=== PATIENT | female | born 1965 ===

== ENCOUNTER 2020-09-16 07:10 | Outpatient (REF) | payer OTHER, SELFPAY ==
[2020-09-16 11:26] LABS: Glucose Urine UA NEG (NEG); Leukocyte Esterase Urine NEG (NEG); Nitrite Urine NEG (NEG); Specific Gravity - Urine >= 1.030 (1.005-1.025); Urine Blood NEG (NEG); Urine Ketones NEG (NEG); Urine Protein TRACE MG/DL (NEG-TRACE)
[2020-09-16 11:28] LABS: Hematocrit 44.1 % (37-47); Hemoglobin 14.1 g/dl (12.0-16.0); Mean Corpuscular Hemoglobin 29.1 pg (27.0-33.0); Mean Corpuscular Volume 90.9 fL (80-98); Mean Platelet Volume 11.1 fL (9.4-12.3); Platelet Count 208 X10*3/uL (160-400); Red Blood Count 4.85 X10*6/uL (4.20-5.50); Red Cell Distribution Width 11.9 % (11.0-16.0); White Blood Count 6.3 X10*3/uL (4.8-10.8)
[2020-09-16 11:29] LABS: Appearance Urine TURBID; Color Urine YELLOW
[2020-09-16 11:50] LABS: Alanine Aminotransferase 28 U/L (0-31); Albumin Level 4.2 g/dL (3.5-5.0); Alkaline Phosphatase 65 U/L (39-117); Anion Gap 12 (12-20); Aspartate Amino Transferase 24 U/L (5-31); Bilirubin Total 0.9 mg/dL (0.0-1.0); Blood Urea Nitrogen 17 mg/dL (9-16); Calcium 8.8 mg/dL (8.4-10.2); Carbon Dioxide 30 mmol/L (22-29); Chloride 103 mmol/L (96-108); Cholesterol 227 mg/dL; Estimated Glomerular Filt Rate > 60; Glucose Fasting 91 mg/dL (60-99); HDL Cholesterol 49 mg/dL; LDL Cholesterol Calculated 134 mg/dl; Potassium 4.2 mmol/l (3.3-5.1); Sodium 141 mmol/L (135-145); Total Protein 6.3 g/dL (6.5-8.0); Triglycerides 222 mg/dL
[2020-09-16 12:01] LABS: Thyroid Stimulating Hormone 1.96 mIU/mL (0.32-4.0)
== END 2020-09-16 07:11 | disposition home or self-care (01) ==
LOC: HO.HMGCLDS 07:10
PROVIDERS: PCP Internal Medicine; Visit Provider Internal Medicine
DX: Z01.419 Encounter for gynecological examination (general) (routine) without abnormal findings (principal); Z87.891 Personal history of nicotine dependence
CPT/HCPCS: 36415; 80053; 80061; 81003; 84443; 85027

== ENCOUNTER 2020-10-22 16:10 | Outpatient (REF) | payer OTHER, SELFPAY | END 2020-10-22 16:11 | disposition home or self-care (01) | LOC: HO.LAB 16:10 | PROVIDERS: Visit Provider Hospitalist | DX: Z20.828 Contact with and (suspected) exposure to other viral communicable diseases (principal) | CPT/HCPCS: U0003 ==

== ENCOUNTER 2020-12-20 12:44 | Outpatient (REF) | payer OTHER, SELFPAY ==
[2020-12-20 14:42] LABS: TSH reflex Free T4 0.74 uIU/mL (0.32-4.0)
== END 2020-12-20 12:45 | disposition home or self-care (01) ==
LOC: HO.HMGCLDS 12:44
PROVIDERS: PCP Internal Medicine; Visit Provider Internal Medicine
DX: L65.9 Nonscarring hair loss, unspecified (principal)
CPT/HCPCS: 36415; 84443

== ENCOUNTER → 2021-01-28 07:53 | Outpatient (BNVA) | payer OTHER, SELFPAY | PROVIDERS: PCP Internal Medicine; Visit Provider Nurse Practitioner Gerontology ==

== ENCOUNTER 2021-01-31 16:02 | Outpatient (REF) | payer OTHER, SELFPAY ==
--- NOTE | ~2021-01-31 | XR_ITS ---
EXAMINATION: XR HAND, RIGHT CLINICAL INFORMATION: Pain right hand. COMPARISON: None. TECHNIQUE: PA, lateral, and oblique views of the right hand. FINDINGS: There is minimal loss of PIP and DIP joint space of all digits. No bony erosive changes seen. No fracture or dislocation. The soft tissues are normal. XR/XR hand RT min 3V IMPRESSION: Loss of PIP and DIP joint space all digits, likely early degenerative arthritic changes.
== END 2021-01-31 16:03 | disposition home or self-care (01) ==
LOC: HO.HMGCX 16:02
PROVIDERS: PCP Internal Medicine; Visit Provider Internal Medicine
DX: M79.641 Pain in right hand (principal)
CPT/HCPCS: 73130

== ENCOUNTER 2021-02-01 06:57 | Outpatient (REF) | payer OTHER, SELFPAY ==
[2021-02-01 08:09] LABS: Thyroid Stimulating Hormone 2.27 uIU/mL (0.32-4.0)
[2021-02-02 16:57] LABS: Adrenocorticotropic Hormone 32 pg/mL (6-50)
[2021-02-02 18:32] LABS: DHEA Sulfate 55 mcg/dL (8-188); Sex Hormone Binding Globulin 54 nmol/L (14-73)
[2021-02-05 15:52] LABS: Androstenedione 55 ng/dL
[2021-02-05 16:37] LABS: Testosterone, Free 2.2 pg/mL (0.1-6.4); Testosterone, Total 21 ng/dL (2-45)
== END 2021-02-01 06:58 | disposition home or self-care (01) ==
LOC: HO.LAB 06:57
PROVIDERS: PCP Internal Medicine; Visit Provider Nurse Practitioner Gerontology
DX: L65.9 Nonscarring hair loss, unspecified (principal); E03.9 Hypothyroidism, unspecified
CPT/HCPCS: 36415; 82024; 82157; 82533; 82627; 84146; 84270; 84402; 84403; 84439; 84443

== ENCOUNTER → 2021-02-18 13:54 | Outpatient (BNVA) | payer OTHER, SELFPAY | PROVIDERS: PCP Internal Medicine; Visit Provider Internal Medicine ==

== ENCOUNTER 2021-02-22 07:27 | Outpatient (REF) | payer OTHER, SELFPAY ==
[2021-02-23 08:57] LABS: Thyroglobulin Antibodies <1 IU/mL (< or = 1); Thyroid Peroxidase Antibodies <1 IU/mL (<9)
[2021-02-23 17:02] LABS: Adrenocorticotropic Hormone <5 pg/mL (6-50)
[2021-03-02 12:22] LABS: Dexamethasone 367 ng/dL
== END 2021-02-22 07:28 | disposition home or self-care (01) ==
LOC: HO.LAB 07:27
PROVIDERS: PCP Internal Medicine; Visit Provider Internal Medicine
DX: E66.09 Other obesity due to excess calories (principal); E03.9 Hypothyroidism, unspecified; R79.89 Other specified abnormal findings of blood chemistry; Z87.891 Personal history of nicotine dependence
CPT/HCPCS: 36415; 80299; 82024; 82533; 86376; 86800; 97802

== ENCOUNTER 2021-03-14 13:06 | Outpatient (REF) | payer OTHER, SELFPAY ==
--- NOTE | ~2021-03-14 | US_ITS ---
EXAMINATION: US THYROID CLINICAL INFORMATION: Hypothyroidism, unspecified. COMPARISON: Thyroid ultrasound 06/11/2017, ultrasound soft tissue neck 07/04/2017. TECHNIQUE: Linear transducer grayscale and color Doppler examination with attention to the region of the thyroid. FINDINGS: SIZE: Measurements of the thyroid lobes and nodules are given in sagittal, anteroposterior and transverse dimensions respectively. Right Thyroid Lobe: 4.3 x 1.4 x 1.2 cm, volume 3.8 mL. Previously 4.1 x 1.3 x 1.2 cm, volume 3.1 mL. Parenchyma: The gland echotexture is heterogeneous. Thyroid vascularity is normal. Left Thyroid Lobe: 4.2 x 1.1 x 1.0 cm, volume 2.4 mL. Previously 3.6 x 0.9 x 1.0 cm, volume 1.8 mL. Parenchyma: The gland echotexture is heterogeneous. Thyroid vascularity is normal. Isthmus: 0.3 cm in maximum AP dimension. Previously 0.3 cm. No focal thyroid nodule is seen. NODES: No lymphadenopathy is seen in the tissue surrounding the thyroid gland. US/US thyroid IMPRESSION: 1. Small heterogeneous thyroid without focal nodule. 2. No adenopathy in the adjacent soft tissues.
== END 2021-03-14 13:07 | disposition home or self-care (01) ==
LOC: HO.HMGCX 13:06
PROVIDERS: PCP Internal Medicine; Visit Provider Internal Medicine
DX: E03.9 Hypothyroidism, unspecified (principal)
CPT/HCPCS: 76536

== ENCOUNTER → 2021-03-22 11:28 | Outpatient (BNVA) | payer OTHER, SELFPAY | PROVIDERS: PCP Internal Medicine; Visit Provider Dietitian, Registered | DX: E66.09 Other obesity due to excess calories (principal); Z68.30 Body mass index [BMI] 30.0-30.9, adult | CPT/HCPCS: 97803 ==

== ENCOUNTER → 2021-03-28 07:37 | Outpatient (BNVA) | payer OTHER, SELFPAY | PROVIDERS: PCP Internal Medicine; Visit Provider Internal Medicine ==

== ENCOUNTER 2021-04-25 15:36 | Outpatient (REF) | payer OTHER, SELFPAY ==
--- NOTE | ~2021-04-25 | MM_ITS ---
EXAMINATION: MM SCREENING DIGITAL BREAST TOMOSYNTHESIS, BILATERAL CLINICAL INFORMATION: Screening. Asymptomatic. The lifetime risk of breast cancer based on the Tyrer-Cuzick Model is 7%. COMPARISON: Mammography: 10/28/2019, 09/16/2018, 02/05/2017, 08/02/2015, 04/20/2014 TECHNIQUE: Digital breast tomosynthesis is performed in both the craniocaudal and mediolateral oblique views along with computer-aided detection (CAD). Synthesized 2D images are generated from the tomosynthesis. FINDINGS: The breasts are heterogeneously dense, which may obscure small masses (ACR BI-RADS breast composition Category c). There are no significant masses, abnormal calcifications, or other abnormalities. Parenchymal pattern is similar to prior studies. There is no developing density or interval mass. No architectural abnormality. No abnormal calcifications. The axilla and skin contours are unremarkable. MM/MM tomosynthesis screening BI IMPRESSION: No significant changes from prior studies. ASSESSMENT: BI-RADS 2: Benign RECOMMENDATION: Routine annual mammography screening. This patient's information was entered into a reminder system with a target due date for their next mammogram.
== END 2021-04-25 15:37 | disposition home or self-care (01) ==
LOC: HO.MAMMO 15:36
PROVIDERS: PCP Internal Medicine; Visit Provider Internal Medicine
DX: Z12.31 Encounter for screening mammogram for malignant neoplasm of breast (principal)
CPT/HCPCS: 77063; 77067

== ENCOUNTER → 2021-05-30 13:06 | Outpatient (BNVA) | payer OTHER, SELFPAY | PROVIDERS: PCP Internal Medicine; Visit Provider Dietitian, Registered | DX: E66.09 Other obesity due to excess calories (principal); Z68.31 Body mass index [BMI] 31.0-31.9, adult | CPT/HCPCS: 97803 ==

== ENCOUNTER 2021-06-28 06:39 | Outpatient (REF) | payer OTHER, SELFPAY ==
[2021-06-28 11:23] LABS: Glucose Urine UA NEG (NEG); Leukocyte Esterase Urine NEG (NEG); Nitrite Urine NEG (NEG); PH 5.5 (5.0-8.0); Specific Gravity - Urine >= 1.030 (1.005-1.025); Urine Blood TRACE (NEG); Urine Ketones NEG (NEG); Urine Protein NEG (NEG-TRACE)
[2021-06-28 11:26] LABS: Appearance Urine CLOUDY; Color Urine YELLOW
[2021-06-28 11:32] LABS: Hematocrit 43.4 % (37-47); Mean Corpuscular HGB Conc 32.3 g/dl (31.0-35.0); Mean Corpuscular Hemoglobin 29.3 pg (27.0-33.0); Mean Corpuscular Volume 90.8 fL (80-98); Mean Platelet Volume 11.2 fL (9.4-12.3); Platelet Count 184 X10*3/uL (160-400); Red Blood Count 4.78 X10*6/uL (4.20-5.50); Red Cell Distribution Width 12.7 % (11.0-16.0); White Blood Count 5.9 X10*3/uL (4.8-10.8)
[2021-06-28 11:38] LABS: Amorphous Sediment Urine 3+ /LPF; Mucus Urine 3+ /LPF; Squamous Epithelial Cell Urine 1+ /LPF; WBC Urine 0 /HPF (0-4)
[2021-06-28 11:52] LABS: Alanine Aminotransferase 39 U/L (0-31); Albumin Level 3.9 g/dL (3.5-5.0); Alkaline Phosphatase 69 U/L (39-117); Anion Gap 12 (12-20); Aspartate Amino Transferase 26 U/L (5-31); Bilirubin Total 0.2 mg/dL (0.0-1.0); Blood Urea Nitrogen 21 mg/dL (9-16); Calcium 9.2 mg/dL (8.4-10.2); Carbon Dioxide 27 mmol/L (22-29); Chloride 107 mmol/L (96-108); Cholesterol 229 mg/dL; Estimated Glomerular Filt Rate 57; Glucose Fasting 100 mg/dL (60-99); HDL Cholesterol 51 mg/dL; LDL Cholesterol Calculated 145 mg/dl; Potassium 4.4 mmol/L (3.3-5.1); Sodium 142 mmol/L (135-145); Triglycerides 167 mg/dL
[2021-06-28 12:17] LABS: Ferritin 47 ng/mL (10-250); Vitamin D 25-OH Total 65.3 ng/mL (>30)
[2021-06-28 12:22] LABS: Folate 17.2 ng/mL (> or = 4.0); Vitamin B12 354 pg/mL (200-900)
[2021-07-04 05:18] LABS: Vitamin D 25-OH, D2 <4 ng/mL; Vitamin D 25-OH, D3 61 ng/mL; Vitamin D 25-OH, Total 61 ng/mL (30-100)
== END 2021-06-28 06:40 | disposition home or self-care (01) ==
LOC: HO.HMGCLDS 06:39
PROVIDERS: PCP Internal Medicine; Visit Provider Dermatology
DX: L64.8 Other androgenic alopecia (principal); L65.0 Telogen effluvium; E03.9 Hypothyroidism, unspecified; E55.9 Vitamin D deficiency, unspecified; I10 Essential (primary) hypertension
CPT/HCPCS: 36415; 80053; 80061; 81001; 82306; 82607; 82728; 82746; 85027

== ENCOUNTER → 2021-09-19 08:20 | Outpatient (BNVA) | payer OTHER, SELFPAY | PROVIDERS: PCP Internal Medicine; Visit Provider Advanced Practice Midwife ==

== ENCOUNTER 2021-10-04 12:41 | Outpatient (REF) | payer OTHER, SELFPAY ==
[2021-10-04 14:15] LABS: Alanine Aminotransferase 31 U/L (0-31); Albumin Level 4.1 g/dL (3.5-5.0); Alkaline Phosphatase 75 U/L (39-117); Anion Gap 10 (12-20); Aspartate Amino Transferase 23 U/L (5-31); Bilirubin Total 0.5 mg/dL (0.0-1.0); Blood Urea Nitrogen 16 mg/dL (9-16); Calcium 9.1 mg/dL (8.4-10.2); Carbon Dioxide 27 mmol/L (22-29); Chloride 104 mmol/L (96-108); Cholesterol 222 mg/dL; Estimated Glomerular Filt Rate > 60; Glucose Fasting 123 mg/dL (60-99); HDL Cholesterol 52 mg/dL; LDL Cholesterol Calculated 138 mg/dl; Potassium 4.3 mmol/L (3.3-5.1); Sodium 137 mmol/L (135-145); Total Protein 6.1 g/dL (6.5-8.0); Triglycerides 163 mg/dL
[2021-10-04 14:16] LABS: Appearance Urine CLEAR; Color Urine YELLOW; Glucose Urine UA NEG (NEG); Leukocyte Esterase Urine NEG (NEG); Nitrite Urine NEG (NEG); Specific Gravity - Urine 1.015 (1.005-1.025); Urine Blood NEG (NEG); Urine Ketones NEG (NEG); Urine Protein NEG (NEG-TRACE)
[2021-10-04 14:31] LABS: Free T4 (Free Thyroxine) 1.13 ng/dL (0.71-1.85); Thyroid Stimulating Hormone 0.46 uIU/mL (0.32-4.0)
[2021-10-04 14:37] LABS: Vitamin D 25-OH Total 65.2 ng/mL (>30)
[2021-10-04 14:45] LABS: Squamous Epithelial Cell Urine 2+ /LPF
[2021-10-04 14:46] LABS: Bacteria Urine TRACE /LPF; RBC Urine 0 /HPF (0); WBC Urine 0 /HPF (0-4)
== END 2021-10-04 12:42 | disposition home or self-care (01) ==
LOC: HO.LAB 12:41
PROVIDERS: PCP Internal Medicine; Visit Provider Internal Medicine
DX: E03.9 Hypothyroidism, unspecified (principal); E55.9 Vitamin D deficiency, unspecified; I10 Essential (primary) hypertension
CPT/HCPCS: 36415; 80053; 80061; 81001; 82306; 84439; 84443

== ENCOUNTER → 2021-10-05 11:14 | Outpatient (BNVA) | payer OTHER, SELFPAY | PROVIDERS: PCP Internal Medicine; Visit Provider Nurse Practitioner Gerontology ==

== ENCOUNTER → 2021-10-07 11:29 | Outpatient (BNVA) | payer OTHER, SELFPAY | PROVIDERS: PCP Internal Medicine; Visit Provider Advanced Practice Midwife ==

== ENCOUNTER → 2021-12-26 14:11 | Outpatient (BNVA) | payer OTHER, SELFPAY | PROVIDERS: PCP Internal Medicine; Visit Provider Dietitian, Registered | DX: E66.09 Other obesity due to excess calories (principal) | CPT/HCPCS: 97803 ==

== ENCOUNTER 2022-02-09 11:37 | Outpatient (REF) | payer OTHER, SELFPAY ==
[2022-02-09 12:02] LABS: Binax Internal Control QC Valid; Binax Now Covid-19 Ag Negative (Negative)
== END 2022-02-09 11:38 | disposition home or self-care (01) ==
LOC: HO.HMGCLDS 11:37
PROVIDERS: Visit Provider Physician Assistant Medical
DX: Z13.89 Encounter for screening for other disorder (principal)

== ENCOUNTER 2022-03-06 07:29 | Outpatient (REF) | payer OTHER, SELFPAY ==
[2022-03-06 11:39] LABS: Alanine Aminotransferase 32 U/L (0-31); Alkaline Phosphatase 76 U/L (39-117); Anion Gap 11 (12-20); Aspartate Amino Transferase 22 U/L (5-31); Bilirubin Total 0.3 mg/dL (0.0-1.0); Blood Urea Nitrogen 20 mg/dL (9-16); Calcium 9.5 mg/dL (8.4-10.2); Carbon Dioxide 26 mmol/L (22-29); Chloride 107 mmol/L (96-108); Cholesterol 221 mg/dL; Estimated Glomerular Filt Rate > 60; Glucose Fasting 102 mg/dL (60-99); HDL Cholesterol 53 mg/dL; LDL Cholesterol Calculated 133 mg/dl; Potassium 4.3 mmol/L (3.3-5.1); Sodium 140 mmol/L (135-145); Total Protein 6.2 g/dL (6.5-8.0); Triglycerides 175 mg/dL
[2022-03-06 11:56] LABS: Estimated Average Glucose 114 mg/dL; Ferritin 53 ng/mL (10-250); Hemoglobin A1c % 5.6 %; Vitamin D 25-OH Total 62.2 ng/mL (>30)
[2022-03-09 05:17] LABS: Zinc 76 mcg/dL (60-130)
== END 2022-03-06 07:30 | disposition home or self-care (01) ==
LOC: HO.HMGCLDS 07:29
PROVIDERS: PCP Internal Medicine; Visit Provider Dermatology
DX: I10 Essential (primary) hypertension (principal); R73.9 Hyperglycemia, unspecified; L64.8 Other androgenic alopecia; L65.0 Telogen effluvium
CPT/HCPCS: 36415; 80053; 80061; 82306; 82728; 83036; 84630

== ENCOUNTER 2022-06-05 16:14 | Outpatient (REF) | payer OTHER, SELFPAY ==
--- NOTE | ~2022-06-05 | MM_ITS ---
EXAMINATION: MM SCREENING DIGITAL BREAST TOMOSYNTHESIS, BILATERAL CLINICAL INFORMATION: Screening. Asymptomatic. The lifetime risk of breast cancer based on the Tyrer-Cuzick Model is 5%. COMPARISON: Mammography: 04/25/2021, 10/28/2019, 09/16/2018 TECHNIQUE: Digital breast tomosynthesis is performed in both the craniocaudal and mediolateral oblique views along with computer-aided detection (CAD). Synthesized 2D images are generated from the tomosynthesis. Additional exaggerated left CC view is provided. FINDINGS: The breasts are heterogeneously dense, which may obscure small masses (ACR BI-RADS breast composition Category c). There are no significant masses, abnormal calcifications, or other abnormalities. Parenchymal pattern is similar to prior exams. The axilla are unremarkable. Skin contours are smooth. No significant changes. MM/MM tomosynthesis screening BI IMPRESSION: No mammographic evidence of malignancy. ASSESSMENT: BI-RADS 1: Negative RECOMMENDATION: Routine annual mammography screening. This patient's information was entered into a reminder system with a target due date for their next mammogram.
== END 2022-06-05 16:15 | disposition home or self-care (01) ==
LOC: HO.MAMMO 16:14
PROVIDERS: Visit Provider Internal Medicine
DX: Z12.31 Encounter for screening mammogram for malignant neoplasm of breast (principal)
CPT/HCPCS: 77063; 77067

== ENCOUNTER 2022-10-19 06:51 | Outpatient (REF) | payer OTHER, SELFPAY ==
[2022-10-19 11:22] LABS: Hematocrit 44.2 % (37.0-47.0); Hemoglobin 14.4 g/dl (12.0-16.0); Mean Corpuscular HGB Conc 32.6 g/dl (31.0-35.0); Mean Corpuscular Hemoglobin 29.1 pg (27.0-33.0); Mean Corpuscular Volume 89.3 fL (80.0-98.0); Mean Platelet Volume 11.5 fL (9.4-12.3); Platelet Count 190 X10*3/uL (160-400); Red Blood Count 4.95 X10*6/uL (4.20-5.50); Red Cell Distribution Width 12.1 % (11.0-16.0); White Blood Count 5.8 X10*3/uL (4.8-10.8)
[2022-10-19 12:10] LABS: Estimated Average Glucose 114 mg/dL; Hemoglobin A1c % 5.6 %
[2022-10-19 12:19] LABS: Free T4 (Free Thyroxine) 1.04 ng/dL (0.71-1.85)
[2022-10-19 12:34] LABS: Alanine Aminotransferase 34 U/L (0-31); Albumin Level 3.9 g/dL (3.5-5.0); Alkaline Phosphatase 73 U/L (39-117); Anion Gap 9 (12-20); Aspartate Amino Transferase 23 U/L (5-31); Bilirubin Total 0.7 mg/dL (0.0-1.0); Blood Urea Nitrogen 21 mg/dL (9-16); Carbon Dioxide 27 mmol/L (22-29); Chloride 105 mmol/L (96-108); Cholesterol 225 mg/dL; Estimated Glomerular Filt Rate > 60; Glucose Fasting 109 mg/dL (60-99); HDL Cholesterol 44 mg/dL; LDL Cholesterol Calculated 145 mg/dl; Potassium 4.2 mmol/L (3.3-5.1); Sodium 137 mmol/L (135-145); Thyroid Stimulating Hormone 2.04 uIU/mL (0.32-4.0); Total Protein 5.9 g/dL (6.5-8.0); Triglycerides 181 mg/dL
== END 2022-10-19 06:52 | disposition home or self-care (01) ==
LOC: HO.HMGCLDS 06:51
PROVIDERS: Nurse Practitioner Gerontology; PCP Internal Medicine; Visit Provider Internal Medicine
DX: E78.5 Hyperlipidemia, unspecified (principal); I10 Essential (primary) hypertension; R73.9 Hyperglycemia, unspecified; E03.9 Hypothyroidism, unspecified
CPT/HCPCS: 36415; 80053; 80061; 83036; 84439; 84443; 85027

== ENCOUNTER 2022-10-23 14:50 | Outpatient (REF) | payer OTHER, SELFPAY ==
--- NOTE | ~2022-10-23 | XR_ITS ---
EXAMINATION: XR KNEE, LEFT CLINICAL INFORMATION: Pain. COMPARISON: None TECHNIQUE: Four views of the left knee. FINDINGS: There is a small superior patellar enthesophyte. The tricompartment joint space is preserved. No visible acute fracture, dislocation or spurring seen. No abnormal joint effusion. XR/XR knee LT 4V IMPRESSION: Small to moderate size superior patellar enthesophyte. No visible acute fracture, dislocation or subluxation seen.
== END 2022-10-23 14:51 | disposition home or self-care (01) ==
LOC: HO.HMGCX 14:50
PROVIDERS: PCP Internal Medicine; Visit Provider Internal Medicine
DX: M25.562 Pain in left knee (principal)
CPT/HCPCS: 73564

== ENCOUNTER 2022-11-15 11:39 | Outpatient (REF) | payer OTHER, SELFPAY ==
[2022-11-15 12:33] LABS: Influenza A PCR POSITIVE (Negative); Influenza B PCR NEGATIVE (Negative); Resp Syncy Virus RNA Qual PCR NEGATIVE (Negative); SARS COV2 PCR INHOUSE NEGATIVE (Negative)
== END 2022-11-15 11:40 | disposition home or self-care (01) ==
LOC: HO.LNP 11:39
PROVIDERS: Visit Provider Nurse Practitioner Family
DX: Z20.822 Contact with and (suspected) exposure to COVID-19 (principal); R68.89 Other general symptoms and signs
CPT/HCPCS: 0241U

== ENCOUNTER 2023-03-06 05:15 | Emergency (ER) | payer OTHER, SELFPAY ==
[2023-03-06 05:34] VITALS: BP 123/71; BP 130/68; PULSE 58; PULSE 60; RESP 17; RESP 18; TEMP 36.5; TEMP 37.1; O2SAT 96; BMI 30.1
--- NOTE | 2023-03-06 05:48 | PC.NURSE ---
pt a&o, no sob or chest pain, bleeding controlled, dressing applied, plus 2 edma to lower extremely, provider in to assess pt. Please is for pt to follow up with pcp upon discharge and keep dressing applied for next 2 days.
--- NOTE | 2023-03-06 05:53 | ED_ITS ---
HPI - General Adult General Chief complaint: General Medical Stated complaint: left leg vein bleeding Time Seen by Provider: 03/06/23 05:51 Source: patient Mode of arrival: ambulatory Limitations: no limitations History of Present Illness HPI narrative: Patient was healthy went to [facility] where got bitten by sand flieson her lower extremities, earlier today patient was taking shower and started bleedingfrom L leg superficial vein patient denies any scratching or wound at the site of bleeding patient went to [facility] where pressure dressing was appliedand bleeding controlled at this time Related Data Home Medications Medication Instructions Recorded Confirmed clobetasol 0.05 % topical cream 1 applic topical BID 09/16/20 11/15/22 cholecalciferol (vitamin D3) 50 50 mcg PO DAILY 03/28/21 11/15/22 mcg (2,000 unit) tablet estradiol 10 mcg vaginal tablet 10 mcg vaginal 2XW 03/13/22 11/15/22 (Yuvafem) ketoconazole 2 % topical cream appl topical BID PRN 03/13/22 11/15/22 estradiol 0.025 mg/24 hr 1 patch transdermal 2XW 10/23/22 11/15/22 semiweekly transdermal patch progesterone micronized 100 mg 100 mg PO DAILY 10/23/22 11/15/22 capsule Previous Rx's Medication Instructions Recorded conj estrogen-medroxyprogesterone 1 tab PO DAILY #28 tabs 11/25/21 0.3 mg-1.5 mg tablet (Prempro) atenolol 50 mg tablet 50 mg PO DAILY #90 tabs 12/27/21 irbesartan 300 mg tablet 300 mg PO DAILY #90 tabs 04/07/22 levothyroxine 100 mcg tablet 100 mcg PO DAILY #90 tabs 09/29/22 atenolol 25 mg tablet 25 mg PO DAILY #90 tabs 10/23/22 meloxicam 15 mg tablet 15 mg PO DAILY #14 tabs 10/25/22 albuterol sulfate 90 mcg/actuation 2 puff inhalation Q4-6H PRN 11/15/22 aerosol inhaler shortness of breath or wheezing 30 days #8.5 grams benzonatate 100 mg capsule 100 mg PO BID 10 days #20 caps 11/15/22 COVID-19 antigen test #8 ea 01/31/23 ciprofloxacin 0.3 %-dexamethasone 4 drp otic (ears) BID 7 days #7.5 01/31/23 0.1 % ear drops,suspension mL doxycycline hyclate 100 mg capsule 100 mg PO BID 7 days #14 caps 02/27/23 hydrocortisone 1 % lotion 1 appl topical TID PRN skin 02/27/23 (Anti-Itch (hydrocortisone)) irritation #120 mL hydroxyzine HCl 25 mg tablet 25 mg PO BID PRN itching #14 tabs 02/27/23 prednisone 20 mg tablet 40 mg PO DAILY 5 days #10 tabs 02/27/23 Allergies Allergy/AdvReac Type Severity Reaction Status Date / Time lisinopril [LISINOPRIL] Allergy Severe COUGH Verified 02/27/23 12:04 telithromycin [From KETEK] Allergy Intermediate BLURRED Verified 02/27/23 12:04 VISION latex [LATEX] Allergy Mild RASH Verified 02/27/23 12:04 celecoxib [Celebrex] Allergy Unknown rash Verified 02/27/23 12:04 penicillamine [PENICILLAMINE] Allergy Unknown UNKNOWN Verified 02/27/23 12:04 valsartan [Diovan] Allergy Unknown Unknown Verified 02/27/23 12:04 Sulfa (Sulfonamide Allergy hives, Verified 02/27/23 12:04 Antibiotics) throat constriction cortisone injection Allergy Unknown caused Uncoded 02/27/23 12:04 menstration Review of Systems Review of Systems: Yes all other systems are reviewed and are negative PMFSH Past Medical History Medical History Annual physical exam Chronic pain of right thumb Elevated cortisol level Hair loss Hand pain, right HTN (hypertension) Hyperglycemia Hyperlipidemia Hypothyroidism Incontinence Obesity due to excess calories Right otitis media Vitamin D deficiency Surgical History History of ankle surgery History of uvulectomy Hx of section Hx of knee surgery Hx of myringotomy Family History Family History Father No problems noted. Mother No problems noted. Family/Other History of breast cancer Social History Social History Household Members: None Housing: House Alcohol intake: current Alcohol intake frequency: holidays/special occasions only Patient Tobacco Use Status: Former Tobacco user Tobacco use type: Cigarette Years Smoked: 15 years ago e-Cigarette/Vaping Use: Never Used Second Hand Smoke Exposure: No Advance Directives: No Advance Directives Information Provided: Yes service: No Current occupational status: employed Sexual orientation: Straight/Heterosexual Gender identity: Female Cognitive needs: No Hearing needs: No Vision needs: Yes Physical Exam ED Vital Signs: Vital Signs - 24 hr 03/06/23 05:34 03/06/23 05:34 Temperature 98.7 F 97.7 F Pulse Rate 58 60 Respiratory Rate 18 17 Blood Pressure 123/71 130/68 Pulse Oximetry 96 96 Oxygen Delivery Method Room Air BMI result Body Mass Index 30.1 Appearance: Alert. Oriented X3. No acute distress. ENT: Pharynx normal. Oral Mucosa moist Neck: Normal inspection. Neck supple. CVS: Normal heart rate and rhythm. Pulses normal. Respiratory: No respiratory distress. Equal air entry bilateral, Abdomen: Soft and nontender. Bowel sounds are present, Skin: Skin warm and dry. Normal skin color. Normal skin turgor. Extremities: No lower extremity edema. No calf tenderness superficial varicose veins no active bleeding at this time Neuro: Oriented X 3. No motor deficit. Extrem Ankle/foot/toe images: 1. Superficial varicose vein with no active bleeding at this time slight puncture wound no surrounding inflammation or swelling Medical Decision Making Medical Decision Making MDM Narrative: Patient with minor superficial varicose vein bleed stop office own after pressure dressing Surgicel dressing was applied to avoid future bleeding in case when patient goes home. Discharge patient home Discharge Plan Discharge Clinical Impression: Bleeding from varicose veins of left lower extremity Patient Disposition: Home, Self-Care Instructions: Venous Insufficiency (DC) Additional Instructions: Local care as advised Do not stand for long time as it may increase the pressure in the varicose vein and may lead to bleed Follow-up with PCP Prescriptions: No Action Prempro 0.3-1.5 mg tablet 1 tab PO DAILY Qty: 28 8RF atenolol 50 mg tablet 50 mg PO DAILY Qty: 90 3RF irbesartan 300 mg tablet 300 mg PO DAILY Qty: 90 3RF levothyroxine 100 mcg tablet 100 mcg PO DAILY Qty: 90 5RF ciprofloxacin-dexamethasone 0.3-0.1 % drops,suspension 4 drp otic (ears) BID 7 Days Qty: 7.5 0RF (DME) COVID-19 antigen test Kit See Rx Instructions .Route Qty: 8 1RF Rx Instructions: As directed for COVID symptoms ketoconazole 2 % cream topical BID PRN estradiol [Yuvafem] 10 mcg tablet 10 mcg vaginal 2XW estradiol 0.025 mg/24 hr patch semiweekly 1 patch transdermal 2XW progesterone micronized 100 mg capsule 100 mg PO DAILY atenolol 25 mg tablet 25 mg PO DAILY Qty: 90 3RF benzonatate 100 mg capsule 100 mg PO BID 10 Days Qty: 20 1RF albuterol sulfate 90 mcg/actuation HFA aerosol inhaler 2 puff inhalation Q4-6H PRN (Reason: shortness of breath or wheezing) 30 Days Qty: 8.5 0RF prednisone 20 mg tablet 40 mg PO DAILY 5 Days Qty: 10 0RF doxycycline hyclate 100 mg capsule 100 mg PO BID 7 Days Qty: 14 0RF hydrocortisone [Anti-Itch (HC)] 1 % lotion 1 appl topical TID PRN (Reason: skin irritation) Qty: 120 0RF hydroxyzine HCl 25 mg tablet 25 mg PO BID PRN (Reason: itching) Qty: 14 0RF meloxicam 15 mg tablet 15 mg PO DAILY Qty: 14 0RF clobetasol 0.05 % cream 1 applic topical BID cholecalciferol (vitamin D3) 50 mcg (2,000 unit) tablet 50 mcg PO DAILY
--- NOTE | 2023-03-06 05:57 | MHC.EDTECH ---
Vitals are stable Patient is Alert and oriented
== END 2023-03-06 06:07 | disposition home or self-care (01) ==
PROVIDERS: Emergency Provider Internal Medicine
DX: I83.892 Varicose veins of left lower extremity with other complications (principal)
CPT/HCPCS: 99282

== ENCOUNTER 2023-03-08 14:32 | Outpatient (REF) | payer OTHER, SELFPAY ==
--- NOTE | ~2023-03-08 | US_ITS ---
EXAMINATION: US VENOUS ULTRASOUND WITH DOPPLER LOWER EXTREMITY, LEFT CLINICAL INFORMATION: Left lower extremity swelling COMPARISON: Venous Doppler ultrasound exam 05/18/2017 right lower extremity. TECHNIQUE: Ultrasound of the deep veins is performed from the hip to the calf with compression sonography and color and pulse Doppler assessment. Spectral analysis with color-flow imaging is performed. FINDINGS: There is normal venous compression and respiratory variation and augmented flow. The visualized common femoral vein, superficial femoral vein, profunda femoral vein, popliteal vein, and the trifurcation region shows no evidence of deep venous thrombosis. Popliteal cyst at the posterior medial side of the knee measuring 3.7 x 0.6 x 1.3 cm If the patient's symptoms persist, followup ultrasound in 5 days 7 days might be of value to exclude proximal propagation from a non-visualized calf vein. US/US venous duplex LE IMPRESSION: No DVT demonstrated in the left lower extremity.
== END 2023-03-08 14:33 | disposition home or self-care (01) ==
LOC: HO.HMGCX 14:32
PROVIDERS: Visit Provider Internal Medicine
DX: M79.605 Pain in left leg (principal); I83.899 Varicose veins of unspecified lower extremity with other complications; M79.89 Other specified soft tissue disorders
CPT/HCPCS: 93971

== ENCOUNTER 2023-03-29 08:49 | Outpatient (REF) | payer OTHER, SELFPAY ==
--- NOTE | ~2023-03-29 | XR_ITS ---
X-RAY RIGHT KNEE X-RAY LEFT KNEE CLINICAL HISTORY: Pain. COMPARISON: Radiograph of the left knee 10/23/2022. TECHNIQUE: 4 views of each knee. FINDINGS: Right knee: No acute fracture or subluxation. Moderate joint space narrowing, subcortical sclerosis and bony productive changes of the medial and patellofemoral compartments. Superior and inferior patellar enthesophytes. No erosions or chondrocalcinosis. Small joint effusion. Left knee: No acute fracture or subluxation. Mild joint space narrowing of the medial compartment. Superior patellar enthesophyte. No erosions or chondrocalcinosis. No joint effusion. XR/XR knee RT 4V IMPRESSION: 1. No acute fracture or subluxation. 2. Moderate degenerative osteoarthritis of the right knee and mild degenerative changes of the left knee. 3. Small right knee effusion.
--- NOTE | ~2023-03-29 | XR_ITS ---
X-RAY RIGHT KNEE X-RAY LEFT KNEE CLINICAL HISTORY: Pain. COMPARISON: Radiograph of the left knee 10/23/2022. TECHNIQUE: 4 views of each knee. FINDINGS: Right knee: No acute fracture or subluxation. Moderate joint space narrowing, subcortical sclerosis and bony productive changes of the medial and patellofemoral compartments. Superior and inferior patellar enthesophytes. No erosions or chondrocalcinosis. Small joint effusion. Left knee: No acute fracture or subluxation. Mild joint space narrowing of the medial compartment. Superior patellar enthesophyte. No erosions or chondrocalcinosis. No joint effusion. XR/XR knee LT 4V IMPRESSION: 1. No acute fracture or subluxation. 2. Moderate degenerative osteoarthritis of the right knee and mild degenerative changes of the left knee. 3. Small right knee effusion.
== END 2023-03-29 08:50 | disposition home or self-care (01) ==
LOC: HO.HMGCX 08:49
PROVIDERS: PCP Internal Medicine; Visit Provider Internal Medicine
DX: S89.91XD Unspecified injury of right lower leg, subsequent encounter (principal); M25.562 Pain in left knee
CPT/HCPCS: 73564

== ENCOUNTER 2023-04-19 06:57 | Outpatient (REF) | payer OTHER, SELFPAY ==
[2023-04-19 11:31] LABS: Estimated Average Glucose 114 mg/dL; Hemoglobin A1c % 5.6 %
[2023-04-19 11:49] LABS: Alanine Aminotransferase 20 U/L (0-31); Albumin Level 3.8 g/dL (3.5-5.0); Alkaline Phosphatase 72 U/L (39-117); Anion Gap 11 (12-20); Aspartate Amino Transferase 19 U/L (5-31); Bilirubin Total 0.8 mg/dL (0.0-1.0); Blood Urea Nitrogen 18 mg/dL (9-16); Calcium 9.1 mg/dL (8.4-10.2); Carbon Dioxide 26 mmol/L (22-29); Chloride 107 mmol/L (96-108); Cholesterol 242 mg/dL; Estimated Glomerular Filt Rate > 60; Glucose Fasting 107 mg/dL (60-99); HDL Cholesterol 43 mg/dL; LDL Cholesterol Calculated 159 mg/dl; Potassium 4.4 mmol/L (3.3-5.1); Sodium 140 mmol/L (135-145); TSH reflex Free T4 1.74 uIU/mL (0.32-4.0); Total Protein 5.9 g/dL (6.5-8.0); Triglycerides 202 mg/dL
== END 2023-04-19 06:58 | disposition home or self-care (01) ==
LOC: HO.HMGCLDS 06:57
PROVIDERS: PCP Internal Medicine; Visit Provider Internal Medicine
DX: E03.9 Hypothyroidism, unspecified (principal); E78.5 Hyperlipidemia, unspecified; I10 Essential (primary) hypertension
CPT/HCPCS: 36415; 80053; 80061; 83036; 84443

== ENCOUNTER 2023-05-31 09:17 | Outpatient (REF) | payer OTHER, SELFPAY | END 2023-05-31 09:18 | disposition home or self-care (01) | LOC: HO.HAP 09:17 | PROVIDERS: Visit Provider Internal Medicine | DX: Z46.1 Encounter for fitting and adjustment of hearing aid (principal) | CPT/HCPCS: V5264 ==

== ENCOUNTER 2023-07-06 07:12 | Outpatient (REF) | payer OTHER, SELFPAY ==
[2023-07-06 11:59] LABS: Alanine Aminotransferase 40 U/L (0-31); Albumin Level 3.9 g/dL (3.5-5.0); Alkaline Phosphatase 66 U/L (39-117); Anion Gap 13 (12-20); Aspartate Amino Transferase 29 U/L (5-31); Bilirubin Total 0.5 mg/dL (0.0-1.0); Blood Urea Nitrogen 22 mg/dL (9-16); Calcium 9.2 mg/dL (8.4-10.2); Carbon Dioxide 25 mmol/L (22-29); Chloride 109 mmol/L (96-108); Cholesterol 168 mg/dL; Estimated Glomerular Filt Rate > 60; Glucose Fasting 97 mg/dL (60-99); HDL Cholesterol 48 mg/dL; LDL Cholesterol Calculated 97 mg/dl; Potassium 4.5 mmol/L (3.3-5.1); Sodium 142 mmol/L (135-145); Total Protein 6.2 g/dL (6.5-8.0); Triglycerides 118 mg/dL
== END 2023-07-06 07:13 | disposition home or self-care (01) ==
LOC: HO.HMGCLDS 07:12
PROVIDERS: PCP Internal Medicine; Visit Provider Internal Medicine
DX: Z00.00 Encounter for general adult medical examination without abnormal findings (principal); E78.5 Hyperlipidemia, unspecified
CPT/HCPCS: 36415; 80053; 80061

== ENCOUNTER 2023-07-24 09:23 | Outpatient (REF) | payer SELFPAY ==
--- NOTE | 2023-07-24 11:32 | MHC.AU.HA3 ---
Hearing Instrument Follow-Up- Binaural Date of Visit: 07/24/23 Follow-Up Summary: Fit new custom swim molds. Discussed uses (i.e., surface swimming, showering/bathing, not diving or deep water swimming). Practiced insertion - Some difficulty inserting helix portion of mold but motivated to practice. Once inserted properly, molds reportedly comfortable. Advised on six month warranty and to call as soon as possible if issues with fit or comfort arise. Recommendations: Please contact our clinic with any questions or concerns. Diagnosis Code(s): Primary Diagnosis: H69.93 Unspecified Eustachian Tube Dysfunction, Bilateral Signature: Provider: Denisha Pascual, [facility]
== END 2023-07-24 09:24 | disposition home or self-care (01) ==
LOC: HO.HAP 09:23
PROVIDERS: Visit Provider Internal Medicine
DX: Z13.89 Encounter for screening for other disorder (principal)

== ENCOUNTER 2023-08-13 13:29 | Outpatient (REF) | payer OTHER, SELFPAY | END 2023-08-13 13:30 | disposition home or self-care (01) | LOC: HO.MAMMO 13:29 | PROVIDERS: PCP Internal Medicine; Visit Provider Internal Medicine | DX: Z12.31 Encounter for screening mammogram for malignant neoplasm of breast (principal) | CPT/HCPCS: 77063; 77067 ==

== ENCOUNTER → 2023-08-13 13:30 | Outpatient (BNV) | payer OTHER, SELFPAY | PROVIDERS: PCP Internal Medicine; Visit Provider Radiology Diagnostic Radiology | DX: Z12.31 Encounter for screening mammogram for malignant neoplasm of breast (principal) | CPT/HCPCS: 77063; 77067 ==

== ENCOUNTER 2023-08-14 12:05 | Outpatient (AMB) | payer OTHER, SELFPAY ==
--- NOTE | 2023-08-14 12:06 | MHC.PC.OV ---
Vital Signs 08/14/23 12:07 Height 5 ft 3 in BMI Reason not done Patient refused/unable BP 130/84 Blood Pressure Location Lt brachial Position Sitting Pulse 71 Pulse Source Pulse Oximeter Pulse Oximetry (%) 99 Oxygen Delivery Method Room Air Intake Visit Reasons: Followup lab results and chronic cough Allergies lisinopril [LISINOPRIL] Allergy (Severe, Verified 08/14/23 12:09) COUGH telithromycin [From KETEK] Allergy (Intermediate, Verified 08/14/23 12:09) BLURRED VISION latex [LATEX] Allergy (Mild, Verified 08/14/23 12:09) RASH celecoxib [Celebrex] Allergy (Unknown, Verified 08/14/23 12:09) rash penicillamine [PENICILLAMINE] Allergy (Unknown, Verified 08/14/23 12:09) UNKNOWN valsartan [Diovan] Allergy (Unknown, Verified 08/14/23 12:09) Unknown Sulfa (Sulfonamide Antibiotics) Allergy (Verified 08/14/23 12:09) hives, throat constriction cortisone injection Allergy (Unknown, Uncoded 08/14/23 12:09) caused menstration Medication List - Last Reconciled 08/14/23 by Shira Garcia MD cholecalciferol (vitamin D3) 50 mcg PO DAILY diclofenac sodium 75 mg PO BID estradiol 1 patch transdermal 2XW irbesartan 300 mg PO DAILY levothyroxine 100 mcg PO DAILY pravastatin 20 mg PO DAILY progesterone micronized 100 mg PO DAILY Tobacco use date assessed: 08/14/23 Dental Screening Dental Screen Date: 08/14/23 Did you have a dental visit in the last 12 months?: Yes Did you have a dental problem in the last 6 months where you did not have access to dental care?: No Was dental information given to patient?: Patient has dentist HPI Followup lab results and chronic cough HPI Details Pt presents for HTN, hyperlipid, stable on meds. Pt has been taking Naproxen regularly for advanced OA and f/u with ortho. Patient will see vascular surgeon for evaluation of lower extremities venous insufficiency. [facility]LY [facility] Medical History Right otitis media Hyperlipidemia Annual physical exam Hyperglycemia Chronic pain of right thumb Vitamin D deficiency Elevated cortisol level Obesity due to excess calories Hand pain, right Hypothyroidism Hair loss Incontinence HTN (hypertension) Surgical History History of uvulectomy Hx of myringotomy Hx of section History of ankle surgery Hx of knee surgery Family History Father No problems noted. Mother No problems noted. Family/Other History of breast cancer Social History Household Members: None Housing: House Alcohol intake: current Alcohol intake frequency: holidays/special occasions only Patient Tobacco Use Status: Former Tobacco user Tobacco use type: Cigarette Years Smoked: 15 years ago e-Cigarette/Vaping Use: Never Used Second Hand Smoke Exposure: No service: No Current occupational status: employed Sexual orientation: Straight/Heterosexual Gender identity: Female Cognitive needs: No Hearing needs: No Vision needs: Yes Female Reproductive History Menstrual Age of Menarche: 9 Questionnaire Thrive Questionnaire Date Thrive assessed: 03/08/23 DUY-7 AMB Questionnaire DUY-7 Date DUY - 7 assessed: 03/08/23 Source: Developed by Drs. Jose Enrique Rubi, Vielka Reddy, Natalio De and colleagues, with an educational lena from [employer]. Review of Systems Const All systems reviewed & are unremarkable except as noted in HPI and below Reports no additional complaints Eyes Reports no additional complaints ENT Reports no additional complaints Card Reports no additional complaints Resp Reports no additional complaints GI Reports no additional complaints Reports no additional complaints Physical exam (Primary Care) Vital Signs: Last Vital Signs Pulse 71 08/14/23 12:07 BP 130/84 08/14/23 12:07 Pulse Ox 99 08/14/23 12:07 Oxygen Delivery Method Room Air 08/14/23 12:07 Tobacco/Smoking Status: Tobacco use Status Tobacco use date assessed 08/14/23 08/14/23 12:12 Patient Tobacco Use Status Former Tobacco user 08/14/23 12:12 Tobacco use type Cigarette 08/14/23 12:12 e-Cigarette/Vaping Use Never Used 08/14/23 12:12 Thrive Assessment: Date of Thrive Assessment Date Thrive assessed 03/08/23 08/14/23 12:12 Const General: no acute distress HENMT Head: Yes normal to inspection Ears: hearing grossly normal bilaterally Face and sinus: Yes normal facial exam Throat: Yes posterior oropharynx normal Resp Effort & Inspection: normal respiratory effort Auscultation: clear to auscultation bilaterally Cardio Rhythm: regular rhythm Heart sounds: S1 normal heart sound present and S2 normal heart sound present GI Inspection: Yes normal to inspection Palpation (GI): Soft to palpation Assessment and Plan Assessment & Plan (1) Hyperlipidemia: Code(s): E78.5 - Hyperlipidemia, unspecified Plan: Continue statin, patient will try half a tablet because of arthralgia (2) Hyperglycemia: Code(s): R73.9 - Hyperglycemia, unspecified Plan: Continue ADA diet regular physical activity and weight loss. Check A1c in 6 months (3) Hypothyroidism: Code(s): E03.9 - Hypothyroidism, unspecified Qualifiers: Hypothyroidism type: unspecified Qualified Code(s): E03.9 - Hypothyroidism, unspecified Plan: Continue levothyroxine (4) HTN (hypertension): Code(s): I10 - Essential (primary) hypertension Plan: Continue Irbesartan Orders: Orders TSH reflex Free T4 6 Months E78.5 - Hyperlipidemia, unspecified, R73.9 - Hyperglycemia, unspecified Hemoglobin A1c 6 Months E78.5 - Hyperlipidemia, unspecified, R73.9 - Hyperglycemia, unspecified Comprehensive [place]. Panel Fast 6 Months E78.5 - Hyperlipidemia, unspecified, R73.9 - Hyperglycemia, unspecified Complete Blood Count Auto Diff 6 Months E78.5 - Hyperlipidemia, unspecified, R73.9 - Hyperglycemia, unspecified Lipid Panel 6 Months E78.5 - Hyperlipidemia, unspecified, R73.9 - Hyperglycemia, unspecified Coding Level of Care Code Est Pt Level 3 (13179) Diagnoses Hyperlipidemia E78.5 Hyperglycemia R73.9 Hypothyroidism, unspecified type E03.9 Hypothyroidism type: unspecified HTN (hypertension) I10
[2023-08-14 12:07] VITALS: BP 130/84; PULSE 71; O2SAT 99
== END 2023-08-14 12:39 | disposition home or self-care (01) ==
PROVIDERS: PCP Internal Medicine; Visit Provider Internal Medicine
DX: E78.5 Hyperlipidemia, unspecified (principal); R73.9 Hyperglycemia, unspecified; E03.9 Hypothyroidism, unspecified; I10 Essential (primary) hypertension
CPT/HCPCS: 99213

== ENCOUNTER 2023-08-15 14:57 | Outpatient (AMB) | payer OTHER, SELFPAY ==
[2023-08-15 15:00] VITALS: BP 118/80; PULSE 80; O2SAT 95; BMI 33.1
--- NOTE | 2023-08-15 15:00 | MHC.OFFVIS ---
Intake Vital Signs 08/15/23 15:00 Height 5 ft 3 in Weight 187 lb 2 oz BMI 33.1 BP 118/80 Blood Pressure Location Rt brachial Position Sitting Pulse 80 Pulse Source Pulse Oximeter Pulse Oximetry (%) 95 Oxygen Delivery Method Room Air Intake Visit Reasons: I-SIEBEL CONSULTANT: Sleep Apnea - Confirmed Intake Note: Pt presents to the office today for a new patient visit for sleep apnea. Pt states she has used a CPAP machine and mouth guard to help with her sleep but she states she has yet to find something that will help her sleep at night without causing other issues. Allergies lisinopril [LISINOPRIL] Allergy (Severe, Verified 08/15/23 15:01) COUGH telithromycin [From KETEK] Allergy (Intermediate, Verified 08/15/23 15:01) BLURRED VISION latex [LATEX] Allergy (Mild, Verified 08/15/23 15:01) RASH celecoxib [Celebrex] Allergy (Unknown, Verified 08/15/23 15:01) rash penicillamine [PENICILLAMINE] Allergy (Unknown, Verified 08/15/23 15:01) UNKNOWN valsartan [Diovan] Allergy (Unknown, Verified 08/15/23 15:01) Unknown Sulfa (Sulfonamide Antibiotics) Allergy (Verified 08/15/23 15:01) hives, throat constriction cortisone injection Allergy (Unknown, Uncoded 08/15/23 15:01) caused menstration HPI HPI Comments History of Present Illness Details 58 y/o female patient presents for new in-person visit to manage sleep apnea. Pt reports that she was diagnosed with CHUCK about 20 years ago. Pt used CPAP but did not tolerated and stopped using CPAP 4 months ago. She had UPPP done and has been using mouth guard. Pt has not have a repeat sleep study and want to check the mouth guard help to treat her sleep apnea. She continues to endorse snoring, disrupted sleep and daytime sleepiness. Sleep questionnaire: Have you ever been diagnosed with a sleep disorder? Yes, CHUCK. Have you ever had a sleep study in the past? Yes, maybe 20 years ago. Have you ever been treated for a sleep disorder? Yes CPAP., UPPP and mouth guard. Do you take medications for a sleep disorder? melatonin up to 10 mg. Do you snore? Yes. Do you wake up gasping at night? Yes. Do you have episodes of apneas? Yes. If yes, are they witnessed? Yes. Do you have episodes of nocturnal chest pain or dyspnea? No. Do you have difficulty initiating sleep? Yes. Do you have difficulty maintaining sleep? Yes. Do you wake up tired? Yes. Do you have headaches upon awakening? Not really. Do you wake up with dry mouth or throat? Yes. Do you have GERD? Yes. Do you have nocturia? Not really. Do you have nocturnal leg cramps? Yes. Do you have symptoms of restless legs? Yes. Do you act out your dreams? No. Sleep hygiene questionnaire: What is your usual sleep routine? Usual bedtime is at 11 pm; Usual wake up time is at 5:30-6:30 am. Do you take naps? No. Is your sleep environment cool, dark, and quiet? Yes. Do you exercise? Yes, bike, swim and walking. Do you take caffeine or other stimulants? Yes. Do you use electronics in bed? No. What is your work schedule? It varies, 9 to 6 pm. Hypersomnolence questionnaire: Do you have daytime tiredness or fatigue? Yes. Do you easily fall asleep when inactive? Yes Have you ever had episodes of sudden weakness? No. Have you ever had episodes of sudden weakness associated with strong emotions? No. [facility] Medical History Right otitis media Hyperlipidemia Annual physical exam Hyperglycemia Chronic pain of right thumb Vitamin D deficiency Elevated cortisol level Obesity due to excess calories Hand pain, right Hypothyroidism Hair loss Incontinence HTN (hypertension) Surgical History History of uvulectomy Hx of myringotomy Hx of section History of ankle surgery Hx of knee surgery Family History Father No problems noted. Mother No problems noted. Family/Other History of breast cancer Social History Household Members: None Housing: House Alcohol intake: current Alcohol intake frequency: holidays/special occasions only Patient Tobacco Use Status: Former Tobacco user Tobacco use type: Cigarette Years Smoked: 15 years ago e-Cigarette/Vaping Use: Never Used Second Hand Smoke Exposure: No service: No Current occupational status: employed Sexual orientation: Straight/Heterosexual Gender identity: Female Cognitive needs: No Hearing needs: No Vision needs: Yes Female Reproductive History Menstrual Age of Menarche: 9 Review of Systems Const All systems reviewed & are unremarkable except as noted in HPI and below Physical Exam Vital Signs: Last Vital Signs Pulse 80 08/15/23 15:00 BP 118/80 08/15/23 15:00 Pulse Ox 95 08/15/23 15:00 Oxygen Delivery Method Room Air 08/15/23 15:00 BMI result Body Mass Index 33.1 Const General: cooperative Nutritional Appearance: obese Orientation/consciousness: patient oriented x3 Resp Effort & Inspection: normal respiratory effort and able to speak in complete sentences Neuro General: patient oriented x3 Gait exam (Neuro): Antalgic gait present Motor exam (neuro): 5/5 motor strength present throughout, Pronator motor function not present and no tremor noted Psych Appearance: grossly normal Mental Status: mental status grossly normal Speech and movement: Normal speech and movement present Affect: normal affect Attitude: cooperative Assessment & Plan Assessment & Plan (1) Sleep apnea: Code(s): G47.30 - Sleep apnea, unspecified (2) Daytime sleepiness: Code(s): R40.0 - Somnolence (3) Muscle spasm of both lower legs: Code(s): M62.838 - Other muscle spasm Plan Pt is advised to undergo home sleep study to assess for sleep apnea. Advised patient to use her mouth guard for the home sleep study. Will f/u with pt after study to discuss results and appropriate treatment options. Advised patient to try magnesium, calcium and vitamin D supplement for muscle spasm. Pt to call with any worsening concerns or questions. Coding Level of Care Code New Pt Level 4 (15980) Diagnoses Sleep apnea G47.30 Daytime sleepiness R40.0 Muscle spasm of both lower legs M62.838
== END 2023-08-15 15:57 | disposition home or self-care (01) ==
PROVIDERS: PCP Internal Medicine; Visit Provider Nurse Practitioner Family
DX: G47.30 Sleep apnea, unspecified (principal); R40.0 Somnolence; M62.838 Other muscle spasm
CPT/HCPCS: 99204

== ENCOUNTER → 2023-08-15 14:57 | Outpatient (BNVA) | payer OTHER, SELFPAY | PROVIDERS: PCP Internal Medicine; Visit Provider Nurse Practitioner Family ==

== ENCOUNTER 2023-10-24 19:07 | Emergency (ER) | payer OTHER, SELFPAY ==
--- NOTE | ~2023-10-24 | XR_ITS ---
EXAMINATION: XR CHEST CLINICAL INFORMATION: Chest pain COMPARISON: None available. TECHNIQUE: 2 views of the chest were obtained. FINDINGS: No significant abnormality is noted involving the heart, lungs, mediastinum, bony thorax or soft tissues. XR/XR chest 2V IMPRESSION: Unremarkable chest examination.
--- NOTE | 2023-10-24 20:38 | ED.GENADULT ---
HPI - General Adult General Chief complaint: General Medical Stated complaint: cough,wheezing sob Time Seen by Provider: 10/24/23 21:35 Source: patient Mode of arrival: ambulatory Limitations: no limitations History of Present Illness HPI narrative: Patient been having cold symptoms with cough for last few days had bilateral lower extremity venous ablation yesterday coughing with mucopurulent phlegm wheezing feels short of breath no other family member sick saturating 96% at room air feel nasal congested postnasal drip mucopurulent phlegm Related Data Home Medications Medication Instructions Recorded Confirmed cholecalciferol (vitamin D3) 50 50 mcg PO DAILY 03/28/21 08/14/23 mcg (2,000 unit) tablet progesterone micronized 100 mg 100 mg PO DAILY 10/23/22 08/14/23 capsule diclofenac sodium 75 mg 75 mg PO BID 08/14/23 08/14/23 tablet,delayed release Previous Rx's Medication Instructions Recorded levothyroxine 100 mcg tablet 100 mcg PO DAILY #90 tabs 09/29/22 irbesartan 300 mg tablet 300 mg PO DAILY #90 tabs 05/01/23 pravastatin 10 mg tablet 10 mg PO DAILY #90 tabs 08/14/23 estradiol 0.025 mg/24 hr 1 patch transdermal 2XW #24 patches 08/28/23 semiweekly transdermal patch albuterol sulfate 90 mcg/actuation 2 puff inhalation Q4-6H PRN 10/25/23 aerosol inhaler (ProAir HFA) shortness of breath or wheezing #8.5 grams cefuroxime axetil 500 mg tablet 500 mg PO BID 7 days #14 tabs 10/25/23 codeine 10 mg-guaifenesin 100 mg/5 10 ml PO Q6H PRN cough #237 mL 10/25/23 mL oral liquid prednisone 20 mg tablet 40 mg (2 x 20 mg) PO DAILY #10 tabs 10/25/23 Allergies Allergy/AdvReac Type Severity Reaction Status Date / Time lisinopril [LISINOPRIL] Allergy Severe COUGH Verified 08/15/23 15:01 telithromycin [From KETEK] Allergy Intermediate BLURRED Verified 08/15/23 15:01 VISION latex [LATEX] Allergy Mild RASH Verified 08/15/23 15:01 celecoxib [Celebrex] Allergy Unknown rash Verified 08/15/23 15:01 penicillamine [PENICILLAMINE] Allergy Unknown UNKNOWN Verified 08/15/23 15:01 valsartan [Diovan] Allergy Unknown Unknown Verified 08/15/23 15:01 Sulfa (Sulfonamide Allergy hives, Verified 08/15/23 15:01 Antibiotics) throat constriction cortisone injection Allergy Unknown caused Uncoded 08/15/23 15:01 menstration Review of Systems Review of Systems: Yes all other systems are reviewed and are negative PMFSH Past Medical History Medical History Right otitis media Hyperlipidemia Annual physical exam Hyperglycemia Chronic pain of right thumb Vitamin D deficiency Elevated cortisol level Obesity due to excess calories Hand pain, right Hypothyroidism Hair loss Incontinence HTN (hypertension) Surgical History History of uvulectomy Hx of myringotomy Hx of section History of ankle surgery Hx of knee surgery Family History Family History Father No problems noted. Mother No problems noted. Family/Other History of breast cancer Social History Social History Household Members: None Housing: House Alcohol intake: current Alcohol intake frequency: holidays/special occasions only Patient Tobacco Use Status: Former Tobacco user Tobacco use type: Cigarette Years Smoked: 15 years ago Smoked in Last 30 Days: No e-Cigarette/Vaping Use: Never Used Second Hand Smoke Exposure: No Use of substances other than those prescribed or required for medical reasons: No Advance Directives: No Advance Directives Information Provided: No service: No Current occupational status: employed Sexual orientation: Straight/Heterosexual Gender identity: Female Cognitive needs: No Hearing needs: No Vision needs: Yes Physical Exam ED Vital Signs: Vital Signs - 24 hr 10/24/23 20:40 10/24/23 21:28 10/24/23 22:51 Temperature 98.1 F 98.1 F Pulse Rate 53 53 64 Respiratory Rate 20 20 16 Blood Pressure 147/96 H 147/96 H Pulse Oximetry 96 96 Oxygen Delivery Method Room Air Room Air 10/25/23 00:09 Temperature 97.6 F Pulse Rate 79 Respiratory Rate 17 Blood Pressure 113/56 L Pulse Oximetry 97 Oxygen Delivery Method Room Air BMI result Body Mass Index 31.0 Appearance: Alert. Oriented X3. No acute distress. Eyes: PERRLA, No Nystagmus ENT: Pharynx normal. Oral Mucosa moist Neck: Normal inspection. Neck supple. CVS: Normal heart rate and rhythm. Pulses normal. Respiratory: No respiratory distress. Equal air entry bilateral, bilateral wheezing and conducted sounds Abdomen: Soft and nontender. Bowel sounds are present, no mass palpable, no CVA tenderness Skin: Skin warm and dry. Normal skin color. Normal skin turgor. Extremities: No lower extremity edema. No calf tenderness Neuro: Oriented X 3. No motor deficit. Course Course Course Narrative: This is an RME: Additional HPI, ROS, PE not included below will be deferred to primary provider. This is a [id number]-[id number]-female, with a hx of hyperlipidemia, HTN, hypothyroidism, presenting to the emergency department for evaluation of cough, chest heaviness. She reports that she has been sick for the last week and a half with a cough. She had a procedure yesterday at [facility] where she was given general anesthesia and had bilateral vein ablation see. She states that she also has had a lower back numbness radiating into her groin with urinary incontinence. She states that she has had dribbling for the last week but noticed that over the last 3 days she has been completely incontinent of her urine. Patient went to an urgent care prior to her arrival and was told to come to the emergency department for further evaluation. Plan: Labs, UA chest x-ray, Medications Administered Discontinued Medications Generic Name Dose Route Start Last Admin Trade Name Freq PRN Reason Stop Dose Admin Cefuroxime Axetil 500 mg 10/24/23 23:55 10/25/23 00:13 Cefuroxime Axetil 500 Mg Tablet PO 10/24/23 23:56 500 mg ONCE ONE Administration Albuterol Sulfate 2.5 mg/ 0 mg 10/24/23 22:29 10/24/23 22:47 Albuterol/Ipratropium 3 ml INHALE 10/24/23 22:30 5 dose ONCE ONE Administration Dexamethasone 10 mg 10/24/23 22:31 10/24/23 22:59 Dexamethasone 2 Mg Tablet PO 10/24/23 22:32 10 mg ONCE ONE Administration Guaifenesin/Codeine Phosphate 10 ml 10/24/23 22:30 10/24/23 22:59 Guaifen/Codeine Sf 200/20/10ml 10 Ml Liquid PO 10/24/23 22:31 10 ml ONCE ONE Administration Medical Decision Making Medical Decision Making [facility] Narrative: Patient with cough with bronchitis findings chest x-ray negative for acute infiltrate workup showed RSV discharge patient home on nebulizing treatment supportive treatment. Patient also complaining nasal discharge with mucopurulent phlegm postnasal drip will give a short course of Ceftin, prednisone Differential Diagnosis Differential Diagnoses: The differential diagnosis associated with the presentation includes Admission/Observation Consideration of admission/observation: Escalation of care including admission/observation considered Lab Data [facility] Lab Attestation statement: I reviewed the patient's lab results. 10/24/23 21:03 10/24/23 21:03 Labs: Lab Results 10/24/23 Range/Units 21:03 WBC 9.6 (4.8-10.8) X10*3/uL RBC 5.01 (4.20-5.50) X10*6/uL Hgb 14.4 (12.0-16.0) g/dl Hct 44.8 (37.0-47.0) % MCV 89.4 (80.0-98.0) fL MCH 28.7 (27.0-33.0) pg MCHC 32.1 (31.0-35.0) g/dl RDW 12.2 (11.0-16.0) % Plt Count 166 (160-400) X10*3/uL MPV 10.3 (9.4-12.3) fL Immature Gran % (Auto) 0.2 (0.0-0.4) % Neut % (Auto) 52.0 (45-73) % Lymph % (Auto) 38.5 (20-40) % [place] % (Auto) 6.7 (2-11) % Eos % (Auto) 2.0 (0-4) % Baso % (Auto) 0.6 (0-2) % Lymph # (Auto) 3.7 (1.2-4.9) X10*3/uL [place] # (Auto) 0.6 (0.1-1.2) X10*3/uL Eos # (Auto) 0.2 (0.0-0.4) X10*3/uL Baso # (Auto) 0.1 (0.0-0.2) X10*3/uL Abs Immat Gran (auto) 0.02 (0.00-0.03) X10*3/uL Absolute Neuts (auto) 5.0 (2.0-8.3) x10*3/uL Absolute Nucleated RBC 0.000 (0.0-0.012) X10*3/uL Nucleated RBC % (auto) 0.0 (0.0-0.2) /100WBC Sodium 142 (135-145) mmol/L Potassium 3.9 (3.3-5.1) mmol/L Chloride 108 (96-108) mmol/L Carbon Dioxide 26 (22-29) mmol/L Anion Gap 12 (12-20) BUN 16 (9-16) mg/dL Creatinine 0.88 (0.5-1.4) mg/dL Estim Creat Clear Calc 67.7 Estimated GFR > 60 Random Glucose 108 (60-115) mg/dL Calcium 9.0 (8.4-10.2) mg/dL Total Bilirubin 0.3 (0.0-1.0) mg/dL Direct Bilirubin 0.1 (0.0-0.5) mg/dL AST 19 (5-31) U/L ALT 32 H (0-31) U/L Alkaline Phosphatase 76 (39-117) U/L Troponin I High Sens < 2.7 (<3.5-17.0) ng/L Total Protein 6.4 L (6.5-8.0) g/dL Albumin 3.9 (3.5-5.0) g/dL Urine Color Yellow Urine Appearance Clear Urine pH 5.5 (5.0-9.0) Ur Specific [place] 1.020 (1.005-1.025) Urine Protein Negative (Neg-Trace) mg/dL Urine Glucose (UA) Negative (Negative) mg/dL Urine Ketones Negative (Negative) mg/dL Urine Blood Negative (Negative) Urine Nitrite Negative (Negative) Ur Leukocyte Esterase Negative (Negative) Influenza Type A (PCR) NEGATIVE (Negative) Influenza Type B (PCR) NEGATIVE (Negative) RSV RNA Qual (PCR) POSITIVE A (Negative) SARS-CoV-2 RNA (RT-PCR) NEGATIVE (Negative) Independent Interpretation I performed an independent interpretation of an: Plain X-Ray Radiology Impression Discussion of test interpretation with radiology: I have reviewed the radiologist's reading. Discharge Plan Discharge Clinical Impression: Acute bronchitis, Respiratory syncytial virus (RSV) infection Patient Disposition: Home, Self-Care Instructions: Respiratory Syncytial Virus (ED), Acute Bronchitis (ED) Additional Instructions: Drink plenty of fluids Antibiotic and prednisone as prescribed Cough syrup as prescribed Use inhaler for wheezing Humidified air Report to the ER/PCP if not better Prescriptions: New prednisone 20 mg tablet 40 mg PO DAILY Qty: 10 0RF codeine-guaifenesin 10-100 mg/5 mL liquid 10 ml PO Q6H PRN (Reason: cough) Qty: 237 0RF cefuroxime axetil 500 mg tablet 500 mg PO BID 7 Days Qty: 14 0RF albuterol sulfate [ProAir HFA] 90 mcg/actuation HFA aerosol inhaler 2 puff inhalation Q4-6H PRN (Reason: shortness of breath or wheezing) Qty: 8.5 0RF No Action levothyroxine 100 mcg tablet 100 mcg PO DAILY Qty: 90 5RF irbesartan 300 mg tablet 300 mg PO DAILY Qty: 90 3RF pravastatin 10 mg tablet 10 mg PO DAILY Qty: 90 1RF estradiol 0.025 mg/24 hr patch semiweekly 1 patch transdermal 2XW Qty: 24 3RF progesterone micronized 100 mg capsule 100 mg PO DAILY diclofenac sodium 75 mg tablet,delayed release (DR/EC) 75 mg PO BID cholecalciferol (vitamin D3) 50 mcg (2,000 unit) tablet 50 mcg PO DAILY Interventions: ED Discharge Assessment Last Done: 10/25/23 00:22 Discharge Date/Time: 10/25/23 00:24
[2023-10-24 20:40] VITALS: BP 147/96; PULSE 53; RESP 20; TEMP 36.7; O2SAT 96; BMI 31.0
--- NOTE | 2023-10-24 20:46 | ECG_ITS ---
Test Reason : cough Blood Pressure : / mmHG Vent. Rate : 065 BPM Atrial Rate : 065 BPM P-R Int : 132 ms QRS Dur : 080 ms QT Int : 386 ms P-R-T Axes : 061 -05 032 degrees QTc Int : 401 ms Normal sinus rhythm Normal ECG When compared with ECG of 21-FEB-2007 20:49, No significant change was found Referred By: Damaris Palomino Electronically Signed By:YOSSI HUSAIN
--- NOTE | 2023-10-24 21:03 | MHC.EDTECH ---
Patient brought in from waiting room EKG taken and labs,SARS/FLU/RSV,and a urine were obtained and sent to lab. Patient brought to ED bed 2
[2023-10-24 21:11] LABS: MANUAL DIFF FLAG NO
[2023-10-24 21:13] LABS: Basophils Absolute Auto 0.1 X10*3/uL (0.0-0.2); Basophils Percent Auto 0.6 % (0-2); Eosinophils Absolute Auto 0.2 X10*3/uL (0.0-0.4); Hematocrit 44.8 % (37.0-47.0); Hemoglobin 14.4 g/dl (12.0-16.0); Imm Gran Abs Auto 0.02 X10*3/uL (0.00-0.03); Imm Gran Pct Auto 0.2 % (0.0-0.4); Lymphocytes Absolute Auto 3.7 X10*3/uL (1.2-4.9); Lymphocytes Percent Auto 38.5 % (20-40); Mean Corpuscular HGB Conc 32.1 g/dl (31.0-35.0); Mean Corpuscular Hemoglobin 28.7 pg (27.0-33.0); Mean Corpuscular Volume 89.4 fL (80.0-98.0); Mean Platelet Volume 10.3 fL (9.4-12.3); Monocytes Absolute Auto 0.6 X10*3/uL (0.1-1.2); Monocytes Percent Auto 6.7 % (2-11); Platelet Count 166 X10*3/uL (160-400); Red Blood Count 5.01 X10*6/uL (4.20-5.50); Red Cell Distribution Width 12.2 % (11.0-16.0); White Blood Count 9.6 X10*3/uL (4.8-10.8)
[2023-10-24 21:14] LABS: Appearance Urine Clear; Color Urine Yellow; Glucose Urine UA Negative (Negative); Leukocyte Esterase Urine Negative (Negative); Nitrite Urine Negative (Negative); PH 5.5 (5.0-9.0); Urine Blood Negative (Negative); Urine Ketones Negative (Negative); Urine Protein Negative (Neg-Trace)
[2023-10-24 21:28] VITALS: BP 147/96; PULSE 53; RESP 20; TEMP 36.7; O2SAT 96
--- NOTE | 2023-10-24 21:29 | PC.NURSE ---
Pt ca&ox4, no signs of distress. Pt able to speak in full sentences w/o difficulty. Pts spouse at bedside. Pt denies pain but reports test tightness d/t congestion and some type of URI X10 Pt reports incontinence x 5 days. Pt also denies fever. Plan of care ongoing.
[2023-10-24 21:37] LABS: Alanine Aminotransferase 32 U/L (0-31); Albumin Level 3.9 g/dL (3.5-5.0); Alkaline Phosphatase 76 U/L (39-117); Anion Gap 12 (12-20); Aspartate Amino Transferase 19 U/L (5-31); Bilirubin Direct 0.1 mg/dL (0.0-0.5); Bilirubin Total 0.3 mg/dL (0.0-1.0); Blood Urea Nitrogen 16 mg/dL (9-16); Carbon Dioxide 26 mmol/L (22-29); Chloride 108 mmol/L (96-108); Creatinine Clr Calc Pharmacy 67.7; Estimated Glomerular Filt Rate > 60; Glucose Random 108 mg/dL (60-115); Potassium 3.9 mmol/L (3.3-5.1); Sodium 142 mmol/L (135-145); Total Protein 6.4 g/dL (6.5-8.0)
[2023-10-24 21:48] LABS: Troponin-I High Sensitivity < 2.7 ng/L (<3.5-17.0)
[2023-10-24 21:51] LABS: Influenza A PCR NEGATIVE (Negative); Influenza B PCR NEGATIVE (Negative); Resp Syncy Virus RNA Qual PCR POSITIVE (Negative); SARS COV2 PCR INHOUSE NEGATIVE (Negative)
[2023-10-24] MEDS: Albuterol Sulfate 2.5 MG, Albuterol/Iprat 2.5/0.5MG 3 ML 3 ML INHALE (22:47)
[2023-10-24 22:51] VITALS: PULSE 64; RESP 16; O2SAT 99
[2023-10-24] MEDS: dexAMETHasone 2 MG TABLET 10 MG PO (22:59)
[2023-10-24] MEDS: guaiFEN/Codeine SF 200/20/10ML 10 ML LIQUID PO (22:59)
--- NOTE | 2023-10-24 23:01 | PC.NURSE ---
Pt medicated per jan. Plan of care ongoing.
[2023-10-25 00:09] VITALS: BP 113/56; PULSE 79; RESP 17; TEMP 36.4; O2SAT 97
[2023-10-25] MEDS: cefuroxime axetiL 500 MG TABLET PO (00:13)
== END 2023-10-25 00:24 | disposition home or self-care (01) ==
PROVIDERS: Physician Assistant Medical; Emergency Provider Internal Medicine; PCP Internal Medicine
DX: J20.5 Acute bronchitis due to respiratory syncytial virus (principal); Z20.822 Contact with and (suspected) exposure to COVID-19; Z20.828 Contact with and (suspected) exposure to other viral communicable diseases; I10 Essential (primary) hypertension; E78.5 Hyperlipidemia, unspecified; Z79.899 Other long term (current) drug therapy; Z79.02 Long term (current) use of antithrombotics/antiplatelets
CPT/HCPCS: 0241U; 71046; 80048; 80076; 81003; 84484; 85025; 93005; 94640; 99284; 99285; J8540

== ENCOUNTER → 2023-10-24 20:46 | Outpatient (BNV) | payer OTHER, SELFPAY | PROVIDERS: Emergency Provider Internal Medicine; PCP Internal Medicine; Visit Provider Internal Medicine | DX: R06.02 Shortness of breath (principal) | CPT/HCPCS: 93010 ==

== ENCOUNTER 2023-10-29 10:32 | Outpatient (AMB) | payer OTHER, SELFPAY ==
[2023-10-29 10:37] VITALS: BP 118/62; PULSE 71; O2SAT 99; BMI 31.5
--- NOTE | 2023-10-29 10:37 | MHC.PC.OV ---
Vital Signs 10/29/23 10:37 Height 5 ft 3 in Weight 178 lb BMI 31.5 BP 118/62 Blood Pressure Location Lt brachial Position Sitting Pulse 71 Pulse Source Pulse Oximeter Pulse Oximetry (%) 99 Oxygen Delivery Method Room Air Intake Visit Reasons: Kidney issues Intake Note: Pt is here today for a follow up visit. Pt states that she has surgery on her veins in her legs last week. Allergies lisinopril [LISINOPRIL] Allergy (Severe, Verified 10/29/23 10:41) COUGH telithromycin [From KETEK] Allergy (Intermediate, Verified 10/29/23 10:41) BLURRED VISION latex [LATEX] Allergy (Mild, Verified 10/29/23 10:41) RASH celecoxib [Celebrex] Allergy (Unknown, Verified 10/29/23 10:41) rash penicillamine [PENICILLAMINE] Allergy (Unknown, Verified 10/29/23 10:41) UNKNOWN valsartan [Diovan] Allergy (Unknown, Verified 10/29/23 10:41) Unknown Sulfa (Sulfonamide Antibiotics) Allergy (Verified 10/29/23 10:41) hives, throat constriction cortisone injection Allergy (Unknown, Uncoded 10/29/23 10:41) caused menstration Medication List - Last Reconciled 10/29/23 by Shira Garcia MD albuterol sulfate 90 mcg/actuation (ProAir HFA) 2 puffs inhalation Q4-6H PRN cefuroxime axetil 500 mg PO BID 7 days cholecalciferol (vitamin D3) 50 mcg PO DAILY codeine-guaifenesin 10-100 mg/5 mL 10 mL PO Q6H PRN diclofenac sodium 75 mg PO BID estradiol 1 patch transdermal 2XW irbesartan 300 mg PO DAILY levothyroxine 100 mcg PO DAILY pravastatin 10 mg PO DAILY progesterone micronized 100 mg PO DAILY Tobacco use date assessed: 10/29/23 Dental Screening Dental Screen Date: 10/29/23 Did you have a dental visit in the last 12 months?: Yes Did you have a dental problem in the last 6 months where you did not have access to dental care?: No Was dental information given to patient?: Patient has dentist HPI Kidney issues HPI Details Pt presents for f/u ER visit for bronchitis 1 week ago She is feeling better and still taking Cefuroxime and Prednisone. pt c/o chronic L side LBP, positional, no radiation, extremity pain/weakness. HTN is stable on Irbesartan [facility] Medical History Right otitis media Hyperlipidemia Annual physical exam Hyperglycemia Chronic pain of right thumb Vitamin D deficiency Elevated cortisol level Obesity due to excess calories Hand pain, right Hypothyroidism Hair loss Incontinence HTN (hypertension) Surgical History History of uvulectomy Hx of myringotomy Hx of section History of ankle surgery Hx of knee surgery Family History Father No problems noted. Mother No problems noted. Family/Other History of breast cancer Social History Household Members: None Housing: House Alcohol intake: current Alcohol intake frequency: holidays/special occasions only Patient Tobacco Use Status: Former Tobacco user Tobacco use type: Cigarette Years Smoked: 15 years ago e-Cigarette/Vaping Use: Never Used Second Hand Smoke Exposure: No service: No Current occupational status: employed Sexual orientation: Straight/Heterosexual Gender identity: Female Cognitive needs: No Hearing needs: No Vision needs: Yes Female Reproductive History Menstrual Age of Menarche: 9 Questionnaire Thrive Questionnaire Date Thrive assessed: 03/08/23 DUY-7 AMB Questionnaire DUY-7 Date DUY - 7 assessed: 03/08/23 Source: Developed by Drs. Jose Enrique Rubi, Vielka Reddy, Natalio De and colleagues, with an educational lena from [employer]. Review of Systems Const All systems reviewed & are unremarkable except as noted in HPI and below Reports no additional complaints Eyes Reports no additional complaints ENT Reports no additional complaints Card Reports no additional complaints Resp Reports no additional complaints GI Reports no additional complaints Reports no additional complaints Physical exam (Primary Care) Vital Signs: Last Vital Signs Pulse 41 L 10/29/23 10:37 BP 118/62 10/29/23 10:37 Pulse Ox 99 10/29/23 10:37 Oxygen Delivery Method Room Air 10/29/23 10:37 BMI result Body Mass Index 31.5 Tobacco/Smoking Status: Tobacco use Status Tobacco use date assessed 10/29/23 10/29/23 10:44 Patient Tobacco Use Status Former Tobacco user 10/29/23 10:44 Tobacco use type Cigarette 10/29/23 10:44 e-Cigarette/Vaping Use Never Used 10/29/23 10:44 Thrive Assessment: Date of Thrive Assessment Date Thrive assessed 03/08/23 10/29/23 10:44 Const General: no acute distress HENMT Head: Yes normal to inspection Ears: hearing grossly normal bilaterally Face and sinus: Yes normal facial exam Throat: Yes posterior oropharynx normal Neck Neck: Yes no lymphadenopathy and Yes supple Resp Effort & Inspection: normal respiratory effort Auscultation: clear to auscultation bilaterally Cardio Rhythm: regular rhythm Heart sounds: S1 normal heart sound present and S2 normal heart sound present GI Inspection: Yes normal to inspection Palpation (GI): Soft to palpation Back/Spine/Pelvis Other: DROM in L spine, paraspinal tenderness L>R, SLR 90 B/L Assessment and Plan Assessment & Plan (1) Lower back pain: Code(s): M54.50 - Low back pain, unspecified Plan: refer to PT, check renal US r/o nephrolithiasis (2) Left flank pain: Code(s): R10.9 - Unspecified abdominal pain (3) HTN (hypertension): Code(s): I10 - Essential (primary) hypertension Plan: cont meds (4) Hyperlipidemia: Code(s): E78.5 - Hyperlipidemia, unspecified Plan: cont statin (5) URI (upper respiratory infection): Code(s): J06.9 - Acute upper respiratory infection, unspecified Plan: supportive care Orders: Orders PT Evaluation and Treatment Today M54.50 - Low back pain, unspecified US renal BI Today R10.9 - Unspecified abdominal pain Coding Level of Care Code Est Pt Level 4 (34834) Diagnoses Lower back pain M54.50 Left flank pain R10.9 HTN (hypertension) I10 Hyperlipidemia E78.5 URI (upper respiratory infection) J06.9
== END 2023-10-29 11:43 | disposition home or self-care (01) ==
PROVIDERS: PCP Internal Medicine; Visit Provider Internal Medicine
DX: M54.50 Low back pain, unspecified (principal); R10.9 Unspecified abdominal pain; I10 Essential (primary) hypertension; E78.5 Hyperlipidemia, unspecified; J06.9 Acute upper respiratory infection, unspecified
CPT/HCPCS: 99214

== ENCOUNTER 2023-11-15 08:00 | Outpatient (RCR) | payer OTHER, SELFPAY ==
--- NOTE | 2023-11-05 13:45 | MHC.PT.EP ---
[facility] [place] Office [place] Office [place] Office [address] [place] Maria Marcos [address] [phone] F: [phone] F: [phone] F: [phone] F: [phone] Physical Therapy Plan of Care Date of Evaluation: 11/05/23 Date of Surgery: n/a Diagnosis: LBP Assessment: Patient is a 58 year old female presenting to PT with complaints of pain in her low back. Pt reports onset of pain began around August 2023 shortly after moving. She presents today with impairments in pain, ROM, core strength, hip strength, posture. 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 Pt expresses snf goal of returning to PLOF, and is motivated to work towards this in PT. Clinical presentation today is most consistent with signs and sx associated with low back pain and pt will benefit from skilled PT 2 week x 4 weeks to address the following problems and impairments noted upon evaluation: pain, ROM, core strength, hip strength, posture. These problems limit the patient with the following functional activities: work, ADLs. The prescribed treatment plan of care is medically necessary. Co-morbidities of HTN, incontinence, vein ablation 2 weeks ago were identified and taken into considerations of plan of care. Pt was educated on HEP, role of PT, prognosis, POC. Frequency and Duration: The patient will be seen 2 x week x 4 weeks Short Term Goals: Pt will demonstrate improved hip MMT strength by 1/3 grade in 2 weeks. Pt will demonstrate pain at rest <3/10 in 2 weeks for improved QOL. Pt will demonstrate ability to perform PPT with good core control in 2 weeks. Oncology Social Work Goals: Pt will demonstrate ability to complete ADLs with min to no pain in 4 weeks for improved tolerance to self care. Pt will demonstrate ability to work with min to no pain at the end of her day in 4 weeks for return to PLOF. Treatment Plan: Modalities to reduce pain, spasms and effusion. Manual therapy to restore motion and function. Therapeutic exercise to improve strength and flexibility. Neuromuscular re-education for posture and balance. Therapeutic activities to return to functional activities of daily living. Electronically signed by: Sia Morris, PT, DPT, ATC Please sign and return to therapist. Thank you for your referral.
--- NOTE | 2023-12-17 07:20 | MHC.PT.DC ---
[facility] [place] Office [place] Office [place] Office [address] [phone] F: [phone] F: [phone] F: [phone] F: [phone] Physical Therapy Discharge Report Diagnosis: LBP Date of Surgery: n/a Date of Evaluation: 11/05/23 Date of Discharge: 12/17/23 Treatments to Date: 2 Cancellations to Date: 1 No Shows to Date: 0 Discharge Status: Discharge Summary: Pt has not returned to skilled PT in >30 days therefore pt to be d/c per policy. Electronically signed by: Sia Morris, PT, DPT, ATC Please sign and return to therapist. Thank you for your referral.
== END 2023-12-17 07:20 | disposition home or self-care (01) ==
LOC: HO.PTCHIC 08:00
PROVIDERS: PCP Internal Medicine; Visit Provider Internal Medicine
DX: M54.50 Low back pain, unspecified (principal)
CPT/HCPCS: 97110; 97161

== ENCOUNTER 2023-11-15 09:02 | Outpatient (REF) | payer OTHER, SELFPAY ==
--- NOTE | ~2023-11-15 | US_ITS ---
EXAMINATION: US RETROPERITONEAL LIMITED (RENAL ONLY) CLINICAL INFORMATION: Unspecified abdominal pain. Left flank pain. COMPARISON: Renal ultrasound 09/25/2017. TECHNIQUE: Real-time imaging of the kidneys. FINDINGS: RIGHT KIDNEY: 10.1 x 4.6 x 5.8 cm (SAG x AP x TRV). The kidney is normal in size, contour, and echogenicity. Renal cortical thickness is normal. No calculi or focal parenchymal lesions. No hydronephrosis. LEFT KIDNEY: 10.3 x 4.8 x 4.9 cm (SAG x AP x TRV). The kidney is normal in size, contour, and echogenicity. Renal cortical thickness is normal. No calculi or focal parenchymal lesions. No hydronephrosis. US/US renal BI IMPRESSION: Unremarkable examination.
== END 2023-11-15 09:03 | disposition home or self-care (01) ==
LOC: HO.HMGCX 09:02
PROVIDERS: PCP Internal Medicine; Visit Provider Internal Medicine
DX: R10.9 Unspecified abdominal pain (principal)
CPT/HCPCS: 76775

== ENCOUNTER 2024-01-20 08:19 | Emergency (ER) | payer OTHER, SELFPAY ==
[2024-01-20 08:32] VITALS: BP 141/54; PULSE 62; RESP 16; TEMP 36.7; O2SAT 94; BMI 30.1
--- NOTE | 2024-01-20 09:00 | ED.GENADULT ---
HPI - General Adult General Chief complaint: Eye Problems Stated complaint: Eye irritation Time Seen by Provider: 01/20/24 08:56 Source: patient Mode of arrival: ambulatory Limitations: no limitations History of Present Illness HPI narrative: Patient is a 59 year old assigned female at with a history of sleep apnea presenting to the emergency department today with bilateral eye irritation. Patient states that she was seen at urgent care yesterday for left eye irritation. Patient states that it was a corneal abrasion and and was prescribed a bactrim eye drop and prednisone eye drop. Patient states that now the irritation has spread to her right eye and the left eye has gotten worse. Patient denies any dizziness, lightheadedness, abdominal pain, nausea, vomiting, fever, chills, blurry vision, double vision, loss of vision, chest pain, difficulty breathing, shortness of breath, back pain, night sweats, pain with urination, increased urinary frequency, increased urinary urgency, blood in her urine or stool, syncope or a near syncopal episode, recent trauma or falls, bowel incontinence, bladder incontinence, bowel retention, bladder retention, or any other complaints at this time. Onset (ago): day(s) (2) Location: eyes, left and right Relieving factors: none Exacerbating factors: none Associated symptoms: denies other symptoms Treatments prior to arrival: other (bactrim eye drop, prednisone eye drop) Related Data Home Medications Medication Instructions Recorded Confirmed cholecalciferol (vitamin D3) 50 50 mcg PO DAILY 03/28/21 10/29/23 mcg (2,000 unit) tablet progesterone micronized 100 mg 100 mg PO DAILY 10/23/22 10/29/23 capsule diclofenac sodium 75 mg 75 mg PO BID 08/14/23 10/29/23 tablet,delayed release Previous Rx's Medication Instructions Recorded irbesartan 300 mg tablet 300 mg PO DAILY #90 tabs 05/01/23 estradiol 0.025 mg/24 hr 1 patch transdermal 2XW #24 patches 08/28/23 semiweekly transdermal patch albuterol sulfate 90 mcg/actuation 2 puff inhalation Q4-6H PRN 10/25/23 aerosol inhaler (ProAir HFA) shortness of breath or wheezing #8.5 grams cefuroxime axetil 500 mg tablet 500 mg PO BID 7 days #14 tabs 10/25/23 codeine 10 mg-guaifenesin 100 mg/5 10 ml PO Q6H PRN cough #237 mL 10/25/23 mL oral liquid levothyroxine 100 mcg tablet 100 mcg PO DAILY #90 tabs 11/03/23 pravastatin 10 mg tablet 10 mg PO DAILY #90 tabs 12/31/23 doxycycline hyclate 100 mg tablet 100 mg PO BID 7 days #14 tabs 01/20/24 erythromycin 5 mg/gram (0.5 %) eye 0.5 inch ophthalmic (eye) Q4H #3.5 01/20/24 ointment grams Allergies Allergy/AdvReac Type Severity Reaction Status Date / Time lisinopril [LISINOPRIL] Allergy Severe COUGH Verified 10/29/23 10:41 telithromycin [From KETEK] Allergy Intermediate BLURRED Verified 10/29/23 10:41 VISION latex [LATEX] Allergy Mild RASH Verified 10/29/23 10:41 celecoxib [Celebrex] Allergy Unknown rash Verified 10/29/23 10:41 penicillamine [PENICILLAMINE] Allergy Unknown UNKNOWN Verified 10/29/23 10:41 valsartan [Diovan] Allergy Unknown Unknown Verified 10/29/23 10:41 Sulfa (Sulfonamide Allergy hives, Verified 10/29/23 10:41 Antibiotics) throat constriction cortisone injection Allergy Unknown caused Uncoded 10/29/23 10:41 menstration Review of Systems Constitutional: Constitutional: Reports no additional constitutional complaints, Denies chills, Denies fever(s) and Denies night sweats Eyes: Eyes: Reports no additional eye complaints, Denies blurry vision, Denies change in vision, Denies diplopia, Reports irritation (bilateral), Denies loss of vision and Reports eye pain (bilateral) ENT: Denies dizziness Cardiovascular: Cardiovascular: Reports no additional cardiovascular complaints, Denies chest pain, Denies lightheadedness, Denies Loss of Consciousness and Denies dyspnea Respiratory: Respiratory: Reports no additional respiratory complaints and Denies dyspnea Gastrointestinal: Gastrointestinal: Reports no additional gastrointestinal complaints, Denies abdominal pain, Denies melena, Denies hematochezia, Denies change in bowel habits and Denies change in stool character Genitourinary: Genitourinary: Denies hematuria, Denies urinary frequency, Denies dysuria, Denies urinary incontinence, Denies urinary hesitancy and Denies urinary urgency Musculoskeletal: Musculoskeletal: Reports no additional musculoskeletal complaints, Denies numbness and Denies tingling Neurologic: Denies dizziness, Denies loss of vision, Denies numbness and Denies tingling Psychiatric: Psychiatric: Reports no additional psychiatric complaints Endocrine: Endocrine: Reports no additional endocrine complaints Hematologic/Lymphatic: Hematologic/Lymphatic: Reports no additional hematologic/lymphatic complaints Allergic/Immunologic: Allergic/Immunologic: Reports no additional allergic/immunologic complaints [facility] Past Medical History Medical History (Updated 01/20/24 @ 10:12 by PUNEET Beck) URI (upper respiratory infection) Left flank pain Lower back pain Muscle spasm of both lower legs Daytime sleepiness Right knee injury Swelling of left lower extremity Bleeding from varicose veins of left lower extremity Right otitis media Flu-like symptoms Sprain of left knee Knee pain, left Annual physical exam Hyperglycemia Shingles rash Obesity due to excess calories Hand pain, right Hair loss Encounter for screening laboratory testing for COVID-19 virus Well woman exam with routine gynecological exam Hyperlipidemia Chronic pain of right thumb Vitamin D deficiency Elevated cortisol level Hypothyroidism Incontinence HTN (hypertension) Surgical History History of uvulectomy Hx of myringotomy Hx of section History of ankle surgery Hx of knee surgery Family History Family History Father No problems noted. Mother No problems noted. Family/Other History of breast cancer Social History Social History Household Members: None Housing: House Alcohol intake: current Alcohol intake frequency: holidays/special occasions only Patient Tobacco Use Status: Former Tobacco user Tobacco use type: Cigarette Years Smoked: 15 years ago Smoked in Last 30 Days: No e-Cigarette/Vaping Use: Never Used Second Hand Smoke Exposure: No Use of substances other than those prescribed or required for medical reasons: No Advance Directives: Yes Advance Directives Information Provided: Yes Advance Directives on File: No service: No Current occupational status: employed Sexual orientation: Straight/Heterosexual Gender identity: Female Cognitive needs: No Hearing needs: No Vision needs: Yes Physical Exam ED Vital Signs: Vital Signs - 24 hr 01/20/24 08:32 01/20/24 09:39 01/20/24 09:58 Temperature 98.1 F 98.1 F Pulse Rate 62 68 Respiratory Rate 16 16 Blood Pressure 141/54 H 122/48 L Pulse Oximetry 94 98 Oxygen Delivery Method Room Air Room Air BMI result Body Mass Index 30.1 Const General: cooperative, no acute distress, alert and awake Nutritional Appearance: well nourished Orientation/consciousness: patient oriented x3 Limitations: no limitations HENMT Head: Yes normal to inspection and Yes atraumatic Ears: hearing grossly normal bilaterally and external ears normal General nose exam: Normal external nose present, no nasal discharge noted and no epistaxis Face and sinus: Yes normal facial exam, No abrasion and No laceration Mouth: Normal oral and palatal mucosa present, no drooling and no muffled voice Eyes Other: bilateral irritation Periorbital: periorbital findings normal Pupils: Equal, round and reactive pupils present EOM: EOMs intact bilaterally Neck Neck: Yes normal visual inspection, Yes full ROM and Yes no lymphadenopathy Chest Chest palpation & inspection: normal inspection of the chest Resp Effort & Inspection: normal respiratory effort and able to speak in complete sentences GI Inspection: Yes normal to inspection Neuro General: patient oriented x3 and moves all extremities Cranial nerves: Yes Equal, round and reactive pupils present Cognition (Neuro): normal cognition Motor exam (neuro): 5/5 motor strength present throughout Sensory Exam: Normal double simultaneous stimulation for sensation Coordination: [id number] test normal Extrem General: Yes normal to inspection, Yes full ROM and Yes capillary refill normal Psych Appearance: grossly normal Mental Status: mental status grossly normal Affect: normal affect Attitude: cooperative Thought process: Normal thought process present Thought content: Normal thought content present Insight: Good insight present (Psych) Medications Administered Discontinued Medications Generic Name Dose Route Start Last Admin Trade Name Adrienq PRN Reason Stop Dose Admin Doxycycline Monohydrate 100 mg 01/20/24 09:31 01/20/24 09:45 Doxycycline Monohydrate 100 Mg Capsule PO 01/20/24 09:32 100 mg ONCE ONE Administration Erythromycin 1 cm 01/20/24 09:31 01/20/24 09:45 Erythromycin Base 0.5% Oph Oin 1 Gm Tube EYE-BOTH 01/20/24 09:32 1 cm ONCE ONE Administration Medical Decision Making Medical Decision Making MDM Narrative: Patient is a 59 year old assigned female at with a history of sleep apnea and HTN presenting to the emergency department today with bilateral eye irritation. Patient's physical exam showed diffuse irritation to the bilateral eyes but was otherwise unremarkable. I explained my physical exam findings to the patient. I answered all questions asked by the patient. I stressed the importance of the patient taking her medication as prescribed and stopping the medication prescribed by the urgent care provider. I stressed the importance of the patient following up with her primary care provider and an orthopedic provider. I stressed the importance of the patient returning to the emergency department immediately if her symptoms were to worsen or if she were to develop any dizziness, shortness of breath, difficulty breathing, chest pain, blurry vision, loss of vision, nausea, vomiting, abdominal pain, fever, chills, back pain, or any other complaints. Patient verbalized agreement and understanding with this treatment plan and discharge. Differential Diagnosis Differential Diagnoses: The differential diagnosis associated with the presentation includes Conjunctivitis Iritis Corneal ulcer Corneal abrasion Admission/Observation Consideration of admission/observation: Escalation of care including admission/observation considered Patient would have been admitted to the hospital her clinical presentation warranted hospital admission. Prescription Management I considered prescription management with: Antibiotic (patient prescribed an antibiotic) Chronic Conditions Patient?s care impacted by: Hypertension Discharge Plan Discharge Clinical Impression: Conjunctivitis, Abrasion, corneal, Sinusitis Patient Disposition: Home, Self-Care Instructions: Sinusitis (ED), Corneal Abrasion (DC), Conjunctivitis (ED) Additional Instructions: Follow up with your primary care provider and an youth specialist. STOP taking the medications previously prescribed to you for this. Return to the emergency department immediately if your symptoms worsen or if you develop any dizziness, shortness of breath, difficulty breathing, chest pain, blurry vision, loss of vision, nausea, vomiting, abdominal pain, fever, chills, back pain, or any other complaints. Prescriptions: New erythromycin 5 mg/gram (0.5 %) ointment 0.5 inch ophthalmic (eye) Q4H Qty: 3.5 0RF doxycycline hyclate 100 mg tablet 100 mg PO BID 7 Days Qty: 14 0RF No Action irbesartan 300 mg tablet 300 mg PO DAILY Qty: 90 3RF estradiol 0.025 mg/24 hr patch semiweekly 1 patch transdermal 2XW Qty: 24 3RF levothyroxine 100 mcg tablet 100 mcg PO DAILY Qty: 90 3RF pravastatin 10 mg tablet 10 mg PO DAILY Qty: 90 1RF codeine-guaifenesin 10-100 mg/5 mL liquid 10 ml PO Q6H PRN (Reason: cough) Qty: 237 0RF cefuroxime axetil 500 mg tablet 500 mg PO BID 7 Days Qty: 14 0RF albuterol sulfate [ProAir HFA] 90 mcg/actuation HFA aerosol inhaler 2 puff inhalation Q4-6H PRN (Reason: shortness of breath or wheezing) Qty: 8.5 0RF progesterone micronized 100 mg capsule 100 mg PO DAILY diclofenac sodium 75 mg tablet,delayed release (DR/EC) 75 mg PO BID cholecalciferol (vitamin D3) 50 mcg (2,000 unit) tablet 50 mcg PO DAILY Referrals: Shira Garcia MD [Primary Care Provider] - Bala Odell [Physician] - (Call to establish and follow up with an youth specialist. ) Interventions: ED Discharge Assessment Last Done: 01/20/24 09:58 Discharge Date/Time: 01/20/24 09:58 Print Language: Azeri
[2024-01-20 09:39] VITALS: BP 122/48; PULSE 68; RESP 16; O2SAT 98
[2024-01-20] MEDS: Doxycycline Monohydrate 100 MG CAPSULE PO (09:45)
[2024-01-20] MEDS: Erythromycin Base 0.5% Oph Oin 1 GM TUBE 1 CM EYE-BOTH (09:45)
[2024-01-20 09:58] VITALS: TEMP 36.7
== END 2024-01-20 09:58 | disposition home or self-care (01) ==
PROVIDERS: Emergency Provider Student in an Organized Health Care Education/Training Program; PCP Internal Medicine
DX: H10.33 Unspecified acute conjunctivitis, bilateral (principal); J01.90 Acute sinusitis, unspecified; Z79.899 Other long term (current) drug therapy; Z87.891 Personal history of nicotine dependence
CPT/HCPCS: 99284

== ENCOUNTER 2024-02-05 07:02 | Outpatient (REF) | payer OTHER, SELFPAY ==
[2024-02-05 11:29] LABS: MANUAL DIFF FLAG NO
[2024-02-05 11:32] LABS: Basophils Absolute Auto 0.1 X10*3/uL (0.0-0.2); Basophils Percent Auto 1.1 % (0-2); Eosinophils Absolute Auto 0.2 X10*3/uL (0.0-0.4); Eosinophils Percent Auto 3.6 % (0-4); Hematocrit 46.1 % (37.0-47.0); Hemoglobin 15.1 g/dl (12.0-16.0); Imm Gran Abs Auto 0.02 X10*3/uL (0.00-0.03); Imm Gran Pct Auto 0.3 % (0.0-0.4); Lymphocytes Absolute Auto 2.3 X10*3/uL (1.2-4.9); Lymphocytes Percent Auto 35.7 % (20-40); Mean Corpuscular HGB Conc 32.8 g/dl (31.0-35.0); Mean Corpuscular Hemoglobin 29.7 pg (27.0-33.0); Mean Corpuscular Volume 90.7 fL (80.0-98.0); Mean Platelet Volume 11.8 fL (9.4-12.3); Monocytes Absolute Auto 0.5 X10*3/uL (0.1-1.2); Monocytes Percent Auto 7.4 % (2-11); Neutrophils Absolute Auto 3.3 x10*3/uL (2.0-8.3); Neutrophils Percent Auto 51.9 % (45-73); Platelet Count 197 X10*3/uL (160-400); Red Blood Count 5.08 X10*6/uL (4.20-5.50); Red Cell Distribution Width 12.2 % (11.0-16.0); White Blood Count 6.3 X10*3/uL (4.8-10.8)
[2024-02-05 11:53] LABS: Estimated Average Glucose 114 mg/dL; Hemoglobin A1c % 5.6 % (<6.0)
[2024-02-05 12:24] LABS: Alanine Aminotransferase 35 U/L (0-31); Albumin Level 3.9 g/dL (3.5-5.0); Alkaline Phosphatase 71 U/L (39-117); Anion Gap 12 (12-20); Aspartate Amino Transferase 23 U/L (5-31); Bilirubin Total 0.6 mg/dL (0.0-1.0); Blood Urea Nitrogen 25 mg/dL (9-16); Calcium 8.9 mg/dL (8.4-10.2); Carbon Dioxide 28 mmol/L (22-29); Chloride 105 mmol/L (96-108); Cholesterol 201 mg/dL (<200); Estimated Glomerular Filt Rate > 60; Glucose Fasting 89 mg/dL (60-99); HDL Cholesterol 54 mg/dL (>40); LDL Cholesterol Calculated 120 mg/dL (<100); Potassium 4.5 mmol/L (3.3-5.1); Sodium 140 mmol/L (135-145); Total Protein 6.2 g/dL (6.5-8.0); Triglycerides 138 mg/dL (<150)
== END 2024-02-05 07:03 | disposition home or self-care (01) ==
LOC: HO.HMGCLDS 07:02
PROVIDERS: PCP Internal Medicine; Visit Provider Internal Medicine
DX: E78.5 Hyperlipidemia, unspecified (principal); R73.9 Hyperglycemia, unspecified
CPT/HCPCS: 36415; 80053; 80061; 83036; 84443; 85025

== ENCOUNTER 2024-02-11 13:31 | Outpatient (AMB) | payer OTHER, SELFPAY ==
[2024-02-11 13:37] VITALS: BP 126/66; PULSE 82; O2SAT 96; BMI 31.9
--- NOTE | 2024-02-11 13:37 | A.OFFPC_ITS ---
Vital Signs 02/11/24 13:37 Height 5 ft 3 in Weight 180 lb BMI 31.9 BP 126/66 Blood Pressure Location Lt brachial Position Sitting Pulse 82 Pulse Source Pulse Oximeter Pulse Oximetry (%) 96 Oxygen Delivery Method Room Air Intake Visit Reasons: 6 month follow up Intake Note: Pt is here today for 6 months follow up visit. Allergies lisinopril [LISINOPRIL] Allergy (Severe, Verified 02/11/24 13:42) COUGH telithromycin [From KETEK] Allergy (Intermediate, Verified 02/11/24 13:42) BLURRED VISION latex [LATEX] Allergy (Mild, Verified 02/11/24 13:42) RASH celecoxib [Celebrex] Allergy (Unknown, Verified 02/11/24 13:42) rash penicillamine [PENICILLAMINE] Allergy (Unknown, Verified 02/11/24 13:42) UNKNOWN valsartan [Diovan] Allergy (Unknown, Verified 02/11/24 13:42) Unknown Sulfa (Sulfonamide Antibiotics) Allergy (Verified 02/11/24 13:42) hives, throat constriction cortisone injection Allergy (Unknown, Uncoded 02/11/24 13:42) caused menstration Medication List - Last Reconciled 02/11/24 by Shira Garcia MD albuterol sulfate 90 mcg/actuation (ProAir HFA) 2 puffs inhalation Q4-6H PRN cholecalciferol (vitamin D3) 50 mcg PO DAILY diclofenac sodium 75 mg PO BID estradiol 1 patch transdermal 2XW irbesartan 300 mg PO DAILY levothyroxine 100 mcg PO DAILY pravastatin 10 mg PO DAILY progesterone micronized 100 mg PO DAILY Tobacco use date assessed: 02/11/24 Dental Screening Dental Screen Date: 02/11/24 Did you have a dental visit in the last 12 months?: Yes Did you have a dental problem in the last 6 months where you did not have access to dental care?: No Was dental information given to patient?: Patient has dentist HPI 6 month follow up HPI Details Pt presents for f/u HTN, hyperlipid,stable on meds. PFSH Medical History URI (upper respiratory infection) Left flank pain Lower back pain Muscle spasm of both lower legs Daytime sleepiness Right knee injury Swelling of left lower extremity Bleeding from varicose veins of left lower extremity Right otitis media Flu-like symptoms Sprain of left knee Knee pain, left Annual physical exam Hyperglycemia Shingles rash Obesity due to excess calories Hand pain, right Hair loss Encounter for screening laboratory testing for COVID-19 virus Well woman exam with routine gynecological exam Hyperlipidemia Chronic pain of right thumb Vitamin D deficiency Elevated cortisol level Hypothyroidism Incontinence HTN (hypertension) Surgical History History of uvulectomy Hx of myringotomy Hx of section History of ankle surgery Hx of knee surgery Family History Father No problems noted. Mother No problems noted. Family/Other History of breast cancer Social History Household Members: None Housing: House Alcohol intake: current Alcohol intake frequency: holidays/special occasions only Patient Tobacco Use Status: Former Tobacco user Tobacco use type: Cigarette Years Smoked: 15 years ago e-Cigarette/Vaping Use: Never Used Second Hand Smoke Exposure: No service: No Current occupational status: employed Sexual orientation: Straight/Heterosexual Gender identity: Female Cognitive needs: No Hearing needs: No Vision needs: Yes Female Reproductive History Menstrual Age of Menarche: 9 Questionnaire PHQ-9 Over the last 2 weeks, how often have you been bothered by any of the following problems? 1. Little interest or pleasure in doing things: not at all 2. Feeling down, depressed, or hopeless: not at all 3. Trouble falling or staying asleep, or sleeping too much: more than half the days 4. Feeling tired or having little energy: more than half the days 5. Poor appetite or overeating: several days 6. Feeling bad about yourself - or that you are a failure or have let yourself or your family down: not at all 7. Trouble concentrating on things, such as reading the newspaper or watching television: not at all 8. Moving or speaking so slowly that other people could have noticed. Or the opposite - being so fidgety or restless that you have been moving around a lot more than usual: several days 9. Thoughts that you would be better off or of hurting yourself in some way: not at all Total score: 6 Depression Screening Interpretation: Negative Depression Screening Done: Yes Source: Developed by Vielka Wang, Natalio De and colleagues, with an educational lena from [employer] [facility] [employer]. Thrive Questionnaire Date Thrive assessed: 02/11/24 I am a: Patient What is your living situation today?: I have a steady place to live Within the past 12 months, did the food you bought not last and you didn't have the money to get more?: Never true Within the past 12 months, did you worry whether your food would run out before you got money to buy more?: Never true Do you have trouble paying for medicines?: No Do you have trouble getting transportation to medical appointments?: No Do you have trouble paying your heating and electricity bill?: No Do you have trouble taking care of your child, family member or friend?: No Do you have trouble with day-to-day activities such as bathing, preparing meals, shopping, managing finances, etc.?: No Are you currently unemployed and looking for a job?: No Are you interested in more education?: No Please select the resources that you would like help with: None THRIVE Score: 0 AUDIT C Alcohol Use Questionnaire (AUDIT-C) 1. How often do you have a drink containing alcohol?: Monthly or less 2. How many drinks containing alcohol do you have on a typical day when you are drinking?: 1 or 2 3. How often do you have six or more drinks on one occasion?: Never Total Score: 1 DUY-7 AMB Questionnaire DUY-7 Date DUY - 7 assessed: 02/11/24 Feeling nervous, anxious, or on edge: 0 = Not at all Not being able to stop or control worryin = Not at all Worrying too much about different things: 0 = Not at all Trouble relaxin = Not at all Being so restless that it is hard to sit still: 0 = Not at all Becoming easily annoyed or irritable: 0 = Not at all Feeling afraid as if something awful might happen: 0 = Not at all Total DUY-7 score (0-4 normal; 5-9 mild; 10-14 moderate; 15-21 severe): 0 Source: Developed by Vielka Wang Kurt Kroenke and colleagues, with an educational lena from [facility] [facility] [employer]. Review of Systems Const All systems reviewed & are unremarkable except as noted in HPI and below Reports no additional complaints Eyes Reports no additional complaints ENT Reports no additional complaints Card Reports no additional complaints Resp Reports no additional complaints GI Reports no additional complaints Reports no additional complaints Physical exam (Primary Care) Vital Signs: Last Vital Signs Pulse 82 02/11/24 13:37 BP 126/66 02/11/24 13:37 Pulse Ox 96 02/11/24 13:37 Oxygen Delivery Method Room Air 02/11/24 13:37 BMI result Body Mass Index 31.9 Tobacco/Smoking Status: Tobacco use Status Tobacco use date assessed 02/11/24 02/11/24 13:44 Patient Tobacco Use Status Former Tobacco user 02/11/24 13:44 Tobacco use type Cigarette 02/11/24 13:38 e-Cigarette/Vaping Use Never Used 02/11/24 13:38 PHQ-9: PHQ-9 Score PHQ-9: Total score 6 02/11/24 13:46 Depression Screening Interpretation: Negative Thrive Assessment: Date of Thrive Assessment Date Thrive assessed 02/11/24 02/11/24 13:46 Const General: no acute distress HENMT Head: Yes normal to inspection General nose exam: Normal external nose present Face and sinus: Yes normal facial exam Mouth: Normal oral and palatal mucosa present Eyes General: appearance normal, both eyes and all related structures Neck Neck: Yes no lymphadenopathy and Yes supple Resp Effort & Inspection: normal respiratory effort Auscultation: clear to auscultation bilaterally Cardio Rhythm: regular rhythm Heart sounds: S1 normal heart sound present and S2 normal heart sound present GI Inspection: Yes normal to inspection Palpation (GI): Soft to palpation Percussion: Yes normal to percussion Auscultation: normal bowel sounds Assessment and Plan Assessment & Plan (1) Hypothyroidism: Code(s): E03.9 - Hypothyroidism, unspecified Qualifiers: Hypothyroidism type: unspecified Qualified Code(s): E03.9 - Hypothyroidism, unspecified Plan: Continue levothyroxine (2) HTN (hypertension): Code(s): I10 - Essential (primary) hypertension Plan: Continue irbesartan (3) Hyperlipidemia: Code(s): E78.5 - Hyperlipidemia, unspecified Plan: Continue pravastatin follow-up in 6 months for PE with a fasting labs before Orders: Orders Complete Blood Count Auto Diff 6 Months E03.9 - Hypothyroidism, unspecified, E78.5 - Hyperlipidemia, unspecified, I10 - Essential (primary) hypertension Comprehensive [place]. Panel Fast 6 Months E03.9 - Hypothyroidism, unspecified, E78.5 - Hyperlipidemia, unspecified, I10 - Essential (primary) hypertension Lipid Panel 6 Months E03.9 - Hypothyroidism, unspecified, E78.5 - Hyperlipidemia, unspecified, I10 - Essential (primary) hypertension TSH reflex Free T4 6 Months E03.9 - Hypothyroidism, unspecified, E78.5 - Hyperlipidemia, unspecified, I10 - Essential (primary) hypertension Coding Level of Care Code Est Pt Level 4 (32664) Diagnoses Hypothyroidism, unspecified type E03.9 Hypothyroidism type: unspecified HTN (hypertension) I10 Hyperlipidemia E78.5
== END 2024-02-11 14:46 | disposition home or self-care (01) ==
PROVIDERS: PCP Internal Medicine; Visit Provider Internal Medicine
DX: E03.9 Hypothyroidism, unspecified (principal); I10 Essential (primary) hypertension; E78.5 Hyperlipidemia, unspecified
CPT/HCPCS: 99214

== ENCOUNTER 2024-07-17 14:31 | Outpatient (AMB) | payer OTHER, SELFPAY ==
--- OUTSIDE RECORDS SUMMARY | 2024-07-17 14:33 | XMS_ITS | Continuity of Care Document ---
Author Organization [facility] Address [address] [place] [address]- Care Team Providers Care Sergeant At Arms Name Role Phone Not on Staff, PCP Primary Care Physician Unavail able [facility]counter [facility] Date(s[facility] 05/24/20 - 06/23/20 [facility] [address] [place] [address]- [facility] Attending Physician: Jonathan Jasso Admitting Physician: AdmtrJonathan Referring Physician: AdmtrJonathan Allergies, Adverse Reactions, Alerts Substance Reaction Severity Status penicillin Active lisinopril Cough Active Diovan Rash Active Latex Active Ketek BLURRY VISION Active Immunizations Given and Recorded Vaccine Date Status Refusal Reason influenza virus vaccine, inactivated 08/07/12 Give n influenza virus vaccine, inactivated 1 08/22/10 Gi fabiana influenza virus vaccine, inactivated 2 09/23/07 Gi fabiana Hepatitis B Vaccine (old term) 3 02/14/10 Given Hepatitis B Vaccine (old term) 4 09/13/09 Given Hepatitis B Vaccine (old term) 5 08/16/09 Given influ virus vac, H1N1, inactive(oldterm) 6 10/28/09 Given Influenza Vaccine (oldterm) 09/13/09 Given Measles/Mumps/Rubella Virus Vaccine 08/16/09 Given Pneumococcal Vaccine (oldterm) 11/10/08 Given Diphth-Tetanus Toxoids Adsorbed(oldterm) 08/05/07 Given diphtheria-tetanus toxoids (DT) 08/25/97 Given 1Admin Note: fermin [facility] 2Admin Note: given by dr weinstein 3Admin Note: 3rd Hep B 4Admin Note: 2nd Hep B 5Admin Note: 1st Hep B 6[place] Note[place] [facility] [place] Medications levothyroxine 0.1 mg oral tablet 1 tablet, By Mouth, Daily, Dr. Sheppard, # 30 tablet, 0 Refills, Maintenance, Tablet Start Date: 08/30/11 Status: Ordered metoprolol 50 mg oral tablet, extended release 50 mg, 1, tablet, By Mouth, Daily, # 30 tablet, Refills 5, Tot. Refills 5, Maintenance, 06/19/17 11:57:46, Route to Pharmacy Electronically, [id number], [facility] [id number], succinate Start Date: 06/19/17 Status: Ordered Prometrium 200 mg oral capsule 1 capsule = 200 mg, By Mouth, Daily, 0 Refills, Maintenance, 05/01/16 13:57:02 Start Date: 05/01/16 Status: Ordered Vitamin D3 1000 intl units oral tablet 2 tablet = 2,000 International_Units, By Mouth, Daily, # 30 tablet, 0 Refills, Maintenance Start Date: 05/12/10 Status: Ordered Vivelle-Dot 0.05 mg/24 hours twice weekly transdermal film, extended release See Instructions, 0, 0, 03/25/08 8:31:22, Topically 2 times per week, Print BLAKE Number, Constant Indicator Start Date: 03/25/08 Status: Ordered Zithromax Z-Jairo 250 mg oral tablet See Instructions, Please take 2 tabs on day one then one tab daily for four days, # 6 tablet, 0 Refills, Soft Stop, 11/08/16 11:39:32, Tablet Start Date: 11/08/16 Status: Ordered Problem List Condition Effective Dates Status Health Status Inform ant Esophageal reflux(Confirmed) 04/2006 Active Hyperlipidemia(Confirmed) 03/25/08 Active Hypertension(Confirmed) Active 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
--- OUTSIDE RECORDS SUMMARY | 2024-07-17 14:33 | XMS_ITS | Continuity of Care Document ---
Author Organization [facility] Address [address] [place] [address]- Care Team Providers Care Operating Room Specialist Name Role Phone Shira Garcia MD Primary Care Physician [place] [facility] [place] 08[place]09/20 [facility] [address] [place] [address]- [facility] Attending Physician: Sal Holloway MD Admitting Physician: Sal Holloway MD Allergies, Adverse Reactions, Alerts Substance Reaction Severity [...] diphtheria-tetanus toxoids (DT) 08/25/97 Given [facility] 2Admin Note: given by dr weinstein 3Admin Note: 3rd Hep B 4Admin Note: 2nd Hep B 5Admin Note: 1st Hep B 6[place] [facility] [place] Atenolol By Mouth, Daily, 0 Refills, Maintenance, 07/05/20 15:31:00 EDT Start Date: 07/05/20 Status: Ordered Biotin By Mouth, Daily, 0 Refills, Maintenance, 07/05/20 15:31:00 EDT Start Date: 07/05/20 Status: Ordered Gel-One 10 mg/mL intra-articular solution Intra-articular, Gel-One to Rt Knee by Lot #[id number] exp.06/20/2022, 0 Refills, Maintenance, 08/02/20 16:03:00 EDT Start Date: 08/02/20 Status: Ordered Irbesartan By Mouth, Daily, 0 Refills, Maintenance, 07/05/20 15:31:00 EDT Start Date: 07/05/20 Status: Ordered levothyroxine 0.1 mg oral tablet 1 tablet, By Mouth, Daily, Dr. Sheppard, # 30 tablet, 0 Refills, Maintenance, Tablet Start Date: 08/30/11 Status: Ordered Magnesium Carbonate = 54 mg, By Mouth, Daily, 0 Refills, Maintenance, 07/05/20 15:31:00 EDT Start Date: 07/05/20 Status: Ordered metoprolol 50 mg oral tablet, extended release 50 mg, 1, tablet, By Mouth, Daily, # 30 tablet, Refills 5, Tot. Refills 5, Maintenance, 06/19/17 11:57:46, Route to Pharmacy Electronically, [id number], [facility] [id number], succinate Start Date: 06/19/17 Status: Ordered Naproxen By Mouth, 0 Refills, Maintenance, 07/05/20 15:30:00 EDT Start Date: 07/05/20 Status: Ordered Prometrium 200 mg oral capsule [...] 11:39:32, Tablet Start Date: 11/08/16 Status: Ordered Zolpidem Daily at bedtime, 0 Refills, Maintenance, 07/05/20 15:31:00 EDT Start Date: 07/05/20 Status: Ordered Problem List Condition Effective Dates Status Health Status Inform ant Esophageal reflux(Confirmed) 04/2006 Active Hyperlipidemia(Confirmed) 03/25/08 Active Hypertension(Confirmed) Active 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
--- OUTSIDE RECORDS SUMMARY | 2024-07-17 14:33 | XMS_ITS | Continuity of Care Document ---
Author Organization [facility] Address [address] [place] [address]- Care Team Providers Care Semiconductor Processing Technician Name Role Phone Shira Garcia MD Primary Care Physician [place] [facility] [place] - 10/01/21 [facility] [address] [place] [address]- Discharge Disposition: A-D/C Home Attending Physician: Shira Garcia MD Admitting Physician: Shira Garcia MD Referring Physician: Shira Garcia MD Allergies, Adverse Reactions, Alerts Substance Reaction Severity Status penicillin Active lisinopril Cough Active CeleBREX Rash Active Diovan Rash Active Latex Active Ketek [...] (DT) 08/25/97 Given 1Admin Note: fermin durham [facility] 2Admin Note: given by dr weinstein 3Admin Note: 3rd Hep B 4Admin Note: 2nd Hep B 5Admin Note: 1st Hep B 6Admin Note: [facility] [place] [facility] [place] Medications Atenolol By Mouth, Daily, 0 Refills, Maintenance, 07/05/20 15:31:00 EDT Start Date: 07/05/20 Status: Ordered clobetasol 0.05% topical ointment See Instructions, 1 application topically nightly for 3 months and then 1-3x wk for maintenance, # 30 Gm, 0 Refills, Acute 02/11/22 9:41:00 EDT, 02/11/21 9:40:00 EDT, [id number], Partial fill upon patient request if the prescription i... Start Date: 02/11/21 Stop Date: 02/11/22 Status: Ordered Estrace Vaginal Cream 0.1 mg/g See Instructions, 1 Gm Vaginally 2 tmes per week, # 42 Gm, 3 Refills, Maintenance, 02/11/21 9:40:00EDT, [facility][id number], Partial fill upon patient request if the prescription is for a schedule II opioid drug., 158, cm, 02/11/21 9:09:00 E... Start Date: 02/11/21 Status: Ordered Gel-One 10 mg/mL intra-articular solution Intra-articular, Gel-One to Rt Knee by Lot #[id number] exp.06/20/2022, 0 Refills, Maintenance, 08/02/20 16:03:00 EDT Start Date: 08/02/20 Status: Ordered Gel-One 10 mg/mL intra-articular solution = 20 mg, Intra-articular, Gel-One to rt knee, done by patient tolerated procedure well. lot# [id number] catno.[id number], 0 Refills, Maintenance, 04/08/21 8:59:00 EDT, Partial fill upon patient request if the prescription is for a s... Start Date: 04/08/21 Status: Ordered Irbesartan By Mouth, Daily, 0 Refills, Maintenance, 07/05/20 15:31:00 EDT Start Date: 07/05/20 Status: Ordered levothyroxine 0.1 mg oral tablet 1 tablet, By Mouth, Daily, Dr. Sheppard, # 30 tablet, 0 Refills, Maintenance, Tablet Start Date: 08/30/11 Status: Ordered Naproxen By Mouth, 0 Refills, Maintenance, 07/05/20 15:30:00 EDT Start Date: 07/05/20 Status: Ordered Vitamin D3 1000 intl units oral tablet 2 tablet = 2,000 International_Units, By Mouth, Daily, # 30 tablet, 0 Refills, Maintenance Start Date: 05/12/10 Status: Ordered Zithromax Z-Jairo 250 mg oral [...]
--- OUTSIDE RECORDS SUMMARY | 2024-07-17 14:33 | XMS_ITS | Continuity of Care Document ---
Author Organization [facility] Address [address] [place] [address]- Care Team Providers Care Shipping Support Clerk Name Role Phone Shira Garcia MD Primary Care Physician [place] [facility] [place] 12/[place]/23 [facility] [address] [place] [address]- Allergies, Adverse Reactions, Alerts Substance Reaction Severity Status penicillin Anaphylactic reaction Active sulfADIAZINE red , hot face, throat hot A ctive lisinopril Cough Active Diovan Rash Active Latex Hives Active Ketek BLURRY VISION Active CeleBREX Rash Active Immunizations Given and Recorded Vaccine Date [...] toxoids (DT) 08/25/97 Given [facility] 2Admin Note: given by dr weinstein 3Admin Note: 3rd Hep B 4Admin Note: 2nd Hep B 5Admin Note: 1st Hep B 6Admin Note: [place] [facility] [place] Medications diclofenac sodium 75 mg oral delayed release tablet 1 tablet = 75 mg, By Mouth, 2 times a day, 0 Refills, Maintenance, 09/18/23 10:19:00 EDT, Partial fill upon patient request if the prescription is for a schedule II opioid drug. Start Date: 09/18/23 Status: Ordered Estradiol Patch 0.025 mg/24 hours twice weekly transdermal film, extended release 0 Refills, Maintenance, 09/18/23 10:19:00 EDT, Partial fill upon patient request if the prescription is for a schedule II opioid drug. Start Date: 09/18/23 Status: Ordered Gel-One 10 mg/mL intra-articular solution Intra-articular, Gel-One to Rt Knee by Lot #[id number] exp.06/20/2022, 0 Refills, Maintenance, 08/02/20 16:03:00 EDT Start Date: 08/02/20 Status: Ordered Irbesartan = 300 mg, By Mouth, Daily in AM, 0 Refills, Maintenance, 07/05/20 15:31:00 EDT Start Date: 07/05/20 Status: Ordered levothyroxine 0.1 mg oral tablet 1 tablet, By Mouth, Daily, Dr. Sheppard, # 30 tablet, 0 Refills, Maintenance, Tablet Start Date: 08/30/11 Status: Ordered melatonin 5 mg oral tablet 1 tablet = 5 mg, By Mouth, Daily at bedtime, PRN for insomnia, # 60 tablet, 0 Refills, Maintenance,10/16/23 15:24:00 EST, Tablet, Partial fill upon patient request if the prescription is for a schedule II opioid drug. Start Date: 10/16/23 Status: Ordered pravastatin 10 mg oral tablet 1 tablet = 10 mg, By Mouth, Daily at bedtime, 0 Refills, Maintenance, 09/18/23 10:19:00 EDT, Partial fill upon patient request if the prescription is for a schedule II opioid drug. Start Date: 09/18/23 Status: Ordered progesterone 100 mg oral capsule 1 capsule = 100 mg, By Mouth, Daily before dinner, 0 Refills, Maintenance, 09/18/23 10:19:00 EDT, Partial fill upon patient request if the prescription is for a schedule II opioid drug. 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 Physician - Primary Care Member Role: PCP Address: Address: [address] [place] [address]- Care Team Related Persons Name: MARIA ANTONIA REYES Name: RONAL PETER Address: home [address] [address]
--- OUTSIDE RECORDS SUMMARY | 2024-07-17 14:33 | XMS_ITS | Continuity of Care Document ---
Author Organization [facility] Address [address] [place] [address]- Care Team Providers Care Retail Representative Name Role Phone Shira Garcia MD Primary Care Physician [place] [facility] [place] 04/[place]/24 [facility] [address] [place], [place] [address] Attending Physician: AdmJonathan valerio Admitting Physician: AdmtrJonathan Referring Physician: Admtr, Ar8 Allergies, Adverse Reactions, Alerts Substance Reaction Severity [...] toxoids (DT) 08/25/97 Given 1[facility] 2Admin Note: given by dr weinstein 3Admin Note: 3rd Hep B 4Admin Note: 2nd Hep B 5Admin Note: 1st Hep B 6Admin Note: given at [facility] diclofenac sodium 75 mg oral delayed release [...] Intra-articular, Gel-One to Rt Knee by Lot #[id number] exp.06/20/2022, 0 Refills, Maintenance, 08/02/20 16:03:00 EDT [...] Team Personnel Name: Shira Garcia MD Position: [facility] Physician - Primary Care Member Role: PCP Address: Address: [address] [place] [address]- Care Team Related Persons Name: MARIA ANTONIA REYES Name: RONAL PETER Address: home [address] [place] [address]
--- OUTSIDE RECORDS SUMMARY | 2024-07-17 14:33 | XMS_ITS | Continuity of Care Document ---
Author Organization [facility] Address [address] [place] [address]- Care Team Providers Care Sewing Machines Salesperson Name Role Phone Shira Garcia MD Primary Care Physician [phone] [place] [facility] [place]23 [place] 10/03/23 [facility] [address] [place], [place] [address] Allergies, Adverse Reactions, Alerts Substance Reaction Severity Status penicillin Active lisinopril Cough Active Diovan Rash Active CeleBREX Rash Active Latex Active Ketek BLURRY VISION [...] diphtheria-tetanus toxoids (DT) 08/25/97 Given 1Admin Note: [facility] 2Admin Note: given by dr weinstein 3Admin Note: 3rd Hep B 4Admin Note: 2nd Hep B 5Admin Note: 1st Hep B 6Admin Note: [place] [facility] [place] Medications Atenolol By Mouth, Daily, 0 Refills, Maintenance, 07/05/20 15:31:00 EDT Start Date: 07/05/20 Status: Ordered diclofenac sodium 75 mg oral delayed release tablet 0 Refills, Maintenance, 09/18/23 10:19:00 EDT, Partial fill upon patient request if the prescription is for a schedule II opioid drug. Start Date: 09/18/23 Status: Ordered Estrace Vaginal Cream 0.1 mg/g See Instructions, 1 Gm Vaginally 2 tmes per week, # 42 Gm, 3 Refills, Maintenance, 02/11/21 9:40:00EDT, [email or web address] #[id number], Partial fill upon patient request if the prescription is for a schedule II opioid drug., 158, cm, 02/11/21 9:09:00 E... Start Date: 02/11/21 Status: Ordered Estradiol Patch 0.025 mg/24 hours twice weekly transdermal film, extended release 0 Refills, Maintenance, 09/18/23 10:19:00 EDT, Partial fill upon patient request if the prescription is for a schedule II opioid drug. Start Date: 09/18/23 Status: Ordered Gel-One 10 mg/mL intra-articular solution Intra-articular, Gel-One to Rt Knee by Lot #[id number] exp.06/20/2022, 0 Refills, Maintenance, 08/02/20 16:03:00 EDT Start Date: 08/02/20 Status: Ordered Gel-One 10 mg/mL intra-articular solution = 20 mg, Intra-articular, Gel-One to rt knee, done by patient tolerated procedure well. lot# [id number] catno.[id number], 0 Refills, Maintenance, 04/08/21 8:59:00 EDT, Partial [...] 15:30:00 EDT Start Date: 07/05/20 Status: Ordered pravastatin 10 mg oral tablet 0 Refills, Maintenance, 09/18/23 10:19:00 EDT, Partial fill upon patient request if the prescription is for a schedule II opioid drug. Start Date: 09/18/23 Status: Ordered progesterone 100 mg oral capsule 0 Refills, Maintenance, 09/18/23 10:19:00 EDT, Partial [...] Date: 07/05/20 Status: Ordered Problem List Condition Confirmation Course [...] Care Member Role: PCP Address: Address: [address] [place] [address]- Care Team Related Persons Name: MARIA ANTONIA REYES Name: RONAL PETER Address: home [address] [address]
--- OUTSIDE RECORDS SUMMARY | 2024-07-17 14:33 | XMS_ITS | Continuity of Care Document ---
Author Organization [facility] lAexei Mendoza Gerard lt Address [address] [place] [address]- Care Team Providers Care Brewmaster Name Role Phone Shira Garcia MD Primary Care Physician [place] [facility] [place] 03/07/23 - 04/11/23 [facility] [address] [place] [address]- Attending Physician: Amanda Medrano Allergies, Adverse Reactions, Alerts Substance Reaction Severity Status penicillin Active lisinopril Cough Active Diovan Rash Active Ketek BLURRY VISION Active CeleBREX Rash Active Latex Active Immunizations Given and Recorded Vaccine Date [...] toxoids (DT) 08/25/97 Given 1[facility] 2Admin Note: given by dr weinstein 3Admin Note: 3rd Hep B 4Admin Note: 2nd Hep B 5Admin Note: 1st Hep B 6Admin Note: [place] [facility] [place] Medications Atenolol By Mouth, Daily, 0 Refills, Maintenance, 07/05/20 15:31:00 EDT Start Date: 07/05/20 Status: Ordered Estrace Vaginal Cream 0.1 mg/g See Instructions, 1 Gm Vaginally 2 tmes per week, # 42 Gm, 3 Refills, Maintenance, 02/11/21 9:40:00EDT, [facility] #[id number], Partial fill upon patient request if the prescription is for a schedule II opioid drug., 158, cm, 02/11/21 9:09:00 E... Start Date: 02/11/21 Status: Ordered Gel-One 10 mg/mL intra-articular solution Intra-articular, Gel-One to Rt Knee by Lot #[id number] exp.06/20/2022, 0 Refills, Maintenance, 08/02/20 16:03:00 EDT Start Date: 08/02/20 Status: Ordered Gel-One 10 mg/mL intra-articular solution = 20 mg, Intra-articular, Gel-One to rt knee, done by patient tolerated procedure well. lot# [id number] catno.[id number], 0 Refills, Maintenance, 04/08/21 8:59:00 EDT, Partial [...] 03/25/08 Active Low back pain Confirmed Active Obstructive sleep apnea syndrome Confirmed 03/10/08 Active Social History Social History Type Response Smoking Status Former smoker; Other : quit twice, most recently about 2007; entered on: 04/14/15 Sex Patient Care team information Care Team Personnel Name: Shira Garcia MD Position: [facility] Physician (General Medicine) Member Role: PCP Address: Address: [address] [place] [address]- Care Team Related Persons Name: MARIA ANTONIA REYES Name: RONAL PETER Address: home [address] [place] [address]
--- OUTSIDE RECORDS SUMMARY | 2024-07-17 14:33 | XMS_ITS | Continuity of Care Document ---
Author Organization [facility] Address [address] [place] [address]- Care Team Providers Care Architecture Internship Name Role Phone Shira Garcia MD Primary Care Physician [phone] [place] [facility] [place](s): 10/25/23 - 11/24/23 [facility] [address] [place] [address]- Allergies, Adverse Reactions, Alerts Substance Reaction Severity [...] toxoids (DT) 08/25/97 Given 1[facility] 2Admin Note: given by dr weinstein 3Admin Note: 3rd Hep B 4Admin Note: 2nd Hep B 5Admin Note: 1st Hep B 6Admin Note: [place] [facility] [place] Medications diclofenac sodium 75 mg oral delayed [...] Intra-articular, Gel-One to Rt Knee by Lot #[id number] exp.06/20/2022, 0 Refills, Maintenance, 08/02/20 16:03:00 EDT [...] Team Personnel Name: Shira Garcia MD Position: [facility] Physician - Primary Care Member Role: PCP Address: Address: [address] [place] [address]- Care Team Related Persons Name: MARIA ANTONIA REYES Name: RONAL PETER Address: home [address] [address]
--- OUTSIDE RECORDS SUMMARY | 2024-07-17 14:33 | XMS_ITS | Continuity of Care Document ---
Author Organization [facility] Address [address] [place] [address], [address] [place] [address]- Care Team Providers Care Run Lead Name Role Phone Shira Garcia MD Primary Care Physician [place] [facility] [place]24/21 - 09/23/21 [facility] [address] [facility], [address] [place], [place] [address] Attending Physician: Jonathan Jasso Admitting Physician: AdmtrJonathan Referring Physician: Admtr, Ar8 Allergies, Adverse Reactions, Alerts Substance Reaction Severity Status penicillin Active lisinopril Cough Active Diovan Rash Active Latex Active Ketek BLURRY VISION Active CeleBREX Rash [...] diphtheria-tetanus toxoids (DT) 08/25/97 Given 1Admin Note: [facility] 2Admin Note: given by dr weinstein 3Admin Note: 3rd Hep B 4Admin Note: 2nd Hep B 5Admin Note: 1st Hep B 6Admin Note: [place] [facility] [place] Medications Atenolol By Mouth, Daily, 0 Refills, Maintenance, 07/05/20 15:31:00 EDT Start Date: 07/05/20 Status: Ordered clobetasol 0.05% topical ointment See Instructions, 1 application topically nightly for 3 months and then 1-3x wk for maintenance, # 30 Gm, 0 Refills, Acute 02/11/22 9:41:00 EDT, 02/11/21 9:40:00 EDT, [id number], Partial fill upon patient request if the prescription i... Start Date: 02/11/21 Stop Date: 02/11/22 Status: Ordered Estrace Vaginal Cream 0.1 mg/g See Instructions, 1 Gm Vaginally 2 tmes per week, # 42 Gm, 3 Refills, Maintenance, 02/11/21 9:40:00EDT, [facility] #[id number], Partial fill upon patient request if the prescription is for a schedule II opioid drug., 158, cm, 02/11/21 9:09:00 E... Start Date: 02/11/21 Status: Ordered Gel-One 10 mg/mL intra-articular solution Intra-articular, Gel-One to Rt Knee by Lot #[id number] exp.06/20/2022, 0 Refills, Maintenance, 08/02/20 16:03:00 EDT Start Date: 08/02/20 Status: Ordered Gel-One 10 mg/mL intra-articular solution = 20 mg, Intra-articular, Gel-One to rt knee, done by patient tolerated procedure well. lot# [id number] catno.[id number], 0 Refills, Maintenance, 04/08/21 8:59:00 EDT, Partial [...]
--- OUTSIDE RECORDS SUMMARY | 2024-07-17 14:33 | XMS_ITS | Continuity of Care Document ---
Author Organization [facility] Address [address] [place] [address], [address] [place] [address]- Care Team Providers Care Senior Mainframe Programmer Analyst Name Role Phone Shira Garcia MD Primary Care Physician [place] [facility] [place] 05/26/21 - 09/23/21 [facility] [address] [facility], 4th Floor [place], [place] [address] Attending Physician: Estee Patton MD Admitting Physician: Estee Patton MD Referring Physician: Shira Garcia MD Allergies, [...] diphtheria-tetanus toxoids (DT) 08/25/97 Given 1Admin Note: [facility] 2Admin Note: given by dr weinstein 3Admin Note: 3rd Hep B 4Admin Note: 2nd Hep B 5Admin Note: 1st Hep B 6Admin Note: given at [facility] Medications Atenolol By Mouth, Daily, 0 Refills, Maintenance, 07/05/20 15:31:00 EDT Start Date: 07/05/20 Status: Ordered clobetasol 0.05% topical ointment See Instructions, 1 application topically nightly for 3 months and then 1-3x wk for maintenance, # 30 Gm, 0 Refills, Acute 02/11/22 9:41:00 EDT, 02/11/21 9:40:00 EDT, [facility] #[id number], Partial fill upon patient request if the prescription i... Start Date: 02/11/21 Stop Date: 02/11/22 Status: Ordered Estrace Vaginal Cream 0.1 mg/g See Instructions, 1 Gm Vaginally 2 tmes per week, # 42 Gm, 3 Refills, Maintenance, 02/11/21 9:40:00EDT, [facility] #[id number], Partial fill upon patient request if the prescription is for a schedule II opioid drug., 158, cm, 02/11/21 9:09:00 E... Start Date: 02/11/21 Status: Ordered Gel-One 10 mg/mL intra-articular solution Intra-articular, Gel-One to Rt Knee by Lot #[id number] exp.06/20/2022, 0 Refills, Maintenance, 08/02/20 16:03:00 EDT Start Date: 08/02/20 Status: Ordered Gel-One 10 mg/mL intra-articular solution = 20 mg, Intra-articular, Gel-One to rt knee, done by patient tolerated procedure well. lot# [id number] catno.[id number], 0 Refills, Maintenance, 04/08/21 8:59:00 EDT, Partial [...]
--- OUTSIDE RECORDS SUMMARY | 2024-07-17 14:33 | XMS_ITS | Continuity of Care Document ---
Author Organization [facility] Address [address] [place] [address]- Care Team Providers Care Medical Cost Consultant Name Role Phone Shira Garcia MD Primary Care Physician [phone] [place] [facility] [place] - 06/08/21 [facility] [address] [place], [place] [address] Attending Physician: Sal Holloway MD Admitting Physician: Jewel SARAVIA, Sal Referring Physician: Shira Garcia MD Allergies, Adverse [...] (DT) 08/25/97 Given 1Admin Note: [facility] 2Admin Note: given by dr weinstein 3Admin Note: 3rd Hep B 4Admin Note: 2nd Hep B 5Admin Note: 1st Hep B 6Admin Note: given at [facility] [place] Medications Atenolol By Mouth, Daily, 0 Refills, Maintenance, 07/05/20 15:31:00 EDT Start Date: 07/05/20 Status: Ordered clobetasol 0.05% topical ointment See Instructions, 1 application topically nightly for 3 months and then 1-3x wk for maintenance, # 30 Gm, 0 Refills, Acute 02/11/22 9:41:00 EDT, 02/11/21 9:40:00 EDT, [facility] #[id number], Partial fill upon patient request if the prescription i... Start Date: 02/11/21 Stop Date: 02/11/22 Status: Ordered Estrace Vaginal Cream 0.1 mg/g See Instructions, 1 Gm Vaginally 2 tmes per week, # 42 Gm, 3 Refills, Maintenance, 02/11/21 9:40:00EDT, [facility] #[id number], Partial fill upon patient request if the prescription is for a schedule II opioid drug., 158, cm, 02/11/21 9:09:00 E... Start Date: 02/11/21 Status: Ordered Gel-One 10 mg/mL intra-articular solution Intra-articular, Gel-One to Rt Knee by Lot #[id number] exp.06/20/2022, 0 Refills, Maintenance, 08/02/20 16:03:00 EDT Start Date: 08/02/20 Status: Ordered Gel-One 10 mg/mL intra-articular solution = 20 mg, Intra-articular, Gel-One to rt knee, done by patient tolerated procedure well. lot# [id number] catno.[id number], 0 Refills, Maintenance, 04/08/21 8:59:00 EDT, Partial [...]
--- OUTSIDE RECORDS SUMMARY | 2024-07-17 14:33 | XMS_ITS | Continuity of Care Document ---
Author Organization [facility] Address [address] [place] [address]- Care Team Providers Care Steel Buffer Name Role Phone Shira Garcia MD Primary Care Physician En[place] [facility] [place] Date(s): 08/02/23 - 09/01/23 [facility] [address] [place] [address]- Allergies, Adverse Reactions, Alerts Substance Reaction Severity Status penicillin Active lisinopril Cough Active Diovan Rash Active Latex Active CeleBREX Rash Active Ketek BLURRY VISION Active Immunizations Given [...] diphtheria-tetanus toxoids (DT) 08/25/97 Given 1Admin Note: [facility] 2Admin Note: given by dr weinstein 3Admin Note: 3rd Hep B 4Admin Note: 2nd Hep B 5Admin Note: 1st Hep B 6Admin Note: given at [facility] [place] Medications Atenolol By Mouth, Daily, 0 Refills, Maintenance, 07/05/20 15:31:00 EDT Start Date: 07/05/20 Status: Ordered Estrace Vaginal Cream 0.1 mg/g See Instructions, 1 Gm Vaginally 2 tmes per week, # 42 Gm, 3 Refills, Maintenance, 02/11/21 9:40:00EDT, [facility] #[id number], Partial fill upon patient request if the prescription is for a schedule II opioid drug., 158, cm, 02/11/21 9:09:00 E... Start Date: 02/11/21 Status: Ordered Gel-One 10 mg/mL intra-articular solution Intra-articular, Gel-One to Rt Knee by Lot #[id number] exp.06/20/2022, 0 Refills, Maintenance, 08/02/20 16:03:00 EDT Start Date: 08/02/20 Status: Ordered Gel-One 10 mg/mL intra-articular solution = 20 mg, Intra-articular, Gel-One to rt knee, done by patient tolerated procedure well. lot# [id number] catno.[id number], 0 Refills, Maintenance, 04/08/21 8:59:00 EDT, Partial [...] Team Personnel Name: Shira Garcia MD Position: [facility] Physician - Primary Care Member Role: PCP Address: Address: [address] [place] [address]- Care Team Related Persons Name: MARIA ANTONIA REYES Name: RONAL PETER Address: home [address] [address]
--- OUTSIDE RECORDS SUMMARY | 2024-07-17 14:33 | XMS_ITS | Continuity of Care Document ---
Author Organization [facility] Address [address] [place] [address]- Care Team Providers Care Toy Painter Name Role Phone Shira Garcia MD Primary Care Physician [place] [facility] [place](s): 04/03/24 - 04/10/24 [facility] [address] [place], [place] [address] Attending Physician: Carmine Ribera MD Admitting Physician: Carmine Ribera MD Referring Physician: Shira Garcia MD Allergies, Adverse Reactions, Alerts Substance Reaction Severity Status penicillin Anaphylactic reaction Active Diovan Rash Active Latex Hives Active CeleBREX Rash Active sulfADIAZINE red , hot face, throat hot A ctive lisinopril Cough Active Ketek BLURRY VISION Active Immunizations Given [...] (DT) 08/25/97 Given 1Admin Note: fermin [facility] 2Admin Note: given by dr weinstein 3Admin Note: 3rd Hep B 4Admin Note: 2nd Hep B 5Admin Note: 1st Hep B 6Admin Note: given at [facility] diclofenac sodium 75 mg oral [...] Intra-articular, Gel-One to Rt Knee by Lot #[id number] exp.06/20/2022, 0 Refills, Maintenance, 08/02/20 16:03:00 EDT [...] Obstructive sleep apnea syndrome Confirmed 03/10/08 Active Vital Signs Most recent to oldest [Reference Range]: 1 Height 160 cm (04/03/24 3:25 PM) Weight 77.11 kg (04/03/24 3:25 PM) Oxygen Saturation [94-100 %] 96 % (04/03/24 3:25 PM) Pulse Rate [55-90 bpm] 64 bpm (04/03/24 3:25 PM) Body Mass Index [18.5-24.99 kg/m2] 30.12 kg/m2 *>HHI* (04/03/24 3:25 PM) Blood Pressure [90-138/55-84 mm Hg] 100/ 64mm Hg (04/03/24 3:25 PM) Mode of Delivery (Oxygen) Room air (04/03/24 3:25 PM) Blood pressure sites Arm, left (04/03/24 3:25 PM) Weight Obtained Via Patient/family state d (04/03/24 3:25 PM) Social History Social History Type Response Smoking Status Former smoker; Other : quit twice, most recently about 2007; entered on: 04/14/15 Sex Patient Care team information Care Team Personnel Name: Shira Garcia MD Position: [facility] Physician - Primary Care Member Role: PCP Address: Address: [address] [place] [address]- Care Team Related Persons Name: MARIA ANTONIA REYES Name: RONAL PETER Address: home [address] [address]
--- OUTSIDE RECORDS SUMMARY | 2024-07-17 14:33 | XMS_ITS | Continuity of Care Document ---
Author Organization [facility] Address [address] [place] [address]- Care Team Providers Care Committee Member Name Role Phone Shira Garcia MD Primary Care Physician [place] [facility] [place](s): 06/23/20 - 07/23/20 [facility] [address] [place] [address] Allergies, Adverse Reactions, Alerts Substance Reaction Severity [...] diphtheria-tetanus toxoids (DT) 08/25/97 Given 1Admin Note: [facility] 2Admin Note: given by dr weinstein 3Admin Note: 3rd Hep B 4Admin Note: 2nd Hep B 5Admin Note: 1st Hep B 6Admin Note: given [place] [facility] [place] Medications Atenolol By Mouth, Daily, 0 Refills, Maintenance, 07/05/20 15:31:00 EDT Start Date: 07/05/20 Status: Ordered Biotin By Mouth, Daily, 0 Refills, Maintenance, 07/05/20 15:31:00 EDT Start Date: 07/05/20 Status: Ordered Irbesartan By Mouth, Daily, 0 [...] Maintenance, 06/19/17 11:57:46, Route to Pharmacy Electronically, [id number][id number] succinate Start Date: 06/19/17 Status: Ordered Naproxen [...] Soft Stop, 11/08/16 11:39:32, Tablet Start Date: 12/21/16 Status: Ordered Zolpidem Daily at bedtime, 0 [...]
--- OUTSIDE RECORDS SUMMARY | 2024-07-17 14:33 | XMS_ITS | Continuity of Care Document ---
Author Organization [facility] Address [address] [place] [address]- Care Team Providers Care Concrete Mixer Truck Driver Name Role Phone Shira Garcia MD Primary Care Physician [phone] Encounter [facility] [place] Date(s): 04/06/21 - 04/13/21 [facility] [address] [place], [place] [address] Attending Physician: Sal Holloway MD Admitting Physician: [...] (DT) 08/25/97 Given 1Admin Note: [facility] 2Admin Note: given by dr weinstein 3Admin Note: 3rd Hep B 4Admin Note: 2nd Hep B 5Admin Note: 1st Hep B 6Admin Note: given at [facility] [place] Medications Atenolol By Mouth, Daily, 0 Refills, Maintenance, 07/05/20 15:31:00 EDT Start Date: 07/05/20 Status: Ordered clobetasol 0.05% topical ointment See Instructions, 1 application topically nightly for 3 months and then 1-3x wk for maintenance, # 30 Gm, 0 Refills, Acute 02/11/22 9:41:00 EDT, 02/11/21 9:40:00 EDT, [facility] #[id number], Partial fill upon patient request if the prescription i... Start Date: 02/11/21 Stop Date: 02/11/22 Status: Ordered Estrace Vaginal Cream 0.1 mg/g See Instructions, 1 Gm Vaginally 2 tmes per week, # 42 Gm, 3 Refills, Maintenance, 02/11/21 9:40:00EDT, [facility] #[id number], Partial fill upon patient request if the prescription is for a schedule II opioid drug., 158, cm, 02/11/21 9:09:00 E... Start Date: 02/11/21 Status: Ordered Gel-One 10 mg/mL intra-articular solution Intra-articular, Gel-One to Rt Knee by Lot #[id number] exp.06/20/2022, 0 Refills, Maintenance, 08/02/20 16:03:00 EDT Start Date: 08/02/20 Status: Ordered Gel-One 10 mg/mL intra-articular solution = 20 mg, Intra-articular, Gel-One to rt knee, done by patient tolerated procedure well. lot# [id number] catno.[id number], 0 Refills, Maintenance, 04/08/21 8:59:00 EDT, Partial [...] recent to oldest [Reference Range]: 1 Height 158 cm (04/06/21 1:09 PM) Social History Social History Type Response Smoking Status Former smoker; Other : quit twice, most recently about 2007; entered on: 04/14/15 Sex
--- OUTSIDE RECORDS SUMMARY | 2024-07-17 14:33 | XMS_ITS | Continuity of Care Document ---
Author Organization [facility] Address [address] [place] [address]- Care Team Providers Care Lining Vamper Name Role Phone Shira Garcia MD Primary Care Physician [place] [facility] [place]18[place]23 [place] 09/25/23 [facility] [address] [place], [place] [address] Attending Physician: Carmine Ribera MD Admitting Physician: [...] (DT) 08/25/97 Given 1Admin Note: fermin [facility] 2Admin Note: given by dr weinstein 3Admin Note: 3rd Hep B 4Admin Note: 2nd Hep B 5Admin Note: 1st Hep B 6Admin Note: given at [facility] [place] Medications Atenolol By Mouth, Daily, [...] 42 Gm, 3 Refills, Maintenance, 02/11/21 9:40:00EDT, [facility] #[id number], Partial fill upon patient request if the [...] Intra-articular, Gel-One to Rt Knee by Lot #[id number] exp.06/20/2022, 0 Refills, Maintenance, 08/02/20 16:03:00 EDT Start Date: 08/02/20 Status: Ordered Gel-One 10 mg/mL intra-articular solution = 20 mg, Intra-articular, Gel-One to rt knee, done by patient tolerated procedure well. lot# [id number] catno.[id number], 0 Refills, Maintenance, 04/08/21 8:59:00 EDT, Partial [...] recent to oldest [Reference Range]: 1 Height 157 cm (09/18/23 10:20 AM) Weight 81.65 kg (09/18/23 10:20 AM) Oxygen Saturation [94-100 %] 96 % (09/18/23 10:20 AM) Pulse Rate [55-90 bpm] 74 bpm (09/18/23 10:20 AM) Body Mass Index [18.5-24.99 kg/m2] 33.13 kg/m2 *>HHI* (09/18/23 10:20 AM) Blood Pressure [90-138/55-84 mm Hg] 130/ 62mm Hg (09/18/23 10:20 AM) Mode of Delivery (Oxygen) Room air (09/18/23 10:20 AM) Blood pressure sites Arm, left (09/18/23 10:20 AM) Weight Obtained Via Patient/family state d (09/18/23 10:20 AM) Social History Social History Type Response Smoking Status Former smoker; Other : quit twice, most recently about 2007; entered on: 04/14/15 Sex Note * Ursula Saini: PERFORM, SIGN, VERIFY Event Display: Patient Education/Instruction Authored Date: [id number] [employer] *[facility] [address] Clinical Summary Name PILAR PETER Age 58 Years 1965 PCP Shira Garcia MD PCP Visit Date 09/18/2023 10:12:00 Additional Instructions: Scheduled Appointments?? Future Appointments ?No Future Appointments Scheduled Follow-Up Instructions ?? With: Address: When: Mounika SARAVIA, Carmine Mosher Comments: Book for bilateral GSV in [place] Diagnosis Medications: Please continue your medications until treatment is completed or stopped by your provider. Discuss any questions related to medications with your provider. Medications to Continue with No Changes These medications were not printed or sent to your pharmacy Atenolol Oral Daily. Next Dose: Azithromycin (Zithromax Z-Jairo 250 mg oral tablet) Please take 2 tabs on day one then one tab daily for four days. Refills: 0. Next Dose: Cholecalciferol (Vitamin D3 1000 intl units oral tablet) 2 tab(s) Oral Daily. Refills: 0. Next Dose: Diclofenac (diclofenac sodium 75 mg oral delayed release tablet) Next Dose: Estradiol (Estradiol Patch 0.025 mg/24 hours twice weekly transdermal film, extended release) Next Dose: Estradiol Topical (Estrace Vaginal Cream 0.1 mg/g) 1 Gm Vaginally 2 tmes per week. Refills: 3. Next Dose: Irbesartan Oral Daily. Next Dose: Levothyroxine (levothyroxine 0.1 mg oral tablet) 1 tab(s) Oral Daily. Dr. Sheppard. Next Dose: Naproxen Oral. Next Dose: Pravastatin (pravastatin 10 mg oral tablet) Next Dose: Progesterone (progesterone 100 mg oral capsule) Next Dose: Sodium Hyaluronates (Gel-One 10 mg/mL intra-articular solution) 20 Milligram Intra-articular. Gel-One to rt knee, done by patient tolerated procedure well. lot# [id number] catno.[id number]. Next Dose: Sodium Hyaluronates (Gel-One 10 mg/mL intra-articular solution) Intra-articular. Gel-One to Rt Kneeby Lot #[id number] exp.06/20/2022. Next Dose: Zolpidem Daily at Bedtime. Next Dose: Allergy Info:?? CeleBREX; Ketek; Latex; Diovan; lisinopril; penicillin Medications Given This Visit Future Orders ?No future orders Vital Signs Height 157 cm Weight 81.65 kg BMI 33.13 kg/m2 Blood Pressure 130 mm Hg/62 mm Hg Temperature Pulse Rate 74 bpm Respiratory Rate 02 Sat Mode of Delivery 96 %/Room air You can now view a summary of your hospital visit from the comfort of your home through a free online portal called [employer]. [employer] is a website that allows you to securely view your medical information including discharge summary, medications and follow-up visits. ??You can alsosend a secure electronic message to your doctor???s office to request appointments, renew medications or just ask a question. You can enroll at [email or web address] or register during your next office visit. Disclaimer:?? The information provided is of a general nature and is intended to be used in conjunction with the recommendations and advice of your health care practitioner. ??Every effort has been made to ensure that the information provided is accurate and complete at the time it is provided to you however, as your needs change, or, as new ??information becomes available, different or additional instructions may be required. If you have questions, please consult with your primary care provider or pharmacist, as appropriate. ??This information is not intended to serve as substitution for assessment and evaluation by a qualified health care provider. If you do not have a primary care provider, you may find a [facility] provider by calling [facility] at [phone]. [facility], in keeping with [facility] guidance, no longer requires face masks for staff, patientsor visitors in most situations. Similar to time spent indoors at other locations, there is the chance that you were exposed to respiratory viruses during your time with us (such as flu or COVID-19).? If you develop symptoms concerning for a viral respiratory infection, please seek testing (and treatment if indicated) from your medical provider or home test kit. For information about the plan of care including goals and instructions for your diagnosis, please see the patient education orders section of this document. Patient Education Materials?? The content of this educational material or handout may have been modified, supplemented, or adapted from its original content and format to support your individualized medical care. Patient Care team information Care Team Personnel Name: Shira Garcia MD Position: [facility] Physician - Primary Care Member Role: PCP Address: Address: [address] [place] [address]- Care Team Related Persons Name: MARIA NATONIA REYES Name: RONAL PETER Address: home [address] [place] [address]
--- OUTSIDE RECORDS SUMMARY | 2024-07-17 14:33 | XMS_ITS | Continuity of Care Document ---
Author Organization [facility] Address [address] [place] [address]- Care Team Providers Care Rn Support Services Name Role Phone Shira Garcia MD Primary Care Physician [place] [facility] [place] 11/25/23 [facility] [address] [place], [place] [address] Attending Physician: AdmJonathan valerio Admitting Physician: AdmtrJonathan [...] (DT) 08/25/97 Given 1Admin Note: [facility] 2Admin Note: given by dr weinstein 3Admin Note: 3rd Hep B 4Admin Note: 2nd Hep B 5Admin Note: 1st Hep B 6Admin Note: given at [facility] diclofenac sodium 75 mg oral delayed release [...] Intra-articular, Gel-One to Rt Knee by Lot #[id number] exp.06/20/2022, 0 Refills, Maintenance, 08/02/20 16:03:00 EDT [...] recently about 2007; entered on: 04/14/15 Sex Radiology * Event Display: Ultrasound Lower Extremity, Non- Authored Date: Patient Care team information Care Team Personnel Name: Shira Garcia MD Position: [facility] Physician - Primary Care Member Role: PCP Address: Address: [address] [place] [address]- Care Team Related Persons Name: MARIA ANTONIA REYES Name: RONAL PETER Address: home [address] [address]
--- OUTSIDE RECORDS SUMMARY | 2024-07-17 14:33 | XMS_ITS | Continuity of Care Document ---
Author Organization [facility] Address [address] [place] [address]- Care Team Providers Care Automotive Internet Sales Manager Name Role Phone Shira Garcia MD Primary Care Physician [place] [facility] [place] 03/25/21 - 04/24/[address] [address] Attending Physician: AdmJonathan valerio Admitting Physician: Admtr, Ar8 Referring Physician: Admtr, Ar8 Allergies, Adverse Reactions, [...] (DT) 08/25/97 Given 1Admin Note: fermin [facility] 2Admin Note: given by dr weinstein 3Admin Note: 3rd Hep B 4Admin Note: 2nd Hep B 5Admin Note: 1st Hep B 6Admin Note: given at [facility] [place] Medications Atenolol By Mouth, Daily, 0 Refills, Maintenance, 07/05/20 15:31:00 EDT Start Date: 07/05/20 Status: Ordered clobetasol 0.05% topical ointment See Instructions, 1 application topically nightly for 3 months and then 1-3x wk for maintenance, # 30 Gm, 0 Refills, Acute 02/11/22 9:41:00 EDT, 02/11/21 9:40:00 EDT, [facility] #[id number], Partial fill upon patient request if the prescription i... Start Date: 02/11/21 Stop Date: 02/11/22 Status: Ordered Estrace Vaginal Cream 0.1 mg/g See Instructions, 1 Gm Vaginally 2 tmes per week, # 42 Gm, 3 Refills, Maintenance, 02/11/21 9:40:00EDT, [facility] #[id number], Partial fill upon patient request if the prescription is for a schedule II opioid drug., 158, cm, 02/11/21 9:09:00 E... Start Date: 02/11/21 Status: Ordered Gel-One 10 mg/mL intra-articular solution Intra-articular, Gel-One to Rt Knee by Lot #[id number] exp.06/20/2022, 0 Refills, Maintenance, 08/02/20 16:03:00 EDT Start Date: 08/02/20 Status: Ordered Gel-One 10 mg/mL intra-articular solution = 20 mg, Intra-articular, Gel-One to rt knee, done by patient tolerated procedure well. lot# [id number] catno.[id number], 0 Refills, Maintenance, 04/08/21 8:59:00 EDT, Partial [...]
--- OUTSIDE RECORDS SUMMARY | 2024-07-17 14:33 | XMS_ITS | Continuity of Care Document ---
Author Organization [facility] Address [address] [place] [address]- Care Team Providers Care Beater Head Name Role Phone Shira Garcia MD Primary Care Physician Encounter 10/16/23 - 10/23/23 [facility] [address], [address] [place] [address]- Attending Physician: Mell Gonzales MD Admitting Physician: Mell Gonzales MD Referring Physician: Mell Gonzales MD Allergies, Adverse Reactions, Alerts Substance Reaction [...] diphtheria-tetanus toxoids (DT) 08/25/97 Given 1Admin Note: josesohanpedro luis [facility] 2Admin Note: given by dr weinstein 3Admin Note: 3rd Hep B 4Admin Note: 2nd Hep B 5Admin Note: 1st Hep B 6Admin Note: given at [facility] [place] Medications diclofenac sodium 75 mg oral delayed [...] Intra-articular, Gel-One to Rt Knee by Lot #[id number] exp.06/20/2022, 0 Refills, Maintenance, 08/02/20 16:03:00 EDT [...] opioid drug. Start Date: 10/16/23 Status: Ordered oxyCODONE 5 mg oral tablet 5 mg, 1, tablet, By Mouth, Every 6 hours, PRN, for 2 days, # 8 tablet, Refills 0, Tot. Refills 0, Acute 10/25/23 13:18:00 EST, as needed for pain, 10/23/23 13:18:00 EST, Route to Pharmacy Electronically, [facility], Partial fill upon pat... Start Date: 10/23/23 Stop Date: 10/25/23 Status: Ordered pravastatin 10 mg oral tablet [...] Team Personnel Name: Shira Garcia MD Position: [facility] Physician - Primary Care Member Role: PCP Address: Address: [address] [place] [address]- Care Team Related Persons Name: MARIA ANTONIA REYES Name: RONAL PETER Address: home [address] [place] [id number]
--- OUTSIDE RECORDS SUMMARY | 2024-07-17 14:33 | XMS_ITS | Continuity of Care Document ---
Author Organization [facility] Address [address] [place] [address]- Care Team Providers Care Optical Lathe Operator Name Role Phone Shira Garcia MD Primary Care Physician Encounter [facility] Date(s): 03/06/23 - 03/06/[address] [address]- Discharge Disposition: A-D/C Walkout Attending Physician: Not on Staff, Attending MD Admitting Physician: Not on Staff, Admitting MD Referring Physician: Not on Staff, Referring MD Allergies, Adverse Reactions, Alerts Substance Reaction [...] (DT) 08/25/97 Given 1Admin Note: fermin durham [facility] 2Admin Note: given by dr weinstein 3Admin Note: 3rd Hep B 4Admin Note: 2nd Hep B 5Admin Note: 1st Hep B 6Admin Note: [place] [facility] [place] Medications Atenolol By Mouth, Daily, 0 Refills, Maintenance, 07/05/20 15:31:00 EDT Start Date: 07/05/20 Status: Ordered Estrace Vaginal Cream 0.1 mg/g See Instructions, 1 Gm Vaginally 2 tmes per week, # 42 Gm, 3 Refills, Maintenance, 02/11/21 9:40:00EDT, [id number], Partial fill upon patient request if the prescription is for a schedule II opioid drug., 158, cm, 02/11/21 9:09:00 E... Start Date: 02/11/21 Status: Ordered Gel-One 10 mg/mL intra-articular solution Intra-articular, Gel-One to Rt Knee by Lot #[id number] exp.06/20/2022, 0 Refills, Maintenance, 08/02/20 16:03:00 EDT Start Date: 08/02/20 Status: Ordered Gel-One 10 mg/mL intra-articular solution = 20 mg, Intra-articular, Gel-One to rt knee, done by patient tolerated procedure well. lot# [id number] catno.[id number], 0 Refills, Maintenance, 04/08/21 8:59:00 EDT, Partial [...] oldest [Reference Range]: 1 Height 157 cm (03/06/23 12:59 AM) Oxygen Saturation [94-100 %] 96 % (03/06/23 12:59 AM) Pulse Rate [55-90 bpm] 59 bpm (03/06/23 12:59 AM) Blood Pressure [90-138/55-84 mm Hg] 124/ 73mm Hg (03/06/23 12:59 AM) Respiratory Rate [16-30 br/min] 16 br/mi n (03/06/23 12:59 AM) Temperature [96.8-100.4 DegF] 98.5 DegF (03/06/23 12:59 AM) Mode of Delivery (Oxygen) Room air (03/06/23 12:59 AM) Blood pressure sites Arm, right (03/06/23 12:59 AM) Temperature Route Oral (03/06/23 12:59 AM) Social History Social History Type Response Smoking Status Former smoker; Other : quit twice, most recently about 2007; entered on: 04/14/15 Sex Patient Care team information Care Team Personnel Name: Shira Garcia MD Position: [facility] Physician (General Medicine) Member Role: PCP Address: Address: [address] [place] [address]- Care Team Related Persons Name: MARIA ANTONIA REYES Name: RONAL PETER Address: home [address] [address]
--- OUTSIDE RECORDS SUMMARY | 2024-07-17 14:33 | XMS_ITS | Continuity of Care Document ---
Author Organization [facility] Address [address] [place] [address]- Care Team Providers Care Belt Repairer Name Role Phone Shira Garcia MD Primary Care Physician [phone] [place] [facility] Date(s): 10/05/23 - 11/04/23 [facility] [address] [place] [address]- Referring Physician: Jeannine PEDICURIST, Byron Allergies, Adverse Reactions, Alerts Substance Reaction Severity Status penicillin Anaphylactic reaction Active sulfADIAZINE red , hot face, throat hot A ctive lisinopril Cough Active Diovan Rash Active CeleBREX Rash Active Latex Hives Active Ketek BLURRY VISION Active Immunizations Given [...] (DT) 08/25/97 Given 1Admin Note: fermin durham [facility] 2Admin Note: given by dr weinstein 3Admin Note: 3rd Hep B 4Admin Note: 2nd Hep B 5Admin Note: 1st Hep B 6Admin Note: [place] [facility] [place] Medications diclofenac sodium 75 mg oral delayed [...] Intra-articular, Gel-One to Rt Knee by Lot #[id number] exp.06/20/2022, 0 Refills, Maintenance, 08/02/20 16:03:00 EDT [...] Team Personnel Name: Shira Garcia MD Position: [facility] Physician - Primary Care Member Role: PCP Address: Address: [address] [place] [address]- Care Team Related Persons Name: MARIA ANTONIA REYES Name: RONAL PETER Address: home [address] [place] [id number]
--- OUTSIDE RECORDS SUMMARY | 2024-07-17 14:33 | XMS_ITS | Continuity of Care Document ---
Author Organization [facility] Address [address] [place] [address]- Care Team Providers Care Director Of Video Analytics Name Role Phone Shira Garcia MD Primary Care Physician [phone] Encounter [facility] Date(s): 04/06/21 - 05/06/21 [facility] [address] [place] [address]- Attending Physician: Jonathan Jasso Admitting Physician: AdmtrJonathan [...] (DT) 08/25/97 Given 1Admin Note: fermin durham [facility] 2Admin Note: given by dr weinstein 3Admin Note: 3rd Hep B 4Admin Note: 2nd Hep B 5Admin Note: 1st Hep B 6Admin Note: given at [facility] [place] Medications Atenolol By Mouth, Daily, 0 Refills, Maintenance, 07/05/20 15:31:00 EDT Start Date: 07/05/20 Status: Ordered clobetasol 0.05% topical ointment See Instructions, 1 application topically nightly for 3 months and then 1-3x wk for maintenance, # 30 Gm, 0 Refills, Acute 02/11/22 9:41:00 EDT, 02/11/21 9:40:00 EDT, [id number], Partial fill upon patient request if the prescription i... Start Date: 02/11/21 Stop Date: 02/11/22 Status: Ordered Estrace Vaginal Cream 0.1 mg/g See Instructions, 1 Gm Vaginally 2 tmes per week, # 42 Gm, 3 Refills, Maintenance, 02/11/21 9:40:00EDT, [id number], Partial fill upon patient request if the prescription is for a schedule II opioid drug., 158, cm, 02/11/21 9:09:00 E... Start Date: 02/11/21 Status: Ordered Gel-One 10 mg/mL intra-articular solution Intra-articular, Gel-One to Rt Knee by Lot #[id number] exp.06/20/2022, 0 Refills, Maintenance, 08/02/20 16:03:00 EDT Start Date: 08/02/20 Status: Ordered Gel-One 10 mg/mL intra-articular solution = 20 mg, Intra-articular, Gel-One to rt knee, done by patient tolerated procedure well. lot# [id number] catno.[id number], 0 Refills, Maintenance, 04/08/21 8:59:00 EDT, Partial [...]
--- OUTSIDE RECORDS SUMMARY | 2024-07-17 14:33 | XMS_ITS | Continuity of Care Document ---
Author Organization [facility] Address [address] [place] [address]- Care Team Providers Care Cutlet Maker Pork Name Role Phone Shira Garcia MD Primary Care Physician [phone] Encounter [facility] [place] Date(s): 06/07/20 - 07/07/20 [facility] [address] [place] [address] Allergies, Adverse Reactions, Alerts Substance Reaction Severity [...] diphtheria-tetanus toxoids (DT) 08/25/97 Given 1Admin Note: [facility] 2Admin Note: given by dr weinstein 3Admin Note: 3rd Hep B 4Admin Note: 2nd Hep B 5Admin Note: 1st Hep B 6Admin Note: [place] [facility] [place]ations Atenolol By Mouth, Daily, 0 Refills, [...] Maintenance, 06/19/17 11:57:46, Route to Pharmacy Electronically, [id number][id number] Start Date: 06/19/17 Status: Ordered Naproxen [...]
--- OUTSIDE RECORDS SUMMARY | 2024-07-17 14:33 | XMS_ITS | Continuity of Care Document ---
Author Organization [facility] Address [address] [place] [address]- Care Team Providers Care Front Edger Name Role Phone Shira Garcia MD Primary Care Physician Encounter [facility] Date(s): 07/29/20 - 08/28/20 [facility] [address] [place] [address]- [facility] Allergies, Adverse Reactions, Alerts Substance Reaction Severity [...] toxoids (DT) 08/25/97 Given 1Admin Note: [facility] 2Admin Note: given by dr weinstein 3Admin Note: 3rd Hep B 4Admin Note: 2nd Hep B 5Admin Note: 1st Hep B 6Admin Note: [place] [facility] [place]ations Atenolol By Mouth, Daily, 0 Refills, Maintenance, 07/05/20 15:31:00 EDT Start Date: 07/05/20 Status: Ordered Biotin By Mouth, Daily, 0 Refills, Maintenance, 07/05/20 15:31:00 EDT Start Date: 07/05/20 Status: Ordered Gel-One 10 mg/mL intra-articular solution Intra-articular, Gel-One to Rt Knee by Lot #[id number] exp.06/20/2022, 0 Refills, Maintenance, 08/02/20 16:03:00 EDT [...] Maintenance, 06/19/17 11:57:46, Route to Pharmacy Electronically, [id number], [id number], [facility] Start Date: 06/19/17 Status: Ordered Naproxen [...]
--- OUTSIDE RECORDS SUMMARY | 2024-07-17 14:33 | XMS_ITS | Continuity of Care Document ---
Author Organization [facility] Address [address] [place] [address]- Care Team Providers Care Sales Clerk Food Name Role Phone Shira Garcia MD Primary Care Physician [place] [facility] Date(s): 07/13/20 - 08/12/20 [facility] [address] [place] [address]- [facility] Allergies, Adverse Reactions, Alerts Substance [...] 1st Hep B 6Admin Note: given at [facility] [place] Medications Atenolol By Mouth, Daily, 0 Refills, Maintenance, 07/05/20 15:31:00 EDT Start Date: 07/05/20 Status: Ordered Biotin By Mouth, Daily, 0 Refills, Maintenance, 07/05/20 15:31:00 EDT Start Date: 07/05/20 Status: Ordered Gel-One 10 mg/mL intra-articular solution Intra-articular, Gel-One to Rt Knee by Lot #[id number] exp.06/20/2022, 0 Refills, Maintenance, 08/02/20 16:03:00 EDT [...] Maintenance, 06/19/17 11:57:46, Route to Pharmacy Electronically, [id number], [id number], [facility] Start Date: 06/19/17 Status: Ordered Naproxen [...]
--- OUTSIDE RECORDS SUMMARY | 2024-07-17 14:33 | XMS_ITS | Continuity of Care Document ---
Author Organization [facility] Address [address] [place] [address]- Care Team Providers Care Lightning Protection Installer Name Role Phone Shira Garcia MD Primary Care Physician [place] [facility] [place] 08/02/20 - 09/01/20 [facility] [address] [place] [address] [facility] Attending Physician: Jonathan Jasso Admitting Physician: AdmtrJonathan [...] (DT) 08/25/97 Given 1Admin Note: fermin durham [facility] 2Admin Note: given by dr weinstein 3Admin Note: 3rd Hep B 4Admin Note: 2nd Hep B 5Admin Note: 1st Hep B 6Admin Note: given at [facility] [place] Medications Atenolol By Mouth, Daily, 0 Refills, Maintenance, 07/05/20 15:31:00 EDT Start Date: 07/05/20 Status: Ordered Biotin By Mouth, Daily, 0 Refills, Maintenance, 07/05/20 15:31:00 EDT Start Date: 07/05/20 Status: Ordered Gel-One 10 mg/mL intra-articular solution Intra-articular, Gel-One to Rt Knee by Lot #[id number] exp.06/20/2022, 0 Refills, Maintenance, 08/02/20 16:03:00 EDT [...] Maintenance, 06/19/17 11:57:46, Route to Pharmacy Electronically, [id number], [id number], [facility] Start Date: 06/19/17 Status: Ordered Naproxen [...] film, extended release See Instructions, 0, 0, 05/07/08 8:31:22, Topically 2 times per week, Print [...]
--- OUTSIDE RECORDS SUMMARY | 2024-07-17 14:33 | XMS_ITS | Continuity of Care Document ---
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 Name Role Phone Shira Garcia MD Primary Care Physician [phone] Encounter [facility] Date(s): 10/23/23 - 10/23/[address] [address] Discharge Disposition: A-D/C Home Attending Physician: Carmine Ribera MD Admitting Physician: Carmine Ribera MD Referring Physician: Carmine Ribera MD Allergies, Adverse Reactions, Alerts Substance Reaction [...] toxoids (DT) 08/25/97 Given 1Admin Note: [facility] 2Admin Note: given by dr weinstein 3Admin Note: 3rd Hep B 4Admin Note: 2nd Hep B 5Admin Note: 1st Hep B 6Admin Note: [place] [facility] Medications diclofenac sodium 75 mg oral delayed [...] Intra-articular, Gel-One to Rt Knee by Lot #[id number] exp.06/20/2022, 0 Refills, Maintenance, 08/02/20 16:03:00 EDT [...] 10/23/23 13:18:00 EST, Route to Pharmacy Electronically, [facility], Partial fill upon pat... Start Date: [...] Most recent to oldest [Reference Range]: 1 2 3 Height 160 cm (10/23/23 9:48 AM) 160 cm (10/16/23 3:27 PM) Weight 82.6 kg (10/23/23 9:48 AM) 82 kg (10/16/23 3:27 PM) Oxygen Saturation [94-100 %] 93 % *L* (10/23/23 2:00 PM) 94 % (10/23/23 1:45 PM) 91 % *L* (10/23/23 1:30 PM) Pulse Rate [55-90 bpm] 76 bpm (10/23/23 9:48 AM) Body Mass Index [18.5-24.99 kg/m2] 32.27 kg/m2 *>HHI* (10/23/23 9:48 AM) 32.03 kg/m2 *>HHI* (10/16/23 3:27 PM) Blood Pressure [90-138/55-84 mm Hg] 113/76mm Hg (10/23/23 2:00 PM) 121/63mm Hg (10/23/23 1:00 PM) 118/87mm Hg (10/23/23 12:45 PM) Respiratory Rate [16-30 br/min] 18 br/min (10/23/23 2:00 PM) 21 br/min (10/23/23 1:30 PM) 19 br/min (10/23/23 1:15 PM) Temperature [96.8-100.4 DegF] 98.7 DegF (10/23/23 2:00 PM) 97.9 DegF (10/23/23 1:30 PM) 97.5 DegF (10/23/23 11:45 AM) Liters per Minute 6 L/min (10/23/23 11:45 AM) Mode of Delivery (Oxygen) Room air (10/23/23 2:00 PM) Room air (10/23/23 1:30 PM) Room air (10/23/23 1:15 PM) Blood pressure sites Arm, right (10/23/23 2:00 PM) Arm, right (10/23/23 12:45 PM) Arm, right (10/23/23 11:45 AM) Temperature Route Temporal (10/23/23 2:00 PM) Temporal (10/23/23 1:30 PM) Temporal (10/23/23 11:45 AM) Dry Weight 82 kg (10/16/23 3:27 PM) Weight Obtained Via Standing scale (10/23/23 9:48 AM) Social History Social History Type Response Smoking Status Former smoker; Other : quit twice, most recently about 2007; entered on: 04/14/15 Sex Note * Malu Giron RN: PERFORM, MODIFY Event Display: Patient Education/Instruction Authored Date: [id number] Inpatient Adult Discharge Instructions [address] [address] Name: PILAR PETER : 1965 Visit: 10/23/2023 08:51:00 Current Date: 10/23/2023 14:18 Account: [id number] Inpatient Adult Discharge Instructions We would like to thank you for allowing us to assist you with your healthcare needs. The following includes patient education materials and information regarding your injury/illness. Our entire staffstrives to provide an excellent experience for our patients and their families. PLEASE ENSURE YOU FOLLOW-UP PER THE INSTRUCTIONS BELOW! ?? YOUR OPINION IS IMPORTANT TO US! Please complete the survey you may receive by mail or email. Your feedback will be used to make improvements to the healthcare experiences of our patients and their families. Surveys are administered by [employer] ?? If further treatment with your primary care physician or another doctor is recommended, it is important for you to keep the appointment. Call your primary care physician or return to the Emergency Department immediately if your condition worsens, fails to improve, or new symptoms develop. If you need to find a doctor, you can call [facility] for a referral at [phone] or toll free at [phone] or log in to [email or web address].. ?? [facility], in keeping with [facility] guidance, no longer requires face masks for staff, patientsor visitors in most situations. Similiar to time spent indoors at other locations, there is the chance that you were exposed to repiratory viruses during your time with us (such as flu or COVID-19). If you develop symptoms concerning for a viral respiratory infection, please seek testing (and treatment if indicated) from your medical provider or home test kit. ?? You can view and manage your care through the patient portal or by using a health care j carlos of your choosing. [employer] is a website that allows you to securely view your medical information including your hospital discharge summary, office visit summaries, medications and follow-up visits. You can also request appointments, renew medications, and request access to your medical information using a health care j carlos of your choosing, or just ask a question. You can enroll at [email or web address] or register during your next office visit. You have been discharged from [facility], Patient Care Unit: PANU. If you have any questions regarding these instructions after you leave, please call us and we will be happy to assist you. [facility] Your Care Team Attending Physician Carmine Ribera MD Discharging Providers Martina Pugh NP Reason for Admission VENOUS INSUFFICIENCY BILAT GSV ABLATION HV2 600Z Tests Performed Below is a partial list of the tests performed during your hospitalization. You may have had other tests and procedures not included in this list. Please discuss all test results with your provider. Primary Care Provider Shira Garcia MD Advance Directive Health Care Proxy on File No Discharge Vitals Temperature: 98.7 DegF Height: 160 cm Pulse Rate: 76 bpm Weight: 82.6 kg Respiratory Rate: 18 br/min Body Mass Index:??32.27 kg/m2??Critical Systolic Blood Pressure: 113 mm Hg Body surface area: 1.92 Diastolic Blood Pressure: 76 mm Hg ?? Oxygen Saturation:??90 %??Low ?? Studies Pending All tests and labs ordered during this hospital stay have been completed unless listed below. Please discuss all pending results with your provider listed above in these instructions. ?? No incomplete studies found What to do next Instructions From Your Doctor Discharge Orders Scheduled Follow-Up Appointments Sunday 2:00 PM EST ?? Where: [facility] [address] [place] [address]- Status: Pending Sunday 3:00 PM EST ?? Where: [facility] [address] [place] [address]- Status: Pending You Need to Schedule the Following Appointments Follow Up with??Carmine Ribera MD Why: You have an appointment??on 10/26/2023 at 4pm.??call??office??to confirm appointment . Or??[id number] with any schedule issues Where: [address] [place] [address]- Discharge Medications PILAR PETER :1965 Visit Date:10/23/2023 Medications: Please continue your medications until treatment is completed or stopped by your provider. Medications not listed below should be discontinued. Discuss any questions related to medications with your provider. What How Much When Instructions Next Dose New Oxycodone (oxyCODONE 5 mg oral tablet) 1 tab(s) Oral Every 6 hours as needed for as needed for pain Duration: 2 Days Pickup at [facility] 3 7pm Unchanged Cholecalciferol (Vitamin D3 1000 intl units oral tablet) 2 tab(s) Oral Daily resume as prescribed Unchanged Diclofenac (diclofenac sodium 75 mg oral delayed release tablet) 1 tab(s) Oral Twice a day resume as prescribed Unchanged Estradiol (Estradiol Patch 0.025 mg/ 24 hours twice weekly transdermal film, extended release) resume as prescribed Unchanged Irbesartan 300 Milligram Oral Daily in the morning resume as prescribed Unchanged Levothyroxine (levothyroxine 0.1 mg oral tablet) 1 tab(s) Oral Daily Dr. Sheppard ?? resume as prescribed Unchanged Melatonin (melatonin 5 mg oral tablet) 1 tab(s) Oral Daily at Bedtime as needed for for insomnia resume as prescribed Unchanged Pravastatin (pravastatin 10 mg oral tablet) 1 tab(s) Oral Daily at Bedtime resume as prescribed Unchanged Progesterone (progesterone 100 mg oral capsule) 1 capsule Oral Daily before dinner resume as prescribed Unchanged Sodium Hyaluronates (Gel-One 10 mg/ mL intra-articular solution) Intra-articular Gel-One to Rt Knee by Lot #[id number] exp.2021 ?? resume as prescribed Pharmacy Information [facility]: [address], [place] [id number] [phone] Test Results Below is a partial list of the most recent Laboratory test results done prior to this discharge. You may have had other tests and procedures not included in this list. Please discuss all test resultswith your provider. Allergies (NKA means No Known Allergies) CeleBREX??(Rash) Diovan??(Rash) Ketek??(BLURRY VISION) Latex??(Hives) lisinopril??(Cough) penicillin??(Anaphylactic reaction) sulfADIAZINE??(red , hot face, throat hot) Problems Active Problems??(7) Esophageal reflux?? Hyperlipidemia?? Hypertension?? 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 Low back pain?? Obese class I?? Obstructive sleep apnea syndrome?? Education Materials Below is the list of Educational Leaflet Providered with your Discharge Instructions. [facility]VS-Vein Ablation Post Operative Discharge Instructions?? Surgery Medical Daystay Surgical Overnight Discharge Instructions?? Valuables and Belongings I fully understand and agree that [facility] accepts no responsibility for all my personal property including clothing, toilet articles, radios, jewelry, dentures, hearing aids, rings, money, or any other property that is in my possession or is brought to me after admission. I understand certain valuables may be placed in a hospital safe for a short period of time. I understand that the hospital is not liable for loss or damage due to accident, fire, or other natural occurrence while said property is in the safe. I accept full responsibility for any personal property that I keep with me, and will not hold the hospital responsible in case of loss or disappearance. I acknowledge that i have been encouraged to send valuables and belongings home. ?? Review of Valuable and Belonging List: With patient Date for Pt to Sign Valuables/Belongings: 10/23/23 09:48:00 ?? Valuables & Belongings ?? Clothes Electronic devices Jewelry Monetary Items Personal devices Miscellaneous Medications (Valuables) Valuables at Bedside Pants, Shirt, Shoes, Undergarments Cell phone ? Books ?? Valuables Sent Home ? Valuables Sent to Security ? Other Discharge Information ? Pulmonary Rehab Status?? Pulmonary Rehab Discharge Status?? Respiratory Rate: 18 br/min ? Common Emergency Awareness Tips IS IT A STROKE? Act FAST and Check for these signs: FACE Does the face look uneven? ARM Does one arm drift down? SPEECH Does their speech sound strange? TIME Call at any sign of stroke ?? Heart Attack Signs Chest discomfort: Most heart attacks involve discomfort in the center of the chest and lasts more than a few minutes, or goes away and comes back. It can feel like uncomfortable pressure, squeezing, fullness or pain. Discomfort in upper body: Symptoms can include pain or discomfort in one or both arms, back, neck, jaw or stomach. Shortness of breath: With or without discomfort. Other signs: Breaking out in a cold sweat, nausea, or lightheaded. Remember, MINUTES DO MATTER. If you experience any of these heart attack warning signs, call to get immediate medical attention! ?? Smoking can increase your chances of developing chronic health problems and can cause harmful effects to other family members in your house. If you smoke, you are strongly encouraged to quit. Please call [facility] [employer] Link at [phone] or [phone]) or log in to [email or web address] for referrals to smoking cessation programs. ?? 988 Suicide & Crisis Lifeline is available 11/06 if you or someone you know needs to find a reason to keep living. By calling 498 you'll be connected to a skilled, trained counselor at a crisis center in your area. INPATIENT DISCHARGE INSTRUCTIONS SIGNATURE PILAR SORENSEN Location:[facility] Registration Date and Time:10/23/2023 08:51 EST Primary Care Physician: Shira Garcia MD, Attending Physician: Carmine Ribera MD, I PILAR PETER, have received the above patient education materials/instructions and have verbalized understanding. If ambulance or transport services are being used I further acknowledge being given a choice of service. ?? If you need to contact me, please call me at this number: . Patient/Softball Core Molder Name: Patient/Softball Core Molder Signature: Relationship to Patient: Witness Name/Signature: Date: * Samga RN, Blanco: PERFORM Event Display: Patient Education/Instruction Authored Date: [id number] Inpatient Adult Discharge Instructions [address] [address] Name: PILAR PETER : 1965 Visit: 10/23/2023 08:51:00 Current Date: 10/23/2023 14:17 Account: [id number] Inpatient Adult Discharge Instructions We would like to thank you for allowing us to assist you with your healthcare needs. The following includes patient education materials and information regarding your injury/illness. Our entire staffstrives to provide an excellent experience for our patients and their families. PLEASE ENSURE YOU FOLLOW-UP PER THE INSTRUCTIONS BELOW! ?? YOUR OPINION IS IMPORTANT TO US! Please complete the survey you may receive by mail or email. Your feedback will be used to make improvements to the healthcare experiences of our patients and their families. Surveys are administered by [employer] ?? If further treatment with your primary care physician or another doctor is recommended, it is important for you to keep the appointment. Call your primary care physician or return to the Emergency Department immediately if your condition worsens, fails to improve, or new symptoms develop. If you need to find a doctor, you can call [facility] Link for a referral at [phone] or toll free at [phone]) or log in to [email or web address].. ?? [facility], in keeping with [facility] guidance, no longer requires face masks for staff, patientsor visitors in most situations. Similiar to time spent indoors at other locations, there is the chance that you were exposed to repiratory viruses during your time with us (such as flu or COVID-19). If you develop symptoms concerning for a viral respiratory infection, please seek testing (and treatment if indicated) from your medical provider or home test kit. ?? You can view and manage your care through the patient portal or by using a health care j carlos of your choosing. [employer] is a website that allows you to securely view your medical information including your hospital discharge summary, office visit summaries, medications and follow-up visits. You can also request appointments, renew medications, and request access to your medical information using a health care j carlos of your choosing, or just ask a question. You can enroll at [email or web address] or register during your next office visit. You have been discharged from [facility], Patient Care Unit: PANU. If you have any questions regarding these instructions after you leave, please call us and we will be happy to assist you. [facility] Your Care Team Attending Physician Carmine Ribera MD Discharging Providers Martina Pugh NP Reason for Admission VENOUS INSUFFICIENCY BILAT GSV ABLATION HV2 848Q Tests Performed Below is a partial list of the tests performed during your hospitalization. You may have had other tests and procedures not included in this list. Please discuss all test results with your provider. Primary Care Provider Shira Garcia MD Advance Directive Health Care Proxy on File No Discharge Vitals Temperature: 98.7 DegF Height: 160 cm Pulse Rate: 76 bpm Weight: 82.6 kg Respiratory Rate: 18 br/min Body Mass Index:??32.27 kg/m2??Critical Systolic Blood Pressure: 113 mm Hg Body surface area: 1.92 Diastolic Blood Pressure: 76 mm Hg ?? Oxygen Saturation:??90 %??Low ?? Studies Pending All tests and labs ordered during this hospital stay have been completed unless listed below. Please discuss all pending results with your provider listed above in these instructions. ?? No incomplete studies found What to do next Instructions From Your Doctor Discharge Orders Scheduled Follow-Up Appointments Sunday 2:00 PM EST ?? Where: [facility] [address] [address]- Status: Pending Sunday 3:00 PM EST ?? Where: [facility] [address] [address]- Status: Pending You Need to Schedule the Following Appointments Follow Up with??Carmine Ribera MD Why: You have an appointment??on 10/26/2023 at 4pm.??call??office??to confirm appointment . Or??[id number] with any schedule issues Where: [address] [place] [address]- Discharge PILAR Briggs :1965 Visit Date:10/23/2023 Medications: Please continue your medications until treatment is completed or stopped by your provider. Medications not listed below should be discontinued. Discuss any questions related to medications with your provider. What How Much When Instructions Next Dose New Oxycodone (oxyCODONE 5 mg oral tablet) 1 tab(s) Oral Every 6 hours as needed for as needed for pain Duration: 2 Days Pickup at [facility] 3 Unchanged Cholecalciferol (Vitamin D3 1000 intl units oral tablet) 2 tab(s) Oral Daily Unchanged Diclofenac (diclofenac sodium 75 mg oral delayed release tablet) 1 tab(s) Oral Twice a day Unchanged Estradiol (Estradiol Patch 0.025 mg/ 24 hours twice weekly transdermal film, extended release) Unchanged Irbesartan 300 Milligram Oral Daily in the morning Unchanged Levothyroxine (levothyroxine 0.1 mg oral tablet) 1 tab(s) Oral Daily Dr. Sheppard ?? Unchanged Melatonin (melatonin 5 mg oral tablet) 1 tab(s) Oral Daily at Bedtime as needed for for insomnia Unchanged Pravastatin (pravastatin 10 mg oral tablet) 1 tab(s) Oral Daily at Bedtime Unchanged Progesterone (progesterone 100 mg oral capsule) 1 capsule Oral Daily before dinner Unchanged Sodium Hyaluronates (Gel-One 10 mg/ mL intra-articular solution) Intra-articular Gel-One to Rt Knee by Lot #[id number] exp.2021 ?? Pharmacy Information [facility] 3: [address], [place] [id number] [phone] Test Results Below is a partial list of the most recent Laboratory test results done prior to this discharge. You may have had other tests and procedures not included in this list. Please discuss all test resultswith your provider. Allergies (NKA means No Known Allergies) CeleBREX??(Rash) Diovan??(Rash) Ketek??(BLURRY VISION) Latex??(Hives) lisinopril??(Cough) penicillin??(Anaphylactic reaction) sulfADIAZINE??(red , hot face, throat hot) Problems Active Problems??(7) Esophageal reflux?? Hyperlipidemia?? Hypertension?? 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 Low back pain?? Obese class I?? Obstructive sleep apnea syndrome?? Education Materials Below is the list of Educational Leaflet Providered with your Discharge Instructions. [facility]-Vein Ablation Post Operative Discharge Instructions?? Surgery Medical Daystay Surgical Overnight Discharge Instructions?? Valuables and Belongings I fully understand and agree that [facility] accepts no responsibility for all my personal property including clothing, toilet articles, radios, jewelry, dentures, hearing aids, rings, money, or any other property that is in my possession or is brought to me after admission. I understand certain valuables may be placed in a hospital safe for a short period of time. I understand that the hospital is not liable for loss or damage due to accident, fire, or other natural occurrence while said property is in the safe. I accept full responsibility for any personal property that I keep with me, and will not hold the hospital responsible in case of loss or disappearance. I acknowledge that i have been encouraged to send valuables and belongings home. ?? Review of Valuable and Belonging List: With patient Date for Pt to Sign Valuables/Belongings: 10/23/23 09:48:00 ?? Valuables & Belongings ?? Clothes Electronic devices Jewelry Monetary Items Personal devices Miscellaneous Medications (Valuables) Valuables at Bedside Pants, Shirt, Shoes, Undergarments Cell phone ? Books ?? Valuables Sent Home ? Valuables Sent to Security ? Other Discharge Information ? Pulmonary Rehab Status?? Pulmonary Rehab Discharge Status?? Respiratory Rate: 18 br/min ? Common Emergency Awareness Tips IS IT A STROKE? Act FAST and Check for these signs: FACE Does the face look uneven? ARM Does one arm drift down? SPEECH Does their speech sound strange? TIME Call at any sign of stroke ?? Heart Attack Signs Chest discomfort: Most heart attacks involve discomfort in the center of the chest and lasts more than a few minutes, or goes away and comes back. It can feel like uncomfortable pressure, squeezing, fullness or pain. Discomfort in upper body: Symptoms can include pain or discomfort in one or both arms, back, neck, jaw or stomach. Shortness of breath: With or without discomfort. Other signs: Breaking out in a cold sweat, nausea, or lightheaded. Remember, MINUTES DO MATTER. If you experience any of these heart attack warning signs, call to get immediate medical attention! ?? Smoking can increase your chances of developing chronic health problems and can cause harmful effects to other family members in your house. If you smoke, you are strongly encouraged to quit. Please call [facility] [employer] Link at [phone] or [phone]) or log in to [email or web address] for referrals to smoking cessation programs. ?? 065 Suicide & Crisis Lifeline is available 11/06 if you or someone you know needs to find a reason to keep living. By calling 664 you'll be connected to a skilled, trained counselor at a crisis center in your area. INPATIENT DISCHARGE INSTRUCTIONS SIGNATURE PILAR SORENSEN Location:[facility] Registration Date and Time:10/23/2023 08:51 EST Primary Care Physician: Shira Garcia MD, Attending Physician: Mounika SARAVIA, Carmine Mosher, I PILAR PETER, have received the above patient education materials/instructions and have verbalized understanding. If ambulance or transport services are being used I further acknowledge being given a choice of service. ?? If you need to contact me, please call me at this number: . Patient/Softball Core Molder Name: Patient/Softball Core Molder Signature: Relationship to Patient: Witness Name/Signature: Date: * Malu Giron RN: PERFORM Event Display: Patient Education Leaflets Authored Date: [facility]VS-Vein Ablation Post Operative Discharge Instructions ?? 64 Vein Ablation Post Operative Discharge Instructions ?? You are being discharged from the hospital.?? Here is information related to your condition to helpyou when you get home.?? In addition, you may have been given the [facility] heart and vascular patient education book.?? This book provides written information and instruction for you to review at home with your family.? Special Instructions Post Operative Discharge Care Instructions ?? Bathing ??? You can take a shower the second day after surgery . If you are unsteady on your feet use a shower chair.?? Do not take tub baths. ??? You may need assistance with showering the first few days orwait until you feel steady and safe on your feet.? Incision Care ??? Keep your incisions clean and dry.?? Use only soap and water to cleanse the area around the incision.?? Once the incision is healed you may wash over the incisions with a soft wash cloth and soap and water.? After 24hours remove dressing and reapply lin wrap from foot upward. Rewrap daily until told to wear compression stockings. ??? Avoid using perfumed soaps or body washes, lotions, creams, oils or ointments on your incision. This may irritate your incision and put you at risk for an infection. ??? Check your incisions daily for drainage, redness, increased tenderness or edges pulling apart.?? Examine the wound closure strips (steri strips) for the earliest signs of redness or blistering; if this occurs remove strei strips. If there is an early blister treat it with antibiotic ointment and a band-aid.?? Some bruising and discoloration is normal in the first week following surgery. ??? Sometimes bleeding from a small incision occurs; this bleeding is venous and will stop with light pressure and lin bandage over the area. Elevate leg. ??? You will notice the skin in some areas show signs of bruising with some small areas of hardness of the tissue this is normal and will resolve in a week or two. ??? If you have steri strips on your incision, remove them on Post-Op Day #5. ?? Limb Elevation ??? You may experience some leg swelling following surgery.?? If leg swelling does occur, check with your doctor for prescription elastic stockings ??? Avoid unnecessary dangling of the leg for a prolonged period of time. ??? It is important that you are not sitting for long periods of time with feet down.?? Elevate your legs as much as possible. ??? If you notice swelling, elevate your legs at or aboveheart level while seated.?? If swelling continues or worsens call the vascular surgery office. ?? Activity ??? Normal daily activities are OK for the first 3 days. No formal exercise. Avoid sitting or standing for long periods of time (over one hour). If you experience discomfort with activity stopand elevate leg. Remember to alternate periods of activity with periods of rest.?? Talk to your doctor before beginning an exercise program.? Avoid distant travel until leg pain and swelling is mostly resolved. ??? It is important to continue to do the coughing and deep breathing exercises to help prevent breathing complications. ?? Driving ??? You shouldn???t drive if you are taking prescription pain medication. ? Always wear a seat belt. ?? Sexual Relations ??? You may resume sexual activity as soon as you feel comfortable. ? Emotions ??? It is common for people to feel more emotional or have difficulty concentrating or remembering after major surgery.?? These emotions may be the result of anesthesia, medications, not knowing whatto expect and difficulty doing simple tasks without becoming tired.? These feelings are temporary and usually go away as you get back to your normal routine and activities.? Pain ??? You may have some muscle or incision discomfort. You will be given prescription medication for the pain and use it if you need it.? A heating pad set on low is helpful to reduce pain, some people feelbetter with ice packs on the area of surgery ?? Call the Vascular SURGEON ? For any incision redness, swelling, tenderness, drainage, or odor. ??? For a temperature of 101.5 degrees F or greater. ??? For unusual or severe leg pain, loss of sensation or movement, coldnessor discoloration of the legs, and any skin breakdown of the foot. ?? Seek care IMMEDIATELY if? You have bad pain in your abdomen, back or side unusual pain or numbness of leg, thigh or calf or sudden loss of movement in your leg ??? Your feet become very cold, or turn pale or blue ??? You have trouble breathing all of a sudden ??? Your sutures or ana maria come apart of separate ??? Your incision suddenly starts bleeding and/or your dressing becomes soaked with blood ?You have signsof a heart attack:?? CALL 911 right away. You may need an ambulance to take you to the hospital. Donot drive yourself or wait for your doctor to call you back.?? Signs of a heart attack may be: o Chest pain or discomfort, including squeezing, crushing, pressure, tightness or heaviness in the chest. o Pain or discomfort in your arms, shoulders, neck, back or jaw. o Indigestion, such as heartburn and upset stomach. o Nausea (feel sick to your stomach) and vomiting (throwing up). o Pain in your abdomen (stomach). o Shortness of breath. o Sweating, weakness or fainting (passing out). Follow-up ??? A follow up appointment should be made with your surgeon within 3-5 days following your procedure. At this time you will have an ultrasound of your leg, this is an important appointment. ??If youdo not have an appointment scheduled already, make an appointment when you get home.?? Follow up care is important; it is strongly encouraged for you to keep your appointment. You may have more than one appointment, one with your surgeon and one with your primary care doctor. ??? You may notice that some veins remain visible. These will be evaluated in the office 4-6 weeks after the procedure. Your surgeon will discuss different types of therapy to treat these areas. ??? Ask your doctor when you can return to work. ??? If you have any questions, please call the vascular surgeons at [phone]. ?? Heart and Vascular Healthy Living You can make style changes that can help lower your risk for heart and vascular disease.?? The following information can help you get started or maintain your current lifestyle. Diet ??? Eat a low fat, low cholesterol diet. ??? Eating 3 to 4 small meals dailymay be better tolerated than 1-2 large meals daily ??? Limit caffeine and alcohol use ??? Limit theamount of salt in your diet ?? Exercise ??? Routine regular or prescribed exercise is strongly encouraged. ??? Avoid strenuous exercise after meals Smoking ??? If you smoke, you are strongly encouraged to quit.? Smoking can increases blood pressure, decrease exercise tolerance and increase thetendency for blood to clot, decrease HDL (good) cholesterol and creates a higher risk for having a heart attack, stroke or other vascular events.? If you are ready to quit, please let us know; Referrals to smoking cessation programs are available. Lowering your cholesterol ??? Talk to your doctor about taking medicine for high cholesterol. Diet and exercise may not loweryour cholesterol enough. Cholesterol medicines may help prevent further cholesterol build up in thearteries. High blood pressure and diabetes ??? If you have high blood pressure or diabetes, continue with your prescribed treatments.?? These health problems if not controlled can put you at risk for having a heart attack, stroke or other vascular events. Stress ??? Stress may slow healing and cause illness later. Since it is hard to avoid stress, learn to control it. Learn new ways to relax (deep breathing, relaxing muscles, meditation, or biofeedback). Talk to your caregiver about things that upset you. ?? Medication Information Take all your medicationsas prescribed.?? Many medications have more than one name. Be sure you know the name of your medication.?? Call your physician if you have any questions after you get home.?? Keep a written list ([facility] MODmedication card) of what medicines you take and when and why you take them. Bring the list of your medicines or the pill bottles when you see your caregivers. Learn why you take each medicine. Ask your caregiver for information about your medicine. Depending on your condition, you may have other medicines prescribed as part of your discharge plan of care.?? Some may include: ??? Pain Medication :?? Pain medications may be prescribed after surgery.?? Controlling your pain is important to help you heal and increase your activity level.?? One of the side effects of pain medication is constipation.?? If you are taking pain medication on a regular basis, it is important to also take a stool softener that is prescribed. Also, adding high fiber foods, fiber medicines and prune juice may help.? Antibiotics :?? You may be prescribed antibiotics following surgery.?? This medicine may be given to help you fight infection. It is important for you to finish the prescription. ??? LIN inhibitors : These are medicines that keep your blood vessels relaxed and open. They help keep oxygen-rich blood flowing into your heart. These medicines may be used to treat high blood pressure and prevent your heart muscle from weakening. ??? Aldosterone Inhibitors : These medicines prevent scar tissue from forming in your heart.?? It also helps with eliminating extra salt and water. ??? Angiotensin Receptor Blockers (ARB): These medicines lower blood pressure and prevent your heart muscle from weakening. These medicines are used for patients who can not tolerate LIN Inhibitors. ??? Beta-blockers : These medicines keep your heart pumping strongly and regularly and may also lower your blood pressure. Beta blockers lower blood pressure, prevent chest pain and irregular heart beats. ??? Digoxin: This medicine keeps your heart rate slow if your heart is in an irregular rhythm.?? Digoxin may improveactivity tolerance as well.? Diuretics: ?? These medicines help the heart work better by decrea sing the extra fluid in your body.?? Getting rid of the extra fluid will help your heart to not work so hard.?? These medicines may need to be adjusted by your doctor. ??? Vasodilators : These medicines decrease the pressure in your arteries, especially in the vessels around your heart. ??? Anti-coagulants: These medicines help keep the blood from clotting in an artery, vein or the heart. Clots can block the blood flow to your heart muscle and cause a heart attack.?? Clots can also block blood flow to your brain, causing a stroke. ??? Anti-platelets : Anti-platelet medicines, such as aspirin,keep platelets from sticking to a damaged part of your artery. Sticky platelets may cause a blockage in your artery and keep blood from going to your heart muscle. ??? Blood pressure (Anti-hypertensives): These medicines may be given to lower your blood pressure. Keeping your blood pressure under control protects your heart, lungs, brain, kidneys, and other organs. ??? Cholesterol lowering medicines: These help to lower cholesterol that causes coronary (heart) artery disease. ??? Diabetes medicines : These may be given to control the amount of sugar in your blood. It helps your body move the sugar from the blood to your cells, where it is needed for energy. ??? Nitroglycerin: This medicine may also be called nitro. Nitroglycerin opens the arteries to your heart so the heart gets more oxygen. Nitroglycerin can be given in an IV, by mouth, or put on your body as a patch or paste. ? * Mack DORSEY Blanco: PERFORM Event Display: Patient Education Leaflets Authored Date: Surgery Medical Daystay Surgical Overnight Discharge Instructions ?? 295 Medical Daystay/Surgical Overnight Discharge Instructions ? Since your coordination and judgment may be altered by medication and/or anesthesia, a responsible adult must drive you home from the hospital. ? If you have received medication for pain or sedation while under our care, you should not drive, operate machinery, drink alcohol, or sign any legal documents for 24 hours.?? You should have someone with you at home tonight. ? Remain at home the day of discharge.?? You may be up and about unless otherwise instructed by your physician. ? You may resume your daily prescription medication schedule.?? Any depressant medication should be avoided for 24 hours unless otherwise instructed by your surgeon or anesthesiologist. ? Call your physician for a follow-up appointment.? If you experience unusual or severe pain not relied by your pain medication, excessive bleedingor drainage, persistent nausea and vomiting, excessive swelling or redness, foul odor from incisionsite or fever over 100.6F, you need to call your physician. ? A follow-up phone call by a nurse will be made the day after your procedure.?? If you have stayed with us over night, you will not be receiving a follow-up phone call. ? Nausea and vomiting are a common side effect of prescription pain medication.?? We recommend that pills are not taken on an empty stomach.?? While taking any prescription pain medication you should not drive or drink alcohol. ? Patient Care team information Care Team Personnel Name: Shira Garcia MD Position: [facility] Physician - Primary Care Member Role: PCP Address: Address: [address] [place] [address]- Care Team Related Persons Name: MARIA ANTONIA REYES Name: RONAL PETER Address: home [address] [address]
--- OUTSIDE RECORDS SUMMARY | 2024-07-17 14:33 | XMS_ITS | Continuity of Care Document ---
Author Organization [facility] Alexei Mendoza Gerard lt Address [address] [place] [address]- Care Team Providers Care Executive Team Leader Name Role Phone Shira Garcia MD Primary Care Physician [phone] Encounter [facility] Date(s): 03/07/23 - 04/06/23 [facility] Adult [address] [place] [address]- Allergies, Adverse Reactions, Alerts Substance Reaction Severity [...] diphtheria-tetanus toxoids (DT) 08/25/97 Given 1Admin Note: [facility] 2Admin Note: given by dr weinstein 3Admin Note: 3rd Hep B 4Admin Note: 2nd Hep B 5Admin Note: 1st Hep B 6Admin Note: given at [facility] Medications Atenolol By Mouth, Daily, 0 Refills, Maintenance, 07/05/20 15:31:00 EDT Start Date: 07/05/20 Status: Ordered Estrace Vaginal Cream 0.1 mg/g See Instructions, 1 Gm Vaginally 2 tmes per week, # 42 Gm, 3 Refills, Maintenance, 02/11/21 9:40:00EDT, [facility] #[id number], Partial fill upon patient request if the prescription is for a schedule II opioid drug., 158, cm, 02/11/21 9:09:00 E... Start Date: 02/11/21 Status: Ordered Gel-One 10 mg/mL intra-articular solution Intra-articular, Gel-One to Rt Knee by Lot #[id number] exp.06/20/2022, 0 Refills, Maintenance, 08/02/20 16:03:00 EDT Start Date: 08/02/20 Status: Ordered Gel-One 10 mg/mL intra-articular solution = 20 mg, Intra-articular, Gel-One to rt knee, done by patient tolerated procedure well. lot# [id number] catno.[id number], 0 Refills, Maintenance, 04/08/21 8:59:00 EDT, Partial [...] Team Personnel Name: Shira Garcia MD Position: [facility] Physician (General Medicine) Member Role: PCP Address: Address: [address] [place] [address]- Care Team Related Persons Name: MARIA ANTONIA REYES Name: RONAL PETER Address: home [address] [place] [id number]
--- OUTSIDE RECORDS SUMMARY | 2024-07-17 14:33 | XMS_ITS | Continuity of Care Document ---
Author Organization [facility] Address [address] [place] [address]- Care Team Providers Care Cardiovascular Disease Specialist Name Role Phone Shira Garcia MD Primary Care Physician [phone] Encounter [facility] Date(s): 06/01/21 - 07/01/21 [facility] [address] [place] [address]- Attending Physician: AdmJonathan valerio Admitting Physician: AdmtrJonathan [...] (DT) 08/25/97 Given 1Admin Note: fermin durham [facility] 2Admin Note: given by dr weinstein 3Admin [...] Acute 02/11/22 9:41:00 EDT, 02/11/21 9:40:00 EDT, [facility][id number], Partial fill upon patient request if the prescription i... Start Date: 02/11/21 Stop Date: 02/11/22 Status: Ordered Estrace Vaginal Cream 0.1 mg/g See Instructions, 1 Gm Vaginally 2 tmes per week, # 42 Gm, 3 Refills, Maintenance, 02/11/21 9:40:00EDT, [facility] #[id number], Partial fill upon patient request if the prescription is for a schedule II opioid drug., 158, cm, 02/11/21 9:09:00 E... Start Date: 02/11/21 Status: Ordered Gel-One 10 mg/mL intra-articular solution Intra-articular, Gel-One to Rt Knee by Lot #[id number] exp.06/20/2022, 0 Refills, Maintenance, 08/02/20 16:03:00 EDT Start Date: 08/02/20 Status: Ordered Gel-One 10 mg/mL intra-articular solution = 20 mg, Intra-articular, Gel-One to rt knee, done by patient tolerated procedure well. lot# [id number] catno.[id number], 0 Refills, Maintenance, 04/08/21 8:59:00 EDT, Partial [...]
--- OUTSIDE RECORDS SUMMARY | 2024-07-17 14:33 | XMS_ITS | Continuity of Care Document ---
Author Organization [facility] Address [address] [place] [address]- Care Team Providers Care Electrical Sign Wirer Helper Name Role Phone Shira Garcia MD Primary Care Physician [phone] Encounter [facility] Date(s): 10/26/23 - 11/25/23 [facility] [address] [place], [place] [address] Attending Physician: AdmJonathan valerio Admitting Physician: Admtr, Jonathan Referring Physician: Admtr, Ar8 Allergies, Adverse Reactions, [...] (DT) 08/25/97 Given 1Admin Note: fermin durham [facility] 2Admin Note: given by dr weinstein 3Admin Note: 3rd Hep B 4Admin Note: 2nd Hep B 5Admin Note: 1st Hep B 6Admin Note: given at [facility] diclofenac sodium 75 mg oral delayed [...] Intra-articular, Gel-One to Rt Knee by Lot #[id number] exp.06/20/2022, 0 Refills, Maintenance, 08/02/20 16:03:00 EDT [...] Team Personnel Name: Shira Garcia MD Position: [facility] Physician - Primary Care Member Role: PCP Address: Address: [address] [place] [address]- Care Team Related Persons Name: MARIA ANTONIA REYES Name: RONAL PETER Address: home [address] [place] [id number]
--- OUTSIDE RECORDS SUMMARY | 2024-07-17 14:34 | XMS_ITS | Continuity of Care Document ---
Author Organization [facility] Address [address] [place] [address]- Care Team Providers Care Slip Box Changer Name Role Phone Shira Garcia MD Primary Care Physician [phone] Encounter [facility] Date(s): 07/05/20 - 07/12/20 [facility] [address] [place] [address]- [facility] Attending Physician: Sal Holloway MD Admitting Physician: Sal Holloway MD Referring Physician: Shira Garcia MD Allergies, [...] toxoids (DT) 08/25/97 Given 1Admin Note: fermin herminio [facility] 2Admin Note: given by dr weinstein 3Admin Note: 3rd Hep B 4Admin Note: 2nd Hep B 5Admin Note: 1st Hep B 6Admin Note: given at [facility] Medications Atenolol By Mouth, Daily, 0 Refills, [...] Maintenance, 06/19/17 11:57:46, Route to Pharmacy Electronically, [id number], [id number], succinate Start Date: 06/19/17 Status: Ordered Naproxen [...] oldest [Reference Range]: 1 Height 160.02 cm (07/05/20 3:26 PM) Weight 80.2 kg (07/05/20 3:26 PM) Pulse Rate [55-90 bpm] 73 bpm (07/05/20 3:26 PM) Body Mass Index [18.5-24.99] 31.32 *>HHI* (07/05/20 3:26 PM) Blood Pressure [90-138/55-84 mm Hg] 107/ 63mm Hg (07/05/20 3:26 PM) Blood pressure sites Arm, right (07/05/20 3:26 PM) Dry Weight 80.2 kg (07/05/20 3:26 PM) Weight Obtained Via Standing scale (07/05/20 3:26 PM) Dry Weight Obtained Via Standing scale (07/05/20 3:26 PM) Social History Social History Type Response Smoking Status Former smoker; Other : quit twice, most recently about 2007; entered on: 04/14/15 Sex
--- OUTSIDE RECORDS SUMMARY | 2024-07-17 14:34 | XMS_ITS | Continuity of Care Document ---
Author Organization [facility] Alexei Mendoza Gerard lt Address [address] [place] [address]- Care Team Providers Care Cogeneration Operator Name Role Phone Shira Garcia MD Primary Care Physician [place] [facility] [place](s): 03/12/23 - 04/11/23 [facility] Adult [address] [place] [address]- Attending Physician: AdmJonathan valerio Admitting Physician: Admtr, [...] (DT) 08/25/97 Given 1Admin Note: fermin durham [facility] 2Admin Note: given by dr weinstein 3Admin Note: 3rd Hep B 4Admin Note: 2nd Hep B 5Admin Note: 1st Hep B 6Admin Note: given at [facility] Medications Atenolol By Mouth, Daily, 0 Refills, Maintenance, 07/05/20 15:31:00 EDT Start Date: 07/05/20 Status: Ordered Estrace Vaginal Cream 0.1 mg/g See Instructions, 1 Gm Vaginally 2 tmes per week, # 42 Gm, 3 Refills, Maintenance, 02/11/21 9:40:00EDT, [facility] #[id number], Partial fill upon patient request if the prescription is for a schedule II opioid drug., 158, cm, 02/11/21 9:09:00 E... Start Date: 02/11/21 Status: Ordered Gel-One 10 mg/mL intra-articular solution Intra-articular, Gel-One to Rt Knee by Lot #[id number] exp.06/20/2022, 0 Refills, Maintenance, 08/02/20 16:03:00 EDT Start Date: 08/02/20 Status: Ordered Gel-One 10 mg/mL intra-articular solution = 20 mg, Intra-articular, Gel-One to rt knee, done by patient tolerated procedure well. lot# [id number] catno.[id number], 0 Refills, Maintenance, 04/08/21 8:59:00 EDT, Partial [...] Team Personnel Name: Shira Garcia MD Position: [facility] Physician (General Medicine) Member Role: PCP Address: Address: [address] [place] [address]- Care Team Related Persons Name: MARIA ANTONIA REYES Name: RONAL PETER Address: home [address] [address]
--- OUTSIDE RECORDS SUMMARY | 2024-07-17 14:34 | XMS_ITS | Continuity of Care Document ---
Author Organization [facility] Address [address] [place] [address]- Care Team Providers Care Forensic Identification Specialist Name Role Phone Shira Garcia MD Primary Care Physician [place] [facility] [place] 11/[place]/23 [facility] [address] [place], [place] [address] Attending Physician: Carmine Ribera MD Admitting Physician: [...] (DT) 08/25/97 Given 1Admin Note: fermin [facility] 2Admin Note: given by dr weinstein 3Admin Note: 3rd Hep B 4Admin Note: 2nd Hep B 5Admin Note: 1st Hep B 6Admin Note: given at [facility] diclofenac sodium 75 mg oral [...] Intra-articular, Gel-One to Rt Knee by Lot #[id number] exp.06/20/2022, 0 Refills, Maintenance, 08/02/20 16:03:00 EDT [...] 2007; entered on: 04/14/15 Sex Note * Teresa Guerrero: PERFORM Event Display: Patient Education Leaflets Authored Date: [id number] Radiofrequency Ablation (RFA) Treatment for Varicose Veins ?? [address]76 Radiofrequency Ablation (RFA) Treatment for Varicose Veins Radiofrequency ablation (RFA) is used to treat??varicose veins. It uses heat made from radiofrequency (RF). Varicose veins are swollen, enlarged veins. They happen most often in the legs. Varicose veins can occur when valves in your veins are damaged. This causes problems with blood flow. Over time, too much blood collects in your veins. The veins may bulge, twist, and stand out under your skin. They canalso cause symptoms such as aching, cramping, or swelling in your legs. During RFA, heat is sent into your vein through a thin, flexible tube (catheter). This closes off blood flow in the main problem vein. With RFA treatment, a catheter that contains RF heat is used to seal off the main problem vein. Getting ready??for your treatment Follow any instructions from your healthcare provider. Tell your provider if you: ??? Are or think you could be ??? Are ??? Smoke or use alcohol on a regular basis ??? Have any allergies or can't take certain medicines. Tell your provider how you reacted to these medicines in the past. Tell your provider about any medicines you are taking. You may need to stop taking all or some of these before the test. This includes: ??? Medicines that can thin your blood or prevent clotting (anticoagulants) ??? All prescription medicines ??? Amba-xoq-tjpscqz medicines such as aspirin or ibuprofen ??? Street drugs ??? Herbs, vitamins, and other supplements Follow any directions you???re given for not eating or drinking before the procedure. ?? The day of your treatment The treatment takes 45 to 60 minutes. The whole treatment (from preparing to recovery) takes about 1 to 3 hours.??You can go home the same day. For the treatment: ??? You???ll lie down on a hospital bed. ??? An imaging method, such as ultrasound, is used to guide the procedure. ??? The leg to be treated is injected with numbing medicine. ??? Once your leg is numb, a needle makes a small hole (puncture) in??the vein to be treated. ??? The catheter with the RF heat source is inserted into your vein. ??? More numbing medicine may be injected around your vein. ??? Once the catheter is in the right position, it's slowly drawn backward. As the catheter sends out heat, the vein is closed off. ??? In some cases, other side branch varicose veins may be removed or tied off through a few small cuts (incisions). ??? When the treatment is done, the catheter is removed. Pressure is applied to the insertion site to stop any bleeding. An elastic compression stocking or a bandage may be put on your leg. ?? Recovering at home Once at home, follow all the instructions you???ve been given. Be sure to: ??? Take all medicines as directed. ??? Care for the catheter insertion site as advised. ??? Check for signs of infection atthe catheter insertion site (see below). ??? Wear elastic stockings or bandages as directed. ??? Raise your legs as directed. ??? Walk a few times a day. ??? Don't do any heavy exercise, lifting, or standing for long periods, as advised. ??? Don't travel by air. ??? Don't take hot baths, use saunas, or use whirlpools, as advised. ?? Call your healthcare provider Call your healthcare provider if you have any of the following: ??? Fever of 100.4?? F ( 38?? C) orhigher, or as directed by your provider ??? Chest pain or trouble breathing ??? Signs of infection at the catheter insertion site. These include??increased redness or swelling (inflammation), warmth,increasing pain, bleeding, or bad-smelling discharge. ??? Severe numbness or tingling in the treated leg ??? Severe pain or swelling in the treated leg ?? Follow-up You???ll have a follow-up visit with your healthcare provider within a week. An ultrasound will be done to check for problems, such as blood clots. Your??provider will discuss further treatments withyou, if needed. ?? Risks and possible complications?? These include the following: ??? Bleeding ??? Infection ??? Blood clots ??? Nerve damage in the treated area ??? Irritation or burning of the skin over the treated vein ??? Treatment??doesn't improvethe??look or the symptoms of the problem veins ??? Risks of any medicines used during the treatment ?? Last Reviewed Date: 2022 ?? [id number] [employer]. All rights reserved. This information is not intended as a substitute for professional medical care. Always follow your healthcare professional's instructions. ?? Patient Care team information Care Team Personnel Name: Shira Garcia MD Position: [facility] Physician - Primary Care Member Role: PCP Address: Address: [address] [place] [address]- Care Team Related Persons Name: MARIA ANTONIA REYES Name: RONAL PETER Address: home [address] [place] [id number]
--- OUTSIDE RECORDS SUMMARY | 2024-07-17 14:34 | XMS_ITS | Continuity of Care Document ---
Author Organization [facility] Address [address] [place] [address]- Care Team Providers Care Territory Representative Name Role Phone Shira Garcia MD Primary Care Physician [place] [facility] [place] 04/24/[address] [address] Attending Physician: Estee Patton MD Admitting Physician: Estee Patton MD Allergies, Adverse Reactions, Alerts Substance Reaction [...] toxoids (DT) 08/25/97 Given 1Admin Note: [facility] 2Admin Note: given by dr weinstein 3Admin Note: 3rd Hep B 4Admin Note: 2nd Hep B 5Admin Note: 1st Hep B 6Admin Note: given at [facility] Medications Atenolol By Mouth, Daily, 0 Refills, Maintenance, 07/05/20 15:31:00 EDT Start Date: 07/05/20 Status: Ordered clobetasol 0.05% topical ointment See Instructions, 1 application topically nightly for 3 months and then 1-3x wk for maintenance, # 30 Gm, 0 Refills, Acute 02/11/22 9:41:00 EDT, 02/11/21 9:40:00 EDT, [facility] #[id number], Partial fill upon patient request if the prescription i... Start Date: 02/11/21 Stop Date: 02/11/22 Status: Ordered Estrace Vaginal Cream 0.1 mg/g See Instructions, 1 Gm Vaginally 2 tmes per week, # 42 Gm, 3 Refills, Maintenance, 02/11/21 9:40:00EDT, [facility] #[id number], Partial fill upon patient request if the prescription is for a schedule II opioid drug., 158, cm, 02/11/21 9:09:00 E... Start Date: 02/11/21 Status: Ordered Gel-One 10 mg/mL intra-articular solution Intra-articular, Gel-One to Rt Knee by Lot #[id number] exp.06/20/2022, 0 Refills, Maintenance, 08/02/20 16:03:00 EDT Start Date: 08/02/20 Status: Ordered Gel-One 10 mg/mL intra-articular solution = 20 mg, Intra-articular, Gel-One to rt knee, done by patient tolerated procedure well. lot# [id number] catno.[id number], 0 Refills, Maintenance, 04/08/21 8:59:00 EDT, Partial [...]
--- OUTSIDE RECORDS SUMMARY | 2024-07-17 14:34 | XMS_ITS | Continuity of Care Document ---
Author Organization [facility] Address [address] [place] [address]- Care Team Providers Care Central Supply Worker Name Role Phone Shira Garcia MD Primary Care Physician En[place] [facility] [place] Date(s): 04/03/24 - 05/03/24 [facility] [address] [place], [place] [address] Attending Physician: AdmJonathan valerio Admitting Physician: AdmtrJonathan Referring Physician: Admtr, Ar8 Allergies, Adverse Reactions, Alerts Substance Reaction Severity Status penicillin Anaphylactic reaction Active CeleBREX Rash Active sulfADIAZINE red , [...] (DT) 08/25/97 Given 1Admin Note: fermin [facility] 2Admin Note: given by dr weinstein 3Admin Note: 3rd Hep B 4Admin Note: 2nd Hep B 5Admin Note: 1st Hep B 6Admin Note: given at [facility] diclofenac sodium 75 mg oral [...] Intra-articular, Gel-One to Rt Knee by Lot #[id number] exp.06/20/2022, 0 Refills, Maintenance, 08/02/20 16:03:00 EDT [...] Name: Shira Garcia MD Position: [facility] Physician - Primary Care Member Role: PCP Address: Address: [address] [place] [address]- Care Team Related Persons Name: MARIA ANTONIA REYES Name: RONAL PETER Address: home [address] [address]
--- OUTSIDE RECORDS SUMMARY | 2024-07-17 14:34 | XMS_ITS | Continuity of Care Document ---
Author Organization [facility] Address [address] [place] [address]- Care Team Providers Care Clinical Rehabilitation Aide Name Role Phone Shira Garcia MD Primary Care Physician [phone] Encounter [facility] [place] Date(s): 08/01/21 - 08/08/21 [facility] [address] [place], [place] [address] Attending Physician: Sal Holloway MD [...] diphtheria-tetanus toxoids (DT) 08/25/97 Given 1Admin Note: [facility] 2Admin Note: given by dr weinstein [...] Acute 02/11/22 9:41:00 EDT, 02/11/21 9:40:00 EDT, [facility] #[id number], Partial fill upon patient request if the prescription i... Start Date: 02/11/21 Stop Date: 02/11/22 Status: Ordered Estrace Vaginal Cream 0.1 mg/g See Instructions, 1 Gm Vaginally 2 tmes per week, # 42 Gm, 3 Refills, Maintenance, 02/11/21 9:40:00EDT, [facility] #[id number], Partial fill upon patient request if the prescription is for a schedule II opioid drug., 158, cm, 02/11/21 9:09:00 E... Start Date: 02/11/21 Status: Ordered Gel-One 10 mg/mL intra-articular solution Intra-articular, Gel-One to Rt Knee by Lot #[id number] exp.06/20/2022, 0 Refills, Maintenance, 08/02/20 16:03:00 EDT Start Date: 08/02/20 Status: Ordered Gel-One 10 mg/mL intra-articular solution = 20 mg, Intra-articular, Gel-One to rt knee, done by patient tolerated procedure well. lot# [id number] catno.[id number], 0 Refills, Maintenance, 04/08/21 8:59:00 EDT, Partial [...]
--- NOTE | 2024-07-17 15:00 | MHC.OFFWIV ---
Intake Vital Signs 07/17/24 15:12 Weight 175 lb BP 126/82 Blood Pressure Location Lt brachial Position Sitting Pulse 64 Pulse Source Pulse Oximeter Temp 98.2 F Temp Source Oral Pulse Oximetry (%) 98 Oxygen Delivery Method Room Air Intake Visit Reasons: EP-cold symptoms (car)[phone] Intake Note: Patient here for congestion and cough that has been present for about 2 days. Patient Tobacco Use Status: Former Tobacco user Allergies lisinopril [LISINOPRIL] Allergy (Severe, Verified 07/17/24 15:01) COUGH telithromycin [From KETEK] Allergy (Intermediate, Verified 07/17/24 15:01) BLURRED VISION latex [LATEX] Allergy (Mild, Verified 07/17/24 15:01) RASH celecoxib [Celebrex] Allergy (Unknown, Verified 07/17/24 15:01) rash penicillamine [PENICILLAMINE] Allergy (Unknown, Verified 07/17/24 15:01) UNKNOWN valsartan [Diovan] Allergy (Unknown, Verified 07/17/24 15:01) Unknown Sulfa (Sulfonamide Antibiotics) Allergy (Verified 07/17/24 15:01) hives, throat constriction cortisone injection Allergy (Unknown, Uncoded 07/17/24 15:01) caused menstration Do you need a note to return to daycare/school/sports/work: No HPI HPI Comments History of Present Illness Details Patient is a 59-year-old female complaining of 2 days of a cough and congestion. She states she just got back from a cruise to [facility] where her symptoms started. She states she has had a productive cough with green sputum and feels a little bit short of breath. She felt a little hot when she was on the cruise but never measured her temperature and has not felt that way since. She denies any nausea vomiting diarrhea, head congestion or sore throat or sinus pain. She states her right ear was hurting her a little bit and she has recurrent issues with that ear. She states she does have an inhaler which she will use once in awhile but does not have a formal asthma or COPD diagnosis nor does she take any maintenance medications for asthma or COPD. [facility] Medical History (Updated 07/17/24 @ 15:25 by Johanna Garza PA-C) URI (upper respiratory infection) Left flank pain Lower back pain Muscle spasm of both lower legs Daytime sleepiness Right knee injury Swelling of left lower extremity Bleeding from varicose veins of left lower extremity Right otitis media Flu-like symptoms Sprain of left knee Knee pain, left Annual physical exam Hyperglycemia Shingles rash Obesity due to excess calories Hand pain, right Hair loss Encounter for screening laboratory testing for COVID-19 virus Well woman exam with routine gynecological exam Hyperlipidemia Chronic pain of right thumb Vitamin D deficiency Elevated cortisol level Hypothyroidism Incontinence HTN (hypertension) Surgical History History of uvulectomy Hx of myringotomy Hx of section History of ankle surgery Hx of knee surgery Family History Father No problems noted. Mother No problems noted. Family/Other History of breast cancer Social History Household Members: None Housing: House Alcohol intake: current Alcohol intake frequency: holidays/special occasions only Patient Tobacco Use Status: Former Tobacco user Tobacco use type: Cigarette Years Smoked: 15 years ago e-Cigarette/Vaping Use: Never Used Second Hand Smoke Exposure: No service: No Current occupational status: employed Sexual orientation: Straight/Heterosexual Gender identity: Female Cognitive needs: No Hearing needs: No Vision needs: Yes Female Reproductive History Menstrual Age of Menarche: 9 Review of Systems Const All systems reviewed & are unremarkable except as noted in HPI and below Physical Exam Const General: cooperative, healthy appearing, comfortable and no acute distress Orientation/consciousness: patient oriented x3 Limitations: no limitations HEENT Head: Yes normal to inspection Ears: hearing grossly normal bilaterally, external ears normal and TM's normal bilaterally (Slight erythema on the right side) General nose exam: Normal external nose present, Normal nares present and No nasal discharge present Face and sinus: Yes normal facial exam and Yes sinuses nontender Mouth: Normal oral and palatal mucosa present and moist mucous membranes Throat: Yes tonsils normal, Yes uvula midline and Yes posterior oropharynx abnormal (Erythema) Eyes General: appearance normal, both eyes and all related structures Neck Neck: Yes normal visual inspection Resp Effort & Inspection: normal respiratory effort, able to speak in complete sentences, no respiratory distress, not tachypneic, no tripod positioning and no use of accessory muscles Auscultation: clear to auscultation bilaterally Cardio Rate: regular rate Rhythm: regular rhythm Heart sounds: normal S1 and S2 Skin General skin exam: no rashes or lesions noted Neuro General: patient oriented x3 Extrem General: Yes normal to inspection and Yes no clubbing, cyanosis or edema Results AMB Rapid Strep AMB Rapid Strep Negative Last Edit by YOHANA Cosme on 07/17/24 15:19 Assessment & Plan Assessment & Plan (1) URI (upper respiratory infection): Code(s): J06.9 - Acute upper respiratory infection, unspecified Qualifiers: URI type: unspecified URI Qualified Code(s): J06.9 - Acute upper respiratory infection, unspecified Plan: Sent inhaler to pharmacy for symptomatic relief of shortness of breath however vital signs are stable, lungs sound clear and physical exam is unremarkable. Likely COVID, sent flu COVID and RSV testing, rapid strep was negative in office. No indications for a chest x-ray at this time. Recommended patient self isolate until symptom-free and fever free for 24 hours Plan See above Orders: Orders SARS-CoV2/FLU/RSV Today R09.89 - Other specified symptoms and signs involving the circulatory and respiratory systems AMB Rapid Strep Screen Today Z13.9 - Encounter for screening, unspecified Medications: Changed From albuterol sulfate 90 mcg/actuation (ProAir HFA) 2 puffs inhalation Q4-6H PRN 8.5 grams 0RF shortness of breath or wheezing To albuterol sulfate 90 mcg/actuation 2 puffs inhalation Q4-6H PRN 8.5 grams 0RF shortness of breath or wheezing Coding Level of Care Code Est Pt Level 3 (48214) Diagnoses Upper respiratory tract infection, unspecified type J06.9 URI type: unspecified URI
[2024-07-17 15:12] VITALS: BP 126/82; PULSE 64; TEMP 36.8; O2SAT 98
== END 2024-07-17 15:42 | disposition home or self-care (01) ==
PROVIDERS: PCP Internal Medicine; Visit Provider Physician Assistant
DX: Z13.9 Encounter for screening, unspecified (principal); J06.9 Acute upper respiratory infection, unspecified
CPT/HCPCS: 87880; 99213

== ENCOUNTER 2024-07-17 15:02 | Outpatient (REF) | payer OTHER, SELFPAY ==
[2024-07-17 20:06] LABS: Influenza A PCR NEGATIVE (Negative); Influenza B PCR NEGATIVE (Negative); Resp Syncy Virus RNA Qual PCR NEGATIVE (Negative); SARS COV2 PCR INHOUSE POSITIVE (Negative)
== END 2024-07-17 15:03 | disposition home or self-care (01) ==
LOC: HO.LNP 15:02
PROVIDERS: Visit Provider Physician Assistant
DX: R09.89 Other specified symptoms and signs involving the circulatory and respiratory systems (principal); J06.9 Acute upper respiratory infection, unspecified
CPT/HCPCS: 0241U

== ENCOUNTER 2024-08-18 13:29 | Outpatient (REF) | payer OTHER, SELFPAY ==
--- NOTE | ~2024-08-18 | MM_ITS ---
EXAMINATION: MM SCREENING DIGITAL BREAST TOMOSYNTHESIS, BILATERAL CLINICAL INFORMATION: Screening. Asymptomatic. COMPARISON: Mammography: Comparison is made with available priors TECHNIQUE: Digital breast mammography with tomosynthesis is performed in both the craniocaudal and mediolateral oblique views along with computer-aided detection (CAD). FINDINGS: The breasts are heterogeneously dense, which may obscure small masses (ACR BI-RADS breast composition Category c). There are no significant masses, abnormal calcifications, or other abnormalities. MM/MM tomosynthesis screening BI IMPRESSION: No mammographic evidence of malignancy. ASSESSMENT: BI-RADS BI-RADS 1 - Negative RECOMMENDATION: Routine annual mammography screening. 1 year F/U This examination should not preclude the clinical evaluation of a suspicious palpable abnormality. This patient's information was entered into a reminder system with a target due date for their next mammogram. Electronically signed by: Mira Edwards DO 08/28/2024 06:36 PM EDT
== END 2024-08-18 13:30 | disposition home or self-care (01) ==
LOC: HO.MAMMO 13:29
PROVIDERS: Absent Provider Obstetrics & Gynecology; PCP Internal Medicine; Visit Provider Internal Medicine
DX: Z12.31 Encounter for screening mammogram for malignant neoplasm of breast (principal)
CPT/HCPCS: 77063; 77067

== ENCOUNTER → 2024-08-18 13:30 | Outpatient (BNV) | payer OTHER, SELFPAY | PROVIDERS: Absent Provider Obstetrics & Gynecology; PCP Internal Medicine; Visit Provider Internal Medicine | DX: Z12.31 Encounter for screening mammogram for malignant neoplasm of breast (principal) | CPT/HCPCS: 77063; 77067 ==

== ENCOUNTER 2024-09-04 07:33 | Outpatient (REF) | payer OTHER, SELFPAY ==
[2024-09-04 10:13] LABS: MANUAL DIFF FLAG NO
[2024-09-04 10:18] LABS: Basophils Absolute Auto 0.1 X10*3/uL (0.0-0.2); Eosinophils Absolute Auto 0.2 X10*3/uL (0.0-0.4); Eosinophils Percent Auto 3.3 % (0-4); Hematocrit 43.3 % (37.0-47.0); Hemoglobin 14.4 g/dl (12.0-16.0); Imm Gran Abs Auto 0.02 X10*3/uL (0.00-0.03); Imm Gran Pct Auto 0.3 % (0.0-0.4); Lymphocytes Absolute Auto 2.1 X10*3/uL (1.2-4.9); Lymphocytes Percent Auto 36.4 % (20-40); Mean Corpuscular HGB Conc 33.3 g/dl (31.0-35.0); Mean Corpuscular Hemoglobin 29.9 pg (27.0-33.0); Mean Platelet Volume 11.5 fL (9.4-12.3); Monocytes Absolute Auto 0.4 X10*3/uL (0.1-1.2); Monocytes Percent Auto 6.6 % (2-11); Neutrophils Percent Auto 52.4 % (45-73); Platelet Count 176 X10*3/uL (160-400); Red Blood Count 4.81 X10*6/uL (4.20-5.50); Red Cell Distribution Width 12.2 % (11.0-16.0); White Blood Count 5.7 X10*3/uL (4.8-10.8)
[2024-09-04 11:09] LABS: Alanine Aminotransferase 40 U/L (0-31); Albumin Level 3.8 g/dL (3.5-5.0); Alkaline Phosphatase 66 U/L (39-117); Anion Gap 11 (12-20); Aspartate Amino Transferase 26 U/L (5-31); Bilirubin Total 0.5 mg/dL (0.0-1.0); Blood Urea Nitrogen 20 mg/dL (9-16); Calcium 9.2 mg/dL (8.4-10.2); Carbon Dioxide 28 mmol/L (22-29); Chloride 108 mmol/L (96-108); Cholesterol 206 mg/dL (<200); Estimated Glomerular Filt Rate > 60; Glucose Fasting 104 mg/dL (60-99); HDL Cholesterol 47 mg/dL (>40); LDL Cholesterol Calculated 128 mg/dL (<100); Potassium 4.5 mmol/L (3.3-5.1); Sodium 142 mmol/L (135-145); Total Protein 5.9 g/dL (6.5-8.0); Triglycerides 158 mg/dL (<150)
[2024-09-04 11:32] LABS: TSH reflex Free T4 2.93 uIU/mL (0.32-4.0)
== END 2024-09-04 07:34 | disposition home or self-care (01) ==
LOC: HO.HMGCLDS 07:33
PROVIDERS: PCP Internal Medicine; Visit Provider Internal Medicine
DX: E03.9 Hypothyroidism, unspecified (principal); I10 Essential (primary) hypertension; E78.5 Hyperlipidemia, unspecified
CPT/HCPCS: 36415; 80053; 80061; 84443; 85025

== ENCOUNTER 2024-09-08 14:04 | Outpatient (AMB) | payer OTHER, SELFPAY ==
--- NOTE | 2024-09-08 14:14 | MHC.PC.OV ---
Vital Signs 09/08/24 14:15 Height 5 ft 3 in Weight 179 lb BMI 31.7 BP 116/66 Blood Pressure Location Rt brachial Position Sitting Pulse 71 Pulse Source Pulse Oximeter Pulse Oximetry (%) 98 Oxygen Delivery Method Room Air Intake Visit Reasons: Annual PE Intake Note: Pt is here today for PE. Allergies lisinopril [LISINOPRIL] Allergy (Severe, Verified 09/08/24 14:20) COUGH telithromycin [From KETEK] Allergy (Intermediate, Verified 09/08/24 14:20) BLURRED VISION latex [LATEX] Allergy (Mild, Verified 09/08/24 14:20) RASH celecoxib [Celebrex] Allergy (Unknown, Verified 09/08/24 14:20) rash penicillamine [PENICILLAMINE] Allergy (Unknown, Verified 09/08/24 14:20) UNKNOWN valsartan [Diovan] Allergy (Unknown, Verified 09/08/24 14:20) Unknown Sulfa (Sulfonamide Antibiotics) Allergy (Verified 09/08/24 14:20) hives, throat constriction cortisone injection Allergy (Unknown, Uncoded 09/08/24 14:20) caused menstration Medication List - Last Reconciled 09/08/24 by Shira Garcia MD albuterol sulfate 90 mcg/actuation 2 puffs inhalation Q4-6H PRN cholecalciferol (vitamin D3) 50 mcg PO DAILY diclofenac sodium 75 mg PO BID estradiol 1 patch transdermal 2XW gabapentin mg PO irbesartan 300 mg PO DAILY levothyroxine 100 mcg PO DAILY pravastatin 10 mg PO DAILY progesterone micronized 100 mg PO DAILY Tobacco use date assessed: 09/08/24 Dental Screening Dental Screen Date: 02/11/24 HPI Annual PE HPI Details Pt presents for PE. PFS Medical History (Updated 09/08/24 @ 14:43 by Shira Garcia MD) Annual physical exam URI (upper respiratory infection) Left flank pain Lower back pain Muscle spasm of both lower legs Daytime sleepiness Right knee injury Swelling of left lower extremity Bleeding from varicose veins of left lower extremity Right otitis media Flu-like symptoms Sprain of left knee Knee pain, left Hyperglycemia Shingles rash Obesity due to excess calories Hand pain, right Hair loss Encounter for screening laboratory testing for COVID-19 virus Well woman exam with routine gynecological exam Hyperlipidemia Chronic pain of right thumb Vitamin D deficiency Elevated cortisol level Hypothyroidism Incontinence HTN (hypertension) Surgical History History of uvulectomy Hx of myringotomy Hx of section History of ankle surgery Hx of knee surgery Family History Father No problems noted. Mother No problems noted. Family/Other History of breast cancer Social History Household Members: None Housing: House Alcohol intake: current Alcohol intake frequency: holidays/special occasions only Patient Tobacco Use Status: Former Tobacco user Tobacco use type: Cigarette Years Smoked: 15 years ago e-Cigarette/Vaping Use: Never Used Second Hand Smoke Exposure: No service: No Current occupational status: employed Sexual orientation: Straight/Heterosexual Gender identity: Female Cognitive needs: No Hearing needs: No Vision needs: Yes Female Reproductive History Menstrual Age of Menarche: 9 Questionnaire Thrive Questionnaire Date Thrive assessed: 02/11/24 AUDIT C Alcohol Use Questionnaire (AUDIT-C) 1. How often do you have a drink containing alcohol?: Monthly or less 2. How many drinks containing alcohol do you have on a typical day when you are drinking?: 1 or 2 3. How often do you have six or more drinks on one occasion?: Never Total Score: 1 DUY-7 AMB Questionnaire DUY-7 Date DUY - 7 assessed: 02/11/24 Source: Developed by Drs. Jose Enrique Rubi, Vielka Reddy, Natalio De and colleagues, with an educational lena from [employer]. Review of Systems Const All systems reviewed & are unremarkable except as noted in HPI and below Eyes Reports no additional complaints ENT Reports no additional complaints Card Reports no additional complaints Resp Reports no additional complaints GI Reports no additional complaints Reports no additional complaints Musc Reports no additional complaints Physical exam (Primary Care) Vital Signs: Last Vital Signs Pulse 71 09/08/24 14:15 BP 116/66 09/08/24 14:15 Pulse Ox 98 09/08/24 14:15 Oxygen Delivery Method Room Air 09/08/24 14:15 BMI result Body Mass Index 31.7 Tobacco/Smoking Status: Tobacco use Status Tobacco use date assessed 09/08/24 09/08/24 14:24 Patient Tobacco Use Status Former Tobacco user 09/08/24 14:14 Tobacco use type Cigarette 09/08/24 14:14 e-Cigarette/Vaping Use Never Used 09/08/24 14:14 Thrive Assessment: Date of Thrive Assessment Date Thrive assessed 02/11/24 09/08/24 14:14 Const General: no acute distress HENMT Head: Yes normal to inspection Face and sinus: Yes normal facial exam Mouth: Normal oral and palatal mucosa present Throat: Yes posterior oropharynx normal Eyes General: appearance normal, both eyes and all related structures Neck Neck: Yes no lymphadenopathy and Yes supple Resp Effort & Inspection: normal respiratory effort Auscultation: clear to auscultation bilaterally Cardio Rhythm: regular rhythm Heart sounds: S1 normal heart sound present and S2 normal heart sound present GI Inspection: Yes normal to inspection Palpation (GI): Soft to palpation Percussion: Yes normal to percussion Auscultation: normal bowel sounds Coding Level of Care Code Est Pt Prev Care 40-64y(67018) Diagnoses Hyperlipidemia E78.5 Vitamin D deficiency E55.9 Hypothyroidism, unspecified type E03.9 Hypothyroidism type: unspecified HTN (hypertension) I10 Annual physical exam Z00.00 Assessment & Plan Assessment & Plan (1) Hyperlipidemia: Code(s): E78.5 - Hyperlipidemia, unspecified Category: Medical Plan: cont Pravastatin (2) Vitamin D deficiency: Code(s): E55.9 - Vitamin D deficiency, unspecified Category: Medical Plan: Continue vitamin-D (3) Hypothyroidism: Code(s): E03.9 - Hypothyroidism, unspecified Category: Medical Qualifiers: Hypothyroidism type: unspecified Qualified Code(s): E03.9 - Hypothyroidism, unspecified Plan: cont Levothyroxine (4) HTN (hypertension): Code(s): I10 - Essential (primary) hypertension Category: Medical Plan: cont med (5) Annual physical exam: Code(s): Z00.00 - Encounter for general adult medical examination without abnormal findings Category: Medical Plan: Well-balanced diet regular physical activity weight loss discussed with the patient. She is contemplating trying GLP 1 agonist. Patient is up-to-date with the mammogram Pap smear and colonoscopy return for physical in 1 year with a fasting labs before Orders: Orders Comprehensive [place]. Panel Fast 1 Year E03.9 - Hypothyroidism, unspecified, E55.9 - Vitamin D deficiency, unspecified, E78.5 - Hyperlipidemia, unspecified, I10 - Essential (primary) hypertension, Z00.00 - Encounter for general adult medical examination without abnormal findings TSH reflex Free T4 1 Year E03.9 - Hypothyroidism, unspecified, E55.9 - Vitamin D deficiency, unspecified, E78.5 - Hyperlipidemia, unspecified, I10 - Essential (primary) hypertension, Z00.00 - Encounter for general adult medical examination without abnormal findings Hemoglobin A1c 1 Year E03.9 - Hypothyroidism, unspecified, E55.9 - Vitamin D deficiency, unspecified, E78.5 - Hyperlipidemia, unspecified, I10 - Essential (primary) hypertension, Z00.00 - Encounter for general adult medical examination without abnormal findings Vitamin D 25-OH Total 1 Year E03.9 - Hypothyroidism, unspecified, E55.9 - Vitamin D deficiency, unspecified, E78.5 - Hyperlipidemia, unspecified, I10 - Essential (primary) hypertension, Z00.00 - Encounter for general adult medical examination without abnormal findings Complete Blood Count Auto Diff 1 Year E03.9 - Hypothyroidism, unspecified, E55.9 - Vitamin D deficiency, unspecified, E78.5 - Hyperlipidemia, unspecified, I10 - Essential (primary) hypertension, Z00.00 - Encounter for general adult medical examination without abnormal findings Lipid Panel 1 Year E03.9 - Hypothyroidism, unspecified, E55.9 - Vitamin D deficiency, unspecified, E78.5 - Hyperlipidemia, unspecified, I10 - Essential (primary) hypertension, Z00.00 - Encounter for general adult medical examination without abnormal findings
[2024-09-08 14:15] VITALS: BP 116/66; PULSE 71; O2SAT 98; BMI 31.7
== END 2024-09-08 14:50 | disposition home or self-care (01) ==
PROVIDERS: PCP Internal Medicine; Visit Provider Internal Medicine
DX: E78.5 Hyperlipidemia, unspecified (principal); E55.9 Vitamin D deficiency, unspecified; E03.9 Hypothyroidism, unspecified; I10 Essential (primary) hypertension; Z00.00 Encounter for general adult medical examination without abnormal findings

== ENCOUNTER → 2024-09-08 14:04 | Outpatient (BNVA) | payer OTHER, SELFPAY | PROVIDERS: PCP Internal Medicine; Visit Provider Internal Medicine ==

== ENCOUNTER 2024-10-21 08:11 | Outpatient (AMB) | payer OTHER, SELFPAY ==
--- NOTE | 2024-10-21 08:13 | A.OFFVIS_ITS ---
Vital Signs 10/21/24 08:14 Height 5 ft 3 in Weight 182 lb 5.156 oz BMI 32.3 BP 114/76 Blood Pressure Location Rt brachial Position Sitting Pulse 66 Pulse Source Pulse Oximeter Intake Visit Reasons: Obesity Intake Note: Patient present today for Obesity. 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: No Accompanied by: Self / Same As Patient Allergies lisinopril [LISINOPRIL] Allergy (Severe, Verified 10/21/24 08:16) COUGH telithromycin [From KETEK] Allergy (Intermediate, Verified 10/21/24 08:16) BLURRED VISION latex [LATEX] Allergy (Mild, Verified 10/21/24 08:16) RASH celecoxib [Celebrex] Allergy (Unknown, Verified 10/21/24 08:16) rash penicillamine [PENICILLAMINE] Allergy (Unknown, Verified 10/21/24 08:16) UNKNOWN valsartan [Diovan] Allergy (Unknown, Verified 10/21/24 08:16) Unknown Sulfa (Sulfonamide Antibiotics) Allergy (Verified 10/21/24 08:16) hives, throat constriction cortisone injection Allergy (Unknown, Uncoded 10/21/24 08:16) caused menstration HPI Comments Details: This is a 59-year-old white female previously seen by endocrinology by Landy Velasquez NP for hypothyroidism in 2020. Patient presents today for management of obesity. Patient has tried diets of eating healthy fats , lean meats . Inability to lose Weight. Exercising with yoga and swimming . Was prescribed Zepbound by PCP . Has seen a billing spec 2020- 2021 . Thyroid levels recently checked have been normal and managed by primary care. Underwent a dexamethasone suppression test 2020 which was normal. Has a hx of prediabetes/ IFG. No sx of Brooks's Syndrome .Uses a CPAP mask for sleep apnea . Attends [facility] structured wt loss program. [facility] Medical History (Updated 10/06/24 @ 15:07 by Shira Garcia MD) Annual physical exam URI (upper respiratory infection) Left flank pain Lower back pain Muscle spasm of both lower legs Daytime sleepiness Right knee injury Swelling of left lower extremity Bleeding from varicose veins of left lower extremity Right otitis media Flu-like symptoms Sprain of left knee Knee pain, left Hyperglycemia Shingles rash Obesity due to excess calories Hand pain, right Hair loss Encounter for screening laboratory testing for COVID-19 virus Well woman exam with routine gynecological exam Hyperlipidemia Chronic pain of right thumb Vitamin D deficiency Elevated cortisol level Hypothyroidism Incontinence HTN (hypertension) Surgical History History of surgery History of uvulectomy Hx of myringotomy Hx of section History of ankle surgery Hx of knee surgery Family History Father No problems noted. Mother No problems noted. Family/Other History of breast cancer Social History Household Members: None Housing: House Alcohol intake: current Alcohol intake frequency: holidays/special occasions only Patient Tobacco Use Status: Former Tobacco user Tobacco use type: Cigarette Years Smoked: 15 years ago e-Cigarette/Vaping Use: Never Used Second Hand Smoke Exposure: No service: No Current occupational status: employed Sexual orientation: Straight/Heterosexual Gender identity: Female Cognitive needs: No Hearing needs: No Vision needs: Yes Female Reproductive History Menstrual Age of Menarche: 9 Physical Exam Vital Signs: Last Vital Signs Pulse 66 10/21/24 08:14 BP 114/76 10/21/24 08:14 BMI result Body Mass Index 32.3 Const Other: No cushingoid features. Thyroid gland is normal size weighs about 15 g. There are no thyroid nodules palpated Assessment & Plan Assessment & Plan (1) Overweight: Code(s): E66.3 - Overweight Category: Medical Plan: This is a 59-year-old white female with a history of obesity. No clear secondary endocrine causes identified. Will attempt to get coverage for Wegovy 0.25 mg Q weekly. Went over side effects of Wegovy including but not limited to nausea, vomiting rare risk of pancreatitis. Patient will follow up with a structured weight loss program that she is currently attending. Medications: New semaglutide (weight loss) (Wegovy) administer weeks 1 through 4 of therapy 0.25 mg (0.5 mL) subcut QWEEK 2 mL 4RF Discontinued tirzepatide (weight loss) (Zepbound) for 4 weeks Discontinued Reason: Doctor's Order 2.5 mg (0.5 mL) subcut QWEEK 2 mL 0RF semaglutide (weight loss) (Wegovy) administer weeks 1 through 4 of therapy Discontinued Reason: Duplicate 0.25 mg (0.5 mL) subcut QWEEK 2 mL 0RF Coding Level of Care Code Est Pt Level 3 (92300) Diagnoses Overweight E66.3
[2024-10-21 08:14] VITALS: BP 114/76; PULSE 66; BMI 32.3
== END 2024-10-21 09:02 | disposition home or self-care (01) ==
PROVIDERS: PCP Internal Medicine; Visit Provider Internal Medicine Endocrinology, Diabetes & Metabolism
DX: E66.3 Overweight (principal)
CPT/HCPCS: 99213

== ENCOUNTER 2025-01-01 11:19 | Outpatient (AMB) | payer OTHER, SELFPAY ==
[2025-01-01 11:20] VITALS: BP 118/70; PULSE 74; RESP 18; TEMP 36.6; O2SAT 96; BMI 30.1
--- NOTE | 2025-01-01 11:20 | A.OFFPC_ITS ---
Vital Signs 01/01/25 11:20 Height 5 ft 3 in Weight 170 lb BMI 30.1 BP 118/70 Blood Pressure Location Lt brachial Position Sitting Respiration 18 Pulse 74 Pulse Source Pulse Oximeter Temp 97.9 F Temp Source Oral Pulse Oximetry (%) 96 Oxygen Delivery Method Room Air Intake Visit Reasons: discuss Neuro referral Intake Note: Pt is here today for a follow up visit to discuss referral to Neurology. Allergies lisinopril [LISINOPRIL] Allergy (Severe, Verified 01/01/25 11:35) COUGH telithromycin [From KETEK] Allergy (Intermediate, Verified 01/01/25 11:35) BLURRED VISION latex [LATEX] Allergy (Mild, Verified 01/01/25 11:35) RASH celecoxib [Celebrex] Allergy (Unknown, Verified 01/01/25 11:35) rash penicillamine [PENICILLAMINE] Allergy (Unknown, Verified 01/01/25 11:35) UNKNOWN valsartan [Diovan] Allergy (Unknown, Verified 01/01/25 11:35) Unknown Sulfa (Sulfonamide Antibiotics) Allergy (Verified 01/01/25 11:35) hives, throat constriction cortisone injection Allergy (Unknown, Uncoded 01/01/25 11:35) caused menstration Medication List - Last Reconciled 01/01/25 by Shira Garcia MD albuterol sulfate 90 mcg/actuation 2 puffs inhalation Q4-6H PRN cholecalciferol (vitamin D3) 50 mcg PO DAILY diclofenac sodium 75 mg PO BID estradiol 1 patch transdermal 2XW gabapentin mg PO irbesartan 300 mg PO DAILY levothyroxine 100 mcg PO DAILY pravastatin 10 mg PO DAILY progesterone micronized 100 mg PO DAILY semaglutide (weight loss) (Wegovy) 0.5 mg (0.5 mL) subcut QWEEK Tobacco use date assessed: 01/01/25 Dental Screening Dental Screen Date: 01/01/25 Did you have a dental visit in the last 12 months?: Yes Did you have a dental problem in the last 6 months where you did not have access to dental care?: No Was dental information given to patient?: Patient has dentist HPI discuss Neuro referral HPI Details Patient presents complaining of low blood pressure since she lost 12 lb on Wegovy. She complained of constipation and excessive hair loss while taking Wegovy for 1 month. She was switched to Zepbound but after 1 dose patient developed tingling sensation in her fingers and toes, which has been improving now. She did not continue to take Zepbound. Patient is concerned because she was told that Zepbound can affect her brain function and is planning to restart Wegovy at 0.5 mg weekly. 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 She had physical therapy 2 years ago for partial tear in rotator cuff. She was seen by ortho in the past but is not interested in cortisone injections or surgery. [facility] Medical History (Updated 01/01/25 @ 12:25 by Shira Garcia MD) Annual physical exam URI (upper respiratory infection) Left flank pain Lower back pain Muscle spasm of both lower legs Daytime sleepiness Right knee injury Swelling of left lower extremity Bleeding from varicose veins of left lower extremity Right otitis media Flu-like symptoms Sprain of left knee Knee pain, left Hyperglycemia Shingles rash Obesity due to excess calories Hand pain, right Hair loss Encounter for screening laboratory testing for COVID-19 virus Well woman exam with routine gynecological exam Hyperlipidemia Chronic pain of right thumb Vitamin D deficiency Elevated cortisol level Hypothyroidism Incontinence HTN (hypertension) Surgical History History of surgery History of uvulectomy Hx of myringotomy Hx of section History of ankle surgery Hx of knee surgery Family History Father No problems noted. Mother No problems noted. Family/Other History of breast cancer Social History Household Members: None Housing: House Alcohol intake: current Alcohol intake frequency: holidays/special occasions only Patient Tobacco Use Status: Former Tobacco user Tobacco use type: Cigarette Years Smoked: 15 years ago e-Cigarette/Vaping Use: Never Used Second Hand Smoke Exposure: No service: No Current occupational status: employed Sexual orientation: Straight/Heterosexual Gender identity: Female Cognitive needs: No Hearing needs: No Vision needs: Yes Female Reproductive History Menstrual Age of Menarche: 9 Questionnaire PHQ-9 Over the last 2 weeks, how often have you been bothered by any of the following problems? 1. Little interest or pleasure in doing things: not at all 2. Feeling down, depressed, or hopeless: not at all 3. Trouble falling or staying asleep, or sleeping too much: not at all 4. Feeling tired or having little energy: not at all 5. Poor appetite or overeating: not at all 6. Feeling bad about yourself - or that you are a failure or have let yourself or your family down: not at all 7. Trouble concentrating on things, such as reading the newspaper or watching television: not at all 8. Moving or speaking so slowly that other people could have noticed. Or the opposite - being so fidgety or restless that you have been moving around a lot more than usual: not at all 9. Thoughts that you would be better off or of hurting yourself in some way: not at all Total score: 0 Depression Screening Interpretation: Negative Depression Screening Done: Yes 10962 - PHQ-9 Billing: Yes Source: Developed by Drs. Jose Enrique Rubi, Vielka Reddy, Natalio De and colleagues, with an educational lena from [employer]. Thrive Questionnaire Date Thrive assessed: 01/01/25 I am a: Patient What is your living situation today?: I choose not to answer this question Within the past 12 months, did the food you bought not last and you didn't have the money to get more?: I choose not to answer this question Within the past 12 months, did you worry whether your food would run out before you got money to buy more?: I choose not to answer this question Do you have trouble paying for medicines?: I choose not to answer this question Do you have trouble getting transportation to medical appointments?: I choose not to answer this question Do you have trouble paying your heating and electricity bill?: I choose not to answer this question Do you have trouble taking care of your child, family member or friend?: I choose not to answer this question Do you have trouble with day-to-day activities such as bathing, preparing meals, shopping, managing finances, etc.?: I choose not to answer this question Are you currently unemployed and looking for a job?: I choose not to answer this question Are you interested in more education?: I choose not to answer this question Please select the resources that you would like help with: None Currently or been in a relationship where the following occur: I choose not to answer THRIVE Score: 0 AUDIT C Alcohol Use Questionnaire (AUDIT-C) 1. How often do you have a drink containing alcohol?: Never 3. How often do you have six or more drinks on one occasion?: Never Total Score: 0 DUY-7 AMB Questionnaire DUY-7 Date DUY - 7 assessed: 01/01/25 Feeling nervous, anxious, or on edge: 0 = Not at all Not being able to stop or control worryin = Not at all Worrying too much about different things: 0 = Not at all Trouble relaxin = Not at all Being so restless that it is hard to sit still: 0 = Not at all Becoming easily annoyed or irritable: 0 = Not at all Feeling afraid as if something awful might happen: 0 = Not at all Total DUY-7 score (0-4 normal; 5-9 mild; 10-14 moderate; 15-21 severe): 0 Source: Developed by Drs. Jose Enrique Rubi, Vielka Reddy, Natalio De and colleagues, with an educational lean from [employer]. DUY-7 Assessment Billing DUY-7 Assessment Tool: DUY-7 Assessment 53783 Review of Systems Const All systems reviewed & are unremarkable except as noted in HPI and below Eyes Reports no additional complaints ENT Reports no additional complaints Card Reports no additional complaints Resp Reports no additional complaints GI Reports no additional complaints Reports no additional complaints Physical exam (Primary Care) Vital Signs: Last Vital Signs Temp 97.9 F 01/01/25 11:20 Pulse 74 01/01/25 11:20 Resp 18 01/01/25 11:20 BP 118/70 01/01/25 11:20 Pulse Ox 96 01/01/25 11:20 Oxygen Delivery Method Room Air 01/01/25 11:20 BMI result Body Mass Index 30.1 Tobacco/Smoking Status: Tobacco use Status Tobacco use date assessed 01/01/25 01/01/25 11:37 Patient Tobacco Use Status Former Tobacco user 01/01/25 11:20 Tobacco use type Cigarette 01/01/25 11:20 e-Cigarette/Vaping Use Never Used 01/01/25 11:20 PHQ-9: PHQ-9 Score PHQ-9: Total score 0 01/01/25 11:37 Depression Screening Interpretation: Negative Thrive Assessment: Date of Thrive Assessment Date Thrive assessed 01/01/25 01/01/25 11:37 Currently or been in a relationship where the following occur: I choose not to answer Const General: no acute distress HENMT Ears: hearing grossly normal bilaterally Eyes General: appearance normal, both eyes and all related structures Resp Effort & Inspection: normal respiratory effort Auscultation: clear to auscultation bilaterally Cardio Rhythm: regular rhythm Heart sounds: S1 normal heart sound present and S2 normal heart sound present GI Inspection: Yes normal to inspection Palpation (GI): Soft to palpation Percussion: Yes normal to percussion Auscultation: normal bowel sounds Neuro General: CN's II-XI intact bilaterally Gait exam (Neuro): Normal gait present Motor exam (neuro): 5/5 motor strength present throughout Sensory Exam: No sensory level loss detected Romberg Test: Negative Coding Level of Care Code Est Pt Level 4 (07215) Diagnoses Shoulder pain, right M25.511 Vitamin D deficiency E55.9 Hypothyroidism, unspecified type E03.9 Hypothyroidism type: unspecified HTN (hypertension) I10 Overweight E66.3 Additional Codes DUY-7 Assessment Billing - DUY-7 Assessment Tool: DUY-7 Assessment 07024 ([id number]) PHQ-9 - 96551 - PHQ-9 Billing: Yes ([id number]) Assessment & Plan Assessment & Plan (1) Shoulder pain, right: Comment: History of partial small rotator cuff tear diagnosed in 2021 Code(s): M25.511 - Pain in right shoulder Category: Medical Plan: Refer for physical therapy (2) Vitamin D deficiency: Code(s): E55.9 - Vitamin D deficiency, unspecified Category: Medical Plan: Continue vitamin-D check the level (3) Hypothyroidism: Code(s): E03.9 - Hypothyroidism, unspecified Category: Medical Qualifiers: Hypothyroidism type: unspecified Qualified Code(s): E03.9 - Hypothyroidism, unspecified Plan: Continue levothyroxine check TSH for excessive hair loss (4) HTN (hypertension): Code(s): I10 - Essential (primary) hypertension Category: Medical Plan: Patient will try a half a dose of Irbesartan (150 mg), and will have blood pressure check in 2 weeks with a nurse visit (5) Overweight: Comment: Wegovy side effect excessive her loss and constipation, Zepbound caused tingling in her toes and fingers, resolved, f/u Dr. Ventura Code(s): E66.3 - Overweight Category: Medical Plan: Patient is planning to restart Wegovy at 0.5 mg weekly and will follow-up with endocrinology Orders: Orders PT Evaluation and Treatment Today M25.511 - Pain in right shoulder Comprehensive [place]. Panel Fast Today E03.9 - Hypothyroidism, unspecified, E55.9 - Vitamin D deficiency, unspecified, I10 - Essential (primary) hypertension TSH reflex Free T4 Today E03.9 - Hypothyroidism, unspecified, E55.9 - Vitamin D deficiency, unspecified, I10 - Essential (primary) hypertension Lipid Panel Today E03.9 - Hypothyroidism, unspecified, E55.9 - Vitamin D deficiency, unspecified, I10 - Essential (primary) hypertension Vitamin B12 and Folate Today E03.9 - Hypothyroidism, unspecified, E55.9 - Vitamin D deficiency, unspecified, I10 - Essential (primary) hypertension Complete Blood Count Auto Diff Today E03.9 - Hypothyroidism, unspecified, E55.9 - Vitamin D deficiency, unspecified, I10 - Essential (primary) hypertension
--- OUTSIDE RECORDS SUMMARY | 2025-01-01 11:58 | XMS_ITS | Continuity of Care Document ---
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 [address] [place] [address], [address], [place], [address], [place]. [phone] Referring Provider: Shira Garcia MD S, [address] [place] [address], [place], [address]. tel:[phone] [facility], [address] [place] [address] [address], [id number], [place] tel:[phone] CVR - [place] - [place] No Information 3 Dimitri Dsouza. [address] [place] [address], [place] [address], [place], [address], [place]. [phone] Referring Provider: Shira Garcia MD S, [address] [place] [address], [place], [address]. tel:[phone] Offic/outpt E&m Estab 5 Min Trial - Telemedicine [facility], [address] [place] [address] [address], [id number], [place] tel:[phone] CVR - [place] - [place] Venous insufficiency (chronic) (peripheral) 3 Dimitri SARAVIA FACS Lidia Dsouza. [address] [place] [address], [place] [address], [place], [address], [place]. tel:[phone] Referring Provider: Shira Garcia MD S, [address] [place] [address], [place], [address]. tel:[phone] Office/Outpt E&M Established 25 Mins [facility], [address] [place] [address] [address], [id number], [place] tel:[phone] CVR - [place] - [place] Venous insufficiency (chronic) (peripheral) 3 Dimitri Dsouza. [facility] [facility], [address], [place], [address], [place]. [phone] Referring Provider: Shira Garcia MD S, [address] [place] [address], [place], [address]. tel:[phone] [facility], [address] [place] [address] [address], [id number], [place] tel:[phone] CVR - [place] - [place] Venous insufficiency (chronic) (peripheral)Pa in in right legPain in left leg 3 Dimitri SARAVIA FACS T AYO Dsouza. [address] [facility], [place] [address], [place], [address], [place]. tel:[phone] Referring Provider: Shira Garcia MD S, [address] [place] [address], [place], [address]. tel:[phone] Offic Cons New/estab Mod 40 Ca [facility], [address] [place] [address] [address], [id number], [place] tel:[phone] CVR - [place] - [place] Venous insufficiency (chronic) (peripheral)Re stless legs syndromeEssent ial (primary) hypertensionFl ail joint, unspecified jointCramp and spasmLocalized edema 3 Dimitri SARAVIA FACS Lidia Dsouza. [address] [facility], [place] [address], [place], [address], [place]. tel:[phone] Referring Provider: Shira Garcia MD S, [address] [place] [address], [place], [address]. tel:[phone] Family History Family Member Type Diagnosis Age At Onset No Information Payers Payer name Insurance type Covered libertarian ID Gunjan live(s) [facility] [id number] Social History Type Description Quantity Date Captured [...]
--- OUTSIDE RECORDS SUMMARY | 2025-01-01 11:58 | XMS_ITS | Data Portability ---
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 She is unable to successfully Valsalva on the right but easily able to Valsalva on the left. I suspect that her persistent symptoms are related to chronic allergic rhinitis. Patient would like to proceed with allergy testing, so we will arrange this and see her back after it is completed. [email or web address] Not available 05/13/2024 09:00:24 07/01/2024 07/01/2024 Patient continues to have persistent signs of eustachian tube dysfunction, right greater than left despite balloon dilation of the eustachian tube. Allergy testing reviewed with patient which showed reactions to a number of different environmental allergens including birch trees, a number of different molds, and dust mites. We discussed that these types of allergens can be best avoided with mold mitigation and dust protocols, without the need for allergy desensitization. She is in agreement with this. I did recommend daily use of fluticasone nasal spray and discussed appropriate methods of its use. This will help with her nasal congestion, sneezing, and will likely help with her eustachian tube dysfunction. I did recommend consistent use of the Eustachi device which has worked well for her in the past. Patient would like to follow-up in 1 year for audiometric testing. Not available 07/01/2024 09:24:22 Plan of Treatment Reminders Order Date Submit Date Provider Last Modified By Organization Details Last Modified Time Details Appointments FOLLOW UP 15 2024 08:40A M CHELSY MARTIN MD Not available Not available Not available Lab None recorded. Referral None recorded. Procedures allergy testing, skin prick (PROC) 2023 024 [email or web address] Not available 06/04/2024 15:40:15 intraderm al allergy skin testing (PROC) 2023 024 [email or web address] Not available 06/04/2024 15:40:15 pulmonary function test procedure (PROC) 2023 024 [email or web address] Not available 06/04/2024 15:40:15 pulse oximetry (PROC) 2023 024 [email or web address] Not available 06/04/2024 15:40:15 Surgeries None recorded. Imaging None recorded. Medication Orders None recorded. Patient TargetsNo targets recorded. Patient Instructions Encounter Date Encounter Id Patient Instructions Last Modified By Organization Details Last Modified Time 06/05/2024 [id number] Nursing Documentation for Allergy Testing: Ordering Provider {{Dr. Antoni Martin* Dr. Isai Juarez}} Weight:180lbs:? ? ?kg: ? ? ? PFT {{Yes* no}} With Bronchodilator {{Yes no*}} approval needed to proceed with allergy testing? {{Yes No*}} {{Dr. Antoni Juarez}} ok'd testing {{Yes No Pulmonary Clearance PCP Clearance RAST}}Hi story of Asthma:{{Yes No*}} Asthma Meds: ? ? ?Last used:? ? ? Asthma exacerbated by: ? ? ? Chance that : {{Yes No* Not Sure N/A}} Fear of needles: {{Yes* No}} Regular medications reviewed in Computer: {{Yes* No}} Medication allergies: {{Reviewed* NKDA}} Antihistamine use: {{Yes* No}} Medications used: Claritin ? ? ? Food Allergies:no ? ? ? Any foods make your mouth feeling itchy: {{Yes No*}} If yes: ? ? ? History of severe reaction where had to go to ER? {{Yes No*}} If yes details: ? ? ? Type of heat in home: {{Baseboard Forced Air* Radiator othe r}} Pets: {{Yes No*}} If yes: ? ? ? Smoker: {{Yes Current Never Form er*}} If former smoker-how much ? ? ?20 / day for how long ? ? ?20 years When quit ? ? ?20years ago years ago Smoking now-how much ? ? ? /day for how long ? ? ? 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 ? ? Frequency {{Seasonally* Year Round}} Spirometry Contraindications: Heart attack in the last 3 months: {{Yes No*}} Major surgery in last 3 months: {{Yes No*}} Detached retina(serious eye issues) in last 2 months: {{Yes No*}} Hospitilization in last month: {{Yes No*}} Proceed with PFT {{Yes* No}} Dr. approval needed: {{Yes No*}} Nursing Notes: Pt tolerated test well {{Yes* No}} Benadryl cream to test sites {{Yes No*}} Patient became syncopal-placed in supine position {{Yes No*}} Large reactions to MQT, reschedule IDT for a different date {{Yes No*}} Other: ? ? ? Written by: {{WILLIAN Monterroso, Leyda* Asia Mendosa}} [email or web address] Not available 06/05/2024 09:55:24 Reason for Referral None Reported. Results Created Date Observation Date Name Description Value Unit Range Abnormal Flag Note LastModifiedBy Organization Detail LastModifiedTime 05/15/20 audio gram No observ ation record ed. [email or web address] Not Available 2023 08:39:58 07/08/2001/15/2024 imagi ng/danna landaverde tic resul t No observ ation record ed. [email or web address] Not Available 14:29:09 07/08/20 24 05/24/2023 imagi ng/di agnos tic resul t No observ ation record ed. [email or web address] Not Available 14:29:17 07/08/20 24 06/17/2019 imagi ng/di agnos tic resul t No observ ation record ed. [email or web address] Not Available 14:29:27 07/08/20 24 08/31/2023 imagi ng/di agnos tic resul t No observ ation record ed. [email or web address] Not Available 14:29:32 07/08/20 24 09/05/2019 imagi ng/di agnos tic resul t No observ ation record ed. [email or web address] Not Available 14:29:33 Result Notes None recorded. Problems Name Problem SNOMED Code Status Onset Date Resolution Date Notes Provider Name and Address Organization Details Recorded Time Chronic mucoid otitis media of right middle ear 34038822262 15198 Active 2022 Chronic mucoid otitis media, right ear; Note: Date Diagnosed : 05/24/2023 10:31 AM (H65.31) Not Available [facility] 4 02:42:44 Dizziness and giddiness 460171747 Active 2018 Dizziness and giddiness ; Note: Date Diagnosed : 06/17/2019 4:04 PM (R42) Not Available [facility] 4 02:42:37 Tinnitus of right ear 45735892875 08 Active 2018 Tinnitus, right ear; Note: Date Diagnosed : 06/17/2019 4:04 PM (H93.11) Not Available [facility] 4 02:42:38 Family history of hearing loss 150152304 Active 2019 Family history of deafness and hearing loss; Note: Date Diagnosed : 12/02/2019 4:30 PM (Z82.2) Not Available [facility] 4 02:42:42 Adhesive middle ear disease 5527949 Active 2019 Adhesive right middle ear disease; Note: Date Diagnosed : 12/02/2019 4:35 PM (H74.11) Not Available [facility] 4 02:42:41 Conductiv e hearing loss 11204525 Active 2018 Conductiv e hearing loss, unilatera l, right ear, with unrestric angie hearing on the contralat eral side; Note: Date Diagnosed : 06/17/2019 4:04 PM (H90.11) Not Available [facility] 4 02:42:41 Acute myringiti s of right ear 32979219196 20935 Active 2018 Acute myringiti s, right ear; Note: Date Diagnosed : 06/17/2019 4:44 PM (H73.001) Not Available [facility] 4 02:42:42 Disorder of right Eustachia n tube 70940248915 68486 Active 2018 Other specified disorders of Eustachia n tube, right ear; Note: Date Diagnosed : 06/17/2019 4:04 PM (H69.81) Not Available [facility] 4 02:42:40 Allergic rhinitis 87137684 Active 2023 CHELSY MARTIN MD [address] [facility],[place] [address], [place], [address] , [place] [facility] 4 08:59:03 Non-aller gic rhinitis 57873291374 1 Active 2023 CHELSY MARTIN MD [address] [place] [address],[place] [address], [place], [address] , [place] [facility] 4 08:59:32 Seasonal allergic rhinitis 387958835 Active 2023 CHELSY MARTIN MD [address] [facility],[place] [address], [place], [address] , [place] [facility] 4 08:59:32 Sensorine ural hearing loss 07046798 Active 2023 MERRICK CHENG [address] [place] [address],[place] [address], [place], [address] , [place] [facility] 4 09:12:56 Obstructi ve sleep apnea of adult 77570384185 03 Active 2023 CHELSY MARTIN MD [address] [facility],[place] [address], [place], [address] , [place] [facility] 09:17:04 Problem Notes None recorded. Procedures Surgical History Date Name Laterality Status Provider Name and Address Organization Details Recorded Time 07/01/20 Allergy Testing-Full completed CHELSY MARTIN MD [address] [facility],[place] [address], [place], [address], [place] [facility] 06/30/2024 10:37:11 06/05/20 24 Allergy Testing-Full completed PAWAN HANDLEY, A [address] [facility],[place] [address], [place], [address], [place] [facility] 06/05/2024 10:17:57 05/13/20 24 Comp Audio with Tymps (26047 & 25756) completed MERRICK CHENG [address] [facility],[place] [address], [place], [address], [place] [facility] 05/13/2024 09:12:41 section completed Elba Gomez [place] [facility] 05/13/2024 08:44:52 Myringotomy Tube Placement completed Elba Gomez [place] [facility] 05/13/2024 08:45:00 repair of meniscus completed Elba Gomez [place] [facility] 05/13/2024 08:45:07 closed reduction of fracture of ankle completed Elba Gomez [place] [facility] 05/13/2024 08:45:23 Imaging Results Imaging Date Name Status [facility]Modified by [facility] Details LastModified Time 05/15/2024 audiogram completed [email or web address] Information no t available 05/15/2024 08:39:58 01/15/2024 imaging/diagno stic result completed Information not available 07/08/2024 14:29:09 05/24/2023 imaging/diagno stic result completed Information not available 07/08/2024 14:29:17 06/17/2019 imaging/diagno stic result completed Information not available 07/08/2024 14:29:27 08/31/2023 imaging/diagno stic result completed Information not available 07/08/2024 14:29:32 09/05/2019 imaging/diagno stic result completed Information not available 07/08/2024 14:29:33 Procedure Notes None recorded. Medical Equipment None Reported. Allergies Allergen ID Allergen Name Allergen Category Reaction Reaction Severity Criticality Documentation Date Start Date Code Code System Note Provider Name and Address Organization Details Recorded Time [id number] latex environme nt,medica tion Not available Not available Not available 05/13/2024 35531 91 RxNorm Elba mensah, [place] - [facility] 4 08:40:47 920923 Product containin g penicilli n and antibioti c (product) medicatio n Not available Not available Not available 05/13/2024 04525 05 KOREY MARTIN MD [address] [facility],[address], [place], [address], [place] [facility] 4 09:50:58 884720 Ketek medicatio n Not available Not available Not available 05/13/2024 94482 7 RxNorm CHELSY MARTIN MD [address] [facility],[address], [place], [address], [facility] 4 09:51:08 253034 lisinopri l medicatio n Not available Not available Not available 05/13/2024 61483 RxNorm CHELSY MARTIN MD [address] [facility], [place], [address], [place] [facility] 4 09:51:17 264366 Substance with sulfonami de structure and antibacte rial mechanism of action (substanc e) medicatio n Not available Not available Not available 05/13/2024 61608 [id number] KOREY MARTIN MD [address] [facility],[address], [place], [address], [place] [facility] 4 09:51:23 Medications Name Sig Start Date Stop Date Status Note LastModified by Organization Details LastModified Time prednison e 20 mg tablet TAKE 2 TABLETS (40 MG TOTAL) BY MOUTH ONCE DAILY FOR 5 DAYS. 05/13 completed Not Available Not Available Not Available levothyro xine 100 mcg tablet TAKE 1 TABLET BY MOUTH DAILY active Not Available Not Available No t Available ofloxacin 0.3 % ear drops INSTILL 3 DROPS TO RIGHT EAR TWICE DAILY FOR 3 DAYS 05/13 completed Not Available Not Available Not Available prednisol one acetate 1 % eye drops,shin pension INSTILL 1 DROP INTO BOTH EYES 4 TIMES A DAY FOR 1 WEEK, THEN TWICE A DAY FOR 1 WEEK 05/13 completed Not Available Not Available Not Available pravastat in 10 mg tablet TAKE 1 TABLET BY MOUTH DAILY active Not Available Not Available No t Available erythromy ivan 5 mg/gram (0.5 %) eye ointment INTILL 1/2 INCH INTO THE AFFECTED EYE(S) EVERY 4 HOURS 05/13 completed Not Available Not Available Not Available polymyxin B sulfate 10,000 unit-trim ethoprim 1 mg/mL eye drops TAKE 1 DROP (OPHTHAL ABEBE (EYE)) 3 TIMES PER DAY FOR 10 DAYS 05/13 completed Not Available Not Available Not Available gabapenti n 300 mg capsule TAKE 1-2 CAPSULES BY MOUTH EVERY DAY AT BEDTIME active Not Available Not Available No t Available diclofena c sodium 75 mg tablet,de layed release TAKE 1 TABLET TWICE A DAY BY ORAL ROUTE WITH MEAL(S) FOR 30 DAYS. active Not Available Not Available No t Available codeine 10 mg-guaife nesin 100 mg/5 mL oral liquid TAKE 10 ML BY MOUTH EVERY 6 HOURS NEEDED FOR COUGH. 05/13 completed Not Available Not Available Not Available pravastat in 20 mg tablet TAKE 1 TABLET BY MOUTH DAILY 05/13 completed Not Available Not Available Not Available zolpidem 5 mg tablet 05/13 completed Medicati on ID: [id number] D uration Value: 30 Brand Name: zolpidem Send Method: E-Prescr ibed Sub s Allowed: subs OK Speci al Instruct ion: TAKE 1 TABLET BY MOUTH AT BEDTIME FOR 30 DAYS Med icationG enericNa me: zolpidem Medicat ion ID: [id number] D uration Value: 30 Brand Name: zolpidem Send Method: E-Prescr ibed Sub s Allowed: subs OK Speci al Instruct ion: TAKE 1 TABLET BY MOUTH AT BEDTIME FOR 30 DAYS Med icationG enericNa me: zolpidem Not Available Not Available Not Available clobetaso l 0.05 % topical ointment APPLY A THIN LAYER TO THE AFFECTED AREA(S) BY TOPICAL ROUTE TWICE A WEEK 05/13 completed Not Available Not Available Not Available cefuroxim e axetil 500 mg tablet TAKE 1 TABLET BY MOUTH TWICE DAILY FOR 7 DAYS. 05/13 completed Not Available Not Available Not Available albuterol sulfate HFA 90 mcg/actua tion aerosol inhaler INHALE 2 PUFFS INTO THE LUNGS EVERY 4 TO 6 HOURS NEEDED FOR SHORTNES S OF BREATH OR WHEEZING . 05/13 completed Not Available Not Available Not Available doxycycli ne hyclate 100 mg tablet TAKE 1 TABLET BY MOUTH TWICE DAILY FOR 7 DAYS 05/13 completed Not Available Not Available Not Available atenolol 50 mg tablet 05/13 completed Medicati on ID: [id number] D uration Value: 30 Brand Name: atenolol Send Method: E-Prescr ibed Sub s Allowed: subs OK Speci al Instruct ion: TAKE 1 TABLET BY MOUTH EVERY DAY Medi cationGe nericNam e: atenolol Medicat ion ID: [id number] D uration Value: 30 Brand Name: atenolol Send Method: E-Prescr ibed Sub s Allowed: subs OK Speci al Instruct ion: TAKE 1 TABLET BY MOUTH EVERY DAY Medi cationGe nericNam e: atenolol Not Available Not Available Not Available irbesarta n 300 mg tablet TAKE 1 TABLET BY MOUTH DAILY. active Not Available Not Available No t Available naproxen 500 mg tablet 05/13 completed Medicati on ID: [id number] D uration Value: 30 Brand Name: naproxen Send Method: E-Prescr ibed Sub s Allowed: subs OK Speci al Instruct ion: TAKE 1 TABLET BY MOUTH EVERY 12 HOURS WITH FOOD OR MILK NEEDED FOR 30 DAYS Med moody hospitaltionG enericNa me: naproxen Medicat ion ID: [id number] D uration Value: 30 Brand Name: naproxen Send Method: E-Prescr ibed Sub s Allowed: subs OK Speci al Instruct ion: TAKE 1 TABLET BY MOUTH EVERY 12 HOURS WITH FOOD OR MILK NEEDED FOR 30 DAYS Med icationG enericNa me: naproxen Not Available Not Available Not Available progester one micronize d 100 mg capsule TAKE 1 CAPSULE BY MOUTH EVERY DAY active Not Available Not Available No t Available oxycodone 5 mg tablet TAKE 1 TABLET BY MOUTH EVERY 6 HOURS NEEDED FOR PAIN 05/13 completed Not Available Not Available Not Available estradiol 0.025 mg/24 hr semiweekl y transderm al patch APPLY 1 PATCH TRANSDER JESUS TWICE A WEEK active Not Available Not Available No t Available neomycin- polymyxin -hydrocor t 3.5 mg-10,000 unit/mL-1 % ear drops,shin p 05/24 completed Medicati on ID: [id number] D uration Value: 7 Brand Name: neomycin -polymyx in-HC Se nd Method: E-Prescr ibed Sub s Allowed: subs OK Medic ationGen ericName : neomycin -polymyx in-HC Not Available Not Available Not Available TobraDex 0.3 %-0.1 % eye drops,shin pension 5 as directed 05/13 completed Medicati on ID: [id number] D uration Value: 30 Brand Name: TobraDex Send Method: E-Prescr ibed Sub s Allowed: subs OK Speci al Instruct ion: Instill 5 drops in the affected ear BID for 30 days Med icationG enericNa me: TobraDex Medicat ion ID: [id number] D uration Value: 30 Brand Name: TobraDex Send Method: E-Prescr ibed Sub s Allowed: subs OK Speci al Instruct ion: Instill 5 drops in the affected ear BID for 30 days Med icationG enericNa me: TobraDex Not Available Not Available Not Available sulfaceta mide sodium-street lfur-urea 10 %-4 %-10 % topical cleanser 05/13 completed Medicati on ID: [id number] B rand Name: sulfacet amide sod-sulf ur-urea Send Method: E-Prescr ibed Sub s Allowed: subs OK Medic ationGen ericName : sulfacet amide sod-sulf ur-urea Medicati on ID: [id number] B rand Name: sulfacet amide sod-sulf ur-urea Send Method: E-Prescr ibed Sub s Allowed: subs OK Medic ationGen ericName : sulfacet amide sod-sulf ur-urea Not Available Not Available Not Available Vitals Date Recorded Body height Body weight Provider Name and Address Organization Details Last Updated DateTime 05/13/2024 161.29 cm 83922.66 g Elba Gomez [place] [facility] 05/13/2024 08:47:34 Date Recorded Body height Body mass index (BMI) Body weight Oxygen saturation Oxygen saturation in Arterial blood by Pulse oximetry Heart rate Systolic blood pressure Diastolic blood pressure Provider Name and Address Organization Details Last Updated DateTime 161.29 cm 31.4 kg/m2 01682.6 3 g 97 % 97 % 61 /min 120 mm[Hg] 72 mm[Hg] [address], [address] , [place] [facility] 09:13:29 Date Recorded Body height Body weight Provider Name and Address Organization Details Last Updated DateTime 07/01/2024 161.29 cm 00064.63 g Elba Gomez [facility] 07/01/2024 08:52:21 Social History None recorded. Functional Status None recorded. Mental Status None recorded. Family History Nothing Reported. Medical History Condition Response Thyroid Problems Y Sleep Disorder Y GERD/Reflux Y High Cholesterol Y Hypertension Y Gynecological HistoryNo gynecological history recorded. Obstetrics History GPAL:G 0 P 0 0 0 0 Past Encounters Encounter ID Performer Location Encounter Start Date Encounter Closed Date Diagnosis/Indication Diagnosis SNOMED-CT Code Diagnosis ICD10 Code Diagnosis Note [id number] CHELSY MARTIN MD [facility] [address] [address] 05/13/2024 08:34:46 05/13/2024 09:52:35 Allergic rhinitis 52376371 J30.9 Disorder o f right Eustachian tube 6264854936 326925 H69.81 Sensorineu ral hearing loss 72905101 H90.41 Audiologic al evaluation results: Right ear: {{Normal sloping Mi ld* Modera te Moderat aarti-severe Severe Pr ofound Nor mal auditory thresholds }} to {{mild mod erate* mod erately-se donita sever e profound with}} {{sensorin eural hearing loss with* cond uctive hearing loss with mixed hearing loss with}} {{excellen t* good fa ir poor no t measurable }} word recognitio n. Left ear: DNT Tympanomet ry: Right Ear:{{Type A Type As Type Ad* Type C Type C, shallow & rounded Ty pe B Type B with large volume Cou ld not maintain a hermetic seal}} Left Ear:{{Type A Type As Type Ad Type C Type C, shallow & rounded Ty pe B Type B with large volume Cou ld not maintain a hermetic seal DNT#} } [id number] PAWAN HANDLEY [facility] [address] [place] [address] 06/05/2024 08:57:39 06/05/2024 13:08:25 Allergic rhinitis 10708267 J30.9 [id number] CHELSY MARTIN MD [facility] [address] [address] 07/01/2024 08:42:29 07/01/2024 09:23:58 Allergic rhinitis 22508352 J30.9 Disorder o f right Eustachian tube 4689249963 133314 H69.81 Obstructiv e sleep apnea of adult 6186494370 103 G47.33 I recommende d she be diligent about the cleaning protocols for her CPAP machine, as mold can grow in CPAP machines Adhesive m iddle ear disease 0271839 H74.11 Health Concerns Section Related Observation LastModified by Organization Detai ls LastModified Time None Recorded Concern Status LastModified by Organization Details LastModified Time None Recorded Advance Directives Directive None Recorded Payers Encounter Date Sequence Insurance Name Policy Number Policy Patel Covered Member ID Patel Member ID Guarantor Name 05/13/2024 1 [facility]MEDICA[facility] O) [id number] Marlyn Nunez [id number] Marlyn Nunez 06/05/2024 1 [facility] (MEDICAID HMO) [id number] Marlyn Nunez [id number] Marlyn Nunez 07/01/[address] [place] [address] (MEDICAID HMO) [id number] Marlyn Nunez [id number] Marlyn Enrique Notes Date Note Type Note Provider Name and Address Organization Details Recorded Time 05/13/2024 text/html 58-year-old sy handy presents postoperatively status post right balloon dilation of the eustachian tube with concurrent placement of right short acting tympanostomy tube on 07/18/23. Patient last seen back in December at which point the right tube had extruded and the drum had healed but there was mild retraction of the posterior half. Patient instructed to perform Valsalva maneuver and follow-up to assess long-term results of balloon dilation procedure. Patient reports that the right ear has felt blocked up for the last couple of months. She is unable to clear the ear with Valsalva maneuver. She has been doing a lot of sneezing lately and wonders if she might be having environmental allergies. No recent allergy testing, though she was tested when she was younger. CHELSY MARTIN MD [address] [facility],[address], [address], [facility] 05/13/2024 09:59:28 07/01/2024 text/html 59-year-old sy handy presents postoperatively status post right balloon dilation of the eustachian tube with concurrent placement of right short acting tympanostomy tube on 07/18/23. The right tube has since extruded patient continues to have persistent signs of eustachian tube dysfunction, right greater than left despite balloon dilation of the eustachian tube. She is unable to successfully Valsalva on the right but easily able to Valsalva on the left. I suspected that her persistent symptoms are related to chronic allergic rhinitis, so she was sent for allergy testing.Patient reports that she just bought a new house. She does notice some mold in the bathroom and is in the process of mitigating this. She also recently started on CPAP.She still notes some mild blockage sensation in the right ear CHELSY MARTIN MD [address] [facility] [address], [place], [address], [facility] 07/01/2024 09:25:15 OBGyn Episode No OBEpisode recorded.
== END 2025-01-01 12:16 | disposition home or self-care (01) ==
PROVIDERS: PCP Internal Medicine; Visit Provider Internal Medicine
DX: M25.511 Pain in right shoulder (principal); E55.9 Vitamin D deficiency, unspecified; E03.9 Hypothyroidism, unspecified; I10 Essential (primary) hypertension; E66.3 Overweight

== ENCOUNTER → 2025-01-01 11:19 | Outpatient (BNVA) | payer OTHER, SELFPAY | PROVIDERS: PCP Internal Medicine; Visit Provider Internal Medicine | DX: M25.511 Pain in right shoulder (principal); E55.9 Vitamin D deficiency, unspecified; E03.9 Hypothyroidism, unspecified; I10 Essential (primary) hypertension; E66.3 Overweight; Z68.30 Body mass index [BMI] 30.0-30.9, adult; Z79.899 Other long term (current) drug therapy | CPT/HCPCS: 96127 ==

== ENCOUNTER 2025-01-12 07:37 | Outpatient (REF) | payer OTHER, SELFPAY ==
--- OUTSIDE RECORDS SUMMARY | 2025-01-12 07:44 | XMS_ITS | Data Portability ---
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 Not available 05/13/2024 09:00:24 07/01/2024 07/01/2024 Patient [...] follow-up in 1 year for audiometric testing. [email or web address] Not available 07/01/2024 09:24:22 Plan of Treatment [...] By Organization Details Last Modified Time 06/05/2024 [id number] Nursing Documentation for Allergy Testing: Ordering Provider [...] ? ? ? 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 ? 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 Symptoms having: {{Congestion* Post Nasal Drip [...] mucoid otitis media of right middle ear 19733310963 72532 Active 2022 Chronic mucoid otitis media, right ear; Note: Date Diagnosed : 05/24/2023 10:31 AM (H65.31) Not Available [facility] 4 02:42:44 Dizziness and giddiness 548991762 Active 2018 Dizziness and giddiness ; Note: Date Diagnosed : 06/17/2019 4:04 PM (R42) Not Available [facility] 4 02:42:37 Tinnitus of right ear 07918728678 08 Active 2018 Tinnitus, right ear; Note: Date Diagnosed : 06/17/2019 4:04 PM (H93.11) Not Available [facility] 4 02:42:38 Family history of hearing loss 404607449 Active 2019 Family history of deafness and hearing loss; Note: Date Diagnosed : 12/02/2019 4:30 PM (Z82.2) Not Available [facility] 4 02:42:42 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 Active 2019 Adhesive right middle ear disease; Note: Date Diagnosed : 12/02/2019 4:35 PM (H74.11) Not Available [facility] 4 02:42:41 Conductiv e hearing loss 00829829 Active 2018 Conductiv e hearing loss, unilatera l, right ear, with unrestric angie hearing on the contralat eral side; Note: Date Diagnosed : 06/17/2019 4:04 PM (H90.11) Not Available [facility] 4 02:42:41 Acute myringiti s of right ear 72068885908 75609 Active 2018 Acute myringiti s, right ear; Note: Date Diagnosed : 06/17/2019 4:44 PM (H73.001) Not Available [facility] 4 02:42:42 Disorder of right Eustachia n tube 88930229858 25750 Active 2018 Other specified disorders of Eustachia n tube, right ear; Note: Date Diagnosed : 06/17/2019 4:04 PM (H69.81) Not Available [facility] 4 02:42:40 Allergic rhinitis 17462097 Active 2023 CHELYS MARTIN MD [address] [facility],[place] [address], [place], [address] , [place] - [facility] 4 08:59:03 Non-aller gic rhinitis 22947401875 1 Active 2023 CHELSY MARTIN MD [address] [place] [address],[place] [address], [place], [address] , [place] - [facility] 4 08:59:32 Seasonal allergic rhinitis 265623102 Active 2023 CHELSY MARTIN MD [address] [facility],[place] [address], [place], [address] , [place] - [facility] 4 08:59:32 Sensorine ural hearing loss 56401750 Active 2023 MERRICK CHENG [address] [place] [address],[place] [address], [place], [address] , [place] - [facility] 4 09:12:56 Obstructi ve sleep apnea of adult 14978776764 03 Active 2023 CHELSY MARTIN MD [address] [facility],[place] [address], [place], [address] , [place] [facility] 09:17:04 Problem Notes None recorded. Procedures Surgical History Date Name Laterality Status Provider Name and Address Organization Details Recorded Time 07/01/20 Allergy Testing-Full completed CHELSY MARTIN MD [address] [facility],[place] [address], [place], [address], [place] - [facility] 06/30/2024 10:37:11 06/05/20 24 Allergy Testing-Full completed PAWAN HANDLEY, A [address] [facility],[place] [address], [place], [address], [place] [facility] 06/05/2024 10:17:57 05/13/20 24 Comp Audio with Tymps (59518 & 00322) completed MERRICK CHENG [address] [facility],[place] [address], [place], [address], [place] [facility] 05/13/2024 09:12:41 section completed Elba Gomez [place] - [facility] 05/13/2024 08:44:52 Myringotomy Tube Placement completed Elba Gomez [place] - [facility] 05/13/2024 08:45:00 repair of meniscus completed Elba Gomez [place] - [facility] 05/13/2024 08:45:07 closed reduction of fracture of ankle completed Elba Gomez [place] - [facility] 05/13/2024 08:45:23 Imaging Results Imaging Date Name Status [facility]Modified by [facility] Details LastModified Time 05/15/2024 audiogram completed [email or web address] [...] Name and Address Organization Details Recorded Time [id number] latex environme nt,medica tion Not available Not available Not available 05/13/2024 43264 91 RxNorm Elba mensah [place] - [facility] 4 08:40:47 573430 Product containin g penicilli n (product) medicatio n Not available Not available Not available 05/13/2024 [id number] KOREY MARTIN MD [address] [facility],[address], [place], [address], [place] - [facility] 4 09:50:58 403506 Ketek medicatio n Not available Not available Not available 05/13/2024 36532 7 RxNorm CHELSY MARTIN MD [address] [facility] [place], [place], [address], [facility] - [facility] 4 09:51:08 342141 lisinopri l medicatio n Not available Not available Not available 05/13/2024 42777 RxNorm CHELSY MARTIN MD [address] [facility],[address], [place], [address], [place] - [facility] 4 09:51:17 996749 Substance with sulfonami de structure and antibacte rial mechanism of action (substanc e) medicatio n Not available Not available Not available 05/13/2024 58943 [id number] KOREY MARTIN MD [address] [facility] [place], [place], [address], [place] - [facility] 4 09:51:23 Medications Name Sig Start [...] mg tablet 05/13 completed Medicati on ID: [id number] D uration Value: 30 Brand Name: zolpidem Send Method: E-Prescr ibed Sub s Allowed: subs OK Speci al Instruct ion: TAKE 1 TABLET BY MOUTH AT BEDTIME FOR [address] [facility]: zolpidem Medicat ion ID: [id number] D uration Value: 30 Brand Name: zolpidem [...] mg tablet 05/13 completed Medicati on ID: [id number] D uration Value: 30 Brand Name: atenolol Send Method: E-Prescr ibed Sub s Allowed: subs OK Speci al Instruct ion: TAKE 1 TABLET BY MOUTH EVERY DAY Medi cationGe nericNam e: atenolol Medicat ion ID: [id number] D uration Value: 30 Brand Name: atenolol [...] mg tablet 05/13 completed Medicati on ID: [id number] D uration Value: 30 Brand Name: naproxen Send Method: E-Prescr ibed Sub s Allowed: subs OK Speci al Instruct ion: TAKE 1 TABLET BY MOUTH EVERY 12 HOURS WITH FOOD OR MILK NEEDED FOR 30 DAYS Med icationG enericNa me: naproxen Medicat ion ID: [id number] D uration Value: 30 Brand Name: naproxen Send Method: E-Prescr ibed Sub s Allowed: subs OK Specchyna al Instruct ion: TAKE 1 TABLET BY [...] drops,shin p 05/24 completed Medicati on ID: [id number] D uration Value: 7 Brand Name: neomycin -polymyx in-HC Se nd Method: E-Prescr ibed Sub s Allowed: subs OK Medic ationGen ericName : neomycin -polymyx in-HC Not Available Not Available Not Available TobraDex 0.3 %-0.1 % eye drops,shin pension 5 as directed 05/13 completed Medicati on ID: [id number] D uration Value: 30 Brand Name: TobraDex Send Method: E-Prescr ibed Sub s Allowed: subs ELZA Bai al Instruct ion: Instill 5 drops in the affected ear BID for 30 days Med icationG enericNa me: TobraDex Medicat ion ID: [id number] D uration Value: 30 Brand Name: TobraDex Send Method: E-Prescr ibed Sub s Allowed: subs ELZA Bai al Instruct ion: Instill 5 drops in the affected ear BID for 30 days Med icationG enericNa me: TobraDex Not Available Not Available Not Available sulfaceta mide sodium-street lfur-urea 10 %-4 %-10 % topical cleanser 05/13 completed Medicati on ID: [id number] B rand Name: sulfacet amide sod-sulf ur-urea Send Method: E-Prescr ibed Sub s Allowed: subs OK Medic ationGen ericName : sulfacet amide sod-sulf ur-urea Medicati on ID: [id number] B rand Name: sulfacet amide sod-sulf ur-urea Send Method: E-Prescr ibed Sub s Allowed: subs OK Medic ationGen ericName : sulfacet amide sod-sulf ur-urea Not Available Not Available Not Available Vitals Date Recorded Body height Body weight Provider Name and Address Organization Details Last Updated DateTime 05/13/2024 161.29 cm 76264.66 g Elba Gomez [facility] 05/13/2024 08:47:34 Date Recorded Body height Body mass index (BMI) Body weight Oxygen saturation Oxygen saturation in Arterial blood by Pulse oximetry Heart rate Systolic blood pressure Diastolic blood pressure Provider Name and Address Organization Details Last Updated DateTime 161.29 cm 31.4 kg/m2 24298.6 3 g 97 % 97 % 61 /min 120 mm[Hg] 72 mm[Hg] [address], [address] [place] [address] [facility] 09:13:29 Date Recorded Body height Body weight Provider Name and Address Organization Details Last Updated DateTime 07/01/2024 161.29 cm 34693.63 g Elba Gomez [facility] 07/01/2024 08:52:21 Social History None recorded. Functional Status None recorded. Mental Status None recorded. Family History Nothing Reported. Medical History Condition Response Thyroid Problems Y High Cholesterol Y Sleep Disorder Y GERD/Reflux Y Hypertension Y Gynecological HistoryNo gynecological history recorded. Obstetrics History GPAL:G 0 P 0 0 0 0 Past Encounters Encounter ID Performer Location Encounter Start Date Encounter Closed Date Diagnosis/Indication Diagnosis SNOMED-CT Code Diagnosis ICD10 Code Diagnosis Note [id number] CHELSY MARTIN MD [facility] [address] [address] 05/13/2024 08:34:46 05/13/2024 09:52:35 Allergic rhinitis 56603755 J30.9 Disorder o f right Eustachian tube 7683017418 654477 H69.81 Sensorineu ral hearing loss 84529632 H90.41 Audiologic al evaluation results: Right ear: [...] hermetic seal DNT#} } [id number] PAWAN HANDLEY A All[facility] [address] [place] [address] 06/05/2024 08:57:39 06/05/2024 13:08:25 Allergic rhinitis 81308757 J30.9 [id number] CHELSY MARTIN MD [facility] [address] [address] 07/01/2024 08:42:29 07/01/2024 09:23:58 Allergic rhinitis 14575057 J30.9 Disorder o f right Eustachian tube 0797055071 044026 H69.81 Obstructiv e sleep apnea of adult 9280924548 103 G47.33 I recommende d she be diligent about the cleaning protocols for her CPAP machine, as mold can grow in CPAP machines Adhesive m iddle ear disease 6809044 H74.11 Health Concerns Section Related Observation LastModified by Organization Detai ls LastModified Time None Recorded Concern Status LastModified by Organization Details LastModified Time None Recorded Advance Directives Directive None Recorded Payers Encounter Date Sequence Insurance Name Policy Number Policy Patel Covered Member ID Patel Member ID Guarantor Name 05/13/2024 1 [facility] [place] [facility] [place] [id number] Marlyn Nunez [id number] Marlyn Nunez 06/05/2024 1 [facility] (MEDICA[facility] H[facility]) [id number] Marlyn Nunez [id number] Marlyn Nunez 07/01/[address] [place] [address] (MEDICAID HMO) [id number] Marlyn Nunez [id number] Marlyn Enrique Notes Date Note Type Note [...] she was younger. CHELSY MARTIN MD [address] [facility],[address], [address], [facility] 05/13/2024 09:59:28 07/01/2024 text/html 59-year-old sy [...] the right ear CHELSY MARTIN MD [address] [facility] [address], [address], [facility] 07/01/2024 09:25:15 OBGyn Episode No OBEpisode recorded.
[2025-01-12 10:27] LABS: MANUAL DIFF FLAG NO
[2025-01-12 10:43] LABS: Basophils Absolute Auto 0.1 X10*3/uL (0.0-0.2); Basophils Percent Auto 1.1 % (0-2); Eosinophils Absolute Auto 0.2 X10*3/uL (0.0-0.4); Eosinophils Percent Auto 3.7 % (0-4); Hematocrit 44.9 % (37.0-47.0); Imm Gran Abs Auto 0.02 X10*3/uL (0.00-0.03); Imm Gran Pct Auto 0.4 % (0.0-0.4); Lymphocytes Absolute Auto 1.9 X10*3/uL (1.2-4.9); Lymphocytes Percent Auto 33.4 % (20-40); Mean Corpuscular HGB Conc 33.4 g/dl (31.0-35.0); Mean Corpuscular Hemoglobin 29.9 pg (27.0-33.0); Mean Corpuscular Volume 89.6 fL (80.0-98.0); Mean Platelet Volume 11.6 fL (9.4-12.3); Monocytes Absolute Auto 0.4 X10*3/uL (0.1-1.2); Monocytes Percent Auto 6.7 % (2-11); Neutrophils Absolute Auto 3.1 x10*3/uL (2.0-8.3); Neutrophils Percent Auto 54.7 % (45-73); Platelet Count 177 X10*3/uL (160-400); Red Blood Count 5.01 X10*6/uL (4.20-5.50); Red Cell Distribution Width 12.2 % (11.0-16.0); White Blood Count 5.6 X10*3/uL (4.8-10.8)
[2025-01-12 11:28] LABS: Alanine Aminotransferase 34 U/L (0-31); Albumin Level 3.9 g/dL (3.5-5.0); Alkaline Phosphatase 70 U/L (39-117); Anion Gap 12 (12-20); Aspartate Amino Transferase 28 U/L (5-31); Bilirubin Total 0.5 mg/dL (0.0-1.0); Blood Urea Nitrogen 15 mg/dL (9-16); Calcium 8.9 mg/dL (8.4-10.2); Carbon Dioxide 26 mmol/L (22-29); Chloride 108 mmol/L (96-108); Cholesterol 167 mg/dL (<200); Estimated Glomerular Filt Rate > 60; Glucose Fasting 96 mg/dL (60-99); HDL Cholesterol 42 mg/dL (>40); LDL Cholesterol Calculated 105 mg/dL (<100); Potassium 4.2 mmol/L (3.3-5.1); Sodium 142 mmol/L (135-145); TSH reflex Free T4 0.63 uIU/mL (0.32-4.0); Total Protein 6.3 g/dL (6.5-8.0); Triglycerides 100 mg/dL (<150)
[2025-01-12 11:39] LABS: Vitamin B12 189 pg/mL (200-900)
== END 2025-01-12 07:38 | disposition home or self-care (01) ==
LOC: HO.HMGCLDS 07:37
PROVIDERS: PCP Internal Medicine; Visit Provider Internal Medicine
DX: I10 Essential (primary) hypertension (principal); E03.9 Hypothyroidism, unspecified; E55.9 Vitamin D deficiency, unspecified
CPT/HCPCS: 36415; 80053; 80061; 82607; 82746; 84443; 85025

== ENCOUNTER 2025-01-13 08:08 | Outpatient (AMB) | payer OTHER, SELFPAY ==
--- NOTE | 2025-01-13 07:16 | A.OFFVIS_ITS ---
Vital Signs 01/13/25 08:15 Height 5 ft 3 in Weight 171 lb 4.787 oz BMI 30.3 BP 110/72 Blood Pressure Location Lt brachial Position Sitting Pulse 60 Pulse Source Pulse Oximeter Pulse Oximetry (%) 97 Oxygen Delivery Method Room Air Intake Visit Reasons: Obesity Intake Note: Patient presents today for a follow-up on Obesity, last seen Dr Ventura. Public Health Sanitarian Required: No Accompanied by: Self / Same As Patient Allergies lisinopril [LISINOPRIL] Allergy (Severe, Verified 01/13/25 08:16) COUGH telithromycin [From KETEK] Allergy (Intermediate, Verified 01/13/25 08:16) BLURRED VISION latex [LATEX] Allergy (Mild, Verified 01/13/25 08:16) RASH celecoxib [Celebrex] Allergy (Unknown, Verified 01/13/25 08:16) rash penicillamine [PENICILLAMINE] Allergy (Unknown, Verified 01/13/25 08:16) UNKNOWN valsartan [Diovan] Allergy (Unknown, Verified 01/13/25 08:16) Unknown Sulfa (Sulfonamide Antibiotics) Allergy (Verified 01/13/25 08:16) hives, throat constriction cortisone injection Allergy (Unknown, Uncoded 01/13/25 08:16) caused menstration HPI Comments Details: This is a 59-year-old white female previously seen by endocrinology by Landy Velasquez NP for hypothyroidism in 2020. Patient was seen for management of obesity 10/21/24.Patient has tried diets of eating healthy fats , lean meats. Inability to lose Weight. Exercising with yoga and swimming. Was prescribed Zepbound by PCP. Has seen a retail asset protection specialist 2020- 2021 . Thyroid levels recently checked (01/13) have been normal and managed by primary care. Underwent a dexamethasone suppression test 2020 which was normal. Has a hx of prediabetes/ IFG. No sx of Monika's Syndrome .Uses a CPAP mask for sleep apnea . Attends [employer] [employer] structured wt loss program. 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 Her weight is down 11 lb over the past 12 weeks. She has been taking Wegovy 0.5 mg weekly. She does report constipation which she manages by increasing her water consumption and adding fiber. She has some GERD. [facility] screen Fibrosis-4 (Fib-4) Index for liver fibrosis (calculated on lab work done:12/2024 ) 2.5 to points Advanced fibrosis further investigation needed Approximate Fibrosis stage Jay 2-3 *Use with caution in patients <35 or >65 years old, as the score has been shown to be less reliable in these patients. Prior Imaging no prior imaging Action Plan: liver ultrasound with elastography [facility] Medical History (Updated 01/13/25 @ 08:41 by Alysha Vasquez NP) Obesity (BMI 30.0-34.9) Annual physical exam URI (upper respiratory infection) Left flank pain Lower back pain Muscle spasm of both lower legs Daytime sleepiness Right knee injury Swelling of left lower extremity Bleeding from varicose veins of left lower extremity Right otitis media Flu-like symptoms Sprain of left knee Knee pain, left Hyperglycemia Shingles rash Obesity due to excess calories Hand pain, right Hair loss Encounter for screening laboratory testing for COVID-19 virus Well woman exam with routine gynecological exam Hyperlipidemia Chronic pain of right thumb Vitamin D deficiency Elevated cortisol level Hypothyroidism Incontinence HTN (hypertension) Surgical History History of surgery History of uvulectomy Hx of myringotomy Hx of section History of ankle surgery Hx of knee surgery Family History Father No problems noted. Mother No problems noted. Family/Other History of breast cancer Social History Household Members: None Housing: House Alcohol intake: current Alcohol intake frequency: holidays/special occasions only Patient Tobacco Use Status: Former Tobacco user Tobacco use type: Cigarette Years Smoked: 15 years ago e-Cigarette/Vaping Use: Never Used Second Hand Smoke Exposure: No service: No Current occupational status: employed Sexual orientation: Straight/Heterosexual Gender identity: Female Cognitive needs: No Hearing needs: No Vision needs: Yes Female Reproductive History Menstrual Age of Menarche: 9 Physical Exam Vital Signs: Last Vital Signs Pulse 60 01/13/25 08:15 BP 110/72 01/13/25 08:15 Pulse Ox 97 01/13/25 08:15 Oxygen Delivery Method Room Air 01/13/25 08:15 BMI result Body Mass Index 30.3 Const Other: Absence of Cushingoid features. Absence of acromegalic features. Neck exam reveals nl size thyroid about 15 gms. No thyroid nodules palpable. Heart S1 S2, Reg R/R. No M/R G. Skin exam reveals absence of vitiligo or acanthosis nigricans. Assessment & Plan Assessment & Plan (1) Obesity (BMI 30.0-34.9): Code(s): E66.811 - Obesity, class 1 Category: Medical Plan: 59-year-old with obesity on week or via 0.5 mg doing well. She has lost approximately 1 lb per week since starting. She is meeting with a retail asset protection specialist and I advised she discuss dietary measures to improve constipation. She was advised to continue with adequate water consumption and that constipation could occasionally to bowel obstruction. 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 Fib 4 calc was positive for potential liver fibrosis. Liver ultrasound with elastography was ordered, She has slightly low vitamin B and some intermittent numbness in her feet and hands and will discuss this with her pcp. She was encouraged to purchased the bulk of the learn method for weight control. She was given a copy of her insurance guidelines for weight loss medication. She will return in 3 months Coding Level of Care Code Est Pt Level 4 (75401) Complex EM visit Add On G2211 Diagnoses Obesity (BMI 30.0-34.9) E66.811 Time Spent (min) 40 Comment Time spent reviewing labs/provider notes, face to face, chart doc
[2025-01-13 08:15] VITALS: BP 110/72; PULSE 60; O2SAT 97; BMI 30.3
--- OUTSIDE RECORDS SUMMARY | 2025-01-13 08:19 | XMS_ITS | Data Portability ---
Author Organization [place] - [facility], Allergy Address [address] [address] Care Team Providers Care Chief Of Safety And Protection Name Role Phone EDILBERTO MATIAS Primary Care Provider [phone] Assessment Encounter Date Assessment Date Assessment LastModified [...] see her back after it is completed. [email or web address] Not available 05/13/2024 09:00:24 07/01/2024 07/01/2024 Patient [...] follow-up in 1 year for audiometric testing. [email or web address] Not available 07/01/2024 09:24:22 Plan of Treatment [...] By Organization Details Last Modified Time 06/05/2024 [id number] Nursing Documentation for Allergy Testing: Ordering Provider [...] ? ? ? 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 ? 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 Symptoms having: {{Congestion* Post Nasal Drip [...] mucoid otitis media of right middle ear 42446798012 99848 Active 2022 Chronic mucoid otitis media, right ear; Note: Date Diagnosed : 05/24/2023 10:31 AM (H65.31) Not Available [facility] 4 02:42:44 Dizziness and giddiness 700068228 Active 2018 Dizziness and giddiness ; Note: Date Diagnosed : 06/17/2019 4:04 PM (R42) Not Available [facility] 4 02:42:37 Tinnitus of right ear 40145830531 08 Active 2018 Tinnitus, right ear; Note: Date Diagnosed : 06/17/2019 4:04 PM (H93.11) Not Available [facility] 4 02:42:38 Family history of hearing loss 726059209 Active 2019 Family history of deafness and hearing loss; Note: Date Diagnosed : 12/02/2019 4:30 PM (Z82.2) Not Available [facility] 4 02:42:42 Adhesive middle ear disease 8095850 Active 2019 Adhesive right middle ear disease; Note: Date Diagnosed : 12/02/2019 4:35 PM (H74.11) Not Available [facility] 4 02:42:41 Conductiv e hearing loss 97315675 Active 2018 Conductiv e hearing loss, unilatera l, right ear, with unrestric angie hearing on the contralat eral side; Note: Date Diagnosed : 06/17/2019 4:04 PM (H90.11) Not Available [facility] 4 02:42:41 Acute myringiti s of right ear 22305968255 88648 Active 2018 Acute myringiti s, right ear; Note: Date Diagnosed : 06/17/2019 4:44 PM (H73.001) Not Available [facility] 4 02:42:42 Disorder of right Eustachia n tube 22121516400 45751 Active 2018 Other specified disorders of Eustachia n tube, right ear; Note: Date Diagnosed : 06/17/2019 4:04 PM (H69.81) Not Available [facility] 4 02:42:40 Allergic rhinitis 58962870 Active 2023 CHELSY MARTIN MD 100 [facility],[place] [address], [place], [address] , [place] - [facility] 4 08:59:03 Non-aller gic rhinitis 66240904699 1 Active 2023 CHELSY MARTIN MD [address] [place] [address],[place] [address], [place], [address] , [place] - [facility] [place] [place] 4 08:59:32 Seasonal allergic rhinitis 760371993 Active 2023 CHELSY MARTIN MD [address] [facility],[place] [address], [place], [address] , [place] - [facility] [place] 4 08:59:32 Sensorine ural hearing loss 50424366 Active 2023 MERRICK CHENG [address] [place] [address],[place] [address], [place], [address] , [place] - [facility] 4 09:12:56 Obstructi ve sleep apnea of adult 30804135669 03 Active 2023 CHELSY MARTIN MD 100 [facility],[place] [address], [place], [address] , [place] [facility] 09:17:04 Problem Notes None recorded. Procedures Surgical History Date Name Laterality Status Provider Name and Address Organization Details Recorded Time 07/01/20 Allergy Testing-Full completed CHELSY MARTIN MD [address] [facility],[place] [address], [place], [address], [place] - [facility] 06/30/2024 10:37:11 06/05/20 24 Allergy Testing-Full completed PAWAN HANDLEY, A [address] [facility],[place] [address], [place], [address], [place] [facility] 06/05/2024 10:17:57 05/13/20 24 Comp Audio with Tymps (13249 & 89068) completed MERRICK CHENG [address] [facility],[place] [address], [place], [address], [place] [facility] 05/13/2024 09:12:41 section completed Elba Gomez [place] - [facility] 05/13/2024 08:44:52 Myringotomy Tube Placement completed Elba Gomez [place] - [facility] 05/13/2024 08:45:00 repair of meniscus completed Elba Gomez [place] - [facility] 05/13/2024 08:45:07 closed reduction of fracture of ankle completed Elba Gomez [place] [facility] 05/13/2024 08:45:23 Imaging Results Imaging Date Name Status LastModified by Organiz [facility] Details LastModified Time 05/15/2024 audiogram completed [email or web address] [...] Name and Address Organization Details Recorded Time [id number] latex environme nt,medica tion Not available Not available Not available 05/13/2024 89733 91 RxNorm Elba mensah [place] - [facility] 4 08:40:47 873145 Product containin g penicilli n (product) medicatio n Not available Not available Not available 05/13/2024 60418 [id number] KOREY MARTIN MD 100 [facility],[address], [place], [address], [place] [facility] 4 09:50:58 222379 Ketek medicatio n Not available Not available Not available 05/13/2024 13750 7 RxNorm CHELSY MARTIN MD 100 [facility], [place], [address], [facility] - [facility] 4 09:51:08 763332 lisinopri l medicatio n Not available Not available Not available 05/13/2024 83860 RxNorm CHELSY MARTIN MD [address] [facility],[address], [place], [address], [place] [facility] 4 09:51:17 264573 Substance with sulfonami de structure and antibacte rial mechanism of action (substanc e) medicatio n Not available Not available Not available 05/13/2024 31466 [id number] KOREY MARTIN MD 100 [facility], [place], [address], [place] [facility] 4 09:51:23 Medications Name Sig Start [...] mg tablet 05/13 completed Medicati on ID: [id number] D uration Value: 30 Brand Name: zolpidem Send Method: E-Prescr ibed Sub s Allowed: subs OK Speci al Instruct ion: TAKE 1 TABLET BY MOUTH AT BEDTIME FOR 30 DAYS [facility] zolpidem Medicat ion ID: [id number] D uration Value: 30 Brand Name: zolpidem [...] mg tablet 05/13 completed Medicati on ID: [id number] D uration Value: 30 Brand Name: atenolol Send Method: E-Prescr ibed Sub s Allowed: subs OK Speci al Instruct ion: TAKE 1 TABLET BY MOUTH EVERY DAY Medi cationGe nericNam e: atenolol Medicat ion ID: [id number] D uration Value: 30 Brand Name: atenolol [...] mg tablet 05/13 completed Medicati on ID: [id number] D uration Value: 30 Brand Name: naproxen Send Method: E-Prescr ibed Sub s Allowed: subs OK Speci al Instruct ion: TAKE 1 TABLET BY MOUTH EVERY 12 HOURS WITH FOOD OR MILK NEEDED FOR 30 DAYS Med icationG enericNa me: naproxen Medicat ion ID: [id number] D uration Value: 30 Brand Name: naproxen [...] drops,shin p 05/24 completed Medicati on ID: [id number] D uration Value: 7 Brand Name: neomycin -polymyx in-HC Se nd Method: E-Prescr ibed Sub s Allowed: subs OK Medic ationGen ericName : neomycin -polymyx in-HC Not Available Not Available Not Available TobraDex 0.3 %-0.1 % eye drops,shin pension 5 as directed 05/13 completed Medicati on ID: [id number] D uration Value: 30 Brand Name: TobraDex Send Method: E-Prescr ibed Sub s Allowed: subs ELZA Bai al Instruct ion: Instill 5 drops in the affected ear BID for 30 days Med icationG enericNa me: TobraDex Medicat ion ID: [id number] D uration Value: 30 Brand Name: TobraDex Send Method: E-Prescr ibed Sub s Allowed: subs ELZA Bai al Instruct ion: Instill 5 drops in the affected ear BID for 30 days Med icationG enericNa me: TobraDex Not Available Not Available Not Available sulfaceta mide sodium-street lfur-urea 10 %-4 %-10 % topical cleanser 05/13 completed Medicati on ID: [id number] B rand Name: sulfacet amide sod-sulf ur-urea Send Method: E-Prescr ibed Sub s Allowed: subs OK Medic ationGen ericName : sulfacet amide sod-sulf ur-urea Medicati on ID: [id number] B rand Name: sulfacet amide sod-sulf ur-urea Send Method: E-Prescr ibed Sub s Allowed: subs OK Medic ationGen ericName : sulfacet amide sod-sulf ur-urea Not Available Not Available Not Available Vitals Date Recorded Body height Body weight Provider Name and Address Organization Details Last Updated DateTime 05/13/2024 161.29 cm 17766.66 g Elba Gomez [facility] 05/13/2024 08:47:34 Date Recorded Body height Body mass index (BMI) Body weight Oxygen saturation Oxygen saturation in Arterial blood by Pulse oximetry Heart rate Systolic blood pressure Diastolic blood pressure Provider Name and Address Organization Details Last Updated DateTime 161.29 cm 31.4 kg/m2 60339.6 3 g 97 % 97 % 61 /min 120 mm[Hg] 72 mm[Hg] [address], [address] [place] [address] [facility] 09:13:29 Date Recorded Body height Body weight Provider Name and Address Organization Details Last Updated DateTime 07/01/2024 161.29 cm 20434.63 g Elba Gomez [facility] 07/01/2024 08:52:21 Social History None recorded. Functional Status None recorded. Mental Status None recorded. Family History Nothing Reported. Medical History Condition Response Thyroid Problems Y Sleep Disorder Y High Cholesterol Y GERD/Reflux Y Hypertension Y Gynecological HistoryNo gynecological history recorded. Obstetrics History GPAL:G 0 P 0 0 0 0 Past Encounters Encounter ID Performer Location Encounter Start Date Encounter Closed Date Diagnosis/Indication Diagnosis SNOMED-CT Code Diagnosis ICD10 Code Diagnosis Note [id number] CHELSY MARTIN MD [facility] [address] [address] 05/13/2024 08:34:46 05/13/2024 09:52:35 Allergic rhinitis 72497334 J30.9 Disorder o f right Eustachian tube 7913679939 429548 H69.81 Sensorineu ral hearing loss 15892830 H90.41 Audiologic al evaluation results: Right ear: [...] DNT#} } [id number] PAWAN HANDLEY A Allergy [address] [place] [address] 06/05/2024 08:57:39 06/05/2024 13:08:25 Allergic rhinitis 73033706 J30.9 [id number] CHELSY MARTIN MD [facility] [address] [address] 07/01/2024 08:42:29 07/01/2024 09:23:58 Allergic rhinitis 48478075 J30.9 Disorder o f right Eustachian tube 7367131166 653431 H69.81 Obstructiv e sleep apnea of adult 6940554515 103 G47.33 I recommende d she be diligent about the cleaning protocols for her CPAP machine, as mold can grow in CPAP machines Adhesive m iddle ear disease 9373902 H74.11 Health Concerns Section Related Observation LastModified by Organization Detai ls LastModified Time None Recorded Concern Status LastModified by Organization Details LastModified Time None Recorded Advance Directives Directive None Recorded Payers Encounter Date Sequence Insurance Name Policy Number Policy Patel Covered Member ID Patel Member ID Guarantor Name 05/13/2024 1 [facility] (MEDICAID [facility] [place] [id number] Marlyn Nunez [id number] Marlyn Nunez 06/05/2024 1 [facility] (MEDICAID HMO) [id number] Marlyn Nunez [id number] Marlyn Nunez 07/01/[address] [place] [address] (MEDICAID HMO) [id number] Marlyn Nunez [id number] Marlyn Enrique Notes Date Note Type Note [...] she was younger. CHELSY MARTIN MD 100 [facility],[address], [address], [facility] 05/13/2024 09:59:28 07/01/2024 text/html 59-year-old sy [...] the right ear CHELSY MARTIN MD 100 [facility] [address], [place], [address], [facility] 07/01/2024 09:25:15 OBGyn Episode No OBEpisode recorded.
== END 2025-01-13 08:39 | disposition home or self-care (01) ==
PROVIDERS: PCP Internal Medicine; Visit Provider Nurse Practitioner Adult Health
DX: E66.811 Obesity, class 1 (principal)
CPT/HCPCS: 99214

== ENCOUNTER 2025-01-21 16:00 | Outpatient (RCR) | payer OTHER, SELFPAY ==
--- NOTE | 2024-11-14 09:02 | MHC.PT.EP ---
[facility] [place] Office [place] Office [place] [facility] [address] [phone] F: [phone] F: [phone] F: [phone] F: [phone] Physical Therapy Plan of Care Date of Evaluation: 11/14/24 Date of Surgery: Diagnosis: sacrrococcygeal disorders Assessment: 59 y/o referred to PT with sacroccoygeal disorders. 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 Examination shows decreased hip/ knee ROM, decreased hip flexor/ quad/ piriformis length, decreased L hip strength, and impaired gait pattern. REcommmend PT 2x/week for 5 weeks to address impairments, implement HEP, and optimize functional mobility. 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 Manual therapy to restore motion and function. Therapeutic exercise to improve strength and flexibility. Neuromuscular re-education for posture and balance. Therapeutic activities to return to functional activities of daily living. Electronically signed by: Bhumi Schwarz PT Please sign and return to therapist. Thank you for your referral.
--- NOTE | 2025-02-05 15:06 | MHC.PT.DC ---
[facility] [place] Office [place] Office [place] Office [address] Ana Maria Marcos [address] [phone] F: [phone] F: [phone] F: [phone] F: [phone] Physical Therapy Discharge Report Diagnosis: sacrrococcygeal disorders Date of Surgery: Date of Evaluation: 11/14/24 Date of Discharge: 02/05/25 Treatments to Date: 9 Cancellations to Date: 2 No Shows to Date: 0 Discharge Status: Improved Function Independent with HEP Discharge Summary: Pt made improvements with lumbar ROM and improved balance, however continues with knee/ hip pain resulting in decreased ability to walk prolonged periods. She will return for shoulder pain evaluation Electronically signed by: Bhumi Schwarz PT Please sign and return to therapist. Thank you for your referral.
== END 2025-02-05 15:06 | disposition home or self-care (01) ==
LOC: HO.PTCHIC 16:00
PROVIDERS: PCP Internal Medicine; Visit Provider Internal Medicine
DX: M53.3 Sacrococcygeal disorders, not elsewhere classified (principal)
CPT/HCPCS: 97110; 97112; 97140; 97161

== ENCOUNTER 2025-01-26 13:57 | Outpatient (AMB) | payer OTHER, SELFPAY ==
--- NOTE | 2025-01-26 14:04 | A.OFFVIS_ITS ---
VS Expanded 01/26/25 14:05 02/04/25 13:38 Height 5 ft 3 in 5 ft 3 in Weight 165 lb 12.602 oz 166 lb BMI 29.4 29.4 Intake Visit Reasons: Obesity Allergies lisinopril [LISINOPRIL] Allergy (Severe, Verified 01/13/25 08:16) COUGH telithromycin [From KETEK] Allergy (Intermediate, Verified 01/13/25 08:16) BLURRED VISION latex [LATEX] Allergy (Mild, Verified 01/13/25 08:16) RASH celecoxib [Celebrex] Allergy (Unknown, Verified 01/13/25 08:16) rash penicillamine [PENICILLAMINE] Allergy (Unknown, Verified 01/13/25 08:16) UNKNOWN valsartan [Diovan] Allergy (Unknown, Verified 01/13/25 08:16) Unknown Sulfa (Sulfonamide Antibiotics) Allergy (Verified 01/13/25 08:16) hives, throat constriction cortisone injection Allergy (Unknown, Uncoded 01/13/25 08:16) caused menstration Nutrition Presentation Details: Pt presents for MNT for T2DM with obesity Pt reports doing well, has questions regarding protein rich foods Reports keeping hydrated 64 oz of water/d food frequency fruits: 1-/d ve-5 starches >20 /d dairy: 2-3/d fish : 0-1/wk 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: -- BS Monitoring Most Recent Diabetes Results: Cholesterol 167 mg/dL (<200) 01/12/25 HDL Cholesterol 42 mg/dL (>40) 01/12/25 Triglycerides 100 mg/dL (<150) 01/12/25 Creatinine 0.88 mg/dL (0.5-1.4) 01/12/25 Blood Urea Nitrogen 15 mg/dL (9-16) 01/12/25 Sodium 142 mmol/L (135-145) 01/12/25 Potassium 4.2 mmol/L (3.3-5.1) 01/12/25 Chloride 108 mmol/L (96-108) 01/12/25 Carbon Dioxide 26 mmol/L (22-29) 01/12/25 Calcium 8.9 mg/dL (8.4-10.2) 01/12/25 AST 28 U/L (5-31) 01/12/25 ALT 34 U/L (0-31) H 01/12/25 Total Protein 6.3 g/dL (6.5-8.0) L 01/12/25 Albumin 3.9 g/dL (3.5-5.0) 01/12/25 ZNZ-Sfovnah-Ze.Terranceor Equation Height: 5 ft 3 in Weight: 166 lb Resting Metabolic Rate: 1286.30 Calculated Activity Level: Mild Activity Calories Needed to Maintain Weight: 1768.66 Diagnosis Nutrition problem #1: overweight/obesity As related to (etiology) #1: diagnosis As evidenced by (sign/symptom) #1: high BMI (29 (02/10)) [facility] Medical History (Updated 02/04/25 @ 13:[address], LDN) Obesity (BMI 30.0-34.9) Annual physical exam URI (upper respiratory infection) Left flank pain Lower back pain Muscle spasm of both lower legs Daytime sleepiness Right knee injury Swelling of left lower extremity Bleeding from varicose veins of left lower extremity Right otitis media Flu-like symptoms Sprain of left knee Knee pain, left Hyperglycemia Shingles rash Obesity due to excess calories Hand pain, right Hair loss Encounter for screening laboratory testing for COVID-19 virus Well woman exam with routine gynecological exam Hyperlipidemia Chronic pain of right thumb Vitamin D deficiency Elevated cortisol level Hypothyroidism Incontinence HTN (hypertension) Surgical History History of surgery History of uvulectomy Hx of myringotomy Hx of section History of ankle surgery Hx of knee surgery Family History Father No problems noted. Mother No problems noted. Family/Other History of breast cancer Social History Household Members: None Housing: House Alcohol intake: current Alcohol intake frequency: holidays/special occasions only Patient Tobacco Use Status: Former Tobacco user Tobacco use type: Cigarette Years Smoked: 15 years ago e-Cigarette/Vaping Use: Never Used Second Hand Smoke Exposure: No service: No Current occupational status: employed Sexual orientation: Straight/Heterosexual Gender identity: Female Cognitive needs: No Hearing needs: No Vision needs: Yes Female Reproductive History Menstrual Age of Menarche: 9 Assessment & Plan Assessment & Plan (1) Overweight: Code(s): E66.3 - Overweight Category: Medical Plan: Wt: 75 Kg ( 02/10 ) Est kcal needs as per MSJ: 1800 (40% carb, 30% protein/fat) Est fluid needs as per 25-30 ml/d: 2300 Est prot per day as per 1 g/kg bw: 75 Recommend fiber intake : 8-10 g per day and gradually increase to 25-28 g per day for women and 35-38 g for men or as tolerated Recommend sodium intake per day : less than 1500 mg less than 2000 mg Educated patient on: ( R = reviewed V = verbalizes understanding N/R = needs review N/A = not applicable * Food sources of carbohydrate, adequate serving sizes and its role in various health conditions: R V * Differences between complex carbohydrates a simple carbohydrates, role of fiber in diet: R V * Lean protein sources of foods: R V * Differences between types of fats and role in diet (mono on saturated fat fatty acids, saturated fatty acids, trans fats): R * Food sources of sodium in salt and healthy modifications for heart health in kidney health: R V R/V * Vitamins and minerals: R V * Healthy plate method concept: R V * Physical activity: Benefits a precaution: R V * Patient Instructions: Include omega 3 sources of foods in diet (fish at least twice a week with nonstarchy vegetables ) Have yogurt with nuts as breakfast or betime snack Coding Level of Care Code Nutr Indiv Intake (35096) Diagnoses Overweight E66.3 Time Spent (min) 30
[2025-01-26 14:05] VITALS: BMI 29.4
--- OUTSIDE RECORDS SUMMARY | 2025-01-26 15:51 | XMS_ITS | Data Portability ---
Author Organization [place] - [facility], Allergy Address [address] [address] Care Team Providers Care Line Construction Engineer Name Role Phone EDILBERTO MATIAS Primary Care Provider Assessment Encounter Date Assessment Date Assessment LastModified [...] see her back after it is completed. [email or web address] Not available 05/13/2024 09:00:24 07/01/2024 07/01/2024 Patient [...] By Organization Details Last Modified Time 06/05/2024 [id number] Nursing Documentation for Allergy Testing: Ordering Provider [...] ? ? ? 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 Symptoms having: {{Congestion* Post Nasal Drip [...] mucoid otitis media of right middle ear 12171210017 29238 Active 2022 Chronic mucoid otitis media, right ear; Note: Date Diagnosed : 05/24/2023 10:31 AM (H65.31) Not Available [facility] 4 02:42:44 Dizziness and giddiness 525912778 Active 2018 Dizziness and giddiness ; Note: Date Diagnosed : 06/17/2019 4:04 PM (R42) Not Available [facility] 4 02:42:37 Tinnitus of right ear 43556673765 08 Active 2018 Tinnitus, right ear; Note: Date Diagnosed : 06/17/2019 4:04 PM (H93.11) Not Available [facility] 4 02:42:38 Family history of hearing loss 876588514 Active 2019 Family history of deafness and hearing loss; Note: Date Diagnosed : 12/02/2019 4:30 PM (Z82.2) Not Available [facility] 4 02:42:42 Adhesive middle ear disease 1827730 Active 2019 Adhesive right middle ear disease; Note: Date Diagnosed : 12/02/2019 4:35 PM (H74.11) Not Available [facility] 4 02:42:41 Conductiv e hearing loss 68079136 Active 2018 Conductiv e hearing loss, unilatera l, right ear, with unrestric angie hearing on the contralat eral side; Note: Date Diagnosed : 06/17/2019 4:04 PM (H90.11) Not Available [facility] 4 02:42:41 Acute myringiti s of right ear 02592490914 97388 Active 2018 Acute myringiti s, right ear; Note: Date Diagnosed : 06/17/2019 4:44 PM (H73.001) Not Available [facility] 4 02:42:42 Disorder of right Eustachia n tube 06887617872 36493 Active 2018 Other specified disorders of Eustachia n tube, right ear; Note: Date Diagnosed : 06/17/2019 4:04 PM (H69.81) Not Available [facility] 4 02:42:40 Allergic rhinitis 13290579 Active 2023 CHELSY MARTIN MD [address] [facility],[place] [address], [place], [address] , [place] - [facility] 4 08:59:03 Non-aller gic rhinitis 00692737344 1 Active 2023 CHELSY MARTIN MD [address] [place] [address],[place] [address], [place], [address] , [place] - [facility] 4 08:59:32 Seasonal allergic rhinitis 453643547 Active 2023 CHELSY MARTIN MD [address] [facility],[place] [address], [place], [address] , [place] - [facility] 4 08:59:32 Sensorine ural hearing loss 22925279 Active 2023 MERRICK CHENG [address] [place] [address],[place] [address], [place], [address] , [place] - [facility] 4 09:12:56 Obstructi ve sleep apnea of adult 72838401110 03 Active 2023 CHELSY MARTIN MD [address] [facility],[place] [address], [place], [address] , [place] - [facility] 09:17:04 Problem Notes None recorded. Procedures Surgical History Date Name Laterality Status Provider Name and Address Organization Details Recorded Time 07/01/20 Allergy Testing-Full completed CHELSY MARTIN MD [address] [facility],[place] [address], [place], [address], [place] - [facility] 06/30/2024 10:37:11 06/05/20 24 Allergy Testing-Full completed PAWAN HANDLEY, A [address] [facility],[place] [address], [place], [address], [place] [facility] 06/05/2024 10:17:57 05/13/20 24 Comp Audio with Tymps (61006 & 25078) completed MERRICK CHENG [address] [facility],[place] [address], [place], [address], [place] [facility] 05/13/2024 09:12:41 section completed Elba Gomez [place] - [facility] 05/13/2024 08:44:52 Myringotomy Tube Placement completed Elba Gomez [place] - [facility] 05/13/2024 08:45:00 repair of meniscus completed Elba Gomez [place] - [facility] 05/13/2024 08:45:07 closed reduction of fracture of ankle completed Elba Gomez [place] - [facility] 05/13/2024 08:45:23 Imaging Results Imaging Date Name Status LastModified by [facility] Details LastModified Time 05/15/2024 audiogram completed [email or web address] [...] Name and Address Organization Details Recorded Time [id number] latex environme nt,medica tion Not available Not available Not available 05/13/2024 38140 91 RxNorm Elba mensah [place] - [facility] 4 08:40:47 980512 Product containin g penicilli n (product) medicatio n Not available Not available Not available 05/13/2024 [id number] KOREY MARTIN MD [address] [facility],[address], [place], [address], [place] - [facility] 4 09:50:58 405848 Ketek medicatio n Not available Not available Not available 05/13/2024 14231 7 RxNorm CHELSY MARTIN MD [address] [facility], [place], [address], [facility] - [facility] 4 09:51:08 409392 lisinopri l medicatio n Not available Not available Not available 05/13/2024 31252 RxNorm CHELSY MARTIN MD [address] [facility],[address], [place], [address], [place] - [facility] 4 09:51:17 300079 Substance with sulfonami de structure and antibacte rial mechanism of action (substanc e) medicatio n Not available Not available Not available 05/13/2024 15756 8003 KOREY MARTIN MD [address] [facility], [place], [address], [place] - [facility] 4 09:51:23 Medications Name Sig Start [...] mg tablet 05/13 completed Medicati on ID: [id number] D uration Value: 30 Brand Name: zolpidem Send Method: E-Prescr ibed Sub s Allowed: subs OK Speci al Instruct ion: TAKE 1 TABLET BY MOUTH AT BEDTIME FOR 30 DAYS [facility] zol[facility]em Medicat ion ID: [id number] D uration Value: 30 Brand Name: zolpidem [...] mg tablet 05/13 completed Medicati on ID: [id number] D uration Value: 30 Brand Name: atenolol Send Method: E-Prescr ibed Sub s Allowed: subs OK Speci al Instruct ion: TAKE 1 TABLET BY MOUTH EVERY DAY Medi cationGe nericNam e: atenolol Medicat ion ID: [id number] D uration Value: 30 Brand Name: atenolol [...] mg tablet 05/13 completed Medicati on ID: [id number] D uration Value: 30 Brand Name: naproxen Send Method: E-Prescr ibed Sub s Allowed: subs OK Speci al Instruct ion: TAKE 1 TABLET BY MOUTH EVERY 12 HOURS WITH FOOD OR MILK NEEDED FOR 30 DAYS Med icationG enericNa me: naproxen Medicat ion ID: [id number] D uration Value: 30 Brand Name: naproxen [...] drops,shin p 05/24 completed Medicati on ID: [id number] D uration Value: 7 Brand Name: neomycin -polymyx in-HC Se nd Method: E-Prescr ibed Sub s Allowed: subs OK Medic ationGen ericName : neomycin -polymyx in-HC Not Available Not Available Not Available TobraDex 0.3 %-0.1 % eye drops,shin pension 5 as directed 05/13 completed Medicati on ID: [id number] D uration Value: 30 Brand Name: TobraDex Send Method: E-Prescr ibed Sub s Allowed: subs ELZA Bai al Instruct ion: Instill 5 drops in the affected ear BID for 30 days Med icationG enericNa me: TobraDex Medicat ion ID: [id number] D uration Value: 30 Brand Name: TobraDex Send Method: E-Prescr ibed Sub s Allowed: subs ELZA Bai al Instruct ion: Instill 5 drops in the affected ear BID for 30 days Med icationG enericNa me: TobraDex Not Available Not Available Not Available sulfaceta mide sodium-street lfur-urea 10 %-4 %-10 % topical cleanser 05/13 completed Medicati on ID: [id number] B rand Name: sulfacet amide sod-sulf ur-urea Send Method: E-Prescr ibed Sub s Allowed: subs OK Medic ationGen ericName : sulfacet amide sod-sulf ur-urea Medicati on ID: [id number] B rand Name: sulfacet amide sod-sulf ur-urea Send Method: E-Prescr ibed Sub s Allowed: subs OK Medic ationGen ericName : sulfacet amide sod-sulf ur-urea Not Available Not Available Not Available Vitals Date Recorded Body height Body weight Provider Name and Address Organization Details Last Updated DateTime 05/13/2024 161.29 cm 02522.66 g Elba Gomez [facility] 05/13/2024 08:47:34 Date Recorded Body height Body mass index (BMI) Body weight Oxygen saturation Oxygen saturation in Arterial blood by Pulse oximetry Heart rate Systolic blood pressure Diastolic blood pressure Provider Name and Address Organization Details Last Updated DateTime 161.29 cm 31.4 kg/m2 89761.6 3 g 97 % 97 % 61 /min 120 mm[Hg] 72 mm[Hg] [address], [address] [place] [address] [facility] 09:13:29 Date Recorded Body height Body weight Provider Name and Address Organization Details Last Updated DateTime 07/01/2024 161.29 cm 97478.63 g Elba Gomez [facility] 07/01/2024 08:52:21 Social History None recorded. Functional Status None recorded. Mental Status None recorded. Family History Nothing Reported. Medical History Condition Response Thyroid Problems Y Hypertension Y Sleep Disorder Y GERD/Reflux Y High Cholesterol Y Gynecological HistoryNo gynecological history recorded. Obstetrics History GPAL:G 0 P 0 0 0 0 Past Encounters Encounter ID Performer Location Encounter Start Date Encounter Closed Date Diagnosis/Indication Diagnosis SNOMED-CT Code Diagnosis ICD10 Code Diagnosis Note [id number] CHELSY MARTIN MD [facility] [address] [address] 05/13/2024 08:34:46 05/13/2024 09:52:35 Allergic rhinitis 77661259 J30.9 Disorder o f right Eustachian tube 3368479922 178350 H69.81 Sensorineu ral hearing loss 19089359 H90.41 Audiologic al evaluation results: Right ear: [...] DNT#} } [id number] PAWAN HANDLEY A All[facility] [address] [place] [address] 06/05/2024 08:57:39 06/05/2024 13:08:25 Allergic rhinitis 01511837 J30.9 [id number] CHELSY MARTIN MD [facility] [address] [address] 07/01/2024 08:42:29 07/01/2024 09:23:58 Allergic rhinitis 46914951 J30.9 Disorder o f right Eustachian tube 9551965547 627171 H69.81 Obstructiv e sleep apnea of adult 6005587212 103 G47.33 I recommende d she be diligent about the cleaning protocols for her CPAP machine, as mold can grow in CPAP machines Adhesive m iddle ear disease 8782017 H74.11 Health Concerns Section Related Observation LastModified by Organization Detai ls LastModified Time None Recorded Concern Status LastModified by Organization Details LastModified Time None Recorded Advance Directives Directive None Recorded Payers Encounter Date Sequence Insurance Name Policy Number Policy Patel Covered Member ID Patel Member ID Guarantor Name 05/13/2024 1 [facility] (MEDICAID [facility] [id number] Marlyn Nunez [id number] Marlyn Nunez 06/05/2024 1 [facility]MEDICA[facility] [id number] Marlyn Nunez [id number] Marlyn Nunez 07/01/[address] [place] [address] (MEDICAID HMO) [id number] Marlyn Nunez [id number] Marlyn Enrique Notes Date Note Type Note [...] she was younger. CHELSY MARTIN MD [address] [facility],[address], [address], [facility] 05/13/2024 09:59:28 07/01/2024 text/html 59-year-old sy [...] the right ear CHELSY MARTIN MD [address] [facility] [address], [place], [address], [facility] 07/01/2024 09:25:15 OBGyn Episode No OBEpisode recorded.
[2025-02-04 13:38] VITALS: BMI 29.4
== END 2025-01-26 14:38 | disposition home or self-care (01) ==
PROVIDERS: PCP Internal Medicine; Visit Provider Dietitian, Registered
DX: E66.3 Overweight (principal)

== ENCOUNTER → 2025-01-26 13:57 | Outpatient (BNVA) | payer OTHER, SELFPAY | PROVIDERS: PCP Internal Medicine; Visit Provider Dietitian, Registered | DX: E66.3 Overweight (principal); Z68.29 Body mass index [BMI] 29.0-29.9, adult; E11.9 Type 2 diabetes mellitus without complications; Z71.3 Dietary counseling and surveillance | CPT/HCPCS: 97802 ==

== ENCOUNTER 2025-02-23 08:00 | Outpatient (REF) | payer OTHER, SELFPAY ==
--- NOTE | ~2025-02-23 | US_ITS ---
EXAMINATION: US ABDOMEN LIMITED WITH LIVER ELASTOGRAPHY HISTORY: K76.0 - Fatty (change of) liver, not elsewhere classified TECHNIQUE: Real-time grayscale ultrasound imaging of the right upper quadrant was performed and images were reviewed. COMPARISON: There are no prior studies for comparison. FINDINGS: Liver: The right lobe of the liver measures 11.5 cm in size. The left lobe of the liver measures 9.1 cm in size. The liver demonstrates increased echotexture, consistent with steatosis. No focal mass or intrahepatic biliary ductal dilatation is identified. There is normal hepatopedal flow in the portal vein. Ultrasound elastography of the liver was performed with 10 separate measurements of the liver parenchyma with the patient in the supine position. Measurements were obtained approximately 2 cm below Chris's capsule and perpendicular to the capsule. Images are of satisfactory quality. The median shear wave velocity is 1.07 m/s. The interquartile range/median (IQR/median) is 0.14. Gallbladder and biliary tree: The gallbladder is unremarkable, without evidence of calculi, wall thickening, or pericholecystic fluid. There is no sonographic Galicia sign. The common bile duct is normal in caliber measuring 5 mm. Right Kidney: The right kidney measures 10.1 cm in length. The right kidney is unremarkable, without evidence of masses, hydronephrosis, or calculi. Pancreas: The pancreatic head, neck, and body are unremarkable. The pancreatic tail is obscured by bowel gas. Abdominal aorta and inferior vena cava: The visualized portions of the abdominal aorta and inferior vena cava are normal in caliber. There is no free fluid in the right upper quadrant. US/US abdomen arriaza w elastography IMPRESSION: Hepatic steatosis. The median shear wave velocity in the liver is 1.07 m/s, corresponding to a median liver stiffness of 3.5 kPa. The IQR/median value is 0.14. This is indicative of a quality data set. Findings are indicative of a normal elastography value with a low likelihood of severe fibrosis or cirrhosis. REFERENCE: Society of Radiologists in Ultrasound Liver Stiffness Thresholds (2019): LIVER STIFFNESS THRESHOLDS: *Shear wave velocity less than 1.3 m/s (Liver Stiffness equal or less than 5 kPa): High probability of being normal. *Shear wave velocity less than 1.7 m/s (Liver Stiffness less than 9 kPa): In the absence of other known clinical signs, rules out compensated advanced chronic liver disease. *Shear wave velocity between 1.7-2.1 m/s (Liver Stiffness 9-13 kPa): Suggestive of compensated advanced chronic liver disease but need further test for confirmation. *Shear wave velocity between 2.1-2.4 m/s (Liver Stiffness 13-17 kPa): Rules in compensated advanced chronic liver disease. *Shear wave velocity greater than 2.4 m/s (Liver Stiffness over 17 kPa): Suggestive of clinically significant portal hypertension. QUALITY OF DATA SET: *IQR/Median value equal or less than 0.15 implies a quality data set. *IQR/Median value over 0.15 implies a poor quality data set. SIGNIFICANT CHANGE FROM PRIOR EXAM: Significant change if liver stiffness measurement is 10% or greater from prior exam. OTHER CONSIDERATIONS: The stage of liver fibrosis may be overestimated in the setting of acute hepatitis, liver inflammation, elevated liver function tests, hepatic vascular congestion, obstructive cholestasis, non-fasting state, and infiltrative diseases such as amyloidosis and lymphoma. In some patients with NAFLD, the liver stiffness thresholds for compensated advanced chronic liver disease may be lower. In causes other than viral hepatitis and NAFLD, liver stiffness thresholds are not well established. Electronically signed by: Jose Enrique Martinez MD 02/23/2025 09:16 AM EDT
--- OUTSIDE RECORDS SUMMARY | 2025-02-23 08:05 | XMS_ITS | Data Portability ---
Author Organization [place] - [facility], Allergy Address [address] [address] Care Team Providers Care Assistant Golf Professional Name Role Phone EDILBERTO MATIAS Primary Care [...] follow-up in 1 year for audiometric testing. [email or web address] Not available 07/01/2024 09:24:22 Plan of Treatment [...] By Organization Details Last Modified Time 06/05/2024 3044 Nursing Documentation for Allergy Testing: Ordering Provider [...] ? ? ? 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 Symptoms having: {{Congestion* Post Nasal Drip [...] mucoid otitis media of right middle ear [id number] 92898 Active 2022 Chronic mucoid otitis media, right ear; Note: Date Diagnosed : 05/24/2023 10:31 AM (H65.31) Not Available [facility] 4 02:42:44 Dizziness and giddiness 394532473 Active 2018 Dizziness and giddiness ; Note: Date Diagnosed : 06/17/2019 4:04 PM (R42) Not Available [facility] 4 02:42:37 Tinnitus of right ear [id number] 08 Active 2018 Tinnitus, right ear; Note: Date Diagnosed : 06/17/2019 4:04 PM (H93.11) Not Available [facility] 4 02:42:38 Family history of hearing loss 066612104 Active 2019 Family history of deafness and hearing loss; Note: Date Diagnosed : 12/02/2019 4:30 PM (Z82.2) Not Available [facility] 4 02:42:42 Adhesive middle ear disease 1022639 Active 2019 Adhesive right middle ear disease; Note: Date Diagnosed : 12/02/2019 4:35 PM (H74.11) Not Available [facility] 4 02:42:41 Conductiv e hearing loss 01505120 Active 2018 Conductiv e hearing loss, unilatera l, right ear, with unrestric angie hearing on the contralat eral side; Note: Date Diagnosed : 06/17/2019 4:04 PM (H90.11) Not Available [facility] 4 02:42:41 Acute myringiti s of right ear 07639477515 85095 Active 2018 Acute myringiti s, right ear; Note: Date Diagnosed : 06/17/2019 4:44 PM (H73.001) Not Available [facility] 4 02:42:42 Disorder of right Eustachia n tube 51556400163 51733 Active 2018 Other specified disorders of Eustachia n tube, right ear; Note: Date Diagnosed : 06/17/2019 4:04 PM (H69.81) Not Available [facility] 4 02:42:40 Allergic rhinitis 40733246 Active 2023 CHELSY MARTIN MD [address] [facility],[place] [address], [place], [address] , [place] - [facility] 4 08:59:03 Non-aller gic rhinitis 42090178158 1 Active 2023 CHELSY MARTIN MD [address] [place] [address],[place] [address], [place], [address] , [place] - [facility] 4 08:59:32 Seasonal allergic rhinitis 463455205 Active 2023 CHELSY MARTIN MD [address] [facility],[place] [address], [place], [address] , [place] - [facility] 4 08:59:32 Sensorine ural hearing loss 42070101 Active 2023 MERRICK CHENG [address] [place] [address],[place] [address], [place], [address] , [place] - [facility] 4 09:12:56 Obstructi ve sleep apnea of adult 24907404304 03 Active 2023 CHELSY MARTIN MD [address] [facility],[place] [address], [place], [address] , [place] [facility] 09:17:04 Problem Notes None recorded. Procedures Surgical History Date Name Laterality Status Provider Name and Address Organization Details Recorded Time 07/01/20 Allergy Testing-Full completed CHELSY MARTIN MD [address] [facility],[place] [address], [place], [address], [place] - [facility] 06/30/2024 10:37:11 06/05/20 24 Allergy Testing-Full completed PAWAN HANDLEY, A [address] [facility],[place] [address], [place], [address], [place] [facility] 06/05/2024 10:17:57 05/13/20 24 Comp Audio with Tymps (00732 & 46426) completed MERRICK CHENG [address] [facility],[place] [address], [place], [address], [place] [facility] 05/13/2024 09:12:41 section completed Elba Gomez [place] - [facility] 05/13/2024 08:44:52 Myringotomy Tube Placement completed Elba Gomez [place] - [facility] 05/13/2024 08:45:00 repair of meniscus completed Elba Gomez [place] - [facility] 05/13/2024 08:45:07 closed reduction of fracture of ankle completed Elba Gomez [place] - [facility] 05/13/2024 08:45:23 Imaging Results Imaging Date Name Status LastModified by Organiz [facility] Details LastModified Time 05/15/2024 audiogram completed [email or web address] [...] Name and Address Organization Details Recorded Time [id number] latex environme nt,medica tion Not available Not available Not available 05/13/2024 68472 91 RxNorm Elba mensah [place] - [facility] 4 08:40:47 858754 Product containin g penicilli n (product) medicatio n Not available Not available Not available 05/13/2024 84212 8001 KOREY MARTIN MD [address] [facility],[address], [place], [address], [place] - [facility] 4 09:50:58 590234 Ketek medicatio n Not available Not available Not available 05/13/2024 53541 7 RxNorm CHELSY MARTIN MD [address] [facility], [place], [address], [facility] - [facility] 4 09:51:08 584509 lisinopri l medicatio n Not available Not available Not available 05/13/2024 51606 RxNorm CHELSY MARTIN MD [address] [facility],[address], [place], [address], [place] - [facility] 4 09:51:17 376115 Substance with sulfonami de structure and antibacte rial mechanism of action (substanc e) medicatio n Not available Not available Not available 05/13/2024 50563 8003 KOREY MARTIN MD [address] [facility],[address], [place], [address], [place] - [facility] 4 09:51:23 Medications Name Sig Start [...] mg tablet 05/13 completed Medicati on ID: [id number] D uration Value: 30 Brand Name: zolpidem Send Method: E-Prescr ibed Sub s Allowed: subs OK Speci al Instruct ion: TAKE 1 TABLET BY MOUTH AT BEDTIME FOR 30 DAYS [facility] zolpidem Medicat ion ID: [id number] D uration Value: 30 Brand Name: zolpidem [...] mg tablet 05/13 completed Medicati on ID: [id number] D uration Value: 30 Brand Name: atenolol Send Method: E-Prescr ibed Sub s Allowed: subs OK Speci al Instruct ion: TAKE 1 TABLET BY MOUTH EVERY DAY Medi cationGe nericNam e: atenolol Medicat ion ID: [id number] D uration Value: 30 Brand Name: atenolol [...] mg tablet 05/13 completed Medicati on ID: [id number] D uration Value: 30 Brand Name: naproxen Send Method: E-Prescr ibed Sub s Allowed: subs OK Speci al Instruct ion: TAKE 1 TABLET BY MOUTH EVERY 12 HOURS WITH FOOD OR MILK NEEDED FOR 30 DAYS Med icationG enericNa me: naproxen Medicat ion ID: [id number] D uration Value: 30 Brand Name: naproxen [...] drops,shin p 05/24 completed Medicati on ID: [id number] D uration Value: 7 Brand Name: neomycin -polymyx in-HC Se nd Method: E-Prescr ibed Sub s Allowed: subs OK Medic ationGen ericName : neomycin -polymyx in-HC Not Available Not Available Not Available TobraDex 0.3 %-0.1 % eye drops,shin pension 5 as directed 05/13 completed Medicati on ID: [id number] D uration Value: 30 Brand Name: TobraDex Send Method: E-Prescr ibed Sub s Allowed: subs ELZA Bai al Instruct ion: Instill 5 drops in the affected ear BID for 30 days Med icationG enericNa me: TobraDex Medicat ion ID: [id number] D uration Value: 30 Brand Name: TobraDex Send Method: E-Prescr ibed Sub s Allowed: subs ELZA Bai al Instruct ion: Instill 5 drops in the affected ear BID for 30 days Med icationG enericNa me: TobraDex Not Available Not Available Not Available sulfaceta mide sodium-street lfur-urea 10 %-4 %-10 % topical cleanser 05/13 completed Medicati on ID: [id number] B rand Name: sulfacet amide sod-sulf ur-urea Send Method: E-Prescr ibed Sub s Allowed: subs OK Medic ationGen ericName : sulfacet amide sod-sulf ur-urea Medicati on ID: [id number] B rand Name: sulfacet amide sod-sulf ur-urea Send Method: E-Prescr ibed Sub s Allowed: subs OK Medic ationGen ericName : sulfacet amide sod-sulf ur-urea Not Available Not Available Not Available Vitals Date Recorded Body height Body weight Provider Name and Address Organization Details Last Updated DateTime 05/13/2024 161.29 cm 59025.66 g Elba Gomez [facility] 05/13/2024 08:47:34 Date Recorded Body height Body mass index (BMI) Body weight Oxygen saturation Oxygen saturation in Arterial blood by Pulse oximetry Heart rate Systolic blood pressure Diastolic blood pressure Provider Name and Address Organization Details Last Updated DateTime 161.29 cm 31.4 kg/m2 00762.6 3 g 97 % 97 % 61 /min 120 mm[Hg] 72 mm[Hg] [address], [address] [place] [address] [facility] 09:13:29 Date Recorded Body height Body weight Provider Name and Address Organization Details Last Updated DateTime 07/01/2024 161.29 cm 35196.63 g Elba Gomez [facility] 07/01/2024 08:52:21 Social History None recorded. [...] Note [id number] CHELSY MARTIN MD [facility] [address] [address] 05/13/2024 08:34:46 05/13/2024 09:52:35 Allergic rhinitis 69453195 J30.9 Disorder o f right Eustachian tube 0114990270 438290 H69.81 Sensorineu ral hearing loss 46376641 H90.41 Audiologic al evaluation results: Right ear: [...] DNT#} } [id number] PAWAN HANDLEY A All[facility] [address] [place] [address] 06/05/2024 08:57:39 06/05/2024 13:08:25 Allergic rhinitis 04864716 J30.9 [id number] CHELSY MARTIN MD [facility] [address] [address] 07/01/2024 08:42:29 07/01/2024 09:23:58 Allergic rhinitis 62334498 J30.9 Disorder o f right Eustachian tube 6961786881 354993 H69.81 Obstructiv e sleep apnea of adult 4049668533 103 G47.33 I recommende d she be diligent about the cleaning protocols for her CPAP machine, as mold can grow in CPAP machines Adhesive m iddle ear disease 4361596 H74.11 Health Concerns Section Related Observation LastModified by Organization Detai ls LastModified Time None Recorded Concern Status LastModified by Organization Details LastModified Time None Recorded Advance Directives Directive None Recorded Payers Encounter Date Sequence Insurance Name Policy Number Policy Patel Covered Member ID Patel Member ID Guarantor Name 05/13/2024 1 [facility] (MEDICAID [facility] [id number] Marlyn Nunez [id number] Marlyn Nunez 06/05/2024 1 [facility] [id number] Marlyn Nunez [id number] Marlyn Nunez 07/01/[address] [place] [address] (MEDICAID HMO) [id number] Marlyn Nunez [id number] Marlyn Enrique Notes Date Note Type Note [...] was younger. CHELSY MARTIN MD 100 [facility],[address], [address], [facility] 05/13/2024 09:59:28 07/01/2024 text/html 59-year-old sy [...] right ear CHELSY MARTIN MD 100 [facility] [address], [place], [address], [facility] 07/01/2024 09:25:15 OBGyn Episode No OBEpisode recorded.
== END 2025-02-23 08:01 | disposition home or self-care (01) ==
LOC: HO.US 08:00
PROVIDERS: PCP Internal Medicine; Visit Provider Nurse Practitioner Adult Health
DX: K76.0 Fatty (change of) liver, not elsewhere classified (principal)
CPT/HCPCS: 76705; 76981

== ENCOUNTER → 2025-02-23 08:02 | Outpatient (BNV) | payer OTHER, SELFPAY | PROVIDERS: PCP Internal Medicine; Visit Provider Radiology Diagnostic Radiology | DX: K76.0 Fatty (change of) liver, not elsewhere classified (principal) | CPT/HCPCS: 76705; 76981 ==

== ENCOUNTER 2025-03-30 06:30 | Outpatient (REF) | payer OTHER, SELFPAY ==
--- OUTSIDE RECORDS SUMMARY | 2025-03-30 06:33 | XMS_ITS | Continuity of Care Document ---
Author Organization [facility] Address [address] [place] [address] Phone Care Team Providers Care Tarp Repairer Name Role Phone Dimitri SARAVIA FACS RVT [...] Providers Copied on [facility]counter [facility], [address], [id number], [place] tel:[phone] [facility] No Information 3 Dimitri SARAVIA FACS Lidia Dsouza. [address] [place] [address], Suite [facility], [place], [address], [place]. [phone] Referring Provider: Shira Garcia MD S, [address] [place] [address], [place], [address]. tel:[phone] [place] [facility], [address] [place] [address] [address], [id number], [place] tel:[phone] [facility] [place] No Information 3 Dimitri Dsouza. [address] [place] [address], [place] [address], [place], [address], [place]. [phone] Referring Provider: Shira Garcia MD S, [address] [place] [address], [place], [address]. tel:[phone] Offic/outpt E&m Estab 5 Min Trial - Telemedicine [facility], [address] [place] [address] [address], [id number], [place] tel:[phone] [facility] [place] Venous insufficiency (chronic) (peripheral) 3 Dimitri SARAVIA FACS Lidia Dsouza. [address] [place] [address], [place] [address], [place], [address], [place]. tel:[phone] Referring Provider: Shira Garcia MD S, [address] [place] [address], [place], [address]. tel:[phone] Office/Outpt E&M Established 25 Mins [facility], [address] [place] [address] [address], [id number], [place] tel:[phone] CV[place] Venous insufficiency (chronic) (peripheral) 3 Dimitri Dsouza. [facility], [address], [place], [address], [place]. [phone] Referring Provider: Shira Garcia MD S, [address] [place] [address], [place], [address]. tel:[phone] [facility], [address] [place] [address] [address], [id number], [place] tel:[phone] CVR - [place] - [place] Venous insufficiency (chronic) (peripheral)Pa in in right legPain in left leg 3 Dimitri SARAVIA FACS T AYO Dsouza. [address] [facility], [place] [address], [place], [address], [place]. tel:[phone] Referring Provider: Shira Garcia MD S, [address] [place] [address], [place], [address]. tel:[phone] Offic Cons New/estab Mod 40 Nv [facility], [address] [place] [address] [address], [id number], [place] tel:[phone] CVR - [place] Venous insufficiency (chronic) (peripheral)Re stless legs syndromeEssent ial (primary) hypertensionFl ail joint, unspecified jointCramp and spasmLocalized edema 3 Dimitri SARAVIA FACS Lidia Dsouza. [address] [facility], [place] [address], [place], [address], [place]. tel:[phone] Referring Provider: Shira Garcia MD S, [address] [place] [address], [place], [address]. tel:[phone] Family History Family Member Type Diagnosis Age At Onset No Information Payers Payer name Insurance type Covered democrat ID Gunjan live(s) [facility] [id number] Social History Type Description Quantity Date Captured [...]
--- OUTSIDE RECORDS SUMMARY | 2025-03-30 06:33 | XMS_ITS | Data Portability ---
Author Organization [place] - [facility], Allergy Address [address] [address] Care Team Providers Care Radiology Scheduler Name Role Phone EDILBERTO MATIAS Primary Care [...] see her back after it is completed. [email or web address] Not available 05/13/2024 09:00:24 07/01/2024 07/01/2024 Patient [...] follow-up in 1 year for audiometric testing. [email or web address] Not available 07/01/2024 09:24:22 Plan of Treatment [...] By Organization Details Last Modified Time 06/05/2024 2535 Nursing Documentation for Allergy Testing: Ordering Provider [...] ? ? ? 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 Symptoms having: {{Congestion* Post Nasal Drip [...] mucoid otitis media of right middle ear [id number] 79537 Active 2022 Chronic mucoid otitis media, right ear; Note: Date Diagnosed : 05/24/2023 10:31 AM (H65.31) Not Available [facility] 4 02:42:44 Dizziness and giddiness 330634543 Active 2018 Dizziness and giddiness ; Note: Date Diagnosed : 06/17/2019 4:04 PM (R42) Not Available [facility] 4 02:42:37 Tinnitus of right ear 85859444766 08 Active 2018 Tinnitus, right ear; Note: Date Diagnosed : 06/17/2019 4:04 PM (H93.11) Not Available [facility] 4 02:42:38 Family history of hearing loss 832735643 Active 2019 Family history of deafness and hearing loss; Note: Date Diagnosed : 12/02/2019 4:30 PM (Z82.2) Not Available [facility] 4 02:42:42 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; Note: Date Diagnosed : 12/02/2019 4:35 PM (H74.11) Not Available [facility] 4 02:42:41 Conductiv e hearing loss 52546986 Active 2018 Conductiv e hearing loss, unilatera l, right ear, with unrestric angie hearing on the contralat eral side; Note: Date Diagnosed : 06/17/2019 4:04 PM (H90.11) Not Available [facility] 4 02:42:41 Acute myringiti s of right ear 97716746371 00373 Active 2018 Acute myringiti s, right ear; Note: Date Diagnosed : 06/17/2019 4:44 PM (H73.001) Not Available [facility] 4 02:42:42 Disorder of right Eustachia n tube 74581147185 07839 Active 2018 Other specified disorders of Eustachia n tube, right ear; Note: Date Diagnosed : 06/17/2019 4:04 PM (H69.81) Not Available [facility] 4 02:42:40 Allergic rhinitis 38451141 Active 2023 CHELSY MARTIN MD [address] [facility],[place] [address], [place], [address] , [place] - [facility] 4 08:59:03 Non-aller gic rhinitis 66768074055 1 Active 2023 CHELSY MARTIN MD [address] [place] [address],[place] [address], [place], [address] , [place] - [facility] 4 08:59:32 Seasonal allergic rhinitis 088079805 Active 2023 CHELSY MARTIN MD [address] [facility],[place] [address], [place], [address] , [place] - [facility] 4 08:59:32 Sensorine ural hearing loss 65422413 Active 2023 MERRICK CHENG [address] [place] [address],[place] [address], [place], [address] , [place] - [facility] 4 09:12:56 Obstructi ve sleep apnea of adult 08260510371 03 Active 2023 CHELSY MARTIN MD [address] [facility],[place] [address], [place], [address] , [place] - [facility] 09:17:04 Problem Notes None recorded. Procedures Surgical History Date Name Laterality Status Provider Name and Address Organization Details Recorded Time 07/01/20 Allergy Testing-Full completed CHELSY MARTIN MD [address] [facility],[place] [address], [place], [address], [place] - [facility] 06/30/2024 10:37:11 06/05/20 24 Allergy Testing-Full completed PAWAN HANDLEY, A [address] [facility],[place] [address], [place], [address], [place] [facility] 06/05/2024 10:17:57 05/13/20 24 Comp Audio with Tymps - 43099 & 40572 completed ZARI ARRINGTON, AUD [address] [facility],[place] [address], [place], [address], [place] - [facility] 05/13/2024 09:12:41 section completed Elba Gomez [place] - [facility] 05/13/2024 08:44:52 Myringotomy Tube Placement completed Elba Gomez [place] - [facility] 05/13/2024 08:45:00 repair of meniscus completed Elba Gomez [place] - [facility] 05/13/2024 08:45:07 closed reduction of fracture of ankle completed Elba Gomez [place] - [facility] 05/13/2024 08:45:23 Imaging Results Imaging Date Name Status LastModified by [facility]iz [facility] Details LastModified Time 05/15/2024 audiogram [...] Name and Address Organization Details Recorded Time 588611 latex environme nt,medica tion Not available Not available Not available 05/13/2024 73145 91 RxNorm Elba mensah [place] - [facility] 4 08:40:47 561347 Product containin g penicilli n (product) medicatio n Not available Not available Not available 05/13/2024 59894 8001 KOREY MARTIN MD [address] [facility],[address], [place], [address], [facility] - [facility] 4 09:50:58 187988 Ketek medicatio n Not available Not available Not available 05/13/2024 04891 7 RxNorm CHELSY MARTIN MD [address] [facility],[address], [place], [address], [facility] - [facility] 4 09:51:08 503023 lisinopri l medicatio n Not available Not available Not available 05/13/2024 27334 RxNorm CHELSY MARTIN MD [address] [facility],[address], [place], [address], [facility] - [facility] 4 09:51:17 247806 Substance with sulfonami de structure and antibacte rial mechanism of action (substanc e) medicatio n Not available Not available Not available 05/13/2024 57641 8003 KOREY MARTIN MD [address] [facility],[address], [place], [address], [facility] - [facility] 4 09:51:23 Medications Name Sig Start [...] mg tablet 05/13 completed Medicati on ID: [id number] D uration Value: 30 Brand Name: zolpidem Send Method: E-Prescr ibed Sub s Allowed: subs OK Speci al Instruct ion: TAKE 1 TABLET BY MOUTH AT BEDTIME FOR 30 DAYS Med icationG enericNa me: zolpidem Medicat ion ID: [id number] D uration Value: 30 Brand Name: zolpidem [...] mg tablet 05/13 completed Medicati on ID: [id number] D uration Value: 30 Brand Name: atenolol Send Method: E-Prescr ibed Sub s Allowed: subs OK Speci al Instruct ion: TAKE 1 TABLET BY MOUTH EVERY DAY Medi cationGe nericNam e: atenolol Medicat ion ID: [id number] D uration Value: 30 Brand Name: atenolol [...] mg tablet 05/13 completed Medicati on ID: [id number] D uration Value: 30 Brand Name: naproxen Send Method: E-Prescr ibed Sub s Allowed: subs OK Speci al Instruct ion: TAKE 1 TABLET BY MOUTH EVERY 12 HOURS WITH FOOD OR MILK NEEDED FOR 30 DAYS Med icationG enericNa me: naproxen Medicat ion ID: [id number] D uration Value: 30 Brand Name: naproxen [...] drops,shin p 05/24 completed Medicati on ID: [id number] D uration Value: 7 Brand Name: neomycin -polymyx in-HC Se nd Method: E-Prescr ibed Sub s Allowed: subs OK Medic ationGen ericName : neomycin -polymyx in-HC Not Available Not Available Not Available TobraDex 0.3 %-0.1 % eye drops,shin pension 5 as directed 05/13 completed Medicati on ID: [id number] D uration Value: 30 Brand Name: TobraDex Send Method: E-Prescr ibed Sub s Allowed: subs ELZA Speci al Instruct ion: Instill 5 drops in the affected ear BID for 30 days Med icationG enericNa me: TobraDex Medicat ion ID: [id number] D uration Value: 30 Brand Name: TobraDex Send Method: E-Prescr ibed Sub s Allowed: subs ELZA Hardingi al Instruct ion: Instill 5 drops in the affected ear BID for 30 days Med icationG enericNa me: TobraDex Not Available Not Available Not Available sulfaceta mide sodium-street lfur-urea 10 %-4 %-10 % topical cleanser 05/13 completed Medicati on ID: [id number] B rand Name: sulfacet amide sod-sulf ur-urea Send Method: E-Prescr ibed Sub s Allowed: subs OK Medic ationGen ericName : sulfacet amide sod-sulf ur-urea Medicati on ID: [id number] B rand Name: sulfacet amide sod-sulf ur-urea Send Method: E-Prescr ibed Sub s Allowed: subs OK Medic ationGen ericName : sulfacet amide sod-sulf ur-urea Not Available Not Available Not Available Vitals Date Recorded Body height Body weight Provider Name and Address Organization Details Last Updated DateTime 05/13/2024 161.29 cm 06656.66 g Elba Gomez [facility] 05/13/2024 08:47:34 Date Recorded Body height Body mass index (BMI) Body weight Oxygen saturation Oxygen saturation in Arterial blood by Pulse oximetry Heart rate Systolic blood pressure Diastolic blood pressure Provider Name and Address Organization Details Last Updated DateTime 161.29 cm 31.4 kg/m2 68925.6 3 g 97 % 97 % 61 /min 120 mm[Hg] 72 mm[Hg] [address], [address] [place], [place] - [facility] 09:13:29 Date Recorded Body height Body weight Provider Name and Address Organization Details Last Updated DateTime 07/01/2024 161.29 cm 11916.63 g Elba Gomez [facility] 07/01/2024 08:52:21 Social History None recorded. [...] Note [id number] CHELSY MARTIN MD [facility] [address] [address] 05/13/2024 08:34:46 05/13/2024 09:52:35 Allergic rhinitis 71658287 J30.9 Disorder o f right Eustachian tube 7299280536 710649 H69.81 Sensorineu ral hearing loss 64931914 H90.41 Audiologic al evaluation results: Right ear: [...] } 8397 PAWAN HANDLEY A All[facility] [address] [place] [address] 06/05/2024 08:57:39 06/05/2024 13:08:25 Allergic rhinitis 66589558 J30.9 [id number] CHELSY MARTIN MD [facility] [address] [address] 07/01/2024 08:42:29 07/01/2024 09:23:58 Allergic rhinitis 27523524 J30.9 Disorder o f right Eustachian tube 3517434748 157825 H69.81 Obstructiv e sleep apnea of adult 7469425024 103 G47.33 I recommende d she be diligent about the cleaning protocols for her CPAP machine, as mold can grow in CPAP machines Adhesive m iddle ear disease 4091799 H74.11 Health Concerns Section Related Observation LastModified by Organization Detai ls LastModified Time None Recorded Concern Status LastModified by Organization Details LastModified Time None Recorded Advance Directives Directive None Recorded Payers Insurance Date Sequence Insurance Name Policy Number Policy Patel Covered Member ID Patel Member ID Guarantor Name 01/20/[address] [facility] [id number] Marlyn Nunez [id number] Marlyn Nunez 09/30/[address] [facility] [id number] Marlyn Nunez [id number] Marlyn Nunez Notes Date Note Type Note Provider Name [...] she was younger. CHELSY MARTIN MD [address] [facility],[address], [address], [facility] - [facility] 05/13/2024 09:59:28 07/01/2024 text/html 59-year-old sy [...] the right ear CHELSY MARTIN MD [address] [facility],[address], [place], [address], [facility] - [facility] 07/01/2024 09:25:15 OBGyn Episode No OBEpisode recorded.
[2025-03-30 10:03] LABS: MANUAL DIFF FLAG NO
[2025-03-30 10:16] LABS: Basophils Absolute Auto 0.1 X10*3/uL (0.0-0.2); Basophils Percent Auto 1.2 % (0-2); Eosinophils Absolute Auto 0.2 X10*3/uL (0.0-0.4); Eosinophils Percent Auto 4.3 % (0-4); Hematocrit 41.5 % (37.0-47.0); Hemoglobin 14.2 g/dl (12.0-16.0); Imm Gran Abs Auto 0.01 X10*3/uL (0.00-0.03); Imm Gran Pct Auto 0.2 % (0.0-0.4); Lymphocytes Absolute Auto 2.1 X10*3/uL (1.2-4.9); Lymphocytes Percent Auto 40.4 % (20-40); Mean Corpuscular HGB Conc 34.2 g/dl (31.0-35.0); Mean Corpuscular Hemoglobin 30.9 pg (27.0-33.0); Mean Corpuscular Volume 90.2 fL (80.0-98.0); Mean Platelet Volume 11.8 fL (9.4-12.3); Monocytes Absolute Auto 0.4 X10*3/uL (0.1-1.2); Monocytes Percent Auto 7.2 % (2-11); Neutrophils Absolute Auto 2.4 x10*3/uL (2.0-8.3); Neutrophils Percent Auto 46.7 % (45-73); Platelet Count 166 X10*3/uL (160-400); Red Cell Distribution Width 12.3 % (11.0-16.0); White Blood Count 5.2 X10*3/uL (4.8-10.8)
[2025-03-30 10:52] LABS: Alanine Aminotransferase 32 U/L (0-31); Albumin Level 3.8 g/dL (3.5-5.0); Alkaline Phosphatase 62 U/L (39-117); Anion Gap 11 (12-20); Aspartate Amino Transferase 28 U/L (5-31); Bilirubin Total 0.5 mg/dL (0.0-1.0); Blood Urea Nitrogen 17 mg/dL (9-16); Calcium 8.5 mg/dL (8.4-10.2); Carbon Dioxide 24 mmol/L (22-29); Chloride 111 mmol/L (96-108); Cholesterol 175 mg/dL (<200); Estimated Glomerular Filt Rate > 60; Glucose Fasting 93 mg/dL (60-99); HDL Cholesterol 46 mg/dL (>40); LDL Cholesterol Calculated 110 mg/dL (<100); Potassium 4.2 mmol/L (3.3-5.1); Sodium 142 mmol/L (135-145); TSH reflex Free T4 2.76 uIU/mL (0.32-4.0); Total Protein 5.9 g/dL (6.5-8.0); Triglycerides 98 mg/dL (<150)
[2025-03-30 11:03] LABS: Folate 10.6 ng/mL (> or = 4.0); Vitamin B12 533 pg/mL (200-900)
== END 2025-03-30 06:31 | disposition home or self-care (01) ==
LOC: HO.HMGCLDS 06:30
PROVIDERS: PCP Internal Medicine; Visit Provider Internal Medicine
DX: I10 Essential (primary) hypertension (principal); E03.9 Hypothyroidism, unspecified; E53.8 Deficiency of other specified B group vitamins
CPT/HCPCS: 36415; 80053; 80061; 82607; 82746; 84443; 85025

== ENCOUNTER 2025-04-06 13:06 | Outpatient (AMB) | payer OTHER, SELFPAY ==
--- OUTSIDE RECORDS SUMMARY | 2025-04-06 13:10 | XMS_ITS | Continuity of Care Document ---
Author Organization [facility] Address [address] [place] [address] Phone Care Team Providers Care Wig Maker Name Role Phone Dimitri SARAVIA FACS RVT [...] Providers Copied on Encounter [facility], [address], [id number], [place] tel:[phone] CV[place] No Information 3 Dimitri SARAVIA FACS Lidia Dsouza. [address] [place] [address], Suite [facility], [place], [address], [place]. [phone] Referring Provider: Shira Garcia MD S, [address] [place] [address], [place], [address]. tel:[phone] [place] [facility], [address] [place] [address] [address], [id number], [place] tel:[phone] [facility] [place] No Information 3 Dimitri Dsouza. [address] [place] [address], [place] [address], [place], [address], [place]. [phone] Referring Provider: Shira Garcia MD S, [address] [place] [address], [place], [address]. tel:[phone] Offic/outpt E&m Estab 5 Min Trial - Telemedicine [facility], [address] [place] [address] [address], [id number], [place] tel:[phone] CVR [place] Venous insufficiency (chronic) (peripheral) 3 Dimitri SARAVIA FACS Lidia Dsouza. [address] [place] [address], [place] [address], [place], [address], [place]. tel:[phone] Referring Provider: Shira Garcia MD S, [address] [place] [address], [place], [address]. tel:[phone] Office/Outpt E&M Established 25 Mins [facility], [address] [place] [address] [address], [id number], [place] tel:[phone] CV[place] Venous insufficiency (chronic) (peripheral) 3 Dimitri Dsouza. [facility] [facility], [address], [place], [address], [place]. [phone] Referring Provider: Shira Garcia MD S, [address] [place] [address], [place], [address]. tel:[phone] [facility], [address] [place] [address] [address], [id number], [place] tel:[phone] CVR - [place] Venous insufficiency (chronic) (peripheral)Pa in in right legPain in left leg 3 Dimitri SARAVIA FACS T AYO Dsouza. [address] [facility], [place] [address], [place], [address], [place]. tel:[phone] Referring Provider: Shira Garcia MD S, [address] [place] [address], [place], [address]. tel:[phone] Offic Cons New/estab Mod 40 Ks [facility], [address] [place] [address] Dr [address], [id number], [place] tel:[phone] CVR [place] Venous insufficiency (chronic) (peripheral)Re stless legs syndromeEssent ial (primary) hypertensionFl ail joint, unspecified jointCramp and spasmLocalized edema 3 Dimitri SARAVIA FACS Lidia Dsouza. [address] [facility], [place] [address], [place], [address], [place]. tel:[phone] Referring Provider: Shira Garcia MD S, [address] [place] [address], [place], [address]. tel:[phone] Family History Family Member Type Diagnosis Age At Onset No Information Payers Payer name Insurance type Covered libertarian ID Gunjan live(s) [facility] [id number] Social History Type Description Quantity Date Captured [...]
[2025-04-06 13:35] VITALS: BP 104/62; PULSE 72; RESP 18; TEMP 36.4; O2SAT 97; BMI 29.0
--- NOTE | 2025-04-06 13:35 | A.OFFPC_ITS ---
Vital Signs 04/06/25 13:35 Height 5 ft 3 in Weight 164 lb BMI 29.0 BP 104/62 Blood Pressure Location Rt brachial Position Sitting Respiration 18 Pulse 72 Pulse Source Pulse Oximeter Temp 97.6 F Temp Source Oral Pulse Oximetry (%) 97 Oxygen Delivery Method Room Air Intake Visit Reasons: 3 months f/up - see comments Intake Note: Pt is here today for 3 months follow up visit. Allergies lisinopril [LISINOPRIL] Allergy (Severe, Verified 04/06/25 13:41) COUGH telithromycin [From KETEK] Allergy (Intermediate, Verified 04/06/25 13:41) BLURRED VISION latex [LATEX] Allergy (Mild, Verified 04/06/25 13:41) RASH celecoxib [Celebrex] Allergy (Unknown, Verified 04/06/25 13:41) rash penicillamine [PENICILLAMINE] Allergy (Unknown, Verified 04/06/25 13:41) UNKNOWN valsartan [Diovan] Allergy (Unknown, Verified 04/06/25 13:41) Unknown Sulfa (Sulfonamide Antibiotics) Allergy (Verified 04/06/25 13:41) hives, throat constriction cortisone injection Allergy (Unknown, Uncoded 04/06/25 13:41) caused menstration Medication List - Last Reconciled 04/06/25 by Shira Garcia MD albuterol sulfate 90 mcg/actuation 2 puffs inhalation Q4-6H PRN cholecalciferol (vitamin D3) 50 mcg PO DAILY diclofenac sodium 75 mg PO BID estradiol 1 patch transdermal 2XW gabapentin mg PO irbesartan 300 mg PO DAILY levothyroxine 100 mcg PO DAILY pravastatin 10 mg PO DAILY progesterone micronized 100 mg PO DAILY semaglutide (weight loss) (Wegovy) 0.5 mg (0.5 mL) subcut QWEEK Tobacco use date assessed: 01/01/25 Dental Screening Dental Screen Date: 01/01/25 HPI 3 months f/up - see comments HPI Details Patient presents for the follow-up of hypertension hyperlipidemia hypothyroidism. She has been taking Wegovy 0.5 mg for 4 months and lost 15 lb. Patient has been exercising regularly doing water aerobics and eating well- balanced diet. [facility] Medical History Obesity (BMI 30.0-34.9) Annual physical exam URI (upper respiratory infection) Left flank pain Lower back pain Muscle spasm of both lower legs Daytime sleepiness Right knee injury Swelling of left lower extremity Bleeding from varicose veins of left lower extremity Right otitis media Flu-like symptoms Sprain of left knee Knee pain, left Hyperglycemia Shingles rash Obesity due to excess calories Hand pain, right Hair loss Encounter for screening laboratory testing for COVID-19 virus Well woman exam with routine gynecological exam Hyperlipidemia Chronic pain of right thumb Vitamin D deficiency Elevated cortisol level Hypothyroidism Incontinence HTN (hypertension) Surgical History History of surgery History of uvulectomy Hx of myringotomy Hx of section History of ankle surgery Hx of knee surgery Family History Father No problems noted. Mother No problems noted. Family/Other History of breast cancer Social History Household Members: None Housing: House Alcohol intake: current Alcohol intake frequency: holidays/special occasions only Patient Tobacco Use Status: Former Tobacco user Tobacco use type: Cigarette Years Smoked: 15 years ago e-Cigarette/Vaping Use: Never Used Second Hand Smoke Exposure: No service: No Current occupational status: employed Sexual orientation: Straight/Heterosexual Gender identity: Female Cognitive needs: No Hearing needs: No Vision needs: Yes Female Reproductive History Menstrual Age of Menarche: 9 Questionnaire Thrive Questionnaire Date Thrive assessed: 01/01/25 I am a: Patient What is your living situation today?: I choose not to answer this question Within the past 12 months, did the food you bought not last and you didn't have the money to get more?: I choose not to answer this question Within the past 12 months, did you worry whether your food would run out before you got money to buy more?: I choose not to answer this question Do you have trouble paying for medicines?: I choose not to answer this question Do you have trouble getting transportation to medical appointments?: I choose not to answer this question Do you have trouble paying your heating and electricity bill?: I choose not to answer this question Do you have trouble taking care of your child, family member or friend?: I choose not to answer this question Do you have trouble with day-to-day activities such as bathing, preparing meals, shopping, managing finances, etc.?: I choose not to answer this question Are you currently unemployed and looking for a job?: I choose not to answer this question Are you interested in more education?: I choose not to answer this question Please select the resources that you would like help with: None Currently or been in a relationship where the following occur: I choose not to answer THRIVE Score: 0 DUY-7 AMB Questionnaire DUY-7 Date DUY - 7 assessed: 01/01/25 Source: Developed by Drs. Jose Enrique Rubi, Vielka Reddy, Natalio De and colleagues, with an educational lena from [employer] Review of Systems Const All systems reviewed & are unremarkable except as noted in HPI and below Eyes Reports no additional complaints ENT Reports no additional complaints Resp Reports no additional complaints GI Reports no additional complaints Reports no additional complaints Musc Reports no additional complaints Physical exam (Primary Care) Vital Signs: Last Vital Signs Temp 97.6 F 04/06/25 13:35 Pulse 72 04/06/25 13:35 Resp 18 04/06/25 13:35 BP 104/62 04/06/25 13:35 Pulse Ox 97 04/06/25 13:35 Oxygen Delivery Method Room Air 04/06/25 13:35 BMI result Body Mass Index 29.0 Tobacco/Smoking Status: Tobacco use Status Tobacco use date assessed 01/01/25 04/06/25 13:38 Patient Tobacco Use Status Former Tobacco user 04/06/25 13:38 Tobacco use type Cigarette 04/06/25 13:38 e-Cigarette/Vaping Use Never Used 04/06/25 13:38 Thrive Assessment: Date of Thrive Assessment Date Thrive assessed 01/01/25 04/06/25 13:38 Currently or been in a relationship where the following occur: I choose not to answer Const General: no acute distress HENMT Head: Yes normal to inspection Eyes General: appearance normal, both eyes and all related structures Chest Chest palpation & inspection: normal inspection of the chest Resp Effort & Inspection: normal respiratory effort Auscultation: clear to auscultation bilaterally Cardio Rhythm: regular rhythm Heart sounds: S1 normal heart sound present and S2 normal heart sound present GI Inspection: Yes normal to inspection Palpation (GI): Soft to palpation Percussion: Yes normal to percussion Coding Level of Care Code Est Pt Level 4 (51368) Complex EM visit Add On G2211 Diagnoses Hypothyroidism, unspecified type E03.9 Hypothyroidism type: unspecified HTN (hypertension) I10 Hyperlipidemia E78.5 Vitamin B12 deficiency E53.8 Obesity (BMI 30.0-34.9) E66.811 Assessment & Plan Assessment & Plan (1) Hypothyroidism: Code(s): E03.9 - Hypothyroidism, unspecified Category: Medical Qualifiers: Hypothyroidism type: unspecified Qualified Code(s): E03.9 - Hypothyroidism, unspecified Plan: Continue Levothyroxine (2) HTN (hypertension): Code(s): I10 - Essential (primary) hypertension Category: Medical Plan: Decrease Irbesartan to 150 mg a day. Continue low-sodium diet regular exercise (3) Hyperlipidemia: Code(s): E78.5 - Hyperlipidemia, unspecified Category: Medical Plan: Continue pravastatin (4) Vitamin B12 deficiency: Code(s): E53.8 - Deficiency of other specified B group vitamins Category: Medical Plan: Continue vitamin B12 (5) Obesity (BMI 30.0-34.9): Code(s): E66.811 - Obesity, class 1 Category: Medical Plan: Increase Wegovy to 1 mg weekly follow-up in 3 months with a fasting labs before Orders: Orders Comprehensive [place]. Panel Fast 3 Months E03.9 - Hypothyroidism, unspecified, E53.8 - Deficiency of other specified B group vitamins, E78.5 - Hyperlipidemia, unspecified, I10 - Essential (primary) hypertension Complete Blood Count Auto Diff 3 Months E03.9 - Hypothyroidism, unspecified, E53.8 - Deficiency of other specified B group vitamins, E78.5 - Hyperlipidemia, unspecified, I10 - Essential (primary) hypertension Lipid Panel 3 Months E03.9 - Hypothyroidism, unspecified, E53.8 - Deficiency of other specified B group vitamins, E78.5 - Hyperlipidemia, unspecified, I10 - Essential (primary) hypertension Vitamin B12 and Folate 3 Months E03.9 - Hypothyroidism, unspecified, E53.8 - Deficiency of other specified B group vitamins, E78.5 - Hyperlipidemia, unspecified, I10 - Essential (primary) hypertension Medications: New irbesartan 150 mg PO DAILY 90 tabs 0RF Wegovy (semaglutide (weight loss)) 1 mg (0.5 mL) subcut Q7D 2 mL 3RF NS Discontinued irbesartan Discontinued Reason: Doctor's Order 300 mg PO DAILY 90 tabs 3RF I10 - Essential (primary) hypertension semaglutide (weight loss) (Wegovy) administer weeks 5 through 8 of therapy Discontinued Reason: Doctor's Order 0.5 mg (0.5 mL) subcut QWEEK 2 mL 4RF
== END 2025-04-06 14:03 | disposition home or self-care (01) ==
LOC: HO.HMCC 13:07
PROVIDERS: PCP Internal Medicine; Visit Provider Internal Medicine
DX: E03.9 Hypothyroidism, unspecified (principal); E66.811 Obesity, class 1; Z68.29 Body mass index [BMI] 29.0-29.9, adult; I10 Essential (primary) hypertension; E78.5 Hyperlipidemia, unspecified; E53.8 Deficiency of other specified B group vitamins

== ENCOUNTER → 2025-04-06 13:06 | Outpatient (BNVA) | payer OTHER, SELFPAY | PROVIDERS: PCP Internal Medicine; Visit Provider Internal Medicine | DX: Z13.89 Encounter for screening for other disorder (principal) ==

== ENCOUNTER 2025-04-07 08:35 | Outpatient (AMB) | payer OTHER, SELFPAY ==
--- NOTE | 2025-04-07 07:15 | A.OFFVIS_ITS ---
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 Accompanied by: Self / Same As Patient Allergies lisinopril [LISINOPRIL] Allergy (Severe, Verified 04/06/25 13:41) COUGH telithromycin [From KETEK] Allergy (Intermediate, Verified 04/06/25 13:41) BLURRED VISION latex [LATEX] Allergy (Mild, Verified 04/06/25 13:41) RASH celecoxib [Celebrex] Allergy (Unknown, Verified 04/06/25 13:41) rash penicillamine [PENICILLAMINE] Allergy (Unknown, Verified 04/06/25 13:41) UNKNOWN valsartan [Diovan] Allergy (Unknown, Verified 04/06/25 13:41) Unknown Sulfa (Sulfonamide Antibiotics) Allergy (Verified 04/06/25 13:41) hives, throat constriction cortisone injection Allergy (Unknown, Uncoded 04/06/25 13:41) caused menstration HPI Comments Details: This is a 60-year-old white female previously seen by endocrinology by Landy Velasquez NP for hypothyroidism in 2020. Patient was seen for management of obe sity as an initial consult by 10/21/[address] Ventura and had f/u in December. weight: 10/22/25 182 5 oz 01/13/25 171 4.7 04/07/25 163 Patient in the past has tried diets of eating healthy, chooses lean meats. Inability to lose Weight. Exercising with yoga and swimming. Was prescribed Zepbound by PCP. Has seen a professional skateboarder 2020- 2021. Thyroid levels recently checked (01/13) have been normal and managed by primary care. Underwent a dexamethasone suppression test 2020 which was normal. Has a hx of prediabetes/ IFG. No sx of Monika's Syndrome. Started Ovyqge07/14/25. Uses a CPAP mask for sleep apnea. She is sleeping well and feels better with the weight loss. Has more energy. She is now on 1/2 of the losartan she was taking due to weight loss. Has fatty liver on ultrasound. Elastography ruled out advanced fibrosis. Attends [employer] structured wt loss program. 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 Knee pain is better. She has been taking Wegovy 0.5 mg weekly. She does report constipation which she manages by increasing her water consumption and adding fiber. She is doing better with this taking some prunes or benefiber as needed. She has some GERD. This has become much better and is on occasion. Feels she has adjusted well to this dose and would like to increase dose. She has started to work through the book The Learn Method for weight control which is a 12 chapter weight loss workbook focusing on lifestyle, exercise, attitudes, relationship and nutrition. [facility] Medical History Obesity (BMI 30.0-34.9) Annual physical exam URI (upper respiratory infection) Left flank pain Lower back pain Muscle spasm of both lower legs Daytime sleepiness Right knee injury Swelling of left lower extremity Bleeding from varicose veins of left lower extremity Right otitis media Flu-like symptoms Sprain of left knee Knee pain, left Hyperglycemia Shingles rash Obesity due to excess calories Hand pain, right Hair loss Encounter for screening laboratory testing for COVID-19 virus Well woman exam with routine gynecological exam Hyperlipidemia Chronic pain of right thumb Vitamin D deficiency Elevated cortisol level Hypothyroidism Incontinence HTN (hypertension) Surgical History History of surgery History of uvulectomy Hx of myringotomy Hx of section History of ankle surgery Hx of knee surgery Family History Father No problems noted. Mother No problems noted. Family/Other History of breast cancer Social History Household Members: None Housing: House Alcohol intake: current Alcohol intake frequency: holidays/special occasions only Patient Tobacco Use Status: Former Tobacco user Tobacco use type: Cigarette Years Smoked: 15 years ago e-Cigarette/Vaping Use: Never Used Second Hand Smoke Exposure: No service: No Current occupational status: employed Sexual orientation: Straight/Heterosexual Gender identity: Female Cognitive needs: No Hearing needs: No Vision needs: Yes Female Reproductive History Menstrual Age of Menarche: 9 Physical Exam Vital Signs: Last Vital Signs Pulse 65 04/07/25 08:38 BP 118/66 04/07/25 08:38 Pulse Ox 100 04/07/25 08:38 Oxygen Delivery Method Room Air 04/07/25 08:38 BMI result Body Mass Index 28.9 Assessment & Plan Assessment & Plan (1) Obesity (BMI 30.0-34.9): Code(s): E66.811 - Obesity, class 1 Category: Medical Plan: This is a 60-year-old white female who was initially seen in the month of Nomi pak for obesity. She was started on Wegovy which had been increased up to 0.5 mg. Increase to 1 mg today. She has lost 19 lb since starting Wegovy. Prior to that time she was following a balanced diet with lean protein and regularly exercises. This had not lead to weight loss which was the initial reason why she came to our clinic. Sleep apnea improved. She has feels better has more energy. Blood pressure medication has been reduced in half and her hypertension is very well-controlled. She will continue to work through the learn method for weight control which is a self guided 12 chapter weight loss tool focusing on lifestyle, exercise, attitudes, relationship, nutrition. 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 Continue to follow up balanced diet. She will have liver fibrosis panel done. She was counseled that the treatment for fatty liver is weight reduction. There are additional treatments which could be pursued. She will follow up with Dr. Ventura in 2 months (2) Steatosis of liver: Code(s): K76.0 - Fatty (change of) liver, not elsewhere classified Plan: as above Orders: Orders Liver Fibrosis Pnl Today K76.0 - Fatty (change of) liver, not elsewhere classified Medications: Changed From Wegovy (semaglutide (weight loss)) 1 mg (0.5 mL) subcut Q7D 2 mL 3RF NS To Wegovy (semaglutide (weight loss)) 1 mg (0.5 mL) subcut Q7D 28 days 2 mL 3RF NS Refilled Wegovy (semaglutide (weight loss)) 1 mg (0.5 mL) subcut Q7D 28 days 2 mL 3RF NS Coding Level of Care Code Est Pt Level 3 (53332) Complex EM visit Add On G2211 Diagnoses Obesity (BMI 30.0-34.9) E66.811 Steatosis of liver K76.0 Time Spent (min) 30 Comment Time spent reviewing labs/provider notes, face to face, chart doc
[2025-04-07 08:38] VITALS: BP 118/66; PULSE 65; O2SAT 100; BMI 28.9
== END 2025-04-07 09:01 | disposition home or self-care (01) ==
LOC: HO.ENCR 08:36
PROVIDERS: PCP Internal Medicine; Visit Provider Nurse Practitioner Adult Health
DX: E66.811 Obesity, class 1 (principal); K76.0 Fatty (change of) liver, not elsewhere classified
CPT/HCPCS: 99213

== ENCOUNTER 2025-04-21 08:00 | Outpatient (RCR) | payer OTHER, SELFPAY ==
--- NOTE | 2025-03-10 10:00 | MHC.PT.EP ---
[facility] [place] Office [place] Office [place] Office [address] Nila Marcos [address] [phone] F: [phone] F: [phone] F: [phone] F: [phone] Physical Therapy Plan of Care Date of Evaluation: 03/10/25 Date of Surgery: Diagnosis: shoulder pain, right Assessment: Patient is a 60 year old R handed female who presents with s/s consistent with R shoulder pain. 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 Patient past medical history includes HTN, ankle surgery, and knee surgery. Current impairments include pain, posture, ROM, strength, activity tolerance and functional mobility. Functional limitations include decreased ability to reach, dress, sleep, hair dress, and be active. Patient is motivated with good rehab potential. Skilled PT will address impairments and functional limitations in order to achieve goals. Frequency and Duration: The patient will be seen 2x/week for 5 weeks Short Term Goals: I with HEP - 2 weeks AROM WNL And full - 3 weeks Pain free sleep - 3 weeks Loan Services Professional Goals: ER strength 4/5 grossly - 5 weeks ER AROM - 70 - 5 weeks SPADI 45/130 - 5 weeks Treatment Plan: Modalities to reduce pain, spasms and effusion. Manual therapy to restore motion and function. Therapeutic exercise to improve strength and flexibility. Neuromuscular re-education for posture and balance. Therapeutic activities to return to functional activities of daily living. Electronically signed by: Larry Martinez, PT Please sign and return to therapist. Thank you for your referral.
--- NOTE | 2025-06-09 09:29 | MHC.PT.DC ---
[facility] [place] Office [place] Office [place] Office [address] Ana Maria Marcos [address] [phone] F: [phone] F: [phone] F: [phone] F: [phone] Physical Therapy Discharge Report Diagnosis: shoulder pain, right Date of Surgery: Date of Evaluation: 03/10/25 Date of Discharge: 04/30/25 Treatments to Date: 7 Cancellations to Date: No Shows to Date: Discharge Status: Independent with HEP Patient Elected to Stop Recommend MD Follow-up Discharge Summary: 04/21; Pt conts with limitation with resistance with sh ext rot. Pt иван wit ortho and has 1 remaining visist before DC, 04/16; Pt has 2 remaining visit and neel be DC to ortho for further evaluation. 04/14/25: pt continues to have difficulty moving resistance past neutral. we discussed continuing vs refer. pt has 3 more visits at this time and we will take it 1 visit at a time. 04/09; Pt unable to do any resistance past N with sh ext rot. Discussed calling MD for further imaging. 04/02/25: pt still having difficulty passing neutral with ER when any resistance is added. attempt to progress as tolerated. if no progress in 2 visits, refer. 03/17/25: pt has been active. able to do circuit training today. 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 we will continue to address this functional task in PT. Patient is a 60 year old R handed female who presents with s/s consistent with R shoulder pain. 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 Patient past medical history includes HTN, ankle surgery, and knee surgery. Current impairments include pain, posture, ROM, strength, activity tolerance and functional mobility. Functional limitations include decreased ability to reach, dress, sleep, hair dress, and be active. Patient is motivated with good rehab potential. Skilled PT will address impairments and functional limitations in order to achieve goals. Electronically signed by: Larry Martinez, PT Please sign and return to therapist. Thank you for your referral.
== END 2025-06-09 09:30 | disposition home or self-care (01) ==
LOC: HO.PTCHIC 08:00
PROVIDERS: PCP Internal Medicine; Visit Provider Internal Medicine
DX: M25.511 Pain in right shoulder (principal)
CPT/HCPCS: 97110; 97140; 97163

== ENCOUNTER 2025-05-21 08:19 | Outpatient (AMB) | payer OTHER, SELFPAY ==
--- OUTSIDE RECORDS SUMMARY | 2023-09-24 07:47 | XMS_ITS | Continuity of Care Document ---
Author Organization [facility] Address [address] [place] [address] Phone Care Team Providers Care Ad Clerk Name Role Phone Dimitri SARAVIA FACS RVT [...] Providers Copied on Encounter [facility], [address], [id number], [place] tel:[phone] [place] No Information 3 Dimitri SARAVIA FACS Lidia Dsouza. [address] [place] [address], Suite [facility], [place], [address], [place]. [phone] Referring Provider: Shira Garcia MD S, [address] [place] [address], [place], [address]. tel:[phone] [facility], [address] [place] [address] [address], [id number], [place] tel:[phone] [facility] No Information 3 Dimitri Dsouza. [address] [place] [address], [place] [address], [place], [address], [place]. [phone] Referring Provider: Shira Garcia MD S, [address] [place] [address], [place], [address]. tel:[phone] Offic/outpt E&m Estab 5 Min Trial - Telemedicine [facility], [address] [place] [address] [address], [id number], [place] tel:[phone] [place] Venous insufficiency (chronic) (peripheral) 3 Dimitri SARAVIA FACS Lidia Dsouza. [address] [place] [address], [place] [address], [place], [address], [place]. tel:[phone] Referring Provider: Shira Garcia MD S, [address] [place] [address], [place], [address]. tel:[phone] Office/Outpt E&M Established 25 Mins [facility], [address] [place] [address] [address], [id number], [place] tel:[phone] [place] Venous insufficiency (chronic) (peripheral) 3 Dimitri Dsouza. [facility], [address], [place], [address], [place]. [phone] Referring Provider: Shira Garcia MD S, [address] [place] [address], [place], [address]. tel:[phone] [facility], [address] [place] [address] Dr [address], [id number], [place] tel:[phone] CVR - [place] Venous insufficiency (chronic) (peripheral)Pa in in right legPain in left leg 3 Dimitri SARAVIA FACS T AYO Dsouza. [address] [facility], [place] [address], [place], [address], [place]. tel:[phone] Referring Provider: Shira Garcia MD S, [address] [place] [address], [place], [address]. tel:[phone] Offic Cons New/estab Mod 40 [place] [facility], [address] [place] [address] Dr [address], [id number], [place] tel:[phone] [facility] - [place] Venous insufficiency (chronic) (peripheral)Re stless legs syndromeEssent ial (primary) hypertensionFl ail joint, unspecified jointCramp and spasmLocalized edema 3 Dimitri SARAVIA FACS Lidia Dsouza. [address] [facility], [place] [address], [place], [address], [place]. tel:[phone] Referring Provider: Shira Garcia MD S, [address] [place] [address], [place], [address]. tel:[phone] Family History Family Member Type Diagnosis Age At Onset No Information Payers Payer name Insurance type Covered democrat ID Gunjan live(s) [facility] [id number] Social History Type Description Quantity Date Captured [...]
[2025-05-21 08:20] VITALS: BP 120/78; PULSE 77; RESP 18; TEMP 36.5; O2SAT 98; BMI 28.2
--- NOTE | 2025-05-21 08:20 | A.OFFPC_ITS ---
Vital Signs 05/21/25 08:20 Height 5 ft 3 in Weight 159 lb BMI 28.2 BP 120/78 Blood Pressure Location Lt brachial Position Sitting Respiration 18 Pulse 77 Pulse Source Pulse Oximeter Temp 97.7 F Temp Source Oral Pulse Oximetry (%) 98 Oxygen Delivery Method Room Air Intake Visit Reasons: cough, sinus Intake Note: Pt is here today for a [facility] visit. Pt cough green mucus, R ear pain. Allergies lisinopril (LISINOPRIL) Allergy (Severe, Verified 05/21/25 08:21) COUGH telithromycin (From KETEK) Allergy (Intermediate, Verified 05/21/25 08:21) BLURRED VISION latex (LATEX) Allergy (Mild, Verified 05/21/25 08:21) RASH celecoxib (Celebrex) Allergy (Unknown, Verified 05/21/25 08:21) rash penicillamine (PENICILLAMINE) Allergy (Unknown, Verified 05/21/25 08:21) UNKNOWN valsartan (Diovan) Allergy (Unknown, Verified 05/21/25 08:21) Unknown Sulfa (Sulfonamide Antibiotics) Allergy (Verified 05/21/25 08:21) hives, throat constriction cortisone injection Allergy (Unknown, Uncoded 05/21/25 08:21) caused menstration Medication List - Last Reconciled 05/21/25 by Shira Garcia MD albuterol sulfate 90 mcg/actuation 2 puffs inhalation Q4-6H PRN azithromycin For 250 mg dose pack: take 500 mg today (day 1), then 250 mg for 4 days (days 2-5) PO cholecalciferol (vitamin D3) 50 mcg PO DAILY diclofenac sodium 75 mg PO BID estradiol 1 patch transdermal 2XW gabapentin 300 mg PO ONCE irbesartan 150 mg PO DAILY levothyroxine 100 mcg PO DAILY mecobalamin (vitamin B12) 1,000 mcg PO DAILY pravastatin 10 mg PO DAILY progesterone micronized 100 mg PO DAILY semaglutide (weight loss) (Wegovy) 1.7 mg (0.75 mL) subcut Q7D 28 days Tobacco use date assessed: 05/21/25 Dental Screening Dental Screen Date: 01/01/25 HPI cough, sinus HPI Details Patient complains of 1 week of sinus congestion postnasal drip, green nasal discharge right ear discomfort and fullness. Patient has been checking Claritin and using saline nasal spray. She denies fever chills pleurisy [facility] Medical History Obesity (BMI 30.0-34.9) Annual physical exam URI (upper respiratory infection) Left flank pain Lower back pain Muscle spasm of both lower legs Daytime sleepiness Right knee injury Swelling of left lower extremity Bleeding from varicose veins of left lower extremity Right otitis media Flu-like symptoms Sprain of left knee Knee pain, left Hyperglycemia Shingles rash Obesity due to excess calories Hand pain, right Hair loss Encounter for screening laboratory testing for COVID-19 virus Well woman exam with routine gynecological exam Hyperlipidemia Chronic pain of right thumb Vitamin D deficiency Elevated cortisol level Hypothyroidism Incontinence HTN (hypertension) Surgical History History of surgery History of uvulectomy Hx of myringotomy Hx of section History of ankle surgery Hx of knee surgery Family History Father No problems noted. Mother No problems noted. Family/Other History of breast cancer Social History Household Members: None Housing: House Alcohol intake: current Alcohol intake frequency: holidays/special occasions only Patient Tobacco Use Status: Former Tobacco user Tobacco use type: Cigarette Years Smoked: 15 years ago e-Cigarette/Vaping Use: Never Used Second Hand Smoke Exposure: No service: No Current occupational status: employed Sexual orientation: Straight/Heterosexual Gender identity: Female Cognitive needs: No Hearing needs: No Vision needs: Yes Female Reproductive History Menstrual Age of Menarche: 9 Questionnaire Thrive Questionnaire Date Thrive assessed: 01/01/25 I am a: Patient What is your living situation today?: I choose not to answer this question Within the past 12 months, did the food you bought not last and you didn't have the money to get more?: I choose not to answer this question Within the past 12 months, did you worry whether your food would run out before you got money to buy more?: I choose not to answer this question Do you have trouble paying for medicines?: I choose not to answer this question Do you have trouble getting transportation to medical appointments?: I choose not to answer this question Do you have trouble paying your heating and electricity bill?: I choose not to answer this question Do you have trouble taking care of your child, family member or friend?: I choose not to answer this question Do you have trouble with day-to-day activities such as bathing, preparing meals, shopping, managing finances, etc.?: I choose not to answer this question Are you currently unemployed and looking for a job?: I choose not to answer this question Are you interested in more education?: I choose not to answer this question Please select the resources that you would like help with: None Currently or been in a relationship where the following occur: I choose not to answer THRIVE Score: 0 AUDIT C Alcohol Use Questionnaire (AUDIT-C) 2. How many drinks containing alcohol do you have on a typical day when you are drinking?: 1 or 2 3. How often do you have six or more drinks on one occasion?: Never Total Score: 0 DUY-7 AMB Questionnaire DUY-7 Date DUY - 7 assessed: 01/01/25 Source: Developed by Drs. Jose Enrique Rubi, Vielka Reddy, Natalio De and colleagues, with an educational lena from [employer]. Review of Systems Const All systems reviewed & are unremarkable except as noted in HPI and below ENT Reports no additional complaints Card Reports no additional complaints Resp Reports no additional complaints GI Reports no additional complaints Physical exam (Primary Care) Vital Signs: Last Vital Signs Temp 97.7 F 05/21/25 08:20 Pulse 77 05/21/25 08:20 Resp 18 05/21/25 08:20 BP 120/78 05/21/25 08:20 Pulse Ox 98 05/21/25 08:20 Oxygen Delivery Method Room Air 05/21/25 08:20 BMI result Body Mass Index 28.2 Tobacco/Smoking Status: Tobacco use Status Tobacco use date assessed 05/21/25 05/21/25 08:22 Patient Tobacco Use Status Former Tobacco user 05/21/25 08:22 Tobacco use type Cigarette 05/21/25 08:22 e-Cigarette/Vaping Use Never Used 05/21/25 08:22 Thrive Assessment: Date of Thrive Assessment Date Thrive assessed 01/01/25 05/21/25 08:22 Currently or been in a relationship where the following occur: I choose not to answer Const General: no acute distress HENMT Head: Yes normal to inspection Ears: TM normal on the right and TM abnormal (left) bulging and erythematous General nose exam: Abnormal mucous membranes and turbinates present erythematous Face and sinus: Yes sinus tenderness Throat: Yes postnasal drainage Eyes General: appearance normal, both eyes and all related structures Neck Neck: Yes no lymphadenopathy and Yes supple Resp Effort & Inspection: normal respiratory effort Auscultation: clear to auscultation bilaterally Cardio Rhythm: regular rhythm Heart sounds: S1 normal heart sound present and S2 normal heart sound present Coding Level of Care Code Est Pt Level 3 (51706) Diagnoses Sinusitis J32.9 Assessment & Plan Assessment & Plan (1) Sinusitis: Code(s): J32.9 - Chronic sinusitis, unspecified Category: Medical Plan: Z-Jairo as prescribed and supportive care discussed with the patient Medications: New azithromycin For 250 mg dose pack: take 500 mg today (day 1), then 250 mg for 4 days (days 2-5) PO 6 tabs 0RF
--- OUTSIDE RECORDS SUMMARY | 2025-05-21 08:23 | XMS_ITS | Data Portability ---
Author Organization [place] - [facility], Allergy Address [address] [address] Care Team Providers Care Component Prep Operator Name Role Phone EDILBERTO MATIAS Primary [...] By Organization Details Last Modified Time 06/05/2024 [id number] Nursing Documentation for Allergy Testing: Ordering Provider Dr. Martin Weight:180lbs: kg: PFT Yes With Bronchodilator no approval needed to proceed with allergy testing? No ok'd testing History of Asthma:No Asthma Meds: Last used: Asthma exacerbated by: Chance that : No Fear of needles: Yes Regular medications reviewed in Computer: Yes Medication allergies: Reviewed Antihistamine use: Yes Medications used: Claritin Food Allergies:no Any foods make your mouth feeling itchy: No If yes: History of severe reaction where had to go to ER? 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 Results Created Date Observation Date Name Description Value Unit Range Abnormal Flag Note LastModifiedBy Organization Detail LastModifiedTime 05/15/20 audio gram No observ ation record ed. [email or web address] Not Available 2023 08:39:58 07/08/2001/15/2024 imagi ng/di agnos tic resul t No [...] mucoid otitis media of right middle ear 76866606965 62960 Active 2022 Chronic mucoid otitis media, right ear; Note: Date Diagnosed : 05/24/2023 10:31 AM (H65.31) Not Available [facility] 02:42:44 Dizziness and giddiness 364833969 Active 2018 Dizziness and giddiness ; Note: Date Diagnosed : 06/17/2019 4:04 PM (R42) Not Available [facility] 4 02:42:37 Tinnitus of right ear 74370061929 08 Active 2018 Tinnitus, right ear; Note: Date Diagnosed : 06/17/2019 4:04 PM (H93.11) Not Available [facility] 4 02:42:38 Family history of hearing loss 024321832 Active 2019 Family history of deafness and hearing loss; Note: Date Diagnosed : 12/02/2019 4:30 PM (Z82.2) Not Available [facility] 4 02:42:42 Adhesive middle ear disease 6535216 Active 2019 Adhesive right middle ear disease; Note: Date Diagnosed : 12/02/2019 4:35 PM (H74.11) Not Available [facility] 4 02:42:41 Conductiv e hearing loss 82225570 Active 2018 Conductiv e hearing loss, unilatera l, right ear, with unrestric angie hearing on the contralat eral side; Note: Date Diagnosed : 06/17/2019 4:04 PM (H90.11) Not Available [facility] 4 02:42:41 Acute myringiti s of right ear 16510089812 09297 Active 2018 Acute myringiti s, right ear; Note: Date Diagnosed : 06/17/2019 4:44 PM (H73.001) Not Available [facility] 4 02:42:42 Disorder of right Eustachia n tube 10117934292 34373 Active 2018 Other specified disorders of Eustachia n tube, right ear; Note: Date Diagnosed : 06/17/2019 4:04 PM (H69.81) Not Available [facility] 4 02:42:40 Allergic rhinitis 40467445 Active 2023 CHELSY MARTIN MD [address] [place] [address], [facility] [place], [address] , [facility] - [facility] 4 08:59:03 Non-aller gic rhinitis 83909974761 1 Active 2023 CHELSY MARTIN MD [address] [place], [place] [address]on [place],[facility] 100, [facility] [place], [address] , [place] - [facility] 4 08:59:32 Seasonal allergic rhinitis 512258177 Active 2023 CHELSY MARTIN MD 100 [facility] 100, [facility] [place], [address] , [place] - [facility] 4 08:59:32 Sensorine ural hearing loss 41755545 Active 2023 MERRICK CHENG [facility] [place],[facility] 100, [place], [address] , [place] - [facility] 4 09:12:56 Obstructi ve sleep apnea of adult 54118369760 03 Active 2023 CHELSY MARTIN MD [facility] [place] [address], [facility] [place], [address] , [place] - [facility] 4 09:17:04 Problem Notes None recorded. Procedures Surgical History Date Name Laterality Status Provider Name and Address Organization Details Recorded Time 07/01/20 24 Allergy Testing-Full completed CHELSY MARTIN MD 100 [facility],[place] [address], [place], [address], [place] - [facility] 06/30/2024 10:37:11 06/05/20 24 Allergy Testing-Full completed PAWAN HANDLEY [facility] 100 [facility],[place] [address], [place], [address], [place] - [facility] 06/05/2024 10:17:57 05/13/20 24 Comp Audio with Tymps - 69458 & 31452 completed MERRICK CHENG 100 [facility],[place] [address], [place], [address], [place] [facility] 05/13/2024 09:12:41 section completed Elba Gomez [place] - [facility] 05/13/2024 08:44:52 Myringotomy Tube Placement completed Elba Gomez [place] - [facility] 05/13/2024 08:45:00 repair of meniscus completed Elba Gomez [place] - [facility] 05/13/2024 08:45:07 closed reduction of fracture of ankle completed Elba Gomez [place] - [facility] 05/13/2024 08:45:23 Imaging Results None recorded. Procedure Notes None recorded. Medical Equipment None Reported. Allergies Allergen ID Allergen Name Allergen Category Reaction Reaction Severity Criticality Documentation Date Start Date Code Code System Note Provider Name and Address Organization Details Recorded Time 946431 latex environme nt,medica tion Not available Not available Not available 05/13/2024 18270 91 RxNorm Elba mensah [place] - [facility] 4 08:40:47 108013 Product containin g penicilli n (product) medicatio n Not available Not available Not available 05/13/2024 09784 8001 KOREY MARTIN MD 100 [facility],[address], [place], [address], [place] - [facility] 4 09:50:58 650030 Ketek medicatio n Not available Not available Not available 05/13/2024 44436 7 RxNorm CHELSY MARTIN MD 100 [facility] [place],[address], [place], [address], [place] [facility] 4 09:51:08 565556 lisinopri l medicatio n Not available Not available Not available 05/13/2024 08444 RxNorm CHELSY MARTIN MD [address] [facility] [place],[address], [place], [address], [place] [facility] 4 09:51:17 624610 Substance with sulfonami de structure and antibacte rial mechanism of action (substanc e) medicatio n Not available Not available Not available 05/13/2024 97715 8003 KOREY MARTIN MD [address] [facility] [place],[address], [place], [address], [place] [facility] 4 09:51:23 Medications Name Sig Start [...] mg tablet 05/13 completed Medicati on ID: [id number] D uration Value: 30 Brand Name: zolpidem Send Method: E-Prescr ibed Sub s Allowed: subs OK Speci al Instruct ion: TAKE 1 TABLET BY MOUTH AT BEDTIME FOR 30 DAYS [facility] zol[facility]em Medicat ion ID: [id number] D uration Value: 30 Brand Name: zolpidem [...] mg tablet 05/13 completed Medicati on ID: [id number] D uration Value: 30 Brand Name: atenolol Send Method: E-Prescr ibed Sub s Allowed: subs OK Speci al Instruct ion: TAKE 1 TABLET BY MOUTH EVERY DAY Medi cationGe nericNam e: atenolol Medicat ion ID: [id number] D uration Value: 30 Brand Name: atenolol [...] mg tablet 05/13 completed Medicati on ID: [id number] D uration Value: 30 Brand Name: naproxen Send Method: E-Prescr ibed Sub s Allowed: subs OK Speci al Instruct ion: TAKE 1 TABLET BY MOUTH EVERY 12 HOURS WITH FOOD OR MILK NEEDED FOR 30 DAYS Med icationG enericNa me: naproxen Medicat ion ID: [id number] D uration Value: 30 Brand Name: naproxen Send Method: E-Prescr ibed Sub s Allowed: subs OK Speci al Instruct ion: TAKE 1 TABLET BY MOUTH EVERY 12 HOURS WITH FOOD OR MILK NEEDED FOR 30 DAYS Med [facility] naproxen Not Available Not Available Not [...] drops,shin p 05/24 completed Medicati on ID: [id number] D uration Value: 7 Brand Name: neomycin -polymyx in-HC Se nd Method: E-Prescr ibed Sub s Allowed: subs OK [facility] : neomycin -polymyx in-HC Not Available Not Available Not Available TobraDex 0.3 %-0.1 % eye drops,shin pension 5 as directed 05/13 completed Medicati on ID: [id number] D uration Value: 30 Brand Name: TobraDex Send Method: E-Prescr ibed Sub s Allowed: subs OK Speci al Instruct ion: Instill 5 drops in the affected ear BID for 30 days Med [facility]: TobraDex Medicat ion ID: [id number] D uration Value: 30 Brand Name: TobraDex Send Method: E-Prescr ibed Sub s Allowed: subs OK Speci al Instruct ion: Instill 5 drops in the affected ear BID for 30 days Med [facility]: TobraDex Not Available Not Available Not Available sulfaceta mide sodium-long lfur-urea 10 %-4 %-10 % topical cleanser 05/13 completed Medicati on ID: [id number] B rand Name: sulfacet amide sod-sulf ur-urea Send Method: E-Prescr ibed Sub s Allowed: subs OK Medic ationGen ericName : sulfacet amide sod-sulf ur-urea Medicati on ID: [id number] B rand Name: sulfacet amide sod-sulf ur-urea Send Method: E-Prescr ibed Sub s Allowed: subs OK Medic ationGen ericName : sulfacet amide sod-sulf ur-urea Not Available Not Available Not Available Vitals Date Recorded Body height Body weight Provider Name and Address Organization Details Last Updated DateTime 05/13/2024 161.29 cm 44950.66 g Elba Gomez [facility] 05/13/2024 08:47:34 Date Recorded Body height Body mass index (BMI) Body weight Oxygen saturation Oxygen saturation in Arterial blood by Pulse oximetry Heart rate Systolic blood pressure Diastolic blood pressure Provider Name and Address Organization Details Last Updated DateTime 4 161.29 cm 31.4 kg/m2 57244.6 3 g 97 % 97 % 61 /min 120 mm[Hg] 72 mm[Hg] [address], [address] , [place] - [facility] 09:13:29 Date Recorded Body height Body weight Provider Name and Address Organization Details Last Updated DateTime 07/01/2024 161.29 cm 59195.63 g Elba Gomez [facility] 07/01/2024 08:52:21 Social History None recorded. [...] Note [id number] CHELSY MARTIN MD [facility] [address] [address] 05/13/2024 08:34:46 05/13/2024 09:52:35 Allergic rhinitis 76945361 J30.9 Disorder o f right Eustachian tube 6113631812 157863 H69.81 Sensorineu ral hearing loss 84790965 H90.41 Audiologic al evaluation results: Right ear: Mild to moderate sensorineu ral hearing loss with excellent word recognitio n. Left ear: DNT Tympanomet ry: Right Ear:Type Ad Left Ear:DNT 8397 PAWAN HANDLEY, RMA Allergy 100 [facility],[address] [place] [address] 06/05/2024 08:57:39 06/05/2024 13:08:25 Allergic rhinitis 33989770 J30.9 [id number] CHELSY MARTIN MD [facility] 100 [facility] [place] [address] 07/01/2024 08:42:29 07/01/2024 09:23:58 Allergic rhinitis 49628194 J30.9 Disorder o f right Eustachian tube 5912951952 245397 H69.81 Obstructiv e sleep apnea of adult 0922224984 103 G47.33 I recommende d she be diligent about the cleaning protocols for her CPAP machine, as mold can grow in CPAP machines Adhesive m iddle ear disease 3741014 H74.11 Health Concerns Section Related Observation LastModified by Organization Detai ls LastModified Time None Recorded Concern Status LastModified by Organization Details LastModified Time None Recorded Advance Directives Directive None Recorded Payers Insurance Date Sequence Insurance Name Policy Number Policy Patel Covered Member ID Patel Member ID Guarantor Name 05/03/2025 1 [facility] [id number] Marlyn Nunez [id number] Marlyn Nunez 05/03/2025 1 [facility] (MEDICAID HMO) [id number] Marlyn Nunez [id number] Marlyn Nunez Notes Date Note Type Note [...] she was younger. CHELSY MARTIN MD 100 [facility],[address], [address], [facility] - [facility] 05/13/2024 09:59:28 07/01/2024 text/html 59-year-old sy [...] the right ear CHELSY MARTIN MD 100 [facility] 100, [place], [address], [facility] - [facility] 07/01/2024 09:25:15 OBGyn Episode No OBEpisode recorded.
== END 2025-05-21 08:58 | disposition home or self-care (01) ==
LOC: HO.HMCC 08:19
PROVIDERS: PCP Internal Medicine; Visit Provider Internal Medicine
DX: J32.9 Chronic sinusitis, unspecified (principal)

== ENCOUNTER 2025-06-29 12:54 | Outpatient (AMB) | payer OTHER, SELFPAY ==
--- NOTE | 2025-06-29 13:00 | MHC.OFFVIS ---
Vital Signs 06/29/25 13:03 Height 5 ft 3 in Weight 156 lb 11.979 oz BMI 27.8 BP 102/62 Blood Pressure Location Rt brachial Position Sitting Pulse 85 Pulse Source Pulse Oximeter Pulse Oximetry (%) 98 Oxygen Delivery Method Room Air Intake Visit Reasons: Obesity Intake Note: Patient presents today for a follow-up on Weight Management. Last seen by Alysha Vasquez on 04/07/2025. Tube Cutter Required: No Accompanied by: Self / Same As Patient Allergies lisinopril (LISINOPRIL) Allergy (Severe, Verified 06/29/25 13:03) COUGH telithromycin (From KETEK) Allergy (Intermediate, Verified 06/29/25 13:03) BLURRED VISION latex (LATEX) Allergy (Mild, Verified 06/29/25 13:03) RASH celecoxib (Celebrex) Allergy (Unknown, Verified 06/29/25 13:03) rash penicillamine (PENICILLAMINE) Allergy (Unknown, Verified 06/29/25 13:03) UNKNOWN valsartan (Diovan) Allergy (Unknown, Verified 06/29/25 13:03) Unknown Sulfa (Sulfonamide Antibiotics) Allergy (Verified 06/29/25 13:03) hives, throat constriction cortisone injection Allergy (Unknown, Uncoded 06/29/25 13:03) caused menstration HPI Comments Details: This is a 59-year-old white female previously seen by endocrinology by Landy Velasquez NP for hypothyroidism in 2020. Patient presents today for management of obesity. Patient has tried diets of eating healthy fats , lean meats . Inability to lose Weight. Exercising with yoga and swimming . Was prescribed Zepbound by PCP . Has seen a tile burner 2020- 2021 . Thyroid levels recently checked have been normal and managed by primary care. Underwent a dexamethasone suppression test 2020 which was normal. Has a hx of prediabetes/ IFG. No sx of Monika's Syndrome .Uses a CPAP mask for sleep apnea . Attends [employer] structured wt loss program. On Wegovy 1.7 mg Q weekly [facility] Medical History Obesity (BMI 30.0-34.9) Annual physical exam URI (upper respiratory infection) Left flank pain Lower back pain Muscle spasm of both lower legs Daytime sleepiness Right knee injury Swelling of left lower extremity Bleeding from varicose veins of left lower extremity Right otitis media Flu-like symptoms Sprain of left knee Knee pain, left Hyperglycemia Shingles rash Obesity due to excess calories Hand pain, right Hair loss Encounter for screening laboratory testing for COVID-19 virus Well woman exam with routine gynecological exam Hyperlipidemia Chronic pain of right thumb Vitamin D deficiency Elevated cortisol level Hypothyroidism Incontinence HTN (hypertension) Surgical History History of surgery History of uvulectomy Hx of myringotomy Hx of section History of ankle surgery Hx of knee surgery Family History Father No problems noted. Mother No problems noted. Family/Other History of breast cancer Social History Household Members: None Housing: House Alcohol intake: current Alcohol intake frequency: holidays/special occasions only Patient Tobacco Use Status: Former Tobacco user Tobacco use type: Cigarette Years Smoked: 15 years ago e-Cigarette/Vaping Use: Never Used Second Hand Smoke Exposure: No service: No Current occupational status: employed Sexual orientation: Straight/Heterosexual Gender identity: Female Cognitive needs: No Hearing needs: No Vision needs: Yes Female Reproductive History Menstrual Age of Menarche: 9 Assessment & Plan Assessment & Plan (1) Overweight: Code(s): E66.3 - Overweight Category: Medical Plan: This is a 59-year-old white female with a history of obesity. No clear secondary endocrine causes identified. On Wegovy 1.7 mg Q weekly. Lost additional 3 lb since last visit Plan is to the current management. We will have patient follow up in 3 months Medications: Refilled semaglutide (weight loss) (Wegovy) 1.7 mg (0.75 mL) subcut Q7D 3 mL 3RF 28 days Coding Level of Care Code Est Pt Level 3 (94895) Diagnoses Overweight E66.3
[2025-06-29 13:03] VITALS: BP 102/62; PULSE 85; O2SAT 98; BMI 27.8
== END 2025-06-29 13:27 | disposition home or self-care (01) ==
LOC: HO.ENCR 12:55
PROVIDERS: PCP Internal Medicine; Visit Provider Internal Medicine Endocrinology, Diabetes & Metabolism
DX: E66.3 Overweight (principal)
CPT/HCPCS: 99213

== ENCOUNTER 2025-07-09 07:09 | Outpatient (REF) | payer OTHER, SELFPAY ==
--- OUTSIDE RECORDS SUMMARY | 2023-09-24 07:47 | XMS_ITS | Continuity of Care Document ---
Author Organization [facility] Address [address] [place] [address] Phone Care Team Providers Care Instructional Support Services Director Name Role Phone Dimitri SARAVIA FACS RVT [...] Providers Copied on Encounter [facility], [address], [id number], [place] tel:[phone] [place] - [place] No Information 3 Dimitri SARAVIA FACS Lidia Dsouza. [address] [place] [address], Suite [facility], [place], [address], [place]. [phone] Referring Provider: Sihra Garcia MD S, [address] [place] [address], [place], [address]. tel:[phone] [facility], [address] [place] [address] [address], [id number], [place] tel:[phone] [place] - [place] No Information 3 iDmitri Dsouza. [address] [place] [address], [place] [address], [place], [address], [place]. [phone] Referring Provider: Shira Garcia MD S, [address] [place] [address], [place], [address]. tel:[phone] Offic/outpt E&m Estab 5 Min Trial - Telemedicine [facility], [address] [place] [address] [address], [id number], [place] tel:[phone] [place] - [place] Venous insufficiency (chronic) (peripheral) 3 Dimitri SARAVIA FACS Lidia Dsouza. [address] [place] [address], [place] [address], [place], [address], [place]. tel:[phone] Referring Provider: Shira Garcia MD S, [address] [place] [address], [place], [address]. tel:[phone] Office/Outpt E&M Established 25 Mins [facility], [address] [place] [address] [address], [id number], [place] tel:[phone] [place] - [place] Venous insufficiency (chronic) (peripheral) 3 Dimitri Dsouza. [facility], [address], [place], [address], [place]. [phone] Referring Provider: Shira Garcia MD S, [address] [place] [address], [place], [address]. tel:[phone] [facility], [address] [place] [address] Dr [address], [id number], [place] tel:[phone] CVR - [place] - [place] Venous insufficiency (chronic) (peripheral)Pa in in right legPain in left leg 3 Dimitri SARAVIA FACS T AYO Dsouza. [address] [facility], [place] [address], [place], [address], [place]. tel:[phone] Referring Provider: Shira Garcia MD S, [address] [place] [address], [place], [address]. tel:[phone] Offic Cons New/estab Mod 40 Ms [facility], [address] [place] [address] Dr [address], [id number], [place] tel:[phone] CV[place] - [place] - [place] Venous insufficiency (chronic) (peripheral)Re stless legs syndromeEssent ial (primary) hypertensionFl ail joint, unspecified jointCramp and spasmLocalized edema 3 Dimitri SARAVIA FACS Lidia Dsouza. [address] [facility], [place] [address], [place], [address], [place]. tel:[phone] Referring Provider: Shira Garcia MD S, [address] [place] [address], [place], [address]. tel:[phone] Family History Family Member Type Diagnosis Age At Onset No Information Payers Payer name Insurance type Covered constitution party ID Gunjan live(s) [facility] [id number] Social History Type Description Quantity Date Captured [...] cessation counseling completed Goal Diet education completed Goal Tobacco cessation counseling completed Referral Ordered: Weight management: Referral to physician timeframe: 3 Months (related to Body mass index (BMI) 33.0-33.9, adult) ordered History Of Present Illness Encounter Date Complaint History Of Prese nt Illness No Information Functional Status Date Functional Assessmen t No Information Instructions Date Instruction Additional Infor valarie Diet education Related to Body mass index (BMI) 33.0-33.9, adult Giving Encouragement to exercise Related to Body mass index (BMI) 33.0-33.9, adult Lifestyle education Related to B davy mass index (BMI) 33.0-33.9, adult Patient education booklet given Related to Venous insufficiency (chronic) (peripheral) Compression stocking usage as conservative measure Related to Venous insufficiency (chronic) (peripheral) Assessments Type Assessment Date No Information Patient Care Teams Name Effective Dates (start - stop) Status Members No Information
[2025-07-09 09:59] LABS: MANUAL DIFF FLAG NO
[2025-07-09 10:03] LABS: Hematocrit 40.7 % (37.0-47.0); Hemoglobin 13.6 g/dl (12.0-16.0); Imm Gran Abs Auto 0.01 X10*3/uL (0.00-0.03); Imm Gran Pct Auto 0.2 % (0.0-0.4); Lymphocytes Absolute Auto 2.2 X10*3/uL (1.2-4.9); Mean Corpuscular HGB Conc 33.4 g/dl (31.0-35.0); Mean Corpuscular Hemoglobin 30.0 pg (27.0-33.0); Mean Corpuscular Volume 89.8 fL (80.0-98.0); NRBC Abs Auto 0.000 X10*3/uL (0.0-0.012); NRBC Pct Auto 0.0 /100WBC (0.0-0.2); Platelet Count 165 X10*3/uL (160-400); Red Blood Count 4.53 X10*6/uL (4.20-5.50); White Blood Count 5.9 X10*3/uL (4.8-10.8)
[2025-07-09 10:24] LABS: Alanine Aminotransferase 35 U/L (0-31); Albumin Level 4.0 g/dL (3.5-5.0); Alkaline Phosphatase 56 U/L (39-117); Anion Gap 12 (12-20); Aspartate Amino Transferase 26 U/L (5-31); Blood Urea Nitrogen 20 mg/dL (9-16); Calcium 8.7 mg/dL (8.4-10.2); Carbon Dioxide 27 mmol/L (22-29); Chloride 106 mmol/L (96-108); Cholesterol 179 mg/dL (<200); Estimated Glomerular Filt Rate 58; HDL Cholesterol 43 mg/dL (>40); Potassium 3.9 mmol/L (3.3-5.1); Sodium 141 mmol/L (135-145); Total Protein 5.9 g/dL (6.5-8.0); Triglycerides 136 mg/dL (<150)
[2025-07-09 10:53] LABS: Folate 9.8 ng/mL (> or = 4.0); Vitamin B12 837 pg/mL (200-900)
== END 2025-07-09 07:10 | disposition home or self-care (01) ==
LOC: HO.HMGCLDS 07:09
PROVIDERS: PCP Internal Medicine; Visit Provider Internal Medicine
DX: R23.8 Other skin changes (principal); R22.31 Localized swelling, mass and lump, right upper limb; E53.8 Deficiency of other specified B group vitamins; I10 Essential (primary) hypertension; E78.5 Hyperlipidemia, unspecified; E03.9 Hypothyroidism, unspecified; Z68.27 Body mass index [BMI] 27.0-27.9, adult
CPT/HCPCS: 36415; 80053; 80061; 82607; 82746; 85025

== ENCOUNTER 2025-07-09 07:20 | Outpatient (AMB) | payer OTHER, SELFPAY ==
[2025-07-09 07:22] VITALS: BP 112/70; PULSE 71; RESP 17; TEMP 36.8; O2SAT 98; BMI 27.6
--- NOTE | 2025-07-09 07:22 | AM.OFFWIN_ITS ---
Intake Vital Signs 3 07/09/25 07:22 Height 5 ft 3 in Weight 156 lb BMI 27.6 BP 112/70 Blood Pressure Location Lt brachial Position Sitting Respiration 17 Pulse 71 Pulse Source Pulse Oximeter Temp 98.3 F Temp Source Oral Pulse Oximetry (%) 98 Oxygen Delivery Method Room Air Intake Visit Reasons: EP-lump under rt arm Intake Note: Pt is here today c/o Rt under arm lump Patient Tobacco Use Status: Former Tobacco user Allergies lisinopril (LISINOPRIL) Allergy (Severe, Verified 07/09/25 07:24) COUGH telithromycin (From KETEK) Allergy (Intermediate, Verified 07/09/25 07:24) BLURRED VISION latex (LATEX) Allergy (Mild, Verified 07/09/25 07:24) RASH celecoxib (Celebrex) Allergy (Unknown, Verified 07/09/25 07:24) rash penicillamine (PENICILLAMINE) Allergy (Unknown, Verified 07/09/25 07:24) UNKNOWN valsartan (Diovan) Allergy (Unknown, Verified 07/09/25 07:24) Unknown Sulfa (Sulfonamide Antibiotics) Allergy (Verified 07/09/25 07:24) hives, throat constriction cortisone injection Allergy (Unknown, Uncoded 07/09/25 07:24) caused menstration HPI HPI Comments 2 History of Present Illness0 Details 60 y/o Female patient who presents to [facility] walk in clinic with c/o Lumps under right Axilla region for 3 days now. Reports pain and tenderness around the area. She did wax her under arms 4 weeks ago, believes this could be causing the irritation. She has been using Warm compress and Hydrocortisone cream with no relief. Denies fevers, chills, nausea or vomting. [facility] Medical History (Updated 07/09/25 @ 07:58 by Jie Smith NP) Skin irritation Obesity (BMI 30.0-34.9) Annual physical exam URI (upper respiratory infection) Left flank pain Lower back pain Muscle spasm of both lower legs Daytime sleepiness Right knee injury Swelling of left lower extremity Bleeding from varicose veins of left lower extremity Right otitis media Flu-like symptoms Sprain of left knee Knee pain, left Hyperglycemia Shingles rash Obesity due to excess calories Hand pain, right Hair loss Encounter for screening laboratory testing for COVID-19 virus Well woman exam with routine gynecological exam Hyperlipidemia Chronic pain of right thumb Vitamin D deficiency Elevated cortisol level Hypothyroidism Incontinence HTN (hypertension) Surgical History History of surgery History of uvulectomy Hx of myringotomy Hx of section History of ankle surgery Hx of knee surgery Family History Father No problems noted. Mother No problems noted. Family/Other History of breast cancer Social History Household Members: None Housing: House Alcohol intake: current Alcohol intake frequency: holidays/special occasions only Patient Tobacco Use Status: Former Tobacco user Tobacco use type: Cigarette Years Smoked: 15 years ago e-Cigarette/Vaping Use: Never Used Second Hand Smoke Exposure: No service: No Current occupational status: employed Sexual orientation: Straight/Heterosexual Gender identity: Female Cognitive needs: No Hearing needs: No Vision needs: Yes Female Reproductive History Menstrual Age of Menarche: 9 Review of Systems Const All systems reviewed & are unremarkable except as noted in HPI and below Physical Exam Vital Signs: Last Vital Signs Temp 98.3 F 07/09/25 07:22 Pulse 71 07/09/25 07:22 Resp 17 07/09/25 07:22 BP 112/70 07/09/25 07:22 Pulse Ox 98 07/09/25 07:22 Oxygen Delivery Method Room Air 07/09/25 07:22 BMI result Body Mass Index 27.6 Const General: no acute distress Nutritional Appearance: overweight Orientation/consciousness: patient oriented x3 Chest Chest/axillae images: 2 1. Erythematous TTP, small lumps ~ pea size (x 2). No discharge. Neuro General: patient oriented x3, gait normal and moves all extremities Psych Speech and movement: Normal speech and movement present Assessment & Plan Assessment & Plan (1) Skin irritation: Code(s): R23.8 - Other skin changes Plan: DDx's: Folliculitis vs Dermatitis vs Lymphadenopathy. Advised to continue using Hydrocortisone cream BID in the next 7 days. Advised to take NSAIDs for pain relief Apply warm compress as needed. RTC if symptoms not improving in the next 4 days. Coding Level of Care Code Est Pt Level 4 (03352) Diagnoses Skin irritation R23.8 Time Spent (min) 20
== END 2025-07-09 07:39 | disposition home or self-care (01) ==
PROVIDERS: PCP Internal Medicine; Visit Provider Nurse Practitioner Family
DX: R23.8 Other skin changes (principal)

== ENCOUNTER 2025-07-27 12:59 | Outpatient (AMB) | payer OTHER, SELFPAY ==
[2025-07-27 13:11] VITALS: BP 104/70; PULSE 79; RESP 16; O2SAT 97; BMI 27.8
--- NOTE | 2025-07-27 13:11 | MHC.PC.OV ---
Vital Signs 07/27/25 13:11 Height 5 ft 3 in Weight 157 lb BMI 27.8 BP 104/70 Blood Pressure Location Lt brachial Position Sitting Respiration 16 Pulse 79 Pulse Source Pulse Oximeter Pulse Oximetry (%) 97 Oxygen Delivery Method Room Air Intake Visit Reasons: 3m follow up Powder Room Attendant Required: No Accompanied by: Self / Same As Patient Allergies lisinopril (LISINOPRIL) Allergy (Severe, Verified 07/09/25 07:24) COUGH telithromycin (From KETEK) Allergy (Intermediate, Verified 07/09/25 07:24) BLURRED VISION latex (LATEX) Allergy (Mild, Verified 07/09/25 07:24) RASH celecoxib (Celebrex) Allergy (Unknown, Verified 07/09/25 07:24) rash penicillamine (PENICILLAMINE) Allergy (Unknown, Verified 07/09/25 07:24) UNKNOWN valsartan (Diovan) Allergy (Unknown, Verified 07/09/25 07:24) Unknown Sulfa (Sulfonamide Antibiotics) Allergy (Verified 07/09/25 07:24) hives, throat constriction cortisone injection Allergy (Unknown, Uncoded 07/09/25 07:24) caused menstration Tobacco use date assessed: 07/27/25 Dental Screening Dental Screen Date: 07/27/25 Did you have a dental visit in the last 12 months?: Yes Did you have a dental problem in the last 6 months where you did not have access to dental care?: No Was dental information given to patient?: Patient has dentist HPI 3m follow up HPI Details Pt presents for f/u HTN, hypothyroid, hyperlipid, stable on meds. Pt has been on Wegovy since Oct and lost 30 lb. Her weight has plateaued for the last 2 months. Pt f/u with Endo Dr. Ventura. [facility] Medical History Skin irritation Obesity (BMI 30.0-34.9) Annual physical exam URI (upper respiratory infection) Left flank pain Lower back pain Muscle spasm of both lower legs Daytime sleepiness Right knee injury Swelling of left lower extremity Bleeding from varicose veins of left lower extremity Right otitis media Flu-like symptoms Sprain of left knee Knee pain, left Hyperglycemia Shingles rash Obesity due to excess calories Hand pain, right Hair loss Encounter for screening laboratory testing for COVID-19 virus Well woman exam with routine gynecological exam Hyperlipidemia Chronic pain of right thumb Vitamin D deficiency Elevated cortisol level Hypothyroidism Incontinence HTN (hypertension) Surgical History History of surgery History of uvulectomy Hx of myringotomy Hx of section History of ankle surgery Hx of knee surgery Family History Father No problems noted. Mother No problems noted. Family/Other History of breast cancer Social History Household Members: None Housing: House Alcohol intake: current Alcohol intake frequency: holidays/special occasions only Patient Tobacco Use Status: Former Tobacco user Tobacco use type: Cigarette Years Smoked: 15 years ago e-Cigarette/Vaping Use: Never Used Second Hand Smoke Exposure: No service: No Current occupational status: employed Sexual orientation: Straight/Heterosexual Gender identity: Female Cognitive needs: No Hearing needs: No Vision needs: Yes Female Reproductive History Menstrual Age of Menarche: 9 Questionnaire Thrive Questionnaire Date Thrive assessed: 01/01/25 I am a: Patient What is your living situation today?: I choose not to answer this question Within the past 12 months, did the food you bought not last and you didn't have the money to get more?: I choose not to answer this question Within the past 12 months, did you worry whether your food would run out before you got money to buy more?: I choose not to answer this question Do you have trouble paying for medicines?: I choose not to answer this question Do you have trouble getting transportation to medical appointments?: I choose not to answer this question Do you have trouble paying your heating and electricity bill?: I choose not to answer this question Do you have trouble taking care of your child, family member or friend?: I choose not to answer this question Do you have trouble with day-to-day activities such as bathing, preparing meals, shopping, managing finances, etc.?: I choose not to answer this question Are you currently unemployed and looking for a job?: I choose not to answer this question Are you interested in more education?: I choose not to answer this question Please select the resources that you would like help with: None Currently or been in a relationship where the following occur: I choose not to answer THRIVE Score: 0 DUY-7 AMB Questionnaire DUY-7 Date DUY - 7 assessed: 01/01/25 Source: Developed by Drs. Jose Enrique Rubi, Vielka Reddy, Natalio De and colleagues, with an educational lena from [employer]. Review of Systems Const All systems reviewed & are unremarkable except as noted in HPI and below ENT Reports no additional complaints Resp Reports no additional complaints GI Reports no additional complaints Reports no additional complaints Physical exam (Primary Care) Vital Signs: Last Vital Signs Pulse 79 07/27/25 13:11 Resp 16 07/27/25 13:11 BP 104/70 07/27/25 13:11 Pulse Ox 97 07/27/25 13:11 Oxygen Delivery Method Room Air 07/27/25 13:11 BMI result Body Mass Index 27.8 Tobacco/Smoking Status: Tobacco use Status Tobacco use date assessed 07/27/25 07/27/25 13:15 Patient Tobacco Use Status Former Tobacco user 07/27/25 13:15 Tobacco use type Cigarette 07/27/25 13:15 e-Cigarette/Vaping Use Never Used 07/27/25 13:15 Thrive Assessment: Date of Thrive Assessment Date Thrive assessed 01/01/25 07/27/25 13:15 Currently or been in a relationship where the following occur: I choose not to answer Const General: no acute distress HENMT Head: Yes normal to inspection Resp Effort & Inspection: normal respiratory effort Auscultation: clear to auscultation bilaterally Cardio Rhythm: regular rhythm Heart sounds: S1 normal heart sound present and S2 normal heart sound present GI Inspection: Yes normal to inspection Coding Level of Care Code Est Pt Level 4 (91570) Diagnoses HTN (hypertension) I10 Hypothyroidism, unspecified type E03.9 Hypothyroidism type: unspecified Vitamin D deficiency E55.9 Hyperlipidemia E78.5 Assessment & Plan Assessment & Plan (1) HTN (hypertension): Code(s): I10 - Essential (primary) hypertension Category: Medical Plan: Blood pressure is low and irbesartan will be decreased to 75 mg. (2) Hypothyroidism: Code(s): E03.9 - Hypothyroidism, unspecified Category: Medical Qualifiers: Hypothyroidism type: unspecified Qualified Code(s): E03.9 - Hypothyroidism, unspecified Plan: Continue levothyroxine (3) Vitamin D deficiency: Code(s): E55.9 - Vitamin D deficiency, unspecified Category: Medical Plan: Continue vitamin-D supplement (4) Hyperlipidemia: Code(s): E78.5 - Hyperlipidemia, unspecified Category: Medical Plan: Continue pravastatin, return for physical in 3 months with a fasting labs before Orders: Orders Comprehensive [place]. Panel Fast 3 Months E03.9 - Hypothyroidism, unspecified, E55.9 - Vitamin D deficiency, unspecified, E78.5 - Hyperlipidemia, unspecified, I10 - Essential (primary) hypertension Complete Blood Count Auto Diff 3 Months E03.9 - Hypothyroidism, unspecified, E55.9 - Vitamin D deficiency, unspecified, E78.5 - Hyperlipidemia, unspecified, I10 - Essential (primary) hypertension TSH reflex Free T4 3 Months E03.9 - Hypothyroidism, unspecified, E55.9 - Vitamin D deficiency, unspecified, E78.5 - Hyperlipidemia, unspecified, I10 - Essential (primary) hypertension UA w Microscopic 3 Months E03.9 - Hypothyroidism, unspecified, E55.9 - Vitamin D deficiency, unspecified, E78.5 - Hyperlipidemia, unspecified, I10 - Essential (primary) hypertension Lipid Panel 3 Months E03.9 - Hypothyroidism, unspecified, E55.9 - Vitamin D deficiency, unspecified, E78.5 - Hyperlipidemia, unspecified, I10 - Essential (primary) hypertension IRON PROFILE 3 Months E03.9 - Hypothyroidism, unspecified, E55.9 - Vitamin D deficiency, unspecified, E78.5 - Hyperlipidemia, unspecified, I10 - Essential (primary) hypertension Vitamin D 25-OH Total 3 Months E03.9 - Hypothyroidism, unspecified, E55.9 - Vitamin D deficiency, unspecified, E78.5 - Hyperlipidemia, unspecified, I10 - Essential (primary) hypertension Medications: New irbesartan 75 mg PO DAILY 90 tabs 1RF Discontinued irbesartan Discontinued Reason: Doctor's Order 150 mg PO DAILY 90 tabs 3RF
== END 2025-07-27 14:06 | disposition home or self-care (01) ==
LOC: HO.HMCC 13:00
PROVIDERS: PCP Internal Medicine; Visit Provider Internal Medicine
DX: I10 Essential (primary) hypertension (principal); E03.9 Hypothyroidism, unspecified; E55.9 Vitamin D deficiency, unspecified; E78.5 Hyperlipidemia, unspecified

== ENCOUNTER 2025-08-24 12:40 | Outpatient (REF) | payer OTHER, SELFPAY ==
--- OUTSIDE RECORDS SUMMARY | 2025-08-24 15:07 | XMS_ITS | Data Portability ---
Author Organization [place] - [facility], Allergy Address [address] [address] Care Team Providers Care Sem Manager Name Role Phone EDILBERTO MATIAS Primary Care Provider [phone] Assessment Encounter Date Assessment Date Assessment LastModified by Organization Details LastModified Time 05/13/2024 05/13/2024 Patient continue s to have persistent signs of eustachian tube [...] see her back after it is completed. [email or web address] Not available 05/13/2024 09:00:24 07/01/2024 07/01/2024 Patient continue s to have persistent signs of eustachian tube [...] for audiometric testing. Not available 07/01/2024 09:24:22 07/07/2025 07/07/2025 Patient has minimal persistent signs of eustachian tube dysfunction following balloon dilation of the eustachian tube I suspect that many of her symptoms are related to her underlying allergic phenomenon. Once again I reaffirmed my recommendation of using fluticasone nasal spray 2 puffs in both nostrils on a daily basis. In addition I recommended the use of nasal saline spray to be used after exposure to mold or rebecca environments. She can continue with use of Valsalva maneuver and Eustachi device to help insufflate the middle ear spaces. Patient would like to follow-up in 1 year for recheck. 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 [email or web address] Not Available 2023 08:39:58 07/08/20 24 01/15/2024 imagi ng/di agnos tic resul t No [...] record ed. [email or web address] Not Available 14:29:32 07/08/20 09/05/2019 imagi ng/di agnos tic resul t No observ ation record ed. [email or web address] Not Available 14:29:33 07/07/20 25 audio gram No observ ation record ed. [email or web address] Not Available 2024 13:40:41 Result Notes None recorded. Problems Name Problem SNOMED Code Status Onset Date Resolution Date Notes Provider Name and Address Organization Details Recorded Time Dizziness and giddiness 051234319 Active 2018 Dizziness and giddiness ; Note: Date Diagnosed : 06/17/2019 4:04 PM (R42) Not Available [facility] 4 02:42:37 Tinnitus of right ear 61246593374 08 Active 2018 Tinnitus, right ear; Note: Date Diagnosed : 06/17/2019 4:04 PM (H93.11) Not Available [facility] 4 02:42:38 Conductiv e hearing loss 22713688 Active 2018 Conductiv e hearing loss, unilatera l, right ear, with unrestric angie hearing on the contralat eral side; Note: Date Diagnosed : 06/17/2019 4:04 PM (H90.11) Not Available [facility] 4 02:42:41 Acute myringiti s of right ear 21618977561 02643 Active 2018 Acute myringiti s, right ear; Note: Date Diagnosed : 06/17/2019 4:44 PM (H73.001) Not Available [facility] 4 02:42:42 Disorder of right Eustachia n tube 79757099145 09487 Active 2018 Other specified disorders of Eustachia n tube, right ear; Note: Date Diagnosed : 06/17/2019 4:04 PM (H69.81) Not Available [facility] 4 02:42:40 Family history of hearing loss 648464135 Active 2019 Family history of deafness and hearing loss; Note: Date Diagnosed : 12/02/2019 4:30 PM (Z82.2) Not Available [facility] 4 02:42:42 Adhesive middle ear disease 8890836 Active 2019 Adhesive right middle ear disease; Note: Date Diagnosed : 12/02/2019 4:35 PM (H74.11) Not Available [facility] 4 02:42:41 Chronic mucoid otitis media of right middle ear 65425759333 40042 Active 2022 Chronic mucoid otitis media, right ear; Note: Date Diagnosed : 05/24/2023 10:31 AM (H65.31) Not Available [facility] 4 02:42:44 Allergic rhinitis 93404634 Active 2023 CHELSY MARTIN MD [address], [place], [place], [address] , [place] - [facility] 4 08:59:03 Non-aller gic rhinitis 83805192010 1 Active 2023 CHELSY MARTIN MD [address], [place], [place], [address] , [place] - [facility] 4 08:59:32 Seasonal allergic rhinitis 037798729 Active 2023 CHELSY MARTIN MD [address], [place], [address] , [place] - [facility] 4 08:59:32 Sensorine ural hearing loss 27765445 Active 2023 ZARI ARRINGTON, AUD [address], [place], [address] , [place] - [facility] 4 09:12:56 Obstructi ve sleep apnea of adult 29731162052 03 Active 2023 CHELSY MARTIN MD [address], [place], [address] , [place] - [facility] 4 09:17:04 Sensorine ural hearing loss of right ear with normal hearing on left side 6226165044 Active 2024 LORY CANDELARIA, AUD [address], [place], [place], [address] , [place] - [facility] 5 09:30:35 Problem Notes None recorded. Procedures Surgical History Date Name Laterality Status Provider Name and Address Organization Details Recorded Time 07/07/20 25 Allergy Testing-Full completed CHELSY MARTIN MD 100 [facility],[address], [address], [facility] - [facility] 07/06/2025 18:11:12 07/07/20 25 Comp Audio with Tymps - 63160 & 46662 completed LORY CANDELARIA, AUD 100 [facility],[address], [address], [facility] - [facility] 07/07/2025 09:29:59 07/01/20 24 Allergy Testing-Full completed CHELSY MARTIN MD 100 [facility],[address], [address], [facility] - [facility] 06/30/2024 10:37:11 06/05/20 24 Allergy Testing-Full completed PAWAN HANDLEY Leyda 100 [facility],[address], [address], [facility] - [facility] 06/05/2024 10:17:57 05/13/20 24 Comp Audio with Tymps - 12471 & 13570 completed ZARI ARRINGTON, AUD 100 [facility],[address], [address], [facility] - [facility] 05/13/2024 09:12:41 section completed Elba Gomez [place] - [facility] 05/13/2024 08:44:52 Myringotomy Tube Placement completed Elba Gomez [place] - [facility] 05/13/2024 08:45:00 repair of meniscus completed Elba Gomez [place] - [facility] 05/13/2024 08:45:07 closed reduction of fracture of ankle completed Elba Gomez [place] - [facility] 05/13/2024 08:45:23 Imaging Results None recorded. Procedure Notes None recorded. Medical Equipment None Reported. Allergies Allergen ID Allergen Name Allergen Category Reaction Reaction Severity Criticality Documentation Date Start Date Code Code System Note Provider Name and Address Organization Details Recorded Time 026039 latex environme nt,medica tion Not available Not available Not available 05/13/2024 19892 91 RxNorm Elba mensah [place] - [facility] 4 08:40:47 576314 Product containin g penicilli n (product) medicatio n Not available Not available Not available 05/13/2024 15750 8001 SNOMED CHELSY MARTIN MD 100 [facility],[address], [place], [address], [place] - [facility] 4 09:50:58 812476 Ketek medicatio n Not available Not available Not available 05/13/2024 82902 7 RxNorm CHELSY MARTIN MD 100 [facility], [place], [address], [facility] - [facility] 4 09:51:08 647794 lisinopri l medicatio n Not available Not available Not available 05/13/2024 27472 RxNorm CHELSY MARTIN MD 100 [facility], [address], [place], [address], [facility] - [facility] 4 09:51:17 909242 Substance with sulfonami de structure and antibacte rial mechanism of action (substanc e) medicatio n Not available Not available Not available 05/13/2024 71784 8003 SNOMED CHELSY MARTIN MD 100 [facility], [address], [place], [address], [facility] - [facility] 4 09:51:23 Medications Name Sig Start Date Stop Date Status Note LastModified by Organization Details LastModified Time azithromy ivan 250 mg tablet TAKE 2 TABLETS BY MOUTH TODAY, THEN TAKE 1 TABLET DAILY FOR 4 DAYS DIRECTED 07/07 completed Not Available Not Available Not Available prednison e 20 mg tablet TAKE 2 TABLETS BY MOUTH EVERY MORNING FOR 4 DAYS 07/07 completed Not Available Not Available Not Available tramadol 50 mg tablet TAKE 1 TABLET BY MOUTH EVERY 6 HOURS NEEDED FOR 7 DAYS 07/07 completed Not Available Not Available Not Available [...] tablet TAKE 1 TABLET BY MOUTH EVERY DAY active Not Available [...] Available gabapenti n 300 mg capsule TAKE 2 CAPSULES BY MOUTH ONCE DAILY 2 HOURS BEFORE RESTLESS LEG SYNDROME SYMPTOM ONSET active Not Available Not Available No t Available diclofena c sodium 75 mg tablet,de layed release TAKE 1 TABLET BY MOUTH TWICE A DAY WITH FOOD active Not Available Not Available No t Available hydroxyzi ne HCl 25 mg tablet TAKE 1 TABLET (ORAL) 3 TIMES PER DAY (ITCHING ) FOR 7 DAYS active Not Available Not Available No t [...] mg tablet 05/13 completed Medicati on ID: [id number] D uration Value: 30 Brand Name: zolpidem Send Method: E-Prescr ibed Sub s Allowed: subs OK Speci al Instruct ion: TAKE 1 TABLET BY MOUTH AT BEDTIME FOR 30 DAYS Med icationG enericNa me: zolpidem Medicat ion ID: [id number] D uration Value: 30 Brand Name: zolpidem Send Method: E-Prescr ibed Sub s Allowed: subs OK Speci al Instruct ion: TAKE 1 TABLET BY MOUTH AT BEDTIME FOR 30 DAYS Med icationG enericNa me: zolpidem Not Available Not Available Not Available clobetaso l 0.05 % topical ointment APPLY A THIN LAYER TO THE AFFECTED AREA(S) BY TOPICAL ROUTE TWICE A WEEK 07/07 completed Not Available Not Available Not Available irbesarta n 150 mg tablet TAKE 1 TABLET BY MOUTH EVERY DAY active Not Available Not Available No t Available cefuroxim e axetil 500 mg tablet TAKE 1 TABLET BY MOUTH TWICE DAILY FOR 7 DAYS. 05/13 completed Not Available Not Available Not Available albuterol sulfate HFA 90 mcg/actua tion aerosol inhaler INHALE 2 PUFFS EVERY 4 TO 6 HOURS NEEDED FOR SHORTNES S OF BREATH OR FOR WHEEZE 07/07 completed Not Available Not Available Not Available doxycycli ne hyclate 100 mg tablet TAKE 1 TABLET BY MOUTH TWICE DAILY FOR 7 DAYS 05/13 completed Not Available Not Available Not Available atenolol 50 mg tablet 05/13 completed Medicati on ID: [id number] D uration Value: 30 Brand Name: atenolol Send Method: E-Prescr ibed Sub s Allowed: subs OK Speci al Instruct ion: TAKE 1 TABLET BY MOUTH EVERY DAY Medi cationGe nericNam e: atenolol Medicat ion ID: [id number] D uration Value: 30 Brand Name: atenolol Send Method: E-Prescr ibed Sub s Allowed: subs OK Speci al Instruct ion: TAKE 1 TABLET BY MOUTH EVERY DAY Medi cationGe nericNam e: atenolol Not Available Not Available Not Available irbesarta n 300 mg tablet TAKE 1 TABLET BY MOUTH EVERY DAY 07/07 completed Not Available Not Available Not Available naproxen 500 mg tablet 05/13 completed Medicati on ID: [id number] D uration Value: 30 Brand Name: naproxen Send Method: E-Prescr ibed Sub s Allowed: subs OK Speci al Instruct ion: TAKE 1 TABLET BY MOUTH EVERY 12 HOURS WITH FOOD OR MILK NEEDED FOR 30 DAYS Med icationG enericNa me: naproxen Medicat ion ID: [id number] D uration Value: 30 Brand Name: naproxen Send Method: E-Prescr ibed Sub s Allowed: subs OK Speci al Instruct ion: TAKE 1 TABLET BY MOUTH EVERY 12 HOURS WITH FOOD OR MILK NEEDED FOR 30 DAYS [facility] nap[facility]en Not Available Not Available [...] drops,shin p 05/24 completed Medicati on ID: [id number] D uration Value: 7 Brand Name: neomycin -polymyx in-HC Se nd Method: E-Prescr ibed Sub s Allowed: subs OK [facility] neomycin -polymyx in-HC Not Available Not Available Not Available TobraDex 0.3 %-0.1 % eye drops,shin pension 5 as directed 05/13 completed Medicati on ID: [id number] D uration Value: 30 Brand Name: TobraDex Send Method: E-Prescr ibed Sub s Allowed: subs OK Speci al Instruct ion: Instill 5 drops in the affected ear BID for 30 days Med [facility] enericNa me: TobraDex Medicat ion ID: [id number] D uration Value: 30 Brand Name: TobraDex Send Method: E-Prescr ibed Sub s Allowed: subs OK Speci al Instruct ion: Instill 5 drops in the affected ear BID for 30 days [facility]: TobraDex Not Available Not Available Not Available sulfaceta mide sodium-street lfur-urea 10 %-4 %-10 % topical cleanser 05/13 completed Medicati on ID: [id number] B rand Name: sulfacet amide sod-sulf ur-urea Send Method: E-Prescr ibed Sub s Allowed: subs OK Medic ationGen ericName : sulfacet amide sod-sulf ur-urea Medicati on ID: [id number] B rand Name: sulfacet amide sod-sulf ur-urea Send Method: E-Prescr ibed Sub s Allowed: subs OK Medic ationGen ericName : sulfacet amide sod-sulf ur-urea Not Available Not Available Not Available Wegovy 1.7 mg/0.75 mL subcutane ous pen injector INJECT 1.7 MG SUBCUTAN EOUSLY EVERY 7 DAYS FOR 28 DAYS active Not Available Not Available No t Available Wegovy 1 mg/0.5 mL subcutane ous pen injector INJECT 1 MG (0.5 ML) SUBCUTAN EOUSLY EVERY 7 DAYS FOR 28 DAYS 07/07 completed Not Available Not Available Not Available Wegovy 0.25 mg/0.5 mL subcutane ous pen injector 0.25 MG (0.5 ML) SUBCUTAN EOUSLY EVERY WEEK ADMINIST ER WEEKS 1 THROUGH 4 OF THERAPY 07/07 completed Not Available Not Available Not Available Wegovy 0.5 mg/0.5 mL subcutane ous pen injector INJECT 0.5 MG (0.5 ML) SUBCUTAN EOUSLY EVERY WEEK ADMINIST ER WEEKS 5 THROUGH 8 OF THERAPY 07/07 completed Not Available Not Available Not Available Zepbound 2.5 mg/0.5 mL subcutane ous pen injector INJECT 2.5 MG (0.5 ML) SUBCUTAN EOUSLY EVERY WEEK FOR 4 WEEKS 07/07 completed Not Available Not Available Not Available Vitals Date Recorded Body height Body weight Provider Name and Address Organization Details Last Updated DateTime 05/13/2024 161.29 cm 73128.66 g Elba Gomez [place] - [facility] 05/13/2024 08:47:34 Date Recorded Body height Body mass index (BMI) Body weight Oxygen saturation Oxygen saturation in Arterial blood by Pulse oximetry Heart rate Systolic And Diastolic Provider Name and Address Organization Details Last Updated DateTime 4 161.29 cm 31.4 kg/m2 74908.6 3 g 97 % 97 % 61 /min 120/72 mm[Hg] PAWAN HANDLEY, [facility] [address], [address] [place] - [facility] 09:13:29 Date Recorded Body height Body weight Provider Name and Address Organization Details Last Updated DateTime 07/01/2024 161.29 cm 77035.63 g Elba Gomez [place] - [facility] 07/01/2024 08:52:21 Social History None recorded. Functional [...] Diagnosis SNOMED-CT Code Diagnosis ICD10 Code Diagnosis IMO Codes Diagnosis Note [id number] CHELSY MARTIN MD [facility] [address] [address] 05/13/2024 08:34:46 05/13/2024 09:52:35 Allergic rhinitis 17331881 J30.9 Disorder o f right Eustachian tube 8907924937 750446 H69.81 Sensorineu ral hearing loss 72446308 H90.41 Audiologic al evaluation results: Right ear: Mild to moderate sensorineu ral hearing loss with excellent word recognitio n. Left ear: DNT Tympanomet ry: Right Ear:Type Ad Left Ear:DNT [id number] PAWAN COLOR[place]O [facility] [address] [place] [address] 06/05/2024 08:57:39 06/05/2024 13:08:25 Allergic rhinitis 67794950 J30.9 [id number] CHELSY MARTIN MD [facility] [address] [address] 07/01/2024 08:42:29 07/01/2024 09:23:58 Allergic rhinitis 87872498 J30.9 Disorder o f right Eustachian tube 9058258061 896557 H69.81 Obstructiv e sleep apnea of adult 4169803078 103 G47.33 I recommende d she be diligent about the cleaning protocols for her CPAP machine, as mold can grow in CPAP machines Adhesive m iddle ear disease 7976692 H74.11 [id number] CHELSY MARTIN MD [facility] [address] [place] [address] 07/07/2025 08:44:42 07/07/2025 10:04:33 Allergic rhinitis 24812756 J30.9 Disorder o f right Eustachian tube 3859752282 563343 H69.81 Adhesive m iddle ear disease 3611626 H74.11 Sensorineu ral hearing loss of right ear with normal hearing on left side 1857638317 H90.41 03956730 Audiologic al evaluation results: 07/07/2025R ight ear:Normal through 4 kHz sloping to a mild sensorineu ral hearing loss with excellent word recognitio n.Left ear:Normal hearing with excellent word recognitio n. Tympanomet ry:Right Ear:Type AdLeft Ear:Type AdReassura nce given that the hearing loss in the right ear is quite mild and requires no specific interventi on. Health Concerns Section Related Observation LastModified by Organization Detai ls LastModified Time None Recorded Concern Status LastModified by Organization Details LastModified Time None Recorded Advance Directives Directive None Recorded Payers Insurance Date Sequence Insurance Name Policy Number Policy Patel Covered Member ID Patel Member ID Guarantor Name 07/07/2025 1 [facility] [id number] Marlyn Nunez [id number] Marlyn Nunez 05/03/2025 1 [facility] (MEDICAID O) [id number] Marlyn Nunez [id number] Marlyn Nunez Notes Date Note Type Note Provider Name and Address Organization Details Recorded Time 05/13/2024 text/html 58-year-old female presents postoperatively status post right balloon dilation [...] she was younger. CHELSY MARTIN MD 100 [facility] [address], [address], [facility] - [facility] 05/13/2024 09:59:28 07/01/2024 text/html 59-year-old female presents postoperatively status post right balloon dilation [...] the right ear CHELSY MARTIN MD 100 [facility] 100, [place], [address], [facility] 07/01/2024 09:25:15 07/07/2025 text/html 60-year-old female presents postoperatively status post right balloon dilation [...] rhinitis, so she was sent for allergy testing which showed multiple environmental allergies including molds that were noted in her household at the time. I recommended fluticasone nasal spray daily and Valsalva/Eustachi device use. 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 She did not recall my instructions regarding daily use of Flonase. She still notes some mild blockage sensation in the right ear. She reports difficulty in using Valsalva maneuver recently. CHELSY MARTIN MD [address] [place] [address], [address], [place] - [facility] 07/07/2025 10:05:24 OBGyn Episode No OBEpisode recorded.
== END 2025-08-24 12:41 | disposition home or self-care (01) ==
LOC: HO.MAMMO 12:40
PROVIDERS: PCP Internal Medicine; Visit Provider Internal Medicine
DX: Z12.31 Encounter for screening mammogram for malignant neoplasm of breast (principal)
CPT/HCPCS: 77063; 77067

== ENCOUNTER → 2025-08-24 12:45 | Outpatient (BNV) | payer OTHER, SELFPAY | PROVIDERS: PCP Internal Medicine; Visit Provider Internal Medicine | DX: Z12.31 Encounter for screening mammogram for malignant neoplasm of breast (principal) | CPT/HCPCS: 77063; 77067 ==

== ENCOUNTER 2025-09-28 15:59 | Outpatient (AMB) | payer OTHER, SELFPAY ==
--- OUTSIDE RECORDS SUMMARY | 2023-09-24 06:47 | XMS_ITS | Continuity of Care Document ---
Author Organization [facility] Address [address] [place] [address] Phone Care Team Providers Care Early Childhood Assistant Name Role Phone Dimitri SARAVIA FACS RVT Marvin ROLLINS Unavailable Unavailable Allergies, Adverse Reactions, Alerts Substance Reaction Status Criticality sulfamethoxazole Active No Informat ion lisinopril Active No Information PENICILLIN Active No Information CEPHALEXIN MONOHYDRATE Active No In formation Medications Medication Instructions Dosage Effective Dates (start - stop) Status Comments Eliquis 2.5 mg tablet take 1 tablet by o ral route 2 times every day. Start 24 hrs prior to procedure and continue for 1 month post procedure - Active atenolol 25 mg tablet - Acti ve irbesartan 75 mg tablet - Ac tive levothyroxine 50 mcg capsule - Active estradiol 0.025 mg/24 hr semiweekly transdermal patch - Active progesterone micronized 100 mg capsule - Active Procedures Procedure Date Offic/outpt E&m Estab 5 Min Trial - Tele medicine Office/Outpt E&M Established 25 Mins March Duplex Scan-extrem Veins; Comp Offic Cons New/estab Mod 40 Mi Advance Directives Directive Yes / No Effective Date File Name No Information Encounters Encounter Description Practice Location Reason(s) For Visit Diagnoses Date Provider Providers Copied on Encounter [facility], [address], [id number], [place] tel:[phone] [facility] [place] No Information 3 Dimitri SARAVIA FACS Lidia Dsouza. [address] [place] [address], Suite [facility], [place], [address], [place]. [phone] Referring Provider: Shira Garcia MD S, [address] [place] [address], [place], [address]. tel:[phone] [facility], [address] [place] [address] [address], [id number], [place] tel:[phone] [facility] [place] No Information 3 Dimitri Dsouza. [address] [place] [address], [place] [address], [place], [address], [place]. [phone] Referring Provider: Shria Garcia MD S, [address] [place] [address], [place], [address]. tel:[phone] Offic/outpt E&m Estab 5 Min Trial - Telemedicine [facility], [address] [place] [address] [address], [id number], [place] tel:[phone] [facility] Venous insufficiency (chronic) (peripheral) 3 Dimitri SARAVIA FACS Lidia Dsouza. [address] [place] [address], [place] [address], [place], [address], [place]. tel:[phone] Referring Provider: Shira Garcia MD S, [address] [place] [address], [place], [address]. tel:[phone] Office/Outpt E&M Established 25 Mins [facility], [address] [place] [address] [address], [id number], [place] tel:[phone] [place] Venous insufficiency (chronic) (peripheral) 3 Dimitri Dsouza. [facility], [address], [place], [address], [place]. [phone] Referring Provider: Shira Garcia MD S, [address] [place] [address], [place], [address]. tel:[phone] [facility], [address] [place] [address] Dr [address], [id number], [place] tel:[phone] [facility] - [place] - [place] Venous insufficiency (chronic) (peripheral)Pa in in right legPain in left leg 3 Dimitri SARAVIA FACS T AYO Dsouza. [address] [facility], [place] [address], [place], [address], [place]. tel:[phone] Referring Provider: Shira Garcia MD S, [address] [place] [address], [place], [address]. tel:[phone] Offic Cons New/estab Mod 40 Ri [facility], [address] [place] [address] Dr [address], [id number], [place] tel:[phone] [facility] - [place] Venous insufficiency (chronic) (peripheral)Re stless legs syndromeEssent ial (primary) hypertensionFl ail joint, unspecified jointCramp and spasmLocalized edema 3 Dimitri SARAVIA FACS Lidia Dsouza. [address] [facility], [place] [address], [place], [address], [place]. tel:[phone] Referring Provider: Shira Garcia MD S, [address] [place] [address], [place], [address]. tel:[phone] Family History Family Member Type Diagnosis Age At Onset No Information Payers Payer name Insurance type Covered alliance party ID Gunjan live(s) [facility] [id number] Social History Type Description Quantity Date Captured Comments Alcohol Use Details Unknown Caffeine Use Details Unknown Tobacco Use Status No Information Smoking Status No Information Sex Female Chief Complaint And Reason For Visit No Information Reason For Referral Reason For Referral No Information Plan Of Treatment Date Type Action Status Goal Tobacco cessation counseling completed Goal Tobacco cessation counseling completed Goal Tobacco cessation counseling completed Goal Diet education completed Referral Ordered: Weight management: Referral to physician timeframe: 3 Months (related to Body mass index (BMI) 33.0-33.9, adult) ordered History Of Present Illness Encounter Date Complaint History Of Prese nt Illness No Information Functional Status Date Functional Assessmen t No Information Instructions Date Instruction Additional Infor mation Compression stocking usage as conservative measure Related to Venous insufficiency (chronic) (peripheral) Patient education booklet given Related to Venous insufficiency (chronic) (peripheral) Lifestyle education Related to B davy mass index (BMI) 33.0-33.9, adult Giving Encouragement to exercise Related to Body mass index (BMI) 33.0-33.9, adult Diet education Related to Body mass index (BMI) 33.0-33.9, adult Assessments Type Assessment Date No Information Patient Care Teams Name Effective Dates (start - stop) Status Members No Information
[2025-09-28 16:04] VITALS: BP 122/72; PULSE 65; O2SAT 96; BMI 26.9
--- NOTE | 2025-09-28 16:04 | A.OFFVIS_ITS ---
Vital Signs 09/28/25 16:04 Height 5 ft 3 in Weight 152 lb 1.903 oz BMI 26.9 BP 122/72 Blood Pressure Location Lt brachial Position Sitting Pulse 65 Pulse Source Pulse Oximeter Pulse Oximetry (%) 96 Oxygen Delivery Method Room Air Intake Visit Reasons: f/u obesity Intake Note: Patient presents today for a follow-up on Weight Management. Methods Analyst Required: No Accompanied by: Self / Same As Patient Allergies lisinopril (LISINOPRIL) Allergy (Severe, Verified 09/28/25 16:05) COUGH telithromycin (From KETEK) Allergy (Intermediate, Verified 09/28/25 16:05) BLURRED VISION latex (LATEX) Allergy (Mild, Verified 09/28/25 16:05) RASH celecoxib (Celebrex) Allergy (Unknown, Verified 09/28/25 16:05) rash penicillamine (PENICILLAMINE) Allergy (Unknown, Verified 09/28/25 16:05) UNKNOWN valsartan (Diovan) Allergy (Unknown, Verified 09/28/25 16:05) Unknown Sulfa (Sulfonamide Antibiotics) Allergy (Verified 09/28/25 16:05) hives, throat constriction cortisone injection Allergy (Unknown, Uncoded 09/28/25 16:05) caused menstration Medication List - Last Reconciled 09/28/25 by Jose Enrique Ventura MD albuterol sulfate 90 mcg/actuation 2 puffs inhalation Q4-6H PRN cholecalciferol (vitamin D3) 50 mcg PO DAILY diclofenac sodium 75 mg PO BID estradiol 1 patch transdermal 2XW gabapentin 300 mg PO ONCE irbesartan 75 mg PO DAILY levothyroxine 100 mcg PO DAILY mecobalamin (vitamin B12) 1,000 mcg PO DAILY pravastatin 10 mg PO DAILY progesterone micronized 100 mg PO DAILY semaglutide (weight loss) (Wegovy) 2.4 mg (0.75 mL) subcut QWEEK HPI Comments Details: This is a 59-year-old white female previously seen by endocrinology by Landy Velasquez NP for hypothyroidism in 2020. Patient presents today for management of obesity. Patient has tried diets of eating healthy fats , lean meats . Inability to lose Weight. Exercising with yoga and swimming . Was prescribed Zepbound by PCP . Has seen a fingerprint clerk 2020- 2021 . Thyroid levels recently checked have been normal and managed by primary care. Underwent a dexamethasone suppression test 2020 which was normal. Has a hx of prediabetes/ IFG. No sx of Monika's Syndrome .Uses a CPAP mask for sleep apnea . Attends [facility] structured wt loss program. On Wegovy 2.4 mg Q weekly. Lost additional 5 lb since last visit [facility] Medical History Skin irritation Obesity (BMI 30.0-34.9) Annual physical exam URI (upper respiratory infection) Left flank pain Lower back pain Muscle spasm of both lower legs Daytime sleepiness Right knee injury Swelling of left lower extremity Bleeding from varicose veins of left lower extremity Right otitis media Flu-like symptoms Sprain of left knee Knee pain, left Hyperglycemia Shingles rash Obesity due to excess calories Hand pain, right Hair loss Encounter for screening laboratory testing for COVID-19 virus Well woman exam with routine gynecological exam Hyperlipidemia Chronic pain of right thumb Vitamin D deficiency Elevated cortisol level Hypothyroidism Incontinence HTN (hypertension) Surgical History History of surgery History of uvulectomy Hx of myringotomy Hx of section History of ankle surgery Hx of knee surgery Family History Father No problems noted. Mother No problems noted. Family/Other History of breast cancer Social History Household Members: None Housing: House Alcohol intake: current Alcohol intake frequency: holidays/special occasions only Patient Tobacco Use Status: Former Tobacco user Tobacco use type: Cigarette Years Smoked: 15 years ago e-Cigarette/Vaping Use: Never Used Second Hand Smoke Exposure: No service: No Current occupational status: employed Sexual orientation: Straight/Heterosexual Gender identity: Female Cognitive needs: No Hearing needs: No Vision needs: Yes Female Reproductive History Menstrual Age of Menarche: 9 Physical Exam Vital Signs: Last Vital Signs Pulse 65 09/28/25 16:04 BP 122/72 09/28/25 16:04 Pulse Ox 96 09/28/25 16:04 Oxygen Delivery Method Room Air 09/28/25 16:04 BMI result Body Mass Index 26.9 Assessment & Plan Assessment & Plan (1) Overweight: Code(s): E66.3 - Overweight Category: Medical Plan: This is a 59-year-old white female with a history of obesity. No clear secondary endocrine causes identified. On Wegovy 2.4 mg Q weekly. Lost additional 5 lb since last visit Plan is to the current management. Pt planning on tapering Wegovy to 1.7 mg next mo and then insurance will not cover. I offered her [employer] direct pay but she states she can not afford it but will think about. We will have her r eturned to her primary care provider at this point and returned back to endocrinology as needed Coding Level of Care Code Est Pt Level 3 (27041) Diagnoses Overweight E66.3
--- OUTSIDE RECORDS SUMMARY | 2025-09-28 17:55 | XMS_ITS | Continuity of Care Document ---
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 Not available 07/07/2025 10:04:56 Plan of Treatment Reminders Order Date Submit Date Provider Last Modified By Organization Details Last Modified Time Details Appointments Establish ed 15 2025 02:00P M FRANCISCA ROJO PA-C Not available Not available Not available Lab None recorded. Referral None recorded. Procedures None recorded. Surgeries None recorded. Imaging None recorded. Medication Orders None recorded. Patient TargetsNo targets recorded. Patient InstructionsNo instructions recorded. Reason for Referral None Reported. Results Created Date Observation Date Name Description Value Unit Range Abnormal Flag Note LastModifiedBy Organization Detail LastModifiedTime 07/07/20 25 audio gram No observ ation record ed. BARCODE Not Available 2024 13:40:41 Result Notes None recorded. Problems Name Problem SNOMED Code Status Onset Date Resolution Date Notes Provider Name and Address Organization Details Recorded Time Dizziness and giddiness 266082812 Active 2018 Dizziness and giddiness ; Note: Date Diagnosed : 06/17/2019 4:04 PM (R42) Not Available [facility] 4 02:42:37 Tinnitus of right ear 51106535227 08 Active 2018 Tinnitus, right ear; Note: Date Diagnosed : 06/17/2019 4:04 PM (H93.11) Not Available [facility] 4 02:42:38 Conductiv e hearing loss 92939622 Active 2018 Conductiv e hearing loss, unilatera l, right ear, with unrestric angie hearing on the contralat eral side; Note: Date Diagnosed : 06/17/2019 4:04 PM (H90.11) Not Available [facility] 4 02:42:41 Acute myringiti s of right ear 47450232791 46511 Active 2018 Acute myringiti s, right ear; Note: Date Diagnosed : 06/17/2019 4:44 PM (H73.001) Not Available [facility] 4 02:42:42 Disorder of right Eustachia n tube 88368667721 57241 Active 2018 Other specified disorders of Eustachia n tube, right ear; Note: Date Diagnosed : 06/17/2019 4:04 PM (H69.81) Not Available [facility] 4 02:42:40 Family history of hearing loss 642860869 Active 2019 Family history of deafness and hearing loss; Note: Date Diagnosed : 12/02/2019 4:30 PM (Z82.2) Not Available [facility] 4 02:42:42 Adhesive middle ear disease 8295126 Active 2019 Adhesive right middle ear disease; Note: Date Diagnosed : 12/02/2019 4:35 PM (H74.11) Not Available [facility] 4 02:42:41 Chronic mucoid otitis media of right middle ear 86612596964 93356 Active 2022 Chronic mucoid otitis media, right ear; Note: Date Diagnosed : 05/24/2023 10:31 AM (H65.31) Not Available [facility] 4 02:42:44 Allergic rhinitis 08991608 Active 2023 CHELSY MARTIN MD [address], [place], [address] , [place] - [facility] 4 08:59:03 Non-aller gic rhinitis 17509683836 1 Active 2023 CHELSY MARTIN MD [address], [place], [address] , [place] - [facility] 4 08:59:32 Seasonal allergic rhinitis 202208710 Active 2023 CHELSY MARTIN MD [address] [facility] [address], [place], [address] , [place] - [facility] 4 08:59:32 Sensorine ural hearing loss 79367182 Active 2023 ZARI ARRINGTON, AUD [address], [place], [place], [address] , [place] - [facility] 4 09:12:56 Obstructi ve sleep apnea of adult 91283697972 03 Active 2023 CHELSY MARTIN MD [address] [facility], [place], [address] , [facility] - [facility] 4 09:17:04 Sensorine ural hearing loss of right ear with normal hearing on left side 6392719203 Active 2024 LORY CANDELARIA, AUD [address], [place], [address] , [facility] - [facility] 5 09:30:35 Problem Notes None recorded. Procedures Surgical History Date Name Laterality Status Provider Name and Address Organization Details Recorded Time 07/07/20 Allergy Testing-Full completed CHELSY MARTIN MD [address], [place], [address], [place] - [facility] 07/06/2025 18:11:12 07/07/20 25 Comp Audio with Tymps - 68489 & 97161 completed LORY CANDELARIA, AUD [address] [facility],[address], [address], [facility] - [facility] 07/07/2025 09:29:59 07/01/20 24 Allergy Testing-Full completed CHELSY MARTIN MD [address] [facility],[address], [address], [facility] - [facility] 06/30/2024 10:37:11 06/05/20 24 Allergy Testing-Full completed PAWAN HANDLEY, RMA [address] [facility],[address], [address], [facility] - [facility] 06/05/2024 10:17:57 05/13/20 24 Comp Audio with Tymps - 03630 & 93712 completed ZARI ARRINGTON, AUD [address] [facility],[address], [address], [facility] - [facility] 05/13/2024 09:12:41 section completed Elba Gomez [place] - [facility] 05/13/2024 08:44:52 Myringotomy Tube Placement completed Elba Gomez [facility] 05/13/2024 08:45:00 repair of meniscus completed Elba Gomez [facility] 05/13/2024 08:45:07 closed reduction of fracture of ankle completed Elba Gomez [facility] 05/13/2024 08:45:23 Imaging Results None recorded. Procedure Notes None recorded. Medical Equipment None Reported. Allergies Allergen ID Allergen Name Allergen Category Reaction Reaction Severity Criticality Documentation Date Start Date Code Code System Note Provider Name and Address Organization Details Recorded Time 466146 latex environme nt,medica tion Not available Not available Not available 05/13/2024 25082 91 RxNorm Elba mensah [facility] 08:40:47 598983 Product containin g penicilli n (product) medicatio n Not available Not available Not available 05/13/2024 17719 8001 SNOMED CHELSY MARTIN MD [address] [facility], [place], [address], [place] - [facility] 4 09:50:58 211719 Ketek medicatio n Not available Not available Not available 05/13/2024 90367 7 RxNorm CHELSY MARTIN MD [address] [facility],[address], [facility] [place], [address], [facility] - [facility] 4 09:51:08 034051 lisinopri l medicatio n Not available Not available Not available 05/13/2024 63266 RxNorm CHELSY MARTIN MD [address] [facility], [address], [facility] [place], [address], [facility] - [facility] 4 09:51:17 379910 Substance with sulfonami de structure and antibacte rial mechanism of action (substanc e) medicatio n Not available Not available Not available 05/13/2024 03967 8003 SNOMED CHELSY MARTIN MD [address] [facility], [address], [place], [address], [facility] - [facility] 4 09:51:23 Medications Name Sig Start [...] mg tablet 05/13 completed Medicati on ID: [id number] D uration Value: 30 Brand Name: zolpidem Send Method: E-Prescr ibed Sub s Allowed: subs OK Speci al Instruct ion: TAKE 1 TABLET BY MOUTH AT BEDTIME FOR [address] [facility] Medicat ion ID: [id number] D uration Value: 30 Brand Name: zolpidem [...] mg tablet 05/13 completed Medicati on ID: [id number] D uration Value: 30 Brand Name: atenolol Send Method: E-Prescr ibed Sub s Allowed: subs OK Speci al Instruct ion: TAKE 1 TABLET BY MOUTH EVERY DAY Medi cationGe nericNam e: atenolol Medicat ion ID: [id number] D uration Value: 30 Brand Name: atenolol [...] mg tablet 05/13 completed Medicati on ID: [id number] D uration Value: 30 Brand Name: naproxen Send Method: E-Prescr ibed Sub s Allowed: subs OK Speci al Instruct ion: TAKE 1 TABLET BY MOUTH EVERY 12 HOURS WITH FOOD OR MILK NEEDED FOR 30 DAYS Med icationG enericNa me: naproxen Medicat ion ID: [id number] D uration Value: 30 Brand Name: naproxen [...] drops,shin p 05/24 completed Medicati on ID: [id number] D uration Value: 7 Brand Name: neomycin -polymyx in-HC Se nd Method: E-Prescr ibed Sub s Allowed: subs OK Medic ationGen ericName : neomycin -polymyx in-HC Not Available Not Available Not Available TobraDex 0.3 %-0.1 % eye drops,shin pension 5 as directed 05/13 completed Medicati on ID: [id number] D uration Value: 30 Brand Name: TobraDex Send Method: E-Prescr ibed Sub s Allowed: subs OK Speci al Instruct ion: Instill 5 drops in the affected ear BID for 30 days Med icationG enericNa me: TobraDex Medicat ion ID: [id number] D uration Value: 30 Brand Name: TobraDex Send Method: E-Prescr ibed Sub s Allowed: subs OK Speci al Instruct ion: Instill 5 drops in the affected ear BID for 30 days Med icationG enericNa me: TobraDex Not Available Not Available Not Available sulfaceta mide sodium-street lfur-urea 10 %-4 %-10 % topical cleanser 05/13 completed Medicati on ID: [id number] B rand Name: sulfacet amide sod-sulf ur-urea Send Method: E-Prescr ibed Sub s Allowed: subs OK Medic ationGen ericName : sulfacet amide sod-sulf ur-urea Medicati on ID: [id number] B rand Name: sulfacet amide sod-sulf ur-urea [...] Not Available Not Available Not Available Vitals None Recorded Social History None recorded. Functional Status None [...] ICD10 Code Diagnosis IMO Codes Diagnosis Note [id number] CHELSY MARTIN MD [facility] [address] [address] 07/07/2025 08:44:42 07/07/2025 10:04:33 Allergic rhinitis 75784685 J30.9 Disorder o f right Eustachian tube 2456690820 341696 H69.81 Adhesive m iddle ear disease 6685490 H74.11 Sensorineu ral hearing loss of right ear with normal hearing on left side 7327552059 H90.41 10616050 Audiologic al evaluation results: 07/07/2025R ight ear:Normal [...] by Organization Details LastModified Time None Recorded Payers Encounter Date Sequence Insurance Name Policy Number Policy Patel Covered Member ID Patel Member ID Guarantor Name 07/07/2025 1 [facility] ([facility] [place] [id number] Marlyn Rogerio Nunez [id number] Marlyn Nunez Notes Date Note Type Note Provider Name and Address Organization Details Recorded Time 07/07/2025 text/html 60-year-old female presents postoperatively status [...] using Valsalva maneuver recently. CHELSY MARTIN MD [address] [place] [address], [address], [facility] - [facility] 07/07/2025 10:05:24 OBGyn Episode No OBEpisode recorded.
--- OUTSIDE RECORDS SUMMARY | 2025-09-28 17:55 | XMS_ITS | Data Portability ---
Author Organization [place] - [facility], Allergy Address [address] [address] Care Team Providers Care Child Care Leader Name Role Phone EDILBERTO MATIAS Primary Care Provider [phone] Assessment Encounter Date Assessment Date Assessment LastModified [...] see her back after it is completed. [email or web address] Not available 05/13/2024 09:00:24 07/01/2024 07/01/2024 Patient [...] follow-up in 1 year for audiometric testing. 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 Symptoms having: Congestion If other: Frequency [...] Organization Details Recorded Time Dizziness and giddiness 995463821 Active 2018 Dizziness and giddiness ; Note: Date Diagnosed : 06/17/2019 4:04 PM (R42) Not Available [facility] 4 02:42:37 Tinnitus of right ear 19698445781 08 Active 2018 Tinnitus, right ear; Note: Date Diagnosed : 06/17/2019 4:04 PM (H93.11) Not Available [facility] 4 02:42:38 Conductiv e hearing loss 78375880 Active 2018 Conductiv e hearing loss, unilatera l, right ear, with unrestric angie hearing on the contralat eral side; Note: Date Diagnosed : 06/17/2019 4:04 PM (H90.11) Not Available [facility] 4 02:42:41 Acute myringiti s of right ear 56313679577 91463 Active 2018 Acute myringiti s, right ear; Note: Date Diagnosed : 06/17/2019 4:44 PM (H73.001) Not Available [facility] 4 02:42:42 Disorder of right Eustachia n tube 16886030346 18762 Active 2018 Other specified disorders of Eustachia n tube, right ear; Note: Date Diagnosed : 06/17/2019 4:04 PM (H69.81) Not Available [facility] 4 02:42:40 Family history of hearing loss 404857738 Active 2019 Family history of deafness and hearing loss; Note: Date Diagnosed : 12/02/2019 4:30 PM (Z82.2) Not Available [facility] 4 02:42:42 Adhesive middle ear disease 9835966 Active 2019 Adhesive right middle ear disease; Note: Date Diagnosed : 12/02/2019 4:35 PM (H74.11) Not Available [facility] 4 02:42:41 Chronic mucoid otitis media of right middle ear 83370417853 69166 Active 2022 Chronic mucoid otitis media, right ear; Note: Date Diagnosed : 05/24/2023 10:31 AM (H65.31) Not Available [facility] 4 02:42:44 Allergic rhinitis 91303102 Active 2023 CHELSY MARTIN MD [address], [place], [place], [address] , [place] - [facility] 4 08:59:03 Non-aller gic rhinitis 22442734962 1 Active 2023 CHELSY MARTIN MD [address], [place], [place], [address] , [place] - [facility] 4 08:59:32 Seasonal allergic rhinitis 624830273 Active 2023 CHELSY MARTIN MD [address], [place], [address] , [place] [facility] 4 08:59:32 Sensorine ural hearing loss 49887749 Active 2023 ZARI ARRINGTON, AUD [address], [place], [address] , [place] - [facility] 4 09:12:56 Obstructi ve sleep apnea of adult 46892902140 03 Active 2023 CHELSY MARTIN MD [address], [place], [address] , [place] [facility] 4 09:17:04 Sensorine ural hearing loss of right ear with normal hearing on left side 8633879187 Active 2024 LORY CANDELARIA, AUD [address], [place], [place], [address] , [place] - [facility] 5 09:30:35 Problem Notes None recorded. Procedures Surgical History Date Name Laterality Status Provider Name and Address Organization Details Recorded Time 07/07/20 25 Allergy Testing-Full completed CHELSY MARTIN MD 100 [facility],[address], [address], [facility] - [facility] 07/06/2025 18:11:12 07/07/20 25 Comp Audio with Tymps - 12249 & 15636 completed LORY CANDELARIA, AUD 100 [facility],[address], [address], [facility] - [facility] 07/07/2025 09:29:59 07/01/20 24 Allergy Testing-Full completed CHELSY MARTIN MD 100 [facility],[address], [address], [facility] - [facility] 06/30/2024 10:37:11 06/05/20 24 Allergy Testing-Full completed PAWAN HANDLEY Leyda 100 [facility],[address], [address], [facility] - [facility] 06/05/2024 10:17:57 05/13/20 24 Comp Audio with Tymps - 39407 & 44953 completed ZARI ARRINGTON, AUD 100 [facility],[address], [address], [facility] - [facility] 05/13/2024 09:12:41 section completed Elba Gomez [place] - [facility] 05/13/2024 08:44:52 Myringotomy Tube Placement completed Elba Gomez [place] - [facility] 05/13/2024 08:45:00 repair of meniscus completed Elba Gomez [place] - [facility] 05/13/2024 08:45:07 closed reduction of fracture of ankle completed Elba Gomez [place] - [facility] 05/13/2024 08:45:23 Imaging Results None recorded. Procedure Notes None recorded. Medical Equipment None Reported. Allergies Allergen ID Allergen Name Allergen Category Reaction Reaction Severity Criticality Documentation Date Start Date Code Code System Note Provider Name and Address Organization Details Recorded Time 007602 latex environme nt,medica tion Not available Not available Not available 05/13/2024 05631 91 RxNorm Elba mensah [place] - [facility] 4 08:40:47 113828 Product containin g penicilli n (product) medicatio n Not available Not available Not available 05/13/2024 27390 8001 SNOMED CHELSY MARTIN MD 100 [facility],[address], [place], [address], [place] - [facility] 4 09:50:58 797847 Ketek medicatio n Not available Not available Not available 05/13/2024 76466 7 RxNorm CHELSY MARTIN MD 100 [facility], [address], [place], [address], [facility] - [facility] 4 09:51:08 432137 lisinopri l medicatio n Not available Not available Not available 05/13/2024 07077 RxNorm CHELSY MARTIN MD 100 [facility], [address], [place], [address], [facility] - [facility] 4 09:51:17 977614 Substance with sulfonami de structure and antibacte rial mechanism of action (substanc e) medicatio n Not available Not available Not available 05/13/2024 96740 8003 SNOMED CHELSY MARTIN MD 100 [facility], [address], [place], [address], [facility] - [facility] 4 09:51:23 Medications Name Sig Start Date [...] mg tablet 05/13 completed Medicati on ID: [id number] D uration Value: 30 Brand Name: zolpidem Send Method: E-Prescr ibed Sub s Allowed: subs OK Speci al Instruct ion: TAKE 1 TABLET BY MOUTH AT BEDTIME FOR 30 DAYS Med icationG enericNa me: zolpidem Medicat ion ID: [id number] D uration Value: 30 Brand Name: zolpidem [...] mg tablet 05/13 completed Medicati on ID: [id number] D uration Value: 30 Brand Name: atenolol Send Method: E-Prescr ibed Sub s Allowed: subs OK Speci al Instruct ion: TAKE 1 TABLET BY MOUTH EVERY DAY Medi cationGe nericNam e: atenolol Medicat ion ID: [id number] D uration Value: 30 Brand Name: atenolol [...] mg tablet 05/13 completed Medicati on ID: [id number] D uration Value: 30 Brand Name: naproxen Send Method: E-Prescr ibed Sub s Allowed: subs OK Speci al Instruct ion: TAKE 1 TABLET BY MOUTH EVERY 12 HOURS WITH FOOD OR MILK NEEDED FOR 30 DAYS Med icationG enericNa me: naproxen Medicat ion ID: [id number] D uration Value: 30 Brand Name: naproxen Send Method: E-Prescr ibed Sub s Allowed: subs OK Speci al Instruct ion: TAKE 1 TABLET BY MOUTH EVERY 12 HOURS WITH FOOD OR MILK NEEDED FOR 30 DAYS [facility] nap[facility]en Not Available Not Available [...] drops,shin p 05/24 completed Medicati on ID: [id number] D uration Value: 7 Brand Name: neomycin -polymyx in-HC Se nd Method: E-Prescr ibed Sub s Allowed: subs OK [facility] : neomycin -polymyx in-HC Not Available Not Available Not Available TobraDex 0.3 %-0.1 % eye drops,shin pension 5 as directed 05/13 completed Medicati on ID: [id number] D uration Value: 30 Brand Name: TobraDex Send Method: E-Prescr ibed Sub s Allowed: subs OK Speci al Instruct ion: Instill 5 drops in the affected ear BID for 30 days Med [facility] enericNa me: TobraDex Medicat ion ID: [id number] D uration Value: 30 Brand Name: TobraDex Send Method: E-Prescr ibed Sub s Allowed: subs OK Speci al Instruct ion: Instill 5 drops in the affected ear BID for 30 days [facility]: TobraDex Not Available Not Available Not Available sulfaceta mide sodium-street lfur-urea 10 %-4 %-10 % topical cleanser 05/13 completed Medicati on ID: [id number] B rand Name: sulfacet amide sod-sulf ur-urea Send Method: E-Prescr ibed Sub s Allowed: subs OK Medic ationGen ericName : sulfacet amide sod-sulf ur-urea Medicati on ID: [id number] B rand Name: sulfacet amide sod-sulf ur-urea [...] Details Last Updated DateTime 05/13/2024 161.29 cm 42819.66 g Elba Gomez [place] - [facility] 05/13/2024 08:47:34 Date Recorded Body height Body mass index (BMI) Body weight Oxygen saturation Oxygen saturation in Arterial blood by Pulse oximetry Heart rate Systolic And Diastolic Provider Name and Address Organization Details Last Updated DateTime 4 161.29 cm 31.4 kg/m2 24934.6 3 g 97 % 97 % 61 /min 120/72 mm[Hg] PAWAN HANDLEY, [facility] [address], [address] [place] - [facility] 09:13:29 Date Recorded Body height Body weight Provider Name and Address Organization Details Last Updated DateTime 07/01/2024 161.29 cm 51821.63 g Elba Gomez [place] - [facility] 07/01/2024 08:52:21 Social History None recorded. Functional Status None recorded. Mental Status None recorded. Family History Nothing Reported. Medical History Condition Response Thyroid Problems Y Hypertension Y High Cholesterol Y Sleep Disorder Y GERD/Reflux Y Gynecological HistoryNo gynecological history recorded. Obstetrics History GPAL:G 0 P 0 0 0 0 Past Encounters Encounter ID Performer Location Encounter Start Date Encounter Closed Date Diagnosis/Indication Diagnosis SNOMED-CT Code Diagnosis ICD10 Code Diagnosis IMO Codes Diagnosis Note [id number] CHELSY MARTIN MD [facility] [address] [address] 05/13/2024 08:34:46 05/13/2024 09:52:35 Allergic rhinitis 65244044 J30.9 Disorder o f right Eustachian tube 0409757643 832355 H69.81 Sensorineu ral hearing loss 58059558 H90.41 Audiologic al evaluation results: Right ear: Mild to moderate sensorineu ral hearing loss with excellent word recognitio n. Left ear: DNT Tympanomet ry: Right Ear:Type Ad Left Ear:DNT [id number] PAWAN [place]O [facility] [address] [place] [address] 06/05/2024 08:57:39 06/05/2024 13:08:25 Allergic rhinitis 76320148 J30.9 [id number] CHELSY MARTIN MD [facility] [address] [address] 07/01/2024 08:42:29 07/01/2024 09:23:58 Allergic rhinitis 85891659 J30.9 Disorder o f right Eustachian tube 5877040099 742015 H69.81 Obstructiv e sleep apnea of adult 8888341882 103 G47.33 I recommende d she be diligent about the cleaning protocols for her CPAP machine, as mold can grow in CPAP machines Adhesive m iddle ear disease 2663721 H74.11 [id number] CHELSY MARTIN MD [facility] [address] [place] [address] 07/07/2025 08:44:42 07/07/2025 10:04:33 Allergic rhinitis 86213932 J30.9 Disorder o f right Eustachian tube 2082177041 490297 H69.81 Adhesive m iddle ear disease 5739577 H74.11 Sensorineu ral hearing loss of right ear with normal hearing on left side 1294975194 H90.41 [id number] Audiologic al evaluation results: 07/07/2025R ight ear:Normal [...] Patel Member ID Guarantor Name 07/07/2025 1 [facility] [id number] Marlyn Nunez [id number] Marlyn Nunez 05/03/2025 1 [facility] (MEDICAID O) [id number] Marlyn Nunez [id number] Marlyn Nunze Notes Date Note Type Note Provider Name [...] she was younger. CHELSY MARTIN MD 100 [facility] [address], [address], [facility] - [facility] 05/13/2024 09:59:28 07/01/2024 text/html 59-year-old female presents [...] the right ear CHELSY MARTIN MD 100 [facility] [address], [place], [address], [facility] 07/01/2024 09:25:15 07/07/2025 text/html 60-year-old female presents [...] using Valsalva maneuver recently. CHELSY MARTIN MD [address] [place] [address], [address], [place] - [facility] 07/07/2025 10:05:24 OBGyn Episode No OBEpisode recorded.
== END 2025-09-28 16:18 | disposition home or self-care (01) ==
LOC: HO.ENCR 16:00
PROVIDERS: Visit Provider Internal Medicine Endocrinology, Diabetes & Metabolism
DX: E66.3 Overweight (principal)
CPT/HCPCS: 99213